=== PATIENT | male | born 1955 | race Caucasian/White ===

== ENCOUNTER 2018-11-05 13:02 | Inpatient (IN) | payer MEDICARE ==
[~2018-11-05] VITALS: Ht 182.9 cm; Wt 83.6 kg
--- NOTE | ~2018-11-05 | HEMODYNAMI ---
PATIENT:BOB REYES MEDICAL RECORD: [id number] : 53 [id number] ADMISSION DATE: 11/05/18 Generatedon:11/15/201815:35 Patient name: BOB REYES Patient #: [id number] SSN: : 1955 Date of study: 11/15/2018 Page: Of Hemodynamic Procedure Report Patient Data Patient Demographics Procedure consent was obtained First Name: BOB Gender: Male Last Name: ERIC : 1955 Middle Initial: GISEL Age: 63 year(s) Patient #: [id number] Race: Unknown Additional ID: [id number] Contact details Address: [address] [place] [address] State: [place] City: [place] Zip code: [address] Admission Admission Data Admission Date: 11/05/2018 Admission Time: 13:02 Room #: [facility] Height (in.): 72 BSA: 2.06 (m2) Height (cm.): 182.88 BMI: 24.95 (kg/m2) Weight (lbs.): 184 Weight (kg.): 83.46 Procedure Procedure Types Cath Procedure Peripheral Cath Diagnostic Procedure Rn Otolaryngology Peripheral Procedures Abd/Extremity Extremities Left Lower Ext Arterio Procedure Description Procedure Date Procedure Date: 11/15/2018 Procedure Start Time: 14:15 Procedure Staff Name Function Bob Mattson MD Performing Physician Judi Fairbanks RT Central Office Installer Rosalee Cortez RN Nurse Bryn Benjamin RT Scrub Procedure Data Cath Procedure Fluoroscopy Diagnostic fluoroscopy Total fluoroscopy Time: 17 time: 17 min min Diagnostic fluoroscopy Total fluoroscopy dose: dose: 1596 mGy 1596 mGy Contrast Material Contrast Material Type Amount (ml) Isovue 300 55 Entry Location Entry Primary Successful Side Size Upsize Upsize Entry Closure Succes sful Closure Location (Fr) 1 (Fr) 2 (Fr) Remarks Device Remarks Femoral Exoseal artery Diagnostic catheters Device Type Used For End Catheter Placement DIAGNOSTIC IMT 5Fr Catheter ([id number]) Procedure Medications Medication Administration Route Dosage Heparin Flush Bag added to field 3 bags (1000units/500ml NS) Lidocaine 1% added to field 20 Heparin Bolus I.V. 4000 units Nitroglycerin IC/IA I.A. 200 mcg Hemodynamics Rest BSA: 2.06 (m2) O2 Consumption: Estimated: 255.78 (ml/min) O2 Consumption indexed : Estimated:124.17 (ml/min/m) Heart Rate: 90 (bpm) Snapshots Pre Cath Intra NCS Post Cath Vital Signs Time Heart Resp SPO2 etCO2 NIBP Rhythm Pain Sedation Rate (ipm) (%) (mmHg) (mmHg) Status Level (bpm) 14:09:51 96 17 98 22.5 102/68(83) NSR 0 (11) 10(A) , No pain 14:13:59 87 17 98 27 104/66(85) NSR 0 (11) 10(A) , No pain 14:18:05 87 12 98 27 109/68(87) NSR 0 (11) 10(A) , No pain 14:22:19 86 21 97 26.3 100/61(79) NSR 0 (11) 10(A) , No pain 14:26:19 86 17 97 21.8 105/76(84) NSR 0 (11) 10(A) , No pain 14:30:27 86 22 97 29.3 102/66(82) NSR 0 (11) 10(A) , No pain 14:34:37 85 21 96 21.8 95/63(79) NSR 0 (11) 10(A) , No pain 14:38:42 84 21 97 24.8 98/65(82) NSR 0 (11) 10(A) , No pain 14:42:50 88 21 97 21 100/62(75) NSR 0 (11) 10(A) , No pain 14:47:00 83 21 96 16.5 94/61(77) NSR 0 (11) 10(A) , No pain 14:51:08 83 22 96 20.3 95/62(78) NSR 0 (11) 10(A) , No pain 14:55:17 82 22 96 15.7 96/59(73) NSR 0 (11) 10(A) , No pain 14:59:27 83 23 96 18.8 96/61(78) NSR 0 (11) 10(A) , No pain 15:03:39 82 24 93 23.3 92/59(70) NSR 0 (11) 10(A) , No pain 15:07:49 82 24 86 24 94/59(72) NSR 0 (11) 10(A) , No pain 15:11:57 81 24 94 14.3 97/62(81) NSR 0 (11) 10(A) , No pain 15:16:07 81 25 95 5.2 99/60(78) NSR 0 (11) 10(A) , No pain 15:20:17 80 23 94 7.5 97/62(76) NSR 0 (11) 10(A) , No pain 15:24:25 79 25 94 9.7 96/60(80) NSR 0 (11) 10(A) , No pain 15:28:28 80 23 96 10.5 102/69(82) NSR 0 (11) 10(A) , No pain 15:32:36 81 24 96 22.5 103/70(83) NSR 0 (11) 10(A) , No pain Medications Time Medication Route Dose Verified Delivered Reason Notes Eff ectiveness by by 14:09:05 Heparin Flush added 3 bags Bob Diaz used for Bag to Twila Mattson procedure (1000units/500ml field MD DELACRUZ NS) 14:09:16 Lidocaine 1% added 20ml Bob Diaz for local to vial Twila Mattson anesthetic field MD DELACRUZ 14:33:28 Heparin Bolus I.V. 4000 Bob Turk Per units Twila Cortez RN physician 14:54:47 Nitroglycerin I.A. 200mcg Bob Turk used for IC/IA Twila Cortez RN procedure MD Procedure Log Time Note 13:33:35 Patient Height : 72 inches 13:33:35 Patient Weight : 184 lbs 13:34:04 Use device set IR Diagnostic 13:52:37 Time tracking: Regular hours (M-F 7:00 - 5:00) 13:57:17 Plan of Care:Hemodynamics will remain stable., Cardiac rhythm will remain stable., Comfort level will be maintained., Respiratory function will remain adequate., Patient/ family verbilizes understanding of procedure., Procedure tolerated without complication., Recovers from procedure without complications.. 13:57:23 Patient received from Med/Surg to IR Alert and oriented. Tansferred to table in Supine position. 13:57:26 Warm blankets applied, and gustavo hugger turned on for patient comfort. 13:57:27 Correct patient and procedure confirmed by team. 13:57:29 Signed procedure consent form obtained from patient. 13:57:34 H&P Date Dictated: 11/15/2018 Within 30 days and on chart.. 13:58:51 Pre-procedure instructions explained to patient. 13:58:52 Pre-op teaching completed and patient verbalized understanding. 13:58:55 Family unavailable. 13:59:00 Patient NPO since Midnight. 13:59:25 Is the patient allergic to Iodine/contrast media? No. 13:59:29 Is patient on blood thinner?Yes 13:59:33 Patient diabetic? Yes. 13:59:54 - 13:59:56 ----Pre-sedation anethsthesia assessment.----SEE ANESTHESIA NOTES FOR MONITORING OF PATIENT DURING PROCEDURE 14:00:47 Pre procedure: right dorsailis pedis pulse Doppler 14:00:52 Pre procedure: left dorsailis pedis pulse Doppler 14:00:56 Pre procedure: right posterior tibial pulse Doppler 14:01:02 Pre procedure: left posterior tibial pulse Doppler 14:01:17 Right groin area was prepped with chlora-prep and draped in sterile fashion 14:01:22 Left groin area was prepped with chlora-prep and draped in sterile fashion 14:01:27 - 14:08:46 ECG and BP/O2 sat monitors applied to patient. 14:08:47 Vital chart was started 14:08:49 Baseline sample Acquired. 14:08:51 Full Disclosure recording started 14:08:52 - 14:09:05 Heparin Flush Bag (1000units/500ml NS) 3 bags added to field was administered by Bob Mattson MD; used for procedure; 14:09:06 - 14:09:16 Lidocaine 1% 20ml vial added to field was administered by Bob ashford MD; for local anesthetic; 14:09:44 HOLCOMB 260 wire (U65990) opened to sterile field. 14:09:47 A DIAGNOSTIC IMT 5Fr Catheter ([id number]) was advanced over the wire an d used for . 14:09:49 BENTSON 145cm wire (C20025) opened to sterile field. 14:09:49 Micropuncture VSI 4FR kit opened to sterile field. 14:09:50 Tegaderm 4 x 4 (1626W) opened to sterile field. 14:09:51 Sterile Angiographic Pack opened to sterile field. 14:09:52 Bag Decanter () opened to sterile field. 14:09:53 ACIST Manifold (36744) opened to sterile field. 14:09:54 ACIST Hand Control (88706) opened to sterile field. 14:09:54 ACIST Syringe (90435) opened to sterile field. 14:12:19 SHEATH 5FR [place] (HBM563) opened to sterile field. 14:12:22 - 14:14:02 Physician arrived 14:14:04 --------ALL STOP TIME OUT------ 14:14:05 Final Timeout: patient, procedure, and site verified with staff and physician. All members of the team are in agreement. 14:15:18 Procedure started. 14:15:23 Local anesthetic to right femoral artery with Lidocaine 1% by Bob Mattson MD.INITIAL ACCESS ONLY 14:15:29 Arterial access obtained using ultrasound guidance. 14:32:54 CXI SUPPORT .035 135 CM STR catheter (L60255) opened to sterile field. 14:32:54 SHEATH 6FR [place] (RSR01) opened to sterile field. 14:32:55 ROADRUNNER .035 260 glide wire (V74508) opened to sterile field. 14:33:28 Heparin Bolus 4000 units I.V. was administered by Rosalee Cortez RN; Per physician; 14:44:15 CHOICE PT Extra Support J 300cm guide wire ([id number]) opened to steril e field. 14:44:58 [place] LX-C Atherectomy catheter (THSLXC) opened to sterile field. 14:45:38 Inflate balloon Inflation number: 1 A Waelder Plus 4 x 8 x 130 Balloon ([id number]) was prepped and advanced across the Undefined1, then inflated . 14:54:47 Nitroglycerin IC/IA 200mcg I.A. was administered by Rosalee Cortez RN; used for procedure; 15:10:36 [place] LX-C Atherectomy catheter (THSLXC) opened to sterile field. 15:17:58 Inflate balloon Inflation number: 2 A CONQUEST 7 x 4 x 75CM balloon (IT4568) was prepped and advanced across the Undefined1, then inflated. 15:23:53 EXOSEAL 6Fr (EX600) opened to sterile field. 15:25:23 SHEATH 6FR [place] (VUI338) opened to sterile field. 15:28:24 A sheath was inserted into the Femoral artery 15:28:24 Sheath removed intact; hemostasis achieved with Exoseal to the Femoral artery. 15:29:21 Procedure ended.(Physican Out) 15:29:32 Fluoroscopy time 17.00 minutes. 15:29:48 Fluoroscopy dose: 1596 mGy 15:29:48 Flurop Dose total: 1596 15:30:36 Contrast amount:Isovue 300 55ml. 15:30:39 Procedure and supply charges have been captured, reviewed, submitted an d are correct. 15:34:42 Report given to Med II. 15:35:14 Vital chart was stopped Intervention Summary Intervention Notes Time ActionType Lesion and Equipment Used Action# Pressure Duration Attributes 14:45:38 Inflate Undefined1 Waelder Plus 4 1 0 00:00 balloon x 8 x 130 Balloon ([id number]) 15:17:58 Inflate Undefined1 CONQUEST 7 x 4 2 0 00:00 balloon x 75CM balloon (TC7622) Device Usage Item Name Manufacture Quantity Catalog Number [facility] Part [facility] Lot# / Charge Number Stock Stock Serial# Code HOLCOMB 260 wire Cook Medical 1 [id number] 691756 43411 056506 5 [id number] ([id number]) DIAGNOSTIC IMT [place] 1 [id number] 386849 620708 48282 5 [id number] 5Fr Catheter Scientific ([id number]) BENTSON 145cm [employer] Medical 1 V38507 504243 704510 5 [id number] wire (L70897) Micropuncture VSI VASCULAR 1 7266V 551591 993736 5 VSI 4FR kit SOLUTIONS Tegaderm 4 x 4 3M 1 1626W 027005 325171 668209 5 (1626W) Sterile Cardinal 1 [id number] 733984 953473 5 Angiographic Health Pack Bag Decanter Microtek 1 404307 98477 255719 5 () Medical Inc. ACIST Manifold Acist 1 44183 247408 135305 851429 5 (31164) Medical Systems Inc ACIST Hand Acist 1 04263 969769 041606 356161 5 Control Medical (99308) Systems Inc ACIST Syringe Acist 1 70113 462464 791142 123439 20 (76690) Medical Systems Inc SHEATH 5FR Terumo 1 FOA311 085947 944148 783742 5 [place] (MPC722) CXI SUPPORT Vertigo 1 P67166 638954 037076 664547 5 9000559 .035 135 CM STR catheter (E78667) SHEATH 6FR Terumo 1 RSR01 481744 20735 400490 5 Destination (RSR01) [facility] 1 S39026 893627 845720 329350 5 5730950 .035 260 glide wire (Q41964) CHOICE PT [place] 1 [id number] 05004320190325 091754 5 Extra Support Scientific J 300cm guide wire ([id number]) [place] LX-C Medtronic 1 THS-LX-C 865827 808795 5 Atherectomy catheter (THSLXC) Waelder Plus 4 Medtronic 1 [id number] 228661 619932 335597 5 [id number] x 8 x 130 Balloon ([id number]) CONQUEST 7 x 4 Bard 1 VB2774 868110 133632 5 [id number] x 75CM balloon (RV6528) EXOSEAL 6Fr Cardinal 1 EX600 054100 928851 111792 10 [id number] (EX600) Health SHEATH 6FR Terumo 1 WII117 174227 348187 430107 40 [place] (XRS720) Signature Audit [place] Stage Time Signature Unsigned Intra-Procedure 11/15/2018 Judi Fairbanks 3:35:10 PM RT(R) [address] [place] [address]
--- NOTE | ~2018-11-05 | HEMODYNAMI ---
PATIENT:BOB REYES MEDICAL RECORD: [id number] : 53 [address] [id number] ADMISSION DATE: 11/05/18 Generatedon:11/14/201812:11 Patient name: BOB REYES Patient #: [id number] SSN: : 1955 Date of study: 11/14/2018 Page: Of Hemodynamic Procedure Report Patient Data Patient Demographics Procedure consent was obtained First Name: BOB Gender: Male Last Name: ERIC : 1955 Middle Initial: EDAUGUSTA Age: 63 year(s) Patient #: [id number] Race: Unknown Additional ID: [id number] Contact details Address: [address] [place] [address] State: [place] City: [place] Zip code: [address] Admission Admission Data Admission Date: 11/05/2018 Admission Time: 13:02 Room #: [facility] Height (in.): 72 BSA: 2.06 (m2) Height (cm.): 182.88 BMI: 24.95 (kg/m2) Weight (lbs.): 184 Weight (kg.): 83.46 Procedure Procedure Types Cath Procedure Peripheral Cath Diagnostic Procedure Ticket Printer Peripheral Procedures Abd/Extremity Extremities Bilat Lower Extremity Procedure Description Procedure Date Procedure Date: 11/14/2018 Procedure Start Time: 11:27 Procedure Staff Name Function Dominic Lewis MD Performing Physician Judi Fairbanks RT Fire Watchman Rosalee Cortez RN Nurse Bryn Benjamin RT Scrub Procedure Data Cath Procedure Fluoroscopy Diagnostic fluoroscopy Total fluoroscopy Time: 7.7 time: 7.7 min min Diagnostic fluoroscopy Total fluoroscopy dose: 638 dose: 638 mGy mGy Contrast Material Contrast Material Type Amount (ml) Isovue 300 70 Procedure Medications Medication Administration Route Dosage Heparin Flush Bag added to field 3 bags (1000units/500ml NS) Lidocaine 1% added to field 20 Versed I.V. 2 mg Fentanyl I.V. 100 mcg Versed I.V. 1 mg Fentanyl I.V. 50 mcg Versed I.V. 1 mg Fentanyl I.V. 50 mcg Versed I.V. 1 mg Fentanyl I.V. 50 mcg Hemodynamics Rest BSA: 2.06 (m2) O2 Consumption: Estimated: 249.94 (ml/min) O2 Consumption indexed : Estimated:121.33 (ml/min/m) Heart Rate: 82 (bpm) Snapshots Pre Cath Intra NCS Post Cath Vital Signs Time Heart Resp SPO2 etCO2 NIBP Rhythm Pain Sedation Rate (ipm) (%) (mmHg) (mmHg) Status Level (bpm) 11:03:52 82 17 99 28.6 113/59(98) NSR 0 (11) 10(A) , No pain 11:08:33 82 14 97 20.3 112/64(88) NSR 0 (11) 10(A) , No pain 11:12:35 81 11 98 20.3 101/63(85) NSR 0 (11) 10(A) , No pain 11:16:30 81 17 100 18.8 103/69(84) NSR 0 (11) 10(A) , No pain 11:21:11 82 14 98 30.9 117/52(82) NSR 0 (11) 9(A) , No pain 11:25:13 82 9 98 21.8 108/66(84) NSR 0 (11) 9(A) , No pain 11:29:10 82 13 99 15 110/75(89) NSR 0 (11) 9(A) , No pain 11:33:08 82 11 96 33.9 101/73(86) NSR 0 (11) 8(A) , No pain 11:37:03 83 14 98 33.9 106/68(86) NSR 0 (11) 8(A) , No pain 11:41:00 82 13 95 39.9 109/73(86) NSR 0 (11) 8(A) , No pain 11:45:00 82 11 96 30.2 109/66(86) NSR 0 (11) 8(A) , No pain 11:49:00 82 8 94 32.4 109/63(86) NSR 0 (11) 8(A) , No pain 11:52:57 83 17 95 41.5 101/69(83) NSR 0 (11) 8(A) , No pain 11:56:51 86 11 98 34 101/72(87) NSR 0 (11) 8(A) , No pain 12:00:46 88 14 28.7 110/68(87) NSR 0 (11) 8(A) , No pain 12:04:44 91 14 98 47.6 100/67(90) NSR 0 (11) 8(A) , No pain 12:09:04 91 12 42.2 111/75(86) NSR 0 (11) 8(A) , No pain Medications Time Medication Route Dose Verified Delivered Reason Notes Effe ctiveness by by 11:32:33 Heparin Flush added 3 M J Long M J Long used for Bag to bags MD DELACRUZ procedure (1000units/500ml field NS) 11:32:43 Lidocaine 1% added 20ml M J Long M J Long for local to vial MD DELACRUZ anesthetic field 11:32:53 Versed I.V. 2 mg M J Long Rosalee for MD Cortez RN sedation 11:33:03 Fentanyl I.V. 100 M J Long Rosalee for mcg MD Cortez RN sedation 11:40:20 Versed I.V. 1 mg M J Long Rosalee for MD Cortez RN sedation 11:40:27 Fentanyl I.V. 50 M J Long Rosalee for dave Cortez RN sedation 11:44:31 Versed I.V. 1 mg M J Long Rosalee for MD Cortez RN sedation 11:44:53 Fentanyl I.V. 50 M J Long Rosalee for dave Cortez RN sedation 11:50:17 Versed I.V. 1 mg M J Long Rosalee for MD Cortez RN sedation 11:50:44 Fentanyl I.V. 50 M J Long Rosalee for dave Cortez RN sedation Procedure Log Time Note 10:41:07 Patient Height : 72 inches 10:41:13 Patient Weight : 184 lbs 10:41:19 Use device set IR Diagnostic 10:41:21 Tegaderm 4 x 4 (1626W) opened to sterile field. 10:41:22 Sterile Angiographic Pack opened to sterile field. 10:41:25 Bag Decanter (2001S) opened to sterile field. 10:41:26 ACIST Manifold (10967) opened to sterile field. 10:41:27 ACIST Hand Control (59743) opened to sterile field. 10:41:28 ACIST Syringe (59418) opened to sterile field. 10:42:16 DOC .035 wire (E32877) opened to sterile field. 10:42:17 HOLCOMB 260 wire (Y58905) opened to sterile field. 10:42:18 Micropuncture VSI 4FR kit opened to sterile field. 10:42:18 SHEATH 5FR [place] (JNY973) opened to sterile field. 10:42:19 TUBING Contrast Injection High Pressure (BEC747K) opened to sterile field. 10:42:22 SHEATH 6FR [place] (RSR01) opened to sterile field. 10:43:20 - 10:47:49 Time tracking: Regular hours (M-F 7:00 - 5:00) 10:47:58 Plan of Care:Hemodynamics will remain stable., Cardiac rhythm will remain stable., Comfort level will be maintained., Respiratory function will remain adequate., Patient/ family verbilizes understanding of procedure., Procedure tolerated without complication., Recovers from procedure without complications.. 10:48:09 Patient received from Next Jump II to IR Alert and oriented. Tansferred to table in Supine position. 10:48:13 Signed procedure consent form obtained from patient. 10:48:19 H&P Date Dictated: 11/14/2018 Within 30 days and on chart.. 10:48:21 Pre-procedure instructions explained to patient. 10:48:22 Pre-op teaching completed and patient verbalized understanding. 10:48:25 Family in waiting room. 10:48:27 Patient NPO since Midnight. 10:48:45 - 10:48:51 Is the patient allergic to Iodine/contrast media? No. 10:48:54 Is patient on blood thinner?No 10:48:56 Patient diabetic? Yes. 10:48:58 If diabetic: On Metformin? No 10:49:01 - 10:49:14 ----Pre-sedation anethsthesia assessment.---- 10:49:17 Previous problem with sedation/anesthesia? No ? 10:49:20 Snore? Yes 10:49:22 Sleep apnea? No 10:49:27 Deviated septum? No 10:49:31 Opens mouth fully? Yes 10:49:34 Sticks out tongue? Yes 10:49:37 Airway obstruction? No ? 10:49:41 Dentures? No ? 10:49:44 - 10:49:58 IV patent on arrival in right wrist with D5/.45%NaCl at KVO. 10:50:14 Right groin area was prepped with chlora-prep and draped in sterile fashion 10:50:17 - 11:02:51 ECG and BP/O2 sat monitors applied to patient. 11:02:53 Vital chart was started 11:02:55 Baseline sample Acquired. 11:02:57 Full Disclosure recording started 11:02:58 - 11:03:19 Angiodynamics Omniflush 5Fr 65cm (37953762) opened to sterile field. 11:03:39 - 11:05:05 Pre procedure: right dorsailis pedis pulse Doppler 11:05:09 Pre procedure: right posterior tibial pulse Doppler 11:23:11 TORQUE DEVICE PLASTIC .038 ( TD01) opened to sterile field. 11:23:40 GLIDE WIRE ANGLE 260cm (XI7422) opened to sterile field. 11:26:34 Physician arrived 11:26:35 --------ALL STOP TIME OUT------ 11:26:36 Final Timeout: patient, procedure, and site verified with staff and physician. All members of the team are in agreement. 11:27:03 Procedure started. 11:27:13 Local anesthetic to right femoral artery with Lidocaine 1% by Dominic Lewis MD.INITIAL ACCESS ONLY 11:32:33 Heparin Flush Bag (1000units/500ml NS) 3 bags added to field was administered by Dominic Lewis MD; used for procedure; 11:32:43 Lidocaine 1% 20ml vial added to field was administered by Dominic Lewis MD; for local anesthetic; 11:32:53 Versed 2 mg I.V. was administered by Rosalee Cortez RN; for sedation; 11:33:03 Fentanyl 100 mcg I.V. was administered by Rosalee Cortez RN; for sedation; 11:37:49 GLIDE CATHETER 5FR COBRA 65cm (CG502) opened to sterile field. 11:37:56 CXI SUPPORT .035 135 CM STR catheter (U47994) opened to sterile field. 11:40:20 Versed 1 mg I.V. was administered by Rosalee Cortez RN; for sedation; 11:40:27 Fentanyl 50 mcg I.V. was administered by Rosalee Cortez RN; for sedation ; 11:44:31 Versed 1 mg I.V. was administered by Rosalee Cortez RN; for sedation; 11:44:53 Fentanyl 50 mcg I.V. was administered by Rosalee Cortez RN; for sedation ; 11:50:17 Versed 1 mg I.V. was administered by Rosalee Cortez RN; for sedation; 11:50:44 Fentanyl 50 mcg I.V. was administered by Rosalee Cortez RN; for sedation ; 11:52:40 CHOICE PT Extra Support J 300cm guide wire (3592493Q0) opened to steril e field. 11:55:56 ROADRUNNER .035 260 glide wire (K89842) opened to sterile field. 12:03:27 Procedure ended.(Physican Out) 12:03:48 Fluoroscopy time 07.70 minutes. 12:03:54 Fluoroscopy dose: 638 mGy 12:03:54 Flurop Dose total: 638 12:04:00 Contrast amount:Isovue 300 70ml. 12:04:02 Procedure and supply charges have been captured, reviewed, submitted an d are correct. 12:11:30 Vital chart was stopped Device Usage Item Name Manufacture Quantity Catalog Number Hospital Part [facility] Lot# / Charge Number Stock Stock Serial# Code Tegaderm 4 x 3M 1 1626W [id number] 726670 934890 5 4 (1626W) Sterile Cardinal 1 [id number] 541512 711405 5 Angiographic Health Pack Bag Decanter Microtek 1 881515 36958 948680 5 () Medical Inc. ACIST Acist Medical 1 78764 123405 247784 411704 5 Manifold Systems Inc (32671) ACIST Hand Acist Medical 1 92195 415362 067117 750207 5 Control Systems Inc (79585) ACIST Syringe Acist Medical 1 68092 625886 423627 459570 20 (14504) Systems Inc DOC .035 wire Cook Medical 1 J07456 941758 887044 5 (Z25919) HOLCOMB 260 Cook Medical 1 I81775 879652 21169 005116 5 0193732 wire (J05649) Micropuncture VSI VASCULAR 1 7266V 759204 610121 5 VSI 4FR kit SOLUTIONS SHEATH 5FR Terumo 1 LHQ077 351116 103008 397780 5 [place] (DAD745) TUBING [facility] Medical 1 SLO922H 776988 716781 096853 5 Contrast Injection High Pressure (RDH059W) SHEATH 6FR Terumo 1 RSR01 468959 51180 920476 5 Destination (RSR01) Angiodynamics Angiodynamics 1 82041780 550058 283910 933978 5 Omniflush 5Fr 65cm (29660010) TORQUE DEVICE [place] 1 TD01 223012 162555 313441 5 PLASTIC .038 Scientific ( TD01) GLIDE WIRE Terumo 1 SO1572 267241 136841 056750 5 ANGLE 260cm (KA5060) GLIDE Terumo 1 CG502 082203 567072 5 CATHETER 5FR COBRA 65cm (CG502) CXI SUPPORT [facility] 1 L30163 034107 051452 542460 5 5850010 .035 135 CM STR catheter (A57038) CHOICE PT [place] 1 [id number] 017765 021894 173461 5 Extra Support Scientific J 300cm guide wire (4322533H8) [facility] M09008 314736 234309 957574 5 8387328 .035 260 glide wire (L58113) Signature Audit [place] Stage Time Signature Unsigned Intra-Procedure 11/14/2018 Judi Fairbanks 12:11:26 PM RT(R) [facility] [address] [place] [address]
[~2018-11-05 13:02] MED LIST: CARDIZEM CD180 MG PO; GLIPIZIDE10 MG PO; MULTIPLE VITAMI1 TA1 PO; NOVOLIN N100 U/ML SQ; SODIUM BICARBO650 MG NG; TUMS500 MG PO; ZYLOPRIM100 MG PO
--- NOTE | 2018-11-05 13:30 | NUR ---
PT RECIEVED TO FLOOR ACCOMPANIED BY HOSPITAL STAFF AND SON. AAO X4 TO PERSON, PLACE, TIME, AND SITUATION. VITALS STABLE- ON RA. NO CONCERNS AT THIS TIME.
[2018-11-05] MEDS ORDERED: LASIX40 MG PO (14:47)
[2018-11-05] MEDS ORDERED: HYDROCODON-ACE1 EA10 PO (14:49)
[2018-11-05 15:19] LABS: BASOPHILS 0.2 % (0-2); EOSINOPHILS 0.5 % (0-7); HEMATOCRIT 26.1 % (42.0-54.0); HEMOGLOBIN 8.7 g/dL (13.5-17.5); IMMATURE GRANULOCYTES 0.8 % (0-5); LYMPHOCYTES 5.8 % (15-50); MCH 29.5 pg (26.0-34.0); MCHC 33.3 g/dL (31.0-37.0); MCV 88.5 fL (80.0-100.0); MEAN PLATELET VOLUME 11.4 fL (7.4-10.4); NEUTROPHILS 87.7 % (40-80); RBC 2.95 10x6/uL (4.20-6.10); RDW 17.6 % (11.5-14.5); WBC 11.8 10x3/uL (4.8-10.8)
[2018-11-05 15:25] LABS: PLATELET COUNT 120 10x3/uL (130-400)
[2018-11-05 15:26] VITALS: BP 104/62; BMI 29.6
[2018-11-05 15:39] LABS: ALBUMIN 3.2 g/dL (3.4-5.0); ANION GAP 26.3 mmol/L (8-16); BILIRUBIN - TOTAL 0.38 mg/dL (0.2-1.3); CALCIUM 9.4 mg/dL (8.5-10.1); CARBON DIOXIDE 18.7 mmol/L (21.0-32.0); CREATININE - SERUM 6.8 mg/dL (0.6-1.3); PROTEIN - SERUM 6.7 g/dL (6.4-8.2)
[2018-11-05 16:40] VITALS: BP 104/62
--- NOTE | 2018-11-05 20:05 | NUR ---
RESUMING CARE, PT SITTING ON SIDE OF THE BED A&O RT FA SL AND RT AVF NOT IN USE AT THIS AT TIME 3RD DEGREE BURN TO LFT FOOT DRSG IN PLACE C/D/I PT C/O FOOT PAIN ADVISED PT I WOULD REVIEW HIS CHART TO SEE IF HE HAD ANYTHING FOR PAIN , NO OTHER COMPLAINTS AT THIS TIME CL IN REACH WILL CONT TO MONITOR
[2018-11-05 21:14] VITALS: BP 108/68
[2018-11-06] VITALS: BP 106/69
--- NOTE | 2018-11-06 04:07 | NUR ---
RN NOTE: PATIENT RESTING COMFORTABLY IN BED. RESPIRATIONS ARE EVEN AND UNLABORED. NO S/S OF DISTRESS. CALL LIGHT WITHIN REACH. WILL CPOC.
[2018-11-06 05:20] VITALS: BP 109/76
[2018-11-06 07:07] LABS: BASOPHILS 0.1 % (0-2); EOSINOPHILS 0.9 % (0-7); HEMATOCRIT 24.9 % (42.0-54.0); HEMOGLOBIN 8.4 g/dL (13.5-17.5); IMMATURE GRANULOCYTES 0.4 % (0-5); LYMPHOCYTES 9.7 % (15-50); MCH 29.4 pg (26.0-34.0); MCHC 33.7 g/dL (31.0-37.0); MCV 87.1 fL (80.0-100.0); MONOCYTES 3.4 % (2-11); NEUTROPHILS 85.5 % (40-80); PLATELET COUNT 103 10x3/uL (130-400); RBC 2.86 10x6/uL (4.20-6.10); RDW 17.6 % (11.5-14.5); WBC 12.6 10x3/uL (4.8-10.8)
[2018-11-06 07:18] LABS: ANION GAP 29.5 mmol/L (8-16); CALCIUM 9.5 mg/dL (8.5-10.1); CARBON DIOXIDE 16.3 mmol/L (21.0-32.0); CREATININE - SERUM 6.9 mg/dL (0.6-1.3); POTASSIUM - SERUM 3.8 mmol/L (3.5-5.1)
--- NOTE | 2018-11-06 07:32 | NUR ---
REPORT RECEIVED. WILL CONTINUE WITH POC. PT CURRENTLY LYING SUPINE. CALL LIGHT W/I REACH. PT IS AAO AND BEDFAST. RR EVEN AND UNLABORED ON RA. R.FOR PIV IS SALINE LOCKED. PT DENIES ANY NEEDS AT THIS TIME. WILL CTM.
--- NOTE | 2018-11-06 08:44 | NUR ---
NO NEEDS VOICED AT THIS TIME. SITTING UP SOB WITH CALL LIGHT IN REACH. WILL MONITOR.
[2018-11-06 09:24] LABS: % SATURATION 9 % (15-55); IRON 20 ug/dl (35-150); TOTAL IRON BIND CAPACITY 218 ug/dl (260-445); UNSAT IRON BIND CAPACITY 198 ug/dl (150-375)
[2018-11-06 11:03] VITALS: BP 117/69
[2018-11-06 12:37] VITALS: Ht 182.9 cm; Wt 83.6 kg
[2018-11-06 14:19] LABS: HEPATITIS C ANTIBODY 0.1 S/CO RAT (0.0-0.9)
--- NOTE | 2018-11-06 15:06 | NUR ---
NOTIFIED EBONY WITH WOUND CARE OF THE CONSULT WHO REQUESTED TO ORDER SYLVADENE. ORDERED AND RECEIVED MEDICATION. WRAPPED RIGHT FOOT WITH PEROLEUM GAUZE AND KERLEX SO THAT PT COULD PT TAKEN TO DIALYSIS. EBONY STATED SHE WOULD SEE THE PT THIS EVENING. WILL CTM. PT TAKEN TO DIALYSIS.
--- NOTE | 2018-11-06 17:30 | MORECARE ---
CASE MANAGEMENT DISCHARGE SUMMARY PATIENT: BOB REYES UNIT: [id number] ADM DATE: 11/05/18 AGE: 62 : 54 SEX: M ROOM/BED: D.2113 AUTHOR: MONTEZ HUNTER PHYSICIAN: REFERRING PHYSICIAN: CHARU CRAIG MD DATE OF SERVICE: 11/06/18 Discharge Plan Patient Name: BOB REYES Facility: [facility]:[place] : 1955 Planned Disposition: Home with Home Health Anticipated Discharge Date: 11/06/18 Discharge Date: Expected LOS: 1 Initial Reviewer: [email or web address] Initial Review Date: 11/06/2018 Generated: 11/06/18 6:30 pm Patient Name: BOB REYES Page [phone] at 1730 All edits/amendments must be made on the electronic document DICTATION DATE: 11/06/181728 LUBE MAN: JEANNETTE 11/06/181728 RPT#: [id number] DC DATE: STATUS: ADM IN [facility] [address] [place] [address] END OF REPORT
--- NOTE | 2018-11-06 17:33 | NUR ---
PT RETURNED FROM DIALYSIS. PT CURRENTLY SITTING ON EDGE OF BED. CALL LIGHT W/I REACH. PT CURRENTLY EATING DINNER. PT IS AAO AND UP WITH ASSIST. RR EVEN AND UNLABORED ON RA. R.FOR IS SALINE LOCKED. PT DENIES ANY NEEDS AT THIS TIME. WILL PASS REPORT AND CONTINUE WITH POC.
--- NOTE | 2018-11-06 17:37 | MORECARE ---
CASE MANAGEMENT DISCHARGE SUMMARY PATIENT: BOB REYES UNIT: [id number] ADM DATE: 11/05/18 AGE: 62 : 54 SEX: M ROOM/BED: D.2113 AUTHOR: MONTEZ HUNTER PHYSICIAN: REFERRING PHYSICIAN: CHARU CRAIG MD DATE OF SERVICE: 11/06/18 Discharge Plan Patient Name: BOB REYES Facility: [facility]:[place] : 1955 Planned Disposition: Home with Home Health Anticipated Discharge Date: 11/06/18 Discharge Date: Expected LOS: 1 Initial Reviewer: [email or web address] Initial Review Date: 11/06/2018 Generated: 11/06/18 6:36 pm DCPIA - Discharge Planning Initial Assessment Updated by [email or web address]: Suhas Fong on 11/06/18 5:32 pm * Is the patient Alert and Oriented? Yes * How many steps to enter\exit or inside your home? 6-O / 2-I * PCP DR. GONZALO CORNEJO IN [place], [place]. * Pharmacy [facility] IN [place] * Preadmission Environment Home with Family * ADLs Independent * Equipment Cane Shower Chair Walker * Other Equipment NO MEDICAL EQUIPMENT PROVIDER PREFERENCE * List name and contact numbers for known caregivers / representatives who currently or will assist patient after discharge: BOB REYES, SON, * Verbal permission to speak to the caregivers and representatives has been obtained from the patient. N/A * Community resources currently utilized Home Health * Please name any agencies selected above. [facility] - PHYSICAL THERAPY AND WOUND CARE * Additional services required to return to the preadmission environment? No * Can the patient safely return to the preadmission environment? Yes * Has this patient been hospitalized within the prior 30 days at any hospital? No Last DP export: 11/06/18 4:30 p Patient Name: BOB REYES Page [phone] at 1733 All edits/amendments must be made on the electronic document DICTATION DATE: 11/06/181735 STEAM TRAIN DRIVER: JEANNETTE 11/06/181735 RPT#: [id number] DC DATE: STATUS: ADM IN [facility] [address] [place] [address] END OF REPORT
--- NOTE | 2018-11-06 17:45 | MORECARE ---
CASE MANAGEMENT DISCHARGE SUMMARY PATIENT: BOB REYES UNIT: [id number] ADM DATE: 11/05/18 AGE: 62 : 54 SEX: M ROOM/BED: D.2113 AUTHOR: MONTEZ HUNTER PHYSICIAN: REFERRING PHYSICIAN: CHARU CRAIG MD DATE OF SERVICE: 11/06/18 Discharge Plan Patient Name: BOB REYES Facility: [facility]:[place] : 1955 Planned Disposition: Home with Home Health Anticipated Discharge Date: 11/06/18 Discharge Date: Expected LOS: 1 Initial Reviewer: [email or web address] Initial Review Date: 11/06/2018 Generated: 11/06/18 6:44 pm Comments DCP- Discharge Planning Updated by [id number]: Suhas Fong on 11/06/18 4:[address] Patient Name: BOB REYES Admission Status: Elective Accout number: [id number] Admission Date: 11-05-2018 : 1955 Admission Diagnosis: Attending: CHARU CRAIG Current LOS: 1 Anticipated DC Date: 11-06-2018 Planned Disposition: Home with Home Health Primary Insurance: MEDICARE A & B PLANNED EXTERNAL PROVIDER: [facility] Discharge Planning Comments: CM RECEIVED ORDER FOR NEW DIALYSIS CLINIC ARRANGEMENT, [facility] COORDINATOR SUKH CROSS WORKING ON THIS ARRANGEMENT. CM MET WITH PT IN ROOM TO DISCUSS DISCHARGE PLANNING AND NEEDS. PT REPORTS LIVING AT HOME INDEPENDENTLY WITH HIS ADULT DAUGHTER AND SON IN LAW. PT HAS CANE, SHOWER CHAIR AND STANDARD WALKER WITH NO MEDICAL EQUIPMENT PROVIDER PREFERENCE. PT HAS NO OTHER OUTSIDE SERVICES ASSISTING IN THE HOME. CM DISCUSSED AVAILABILITY OF HOME HEALTH, REHAB SERVICES AND MEDICAL EQUIPMENT. PT REPORTS IF ABLE, HE WILL RETURN HOME WITH HOME HEALTH BUT DOES NOT KNOW AT THIS TIME IF HE WILL REQUIRE SOME SORT OF REHAB, IF HE IS EVEN ABLE, BEFORE GOING HOME; PT REPORTS HIS FAMILY WILL PICK HIM UP FOR DISCHARGE HOME. CM SPOKE TO NAILA COCHRAN REGARDING LACK OF PHYSICAL THERAPY ORDER, NAILA ADVISED WE WILL WAIT UNTIL RECOMMENDATIONS FROM WOUND CARE EVALUATION. PT REPORTS HE MAY NEED REHAB PRIOR TO GOING HOME OR MAY RETURN HOME WITH [facility] RESUMPTION. CM WAITING ON WOUND CARE EVALUATION AND PHYSICAL THERAPY EVALUATION ORDER TO DETERMINE THERAPY NEEDS IF ANY. Body Trimmer Upholsterer: Suhas Fong DCPIA - Discharge Planning Initial Assessment Updated by [id number]: Suhas Fong on 11/06/18 5:32 pm * Is the patient Alert and Oriented? Yes * How many steps to enter\exit or inside your home? 6-O / 2-I * PCP DR. GONZALO CORNEJO IN [place], [place]. * Pharmacy [facility] IN [place] * Preadmission Environment Home with Family * ADLs Independent * Equipment Cane Shower Chair Walker * Other Equipment NO MEDICAL EQUIPMENT PROVIDER PREFERENCE * List name and contact numbers for known caregivers / representatives who currently or will assist patient after discharge: BOB REYES, SON, * Verbal permission to speak to the caregivers and representatives has been obtained from the patient. N/A * Community resources currently utilized Home Health * Please name any agencies selected above. [facility] - PHYSICAL THERAPY AND WOUND CARE * Additional services required to return to the preadmission environment? No * Can the patient safely return to the preadmission environment? Yes * Has this patient been hospitalized within the prior 30 days at any hospital? No Last DP export: 11/06/18 4:37 p Patient Name: BOB REYES Page [phone] at 1745 All edits/amendments must be made on the electronic document DICTATION DATE: 11/06/181743 MILK RUNNER: JEANNETTE 11/06/181743 RPT#: [id number] [place] DATE: STATUS: ADM IN [facility] [address] [place] [address] END OF REPORT
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
[2018-11-06 20:37] VITALS: BP 98/54
[2018-11-07 03:49] VITALS: BP 101/58
[2018-11-07 05:21] LABS: BASOPHILS 0.2 % (0-2); EOSINOPHILS 1.4 % (0-7); HEMATOCRIT 22.3 % (42.0-54.0); IMMATURE GRANULOCYTES 0.5 % (0-5); LYMPHOCYTES 12.5 % (15-50); MCH 29.2 pg (26.0-34.0); MCHC 33.6 g/dL (31.0-37.0); MCV 86.8 fL (80.0-100.0); MEAN PLATELET VOLUME 10.8 fL (7.4-10.4); MONOCYTES 6.1 % (2-11); NEUTROPHILS 79.3 % (40-80); RBC 2.57 10x6/uL (4.20-6.10); RDW 17.3 % (11.5-14.5)
[2018-11-07 05:41] LABS: ALBUMIN 2.7 g/dL (3.4-5.0); ANION GAP 20.4 mmol/L (8-16); BILIRUBIN - DIRECT 0.17 mg/dL (0.00-0.30); BILIRUBIN - INDIRECT 0.22 mg/dL (0.00-1.00); BILIRUBIN - TOTAL 0.39 mg/dL (0.2-1.3); CALCIUM 8.7 mg/dL (8.5-10.1); CREATININE - SERUM 5.2 mg/dL (0.6-1.3); PHOSPHOROUS 6.1 mg/dL (2.5-4.9); POTASSIUM - SERUM 3.6 mmol/L (3.5-5.1); PROTEIN - SERUM 6.8 g/dL (6.4-8.2); VANCOMYCIN - RANDOM 7.7 ug/mL (10.0-20.0)
[2018-11-07 05:43] LABS: HEMOGLOBIN 7.5 g/dL (13.5-17.5); PLATELET COUNT 80 10x3/uL (130-400); WBC 6.6 10x3/uL (4.8-10.8)
[2018-11-07 05:46] LABS: CARBON DIOXIDE 21.2 mmol/L (21.0-32.0)
[2018-11-07 06:09] LABS: PLATELET ESTIMATE DECREASED
--- NOTE | 2018-11-07 08:30 | NUR ---
RESTING QUIETLY IN BED. SHIFT ASSESSMENT PERFORMED. DENIES PAIN AT THIS TIME, DENIES ANY OTHER NEEDS AT THIS TIME. WILL CONT TO FOLLOW PLAN OF CARE
[2018-11-07 09:15] VITALS: BP 89/54
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
--- NOTE | 2018-11-07 10:30 | NUR ---
OUTSIDE ENERGY SALES REPRESENTATIVES PRESENT IN ROOM. WOUND CARE PROVIDED TO RIGHT FOOT. NO COMPLICATIONS NOTED. PT DENIES PAIN AT THIS TIME, DENIES ANY OTHER NEEDS AT THIS TIME. CALL LIGHT WITHIN REACH. WILL CONT TO FOLLOW PLAN OF CARE
[2018-11-07 11:21] LABS: FOLATE (FOLIC ACID) - SERUM 10.6 ng/mL (>3.0)
[2018-11-07 11:33] VITALS: BP 96/55
--- NOTE | 2018-11-07 17:06 | NUR ---
PT PIV TO RIGHT FA INFILTRATED. PIV REMOVED WITH CATHETER TIP INTACT. 20G PIV RESITED TO RIGHT WRIST X1 ATTEMPT. NO COMPLICATIONS NOTED. DENIES PAIN AT THIS TIME, DENIES ANY OTHER NEEDS AT THIS TIME, WILL CONT TO FOLLOW PLAN OF CARE
--- NOTE | 2018-11-07 19:20 | NUR ---
RESUMING CARE . PT LAYING IN BED A&O BREATH SOUNDS EVEN UNLABORED , ON RA PT HAS RT WRIST IV , NO C/O PAIN OR DISTRESS AT THIS TIME CALL LIGHT IN REACH WILL CONT TO MONITOR
[2018-11-07 20:00] VITALS: BP 95/59
[2018-11-08 00:01] VITALS: BP 98/62
[2018-11-08 04:00] VITALS: BP 97/57
--- NOTE | 2018-11-08 05:22 | NUR ---
ZIGZAG TOPSTITCHER AT BEDSIDE TO OBTAIN VITALS, CALL LIGHT IN REACH. WILL CONTINUE WITH PLAN OF CARE.
[2018-11-08 05:48] LABS: ALBUMIN 2.6 g/dL (3.4-5.0); ANION GAP 20.3 mmol/L (8-16); BILIRUBIN - TOTAL 0.36 mg/dL (0.2-1.3); CALCIUM 8.7 mg/dL (8.5-10.1); CARBON DIOXIDE 19.2 mmol/L (21.0-32.0); CREATININE - SERUM 5.9 mg/dL (0.6-1.3); POTASSIUM - SERUM 3.5 mmol/L (3.5-5.1); PROTEIN - SERUM 6.6 g/dL (6.4-8.2); VANCOMYCIN - RANDOM 16.9 ug/mL (10.0-20.0)
[2018-11-08 06:02] LABS: BASOPHILS 0.2 % (0-2); EOSINOPHILS 1.2 % (0-7); HEMATOCRIT 21.6 % (42.0-54.0); IMMATURE GRANULOCYTES 0.8 % (0-5); LYMPHOCYTES 16.1 % (15-50); MCHC 33.3 g/dL (31.0-37.0); MCV 87.1 fL (80.0-100.0); MONOCYTES 7.7 % (2-11); PLATELET COUNT 78 10x3/uL (130-400); RBC 2.48 10x6/uL (4.20-6.10); RDW 17.2 % (11.5-14.5); WBC 6.5 10x3/uL (4.8-10.8)
[2018-11-08 06:05] LABS: HEMOGLOBIN 7.2 g/dL (13.5-17.5)
[2018-11-08 08:00] VITALS: BP 95/66
--- NOTE | 2018-11-08 09:26 | NUR ---
DIALYSIS CALLED FOR PT. PT BEING BROUGHT DOWN VIA BED. NO CURRENT NEEDS.
--- NOTE | 2018-11-08 12:00 | NUR ---
1 UNIT OF PRBC OBTAINED FROM LAB AND DELIVERED TO DIALYSIS. IT WAS TRANSFUSED IN DIALYSIS.
--- NOTE | 2018-11-08 14:36 | MORECARE ---
CASE MANAGEMENT DISCHARGE SUMMARY PATIENT: BOB REYES UNIT: [id number] ADM DATE: 11/05/18 AGE: 63 : 54 SEX: M ROOM/BED: D.2113 AUTHOR: MONTEZ HUNTER PHYSICIAN: REFERRING PHYSICIAN: CHARU CRAIG MD DATE OF SERVICE: 11/08/18 Discharge Plan Patient Name: BOB REYES Facility: [facility]:[place] : 1955 Planned Disposition: Home with Home Health Anticipated Discharge Date: 11/06/18 Discharge Date: Expected LOS: 1 Initial Reviewer: [email or web address] Initial Review Date: 11/06/2018 Generated: 11/08/18 3:36 pm Comments DCP- Discharge Planning Updated by [email or web address]: Suhas Fong on 11/06/18 4:[address] Patient Name: BOB REYES Admission Status: Elective Accout number: [id number] Admission Date: 11-05-2018 : 1955 Admission Diagnosis: Attending: CHARU CRAIG Current LOS: 1 Anticipated DC Date: 11-06-2018 Planned Disposition: Home with Home Health Primary Insurance: MEDICARE A & B PLANNED EXTERNAL PROVIDER: [facility] Discharge Planning Comments: CM RECEIVED ORDER FOR NEW DIALYSIS CLINIC ARRANGEMENT, PATIENT [facility] COORDINATOR SUKH CROSS WORKING ON THIS ARRANGEMENT. CM MET WITH PT IN ROOM TO DISCUSS DISCHARGE PLANNING AND NEEDS. PT REPORTS LIVING AT HOME INDEPENDENTLY WITH HIS ADULT DAUGHTER AND SON IN LAW. PT HAS CANE, SHOWER CHAIR AND STANDARD WALKER WITH NO MEDICAL EQUIPMENT PROVIDER PREFERENCE. PT HAS NO OTHER OUTSIDE SERVICES ASSISTING IN THE HOME. CM DISCUSSED AVAILABILITY OF HOME HEALTH, REHAB SERVICES AND MEDICAL EQUIPMENT. PT REPORTS IF ABLE, HE WILL RETURN HOME WITH HOME HEALTH BUT DOES NOT KNOW AT THIS TIME IF HE WILL REQUIRE SOME SORT OF REHAB, IF HE IS EVEN ABLE, BEFORE GOING HOME; PT REPORTS HIS FAMILY WILL PICK HIM UP FOR DISCHARGE HOME. CM SPOKE TO NAILA COCHRAN REGARDING LACK OF PHYSICAL THERAPY ORDER, NAILA ADVISED WE WILL WAIT UNTIL RECOMMENDATIONS FROM WOUND CARE EVALUATION. PT REPORTS HE MAY NEED REHAB PRIOR TO GOING HOME OR MAY RETURN HOME WITH [facility] RESUMPTION. CM WAITING ON WOUND CARE EVALUATION AND PHYSICAL THERAPY EVALUATION ORDER TO DETERMINE THERAPY NEEDS IF ANY. Superintendent Distribution: Suhas Fong DCPIA - Discharge Planning Initial Assessment Updated by [id number]: Suhas Fong on 11/06/18 5:32 pm * Is the patient Alert and Oriented? Yes * How many steps to enter\exit or inside your home? 6-O / 2-I * PCP DR. GONZALO CORNEJO IN [place], [place]. * Pharmacy [facility] IN [place] * Preadmission Environment Home with Family * ADLs Independent * Equipment Cane Shower Chair Walker * Other Equipment NO MEDICAL EQUIPMENT PROVIDER PREFERENCE * List name and contact numbers for known caregivers / representatives who currently or will assist patient after discharge: BOB REYES, SON, * Verbal permission to speak to the caregivers and representatives has been obtained from the patient. N/A * Community resources currently utilized Home Health * Please name any agencies selected above. [facility] - PHYSICAL THERAPY AND WOUND CARE * Additional services required to return to the preadmission environment? No * Can the patient safely return to the preadmission environment? Yes * Has this patient been hospitalized within the prior 30 days at any hospital? No External Providers External Provider: [facility] Next Contact Date: 11/09/2018 Service Request Date: Service Type: Resolution: Reviewer: Comments: Last DP export: 11/06/18 4:44 p Patient Name: BOB REYES Page [phone] at 1436 All edits/amendments must be made on the electronic document DICTATION DATE: 11/08/181435 PLUMBER PIPE FITTING: JEANNETTE 11/08/18 143 RPT#: [id number] DC DATE: STATUS: ADM IN [facility] [address] [place] [address] END OF REPORT
--- NOTE | 2018-11-08 15:01 | MORECARE ---
CASE MANAGEMENT DISCHARGE SUMMARY PATIENT: BOB REYES UNIT: [id number] ADM DATE: 11/05/18 AGE: 63 : 53 SEX: M ROOM/BED: D.2113 AUTHOR: MONTEZ HUNTER PHYSICIAN: REFERRING PHYSICIAN: CHARU CRAIG MD DATE OF SERVICE: 11/08/18 Discharge Plan Patient Name: BOB REYES Facility: [facility]:[place] : 1955 Planned Disposition: Home with Home Health Anticipated Discharge Date: 11/06/18 Discharge Date: Expected LOS: 1 Initial Reviewer: [id number] Initial Review Date: 11/06/2018 Generated: 11/08/18 4:01 pm Comments DCP- Discharge Planning Updated by [id number]: Suhas Fong on 11/08/18 1:[address] Patient Name: BOB REYES Encounter No: [id number] : 1955 Primary Insurance: MEDICARE A & B Anticipated DC Date: 11-06-2018 Planned Disposition: Home with Home Health External Planned Provider: [facility] DCP follow-up note: CM RECEIVED CALL FROM SUKH OF [facility], PT HAS NEW OUTPATIENT DIALYSIS SCHEDULE: SUNDAY, SUNDAY, SUNDAY 1230; [facility] IN [place] FIRST APPOINTMENT 11-12-18, 1115AM. CM NOTIFIED PT IN ROOM. PT REPORTS PLAN OF HOME WITH FAMILY AND [facility] RESUMPTION. CHOICE LISTING PROVIDED, CHOICE SIGNED FOR [facility]. IMPORTANT MESSAGE FROM MEDICARE PROVIDED AND EXPLAINED. CM CALLED [facility], , SPOKE TO MARGE AND PROVIDED UPDATE. CM FAXED HOSPITAL UPDATE TO [facility] AT [phone]. FOR DISCHARGE, NOTIFY [facility] AT [phone]. FAX DISCHARGE INFORMATION TO [facility] AT [phone]. CHING Savage DCP- Discharge Planning Updated by [email or web address]: Suhas Fong on 11/06/18 4:[address] Patient Name: BOB REYES Admission Status: Elective Accout number: [id number] Admission Date: 11-05-2018 : 1955 Admission Diagnosis: Attending: CHARU CRAIG Current LOS: 1 Anticipated DC Date: 11-06-2018 Planned Disposition: Home with Home Health Primary Insurance: MEDICARE A & B PLANNED EXTERNAL PROVIDER: [facility] Discharge Planning Comments: CM RECEIVED ORDER FOR NEW DIALYSIS CLINIC ARRANGEMENT, PATIENT [facility] COORDINATOR SUKH CROSS WORKING ON THIS ARRANGEMENT. CM MET WITH PT IN ROOM TO DISCUSS DISCHARGE PLANNING AND NEEDS. PT REPORTS LIVING AT HOME INDEPENDENTLY WITH HIS ADULT DAUGHTER AND SON IN LAW. PT HAS CANE, SHOWER CHAIR AND STANDARD WALKER WITH NO MEDICAL EQUIPMENT PROVIDER PREFERENCE. PT HAS NO OTHER OUTSIDE SERVICES ASSISTING IN THE HOME. CM DISCUSSED AVAILABILITY OF HOME HEALTH, REHAB SERVICES AND MEDICAL EQUIPMENT. PT REPORTS IF ABLE, HE WILL RETURN HOME WITH HOME HEALTH BUT DOES NOT KNOW AT THIS TIME IF HE WILL REQUIRE SOME SORT OF REHAB, IF HE IS EVEN ABLE, BEFORE GOING HOME; PT REPORTS HIS FAMILY WILL PICK HIM UP FOR DISCHARGE HOME. CM SPOKE TO NAILA COCHRAN REGARDING LACK OF PHYSICAL THERAPY ORDER, NAILA ADVISED WE WILL WAIT UNTIL RECOMMENDATIONS FROM WOUND CARE EVALUATION. PT REPORTS HE MAY NEED REHAB PRIOR TO GOING HOME OR MAY RETURN HOME WITH [facility] RESUMPTION. CM WAITING ON WOUND CARE EVALUATION AND PHYSICAL THERAPY EVALUATION ORDER TO DETERMINE THERAPY NEEDS IF ANY. Implement Mechanic: Suhas Fong DCPIA - Discharge Planning Initial Assessment Updated by [id number]: Suhas Fong on 11/06/18 5:32 pm * Is the patient Alert and Oriented? Yes * How many steps to enter\exit or inside your home? 6-O / 2-I * PCP DR. GONZALO CORNEJO IN [place], [place]. * Pharmacy [facility] IN [place] * Preadmission Environment Home with Family * ADLs Independent * Equipment Cane Shower Chair Walker * Other Equipment NO MEDICAL EQUIPMENT PROVIDER PREFERENCE * List name and contact numbers for known caregivers / representatives who currently or will assist patient after discharge: BOB REYES, SON, * Verbal permission to speak to the caregivers and representatives has been obtained from the patient. N/A * Community resources currently utilized Home Health * Please name any agencies selected above. [facility] - PHYSICAL THERAPY AND WOUND CARE * Additional services required to return to the preadmission environment? No * Can the patient safely return to the preadmission environment? Yes * Has this patient been hospitalized within the prior 30 days at any hospital? No Coverage Notice Reviewer: [id number] Sally Fong Notice Issued Date-Time: 11/08/2018 14:20 Notice Type: Patient Choice Letter Notice Delivered To: Patient Relationship to Patient: Motion Picture Director Name: Delivery Method: HAND - Hand Delivered Kellie Days: Prior Verbal Notification: Recipient Understood Notice: Yes Recipient Signature: Yes Med Rec Note Co-signed by Attending: Coverage Notice Comment: [facility] Reviewer: [email or web address] Sally Fong Notice Issued Date-Time: 11/08/2018 14:20 Notice Type: IM Discharge Notice Notice Delivered To: Patient Relationship to Patient: Motion Picture Director Name: Delivery Method: HAND - Hand Delivered Kellie Days: Prior Verbal Notification: Recipient Understood Notice: Yes Recipient Signature: Yes Med Rec Note Co-signed by Attending: Coverage Notice Comment: Last DP export: 11/08/18 1:36 p Patient Name: BOB REYES Page [phone] at 1501 All edits/amendments must be made on the electronic document DICTATION DATE: 11/08/18 1500 ROBOTICS SYSTEMS ENGINEER: JEANNETTE 11/08/18 1500 RPT#: [id number] DC DATE: STATUS: ADM IN [facility] [address] [place] [address] END OF REPORT
[2018-11-08 15:03] VITALS: BP 98/60
[2018-11-08 22:08] VITALS: BP 88/60
--- NOTE | 2018-11-08 22:11 | NUR ---
ASSUMED CARE FOR THIS PT AROUND 1900. ALL ORDERS CHECKED AND PULLED NIGHTLY MEDICATIONS. PROVIDED PT WITH NIGHTLY MEDICATIONS AND HE SWALLOWED WITHOUT ANY DIFFICULTIES. PT IS C/O BEING CONSTIPATED BUT DENIED WANTING HIS PRN MIRALAX AND STATES HE WILL TRY IN THE MORNING. PT C/O PAIN REQUESTED AND WAS PROVIDED WITH HIS PRN PAIN MEDICATION. FSBS WAS CHECKED AND TREATED PER SS ALONG WITH HIS LONG ACTING INSULIN. ASSISTED PT WITH ORAL CARE AND HE BRUSHED HIS TEETH AND USE MOUTHWASH. PT DENIES ANY FURTHER NEEDS AT THIS TIME. I WILL BE GIVING BEDSIDE SHIFT REPORTING SHORTLY AND EXPLAINED TO PT HE WILL HAVE A NEW NURSE AT 2300. PT VERBALIZED UNDERSTANDING AND DENIES ANY QUESTIONS OR CONCERNS. CL IN REACH, BED IN LOWEST, SIDE RAILS X2. WILL CTM.
--- NOTE | 2018-11-09 00:35 | NUR ---
REPORT RECEIVED. ROUNDS COMPLETED. PT SITTING UP IN BED WITH EYES OPEN, RR EVEN AND UNLABORED. BED IN LOW POSITION. INTRODUCED SELF TO PT. PT STATES HE IS IN PAIN. PT HAS BEEN TOLD TIME HE CAN HAVE HIS NEXT DOSAGE HIS CURRENT ANALGESIC IS EVERY 8 HOURS. PT DENIES FURTHER NEEDS AT THIS TIME. CALL LIGHT IS IN REACH. WILL CTM.
--- NOTE | 2018-11-09 04:14 | NUR ---
RESTING IN BED WITH EYES CLOSED. NO S/S OF DISTRESS OBSERVED. CALL LIGHT IN REACH.
--- NOTE | 2018-11-09 04:24 | NUR ---
ADMINISTERED ORDERED ANALGESIC FOR COMPLAINTS OF PAIN IN LEFT FOOT, PT STATES PAIN OF AN 8 ON A SCALE OF 0-10. PT STATES ALSO HAVING TROUBLE SLEEPING AT NIGHT AND WISHES TO HAVE SLEEP AID ADDED TO HIS NIGHTLY MEDICATIONS. WILL NOTIFY DAY SHIFT NURSE.
[2018-11-09 05:05] LABS: BASOPHILS 0.1 % (0-2); EOSINOPHILS 0.4 % (0-7); HEMATOCRIT 25.1 % (42.0-54.0); HEMOGLOBIN 8.3 g/dL (13.5-17.5); IMMATURE GRANULOCYTES 0.4 % (0-5); MCHC 33.1 g/dL (31.0-37.0); MCV 87.8 fL (80.0-100.0); MEAN PLATELET VOLUME 11.6 fL (7.4-10.4); MONOCYTES 10.1 % (2-11); PLATELET COUNT 85 10x3/uL (130-400); RBC 2.86 10x6/uL (4.20-6.10); RDW 18.1 % (11.5-14.5); WBC 7.1 10x3/uL (4.8-10.8)
[2018-11-09 05:20] LABS: ANION GAP 17.5 mmol/L (8-16); CALCIUM 8.5 mg/dL (8.5-10.1); CARBON DIOXIDE 23.9 mmol/L (21.0-32.0); PHOSPHOROUS 5.2 mg/dL (2.5-4.9); POTASSIUM - SERUM 3.4 mmol/L (3.5-5.1)
[2018-11-09 05:28] LABS: CREATININE - SERUM 4.2 mg/dL (0.6-1.3)
[2018-11-09 05:39] LABS: PLATELET ESTIMATE DECREASED
--- NOTE | 2018-11-09 06:43 | NUR ---
PT CURRENTLY SITTING UP IN BED WITH EYES OPEN, RR EVEN AND UNLABORED. BED IN LOW POSITION. NO S/S OF DISTRESS NOTED. DENIES FURTHER NEEDS. CALL LIGHT IN REACH. WILL CTM.
[2018-11-09 07:40] VITALS: BP 85/50
[2018-11-09 11:14] VITALS: BP 78/48
--- NOTE | 2018-11-09 14:43 | NUR ---
ALERT AND ORIENTEDX3. DRESSING CHANGED TO RT. FOOT ER ORDER AND TOLERATED WELL.UP AD ALESSANDRO. PERCOCET GIVEN FOR PAIN AND EFFECTIVE. FSBS DONE WITH INSULIN GIVEN PER ORDER. ENCUORAGED TO USE CALL LIGHT FOR ASSIST.
[2018-11-09 15:20] VITALS: BP 92/44
--- NOTE | 2018-11-09 19:30 | NUR ---
ADMINISTERED ORDERED ANALGESIC FOR COMPLAINTS OF PAIN IN LEFT FOOT. PT STATES PAIN OF AN 8 ON A SCALE OF 0-10.
--- NOTE | 2018-11-09 19:33 | NUR ---
ADMINISTERED ORDERED ANALGESIC FOR COMPLAINTS OF PAIN IN LEFT FOOT. PT STATES PAIN OF AN 8 ON A SCALE OF 0-10.
[2018-11-09 20:00] VITALS: BP 109/54
[2018-11-10] VITALS: BP 88/51
--- NOTE | 2018-11-10 01:07 | NUR ---
PT RESTING IN BED WITH REQUEST FOR PRN PAIN MED. REEVAL HIS BP AND PT WILL HAVE TO WAIT 30MINUTES FOR THE CORRECT TIME TO GET THE PATIENT TO RECIVE THE PAIN MED ON TIME. MONITOR AND CPOC.
[2018-11-10 04:00] VITALS: BP 106/65
[2018-11-10 04:47] LABS: BASOPHILS 0.1 % (0-2); EOSINOPHILS 1.4 % (0-7); HEMATOCRIT 25.1 % (42.0-54.0); HEMOGLOBIN 8.1 g/dL (13.5-17.5); IMMATURE GRANULOCYTES 0.3 % (0-5); LYMPHOCYTES 12.6 % (15-50); MCH 28.5 pg (26.0-34.0); MCHC 32.3 g/dL (31.0-37.0); MCV 88.4 fL (80.0-100.0); MEAN PLATELET VOLUME 10.8 fL (7.4-10.4); MONOCYTES 11.2 % (2-11); NEUTROPHILS 74.4 % (40-80); PLATELET COUNT 94 10x3/uL (130-400); RBC 2.84 10x6/uL (4.20-6.10); RDW 17.9 % (11.5-14.5); WBC 8.8 10x3/uL (4.8-10.8)
[2018-11-10 04:57] LABS: ANION GAP 19.2 mmol/L (8-16); CALCIUM 8.1 mg/dL (8.5-10.1); CARBON DIOXIDE 22.4 mmol/L (21.0-32.0); CREATININE - SERUM 5.4 mg/dL (0.6-1.3); POTASSIUM - SERUM 3.6 mmol/L (3.5-5.1)
--- NOTE | 2018-11-10 05:29 | NUR ---
PT SITTING UP IN BED WITH EYES OPEN, RR EVEN AND UNLABORED. BED IN LOW POSITION. NO S/S OF DISTRESS. DENIES FURTHER NEEDS. CALL LIGHT IN REACH. WILL CTM.
[2018-11-10 08:06] VITALS: BP 98/68
[2018-11-10 13:06] VITALS: BP 101/66
[2018-11-10 14:08] LABS: HEPARIN INDUCED PLATELET AB 0.347 OD (0.000-0.400)
--- NOTE | 2018-11-10 16:00 | NUR ---
ALERT AND ORIENTED X4. SITTING UP IN BED. FAMILY AT BEDSIDE. DENIES SOB. PAIN MANAGEMENT CONTINUED PER DOCTOR'S ORDER. DENIES ANY OTHER NEEDS. CONTINUE PLAN OF CARE AND SAFETY PRECAUTIONS.
[2018-11-10 17:55] VITALS: BP 94/55
--- NOTE | 2018-11-10 19:30 | NUR ---
RECEIVED REPORT, WILL ASSUME CARE OF PT, PT ASKING IF HE COULD GET ASSISTS TO SHOWER, RAH INTERNATIONAL SOURCING MANAGER ASSIST HIM IN SHOWER, WILL CONTINUE PLAN OF CARE
[2018-11-10 20:24] VITALS: BP 98/62
--- NOTE | 2018-11-10 21:30 | NUR ---
BS-173, GAVE 2 UNITS OF HUMALOG AND 5 UNITS OF LANTUS ORDER
--- NOTE | 2018-11-10 23:00 | NUR ---
CHANGED DRESSING TO L.FOOT, PT ASKING FOR PAIN MEDS, GAVE PEROCET ORDER, WILL CONTINUE PLAN OF CARE
[2018-11-11 01:24] VITALS: BP 91/57
--- NOTE | 2018-11-11 04:56 | NUR ---
RESTING WITH NO DISTRESS. RESPS EVEN/NONLABORED. MONITOR AND CPOC.
[2018-11-11 05:02] VITALS: BP 98/60
[2018-11-11 06:07] LABS: BASOPHILS 0.1 % (0-2); EOSINOPHILS 0.9 % (0-7); HEMATOCRIT 25.9 % (42.0-54.0); HEMOGLOBIN 8.5 g/dL (13.5-17.5); IMMATURE GRANULOCYTES 0.4 % (0-5); LYMPHOCYTES 13.3 % (15-50); MCH 29.4 pg (26.0-34.0); MCHC 32.8 g/dL (31.0-37.0); MCV 89.6 fL (80.0-100.0); MEAN PLATELET VOLUME 11.3 fL (7.4-10.4); MONOCYTES 7.5 % (2-11); NEUTROPHILS 77.8 % (40-80); PLATELET COUNT 95 10x3/uL (130-400); RBC 2.89 10x6/uL (4.20-6.10); RDW 18.5 % (11.5-14.5); WBC 7.9 10x3/uL (4.8-10.8)
[2018-11-11 06:19] LABS: ANION GAP 18.5 mmol/L (8-16); CALCIUM 8.2 mg/dL (8.5-10.1); CARBON DIOXIDE 23.3 mmol/L (21.0-32.0); CREATININE - SERUM 6.4 mg/dL (0.6-1.3); POTASSIUM - SERUM 3.8 mmol/L (3.5-5.1)
[2018-11-11 07:03] VITALS: BP 109/43
--- NOTE | 2018-11-11 08:07 | NUR ---
REPORT RECEIVED. WILL CONTINUE WITH POC. PT CURRENTLY LYING ON RIGHT SIDE. CALL LIGHT W/I REACH. PT IS RESTING AT THE MOMENT. RR EVEN AND UNLABORED ON RA. NS INFUSING @KVO VIA R.WRIST PIV. PT DENIES ANY NEEDS AT THIS TIME. WILL CTM.
--- NOTE | 2018-11-11 14:23 | MORECARE ---
CASE MANAGEMENT DISCHARGE SUMMARY PATIENT: BOB REYES UNIT: [id number] ADM DATE: 11/05/18 AGE: 63 : 53 SEX: M ROOM/BED: D.2113 AUTHOR: MONTEZ HUNTER PHYSICIAN: REFERRING PHYSICIAN: CHARU CRAIG MD DATE OF SERVICE: 11/11/18 Discharge Plan Patient Name: BOB REYES Facility: [facility]:[place] : 1955 Planned Disposition: Home with Home Health Anticipated Discharge Date: 11/12/18 Discharge Date: Expected LOS: 7 Initial Reviewer: [id number] Initial Review Date: 11/06/2018 Generated: 11/11/18 3:23 pm Comments DCP- Discharge Planning Updated by [email or web address]: Suhas Fong on 11/08/18 1:[address] Patient Name: BOB REYES Encounter No: [id number] : 1955 Primary Insurance: MEDICARE A & B Anticipated DC Date: 11-06-2018 Planned Disposition: Home with Home Health External Planned Provider: [facility] DCP follow-up note: CM RECEIVED CALL FROM [facility] OF [facility], PT HAS NEW OUTPATIENT DIALYSIS SCHEDULE: SUNDAY, SUNDAY, SUNDAY 1230; [facility] IN [place] FIRST APPOINTMENT 11-12-18, 1115AM. CM NOTIFIED PT IN ROOM. PT REPORTS PLAN OF HOME WITH FAMILY AND [facility] RESUMPTION. CHOICE LISTING PROVIDED, CHOICE SIGNED FOR [facility]. IMPORTANT MESSAGE FROM MEDICARE PROVIDED AND EXPLAINED. CM CALLED [facility], , SPOKE TO MARGE AND PROVIDED UPDATE. CM FAXED HOSPITAL UPDATE TO [facility] AT [phone]. FOR DISCHARGE, NOTIFY [facility] AT [phone]. FAX DISCHARGE INFORMATION TO [facility] AT [phone]. CHING Savage DCP- Discharge Planning Updated by [email or web address]: Suhas Fong on 11/06/18 4:[address] Patient Name: BOB REYES Admission Status: Elective Accout number: [id number] Admission Date: 11-05-2018 : 1955 Admission Diagnosis: Attending: CHARU CRAIG Current LOS: 1 Anticipated DC Date: 11-06-2018 Planned Disposition: Home with Home Health Primary Insurance: MEDICARE A & B PLANNED EXTERNAL PROVIDER: [facility] Discharge Planning Comments: CM RECEIVED ORDER FOR NEW DIALYSIS CLINIC ARRANGEMENT, [facility] COORDINATOR [facility] CR[facility] WORKING ON THIS ARRANGEMENT. CM MET WITH PT IN ROOM TO DISCUSS DISCHARGE PLANNING AND NEEDS. PT REPORTS LIVING AT HOME INDEPENDENTLY WITH HIS ADULT DAUGHTER AND SON IN LAW. PT HAS CANE, SHOWER CHAIR AND STANDARD WALKER WITH NO MEDICAL EQUIPMENT PROVIDER PREFERENCE. PT HAS NO OTHER OUTSIDE SERVICES ASSISTING IN THE HOME. CM DISCUSSED AVAILABILITY OF HOME HEALTH, REHAB SERVICES AND MEDICAL EQUIPMENT. PT REPORTS IF ABLE, HE WILL RETURN HOME WITH HOME HEALTH BUT DOES NOT KNOW AT THIS TIME IF HE WILL REQUIRE SOME SORT OF REHAB, IF HE IS EVEN ABLE, BEFORE GOING HOME; PT REPORTS HIS FAMILY WILL PICK HIM UP FOR DISCHARGE HOME. CM SPOKE TO NAILA COCHRAN REGARDING LACK OF PHYSICAL THERAPY ORDER, NAILA ADVISED WE WILL WAIT UNTIL RECOMMENDATIONS FROM WOUND CARE EVALUATION. PT REPORTS HE MAY NEED REHAB PRIOR TO GOING HOME OR MAY RETURN HOME WITH [facility] RESUMPTION. CM WAITING ON WOUND CARE EVALUATION AND PHYSICAL THERAPY EVALUATION ORDER TO DETERMINE THERAPY NEEDS IF ANY. Outside Collector: Suhas Fong DCPIA - Discharge Planning Initial Assessment Updated by [email or web address]: Suhas Fong on 11/06/18 5:32 pm * Is the patient Alert and Oriented? Yes * How many steps to enter\exit or inside your home? 6-O / 2-I * PCP DR. GONZALO CORNEJO IN [place], [place]. * Pharmacy [facility] [place] * Preadmission Environment Home with Family * ADLs Independent * Equipment Cane Shower Chair Walker * Other Equipment NO MEDICAL EQUIPMENT PROVIDER PREFERENCE * List name and contact numbers for known caregivers / representatives who currently or will assist patient after discharge: BOB REYES, SON, * Verbal permission to speak to the caregivers and representatives has been obtained from the patient. N/A * Community resources currently utilized Home Health * Please name any agencies selected above. [facility] - PHYSICAL THERAPY AND WOUND CARE * Additional services required to return to the preadmission environment? No * Can the patient safely return to the preadmission environment? Yes * Has this patient been hospitalized within the prior 30 days at any hospital? No External Providers External Provider: OTHER-OTHER Next Contact Date: 11/11/2018 Service Request Date: Service Type: Resolution: Reviewer: Comments: Coverage Notice Reviewer: [id number] Sally Suhas Hetal Notice Issued Date-Time: 11/08/2018 14:20 Notice Type: Patient Choice Letter Notice Delivered To: Patient Relationship to Patient: Lead Performance Support Analyst Name: Delivery Method: HAND - Hand Delivered Kellie Days: Prior Verbal Notification: Recipient Understood Notice: Yes Recipient Signature: Yes Med Rec Note Co-signed by Attending: Coverage Notice Comment: [facility] Reviewer: [id number] Sally Fong Notice Issued Date-Time: 11/08/2018 14:20 Notice Type: IM Discharge Notice Notice Delivered To: Patient Relationship to Patient: Lead Performance Support Analyst Name: Delivery Method: HAND - Hand Delivered Kellie Days: Prior Verbal Notification: Recipient Understood Notice: Yes Recipient Signature: Yes Med Rec Note Co-signed by Attending: Coverage Notice Comment: Last DP export: 11/08/18 2:01 p Patient Name: BOB REYES Page 75090 at 1423 All edits/amendments must be made on the electronic document DICTATION DATE: 11/11/18 142 CLINICAL SUPPORT ASSOCIATE: JEANNETTE 11/11/18 1423 RPT#: [id number] DC DATE: STATUS: ADM IN [facility] [address] [place] [address] END OF REPORT
--- NOTE | 2018-11-11 15:08 | MORECARE ---
CASE MANAGEMENT DISCHARGE SUMMARY PATIENT: BOB REYES UNIT: [id number] ADM DATE: 11/05/18 AGE: 63 : 54 SEX: M ROOM/BED: D.2113 AUTHOR: ELSA,DOC PHYSICIAN: REFERRING PHYSICIAN: CHARU CRAIG MD DATE OF SERVICE: 11/11/18 Discharge Plan Patient Name: BOB REYES Facility: [facility]:[place] : 1955 Planned Disposition: Home with Home Health Anticipated Discharge Date: 11/12/18 Discharge Date: Expected LOS: 7 Initial Reviewer: [id number] Initial Review Date: 11/06/2018 Generated: 11/11/18 4:08 pm Comments DCP- Discharge Planning Updated by [id number]: Suhas Fong on 11/11/18 1:[address] Patient Name: BOB REYES Encounter No: [id number] : 1955 Primary Insurance: MEDICARE A & B Anticipated DC Date: 11-12-2018 Planned Disposition: Home with Home Health External Planned Provider: [facility] DCP follow-up note: CM RECEIVED CALL FROM [facility] OF [facility], REQUESTED PT'S HOSPITAL DIALYSIS RUN SHEETS. CM FAXED REQUESTED INFORMATION TO [facility] AT [phone]. CM SPOKE TO NAILA ROJAS REGARDING PROJECTED DISCHARGE PT IS SCHEDULED FOR OUTPATIENT DIALYSIS CLINIC ADMISSION 11-12-18. NAILA ROJAS CALLED CM BACK AND ADVISED THAT DR. CRAIG WILL SEE PT TOMORROW TO ADDRESS PAIN MEDICATIONS AND DISCHARGE, PROJECTED START AT OUTPATIENT DIALYSIS IN [place] WILL BE 11-14-18. CM NOTIFIED [facility]. CM NOTIFIED PT IN ROOM, DISCUSSED DISCHARGE PLAN OF HOME WITH RESUMPTION OF HOME HEALTH. PT REPORTS THAT HE IS NOT SURE IF HE IS GOING HOME AND THAT HE AND HIS DAUGHTER ARE THINKING OF PT GOING TO REHAB AT [facility] IN [place]. CM EXPLAINED POSSIBLE DISCHARGE TOMORROW WITH PLANNED OUTPATIENT DIALYSIS START DATE OF SUNDAY; CM EXPLAINED PROCESS OF REFERRAL TO SNF FACILITY FOR REHAB AND ENCOURGED PT TO MAKE DECISION SOON POSSIBLE AND TO PROVIDE CM WITH AT LEAST TWO CHOICES OF SNF FACILITIES. PT AGAIN REPORTS HE AND HIS DAUGHTER ARE "THINKING ABOUT IT." CM EXPLAINED THAT THIS PROCESS CAN TAKE DAYS AND AGAIN ASKED PT TO DECIDE SOON POSSIBLE. CM PROVIDED LISTING OF SNF FACILITIES AND TWO CHOICE LETTERS THAT CM EXPLAINED WOULD NEED TO BE FILLED OUT AND SIGNED BY PT FOR CM TO SEND REFERRALS, IF PT DECIDES ON THIS. PT REPORTS UNDERSTANDING AND HAS CM CONTACT NUMBER TO CALL WHEN HE DECIDES BETWEEN HOME WITH [facility] RESUMPTION OR PLACEMENT IN UNKNOWN SNF FACILITY IN [place] FOR REHAB. PT IS OK WITH CM SENDING UPDATE TO [facility] IN CASE PT DOES DECIDE TO GO HOME WITH HOME HEALTH RESUMPTION. CM CALLED [facility], , SPOKE TO MARGE AND ADVISED OF PLANNED DISCHARGE SUNDAY. CM NOTIFIED NAILA ROJAS OF PT'S POSSIBLE CHANGE IN DISCHARGE PLAN, RECEIVED ORDERS FOR PHYSICAL THERAPY AND OCCUPATIONAL THERAPY EVALUATIONS WELL INPATIENT REHAB PRESCREENING. PT'D DIALYSIS SCHEDULE IS SUNDAY, SUNDAY, SUNDAY 1230; [facility] IN [place] FIRST APPOINTMENT 11-14-18, 1115AM. FOR DISCHARGE, NOTIFY [facility] AT [phone]. FAX DISCHARGE INFORMATION TO [facility] AT [phone]. CM TO CONTINUE TO FOLLOW AND ASSIST IF NEEDED. Suhas Fong, CASE MANAGEMENT DCP- Discharge Planning Updated by [id number]: Suhas Fong on 11/08/18 1:[address] Patient Name: BOB REYES Encounter No: [id number] : 1955 Primary Insurance: MEDICARE A & B Anticipated DC Date: 11-06-2018 Planned Disposition: Home with Home Health External Planned Provider: [facility] DCP follow-up note: CM RECEIVED CALL FROM [facility], PT HAS NEW OUTPATIENT DIALYSIS SCHEDULE: SUNDAY, SUNDAY, SUNDAY 1230; [facility] IN [place] FIRST APPOINTMENT 11-12-18, 1115AM. CM NOTIFIED PT IN ROOM. PT REPORTS PLAN OF HOME WITH FAMILY AND [facility] RESUMPTION. CHOICE LISTING PROVIDED, CHOICE SIGNED FOR [facility]. IMPORTANT MESSAGE FROM MEDICARE PROVIDED AND EXPLAINED. CM CALLED [facility], , SPOKE TO MARGE AND PROVIDED UPDATE. CM FAXED HOSPITAL UPDATE TO [facility] AT [phone]. FOR DISCHARGE, NOTIFY [facility] AT [phone]. FAX DISCHARGE INFORMATION TO [facility] AT [phone]. Suhas Fong, CASE MANAGEMENT DCP- Discharge Planning Updated by [email or web address]: Suhas Fong on 11/06/18 4:[address] Patient Name: BOB REYES Admission Status: Elective Accout number: [id number] Admission Date: 11-05-2018 : 1955 Admission Diagnosis: Attending: CHARU CRAIG Current LOS: 1 Anticipated DC Date: 11-06-2018 Planned Disposition: Home with Home Health Primary Insurance: MEDICARE A & B PLANNED EXTERNAL PROVIDER: [facility] Discharge Planning Comments: CM RECEIVED ORDER FOR NEW DIALYSIS CLINIC ARRANGEMENT, [facility] COORDINATOR [facility] CROSS WORKING ON THIS ARRANGEMENT. CM MET WITH PT IN ROOM TO DISCUSS DISCHARGE PLANNING AND NEEDS. PT REPORTS LIVING AT HOME INDEPENDENTLY WITH HIS ADULT DAUGHTER AND SON IN LAW. PT HAS CANE, SHOWER CHAIR AND STANDARD WALKER WITH NO MEDICAL EQUIPMENT PROVIDER PREFERENCE. PT HAS NO OTHER OUTSIDE SERVICES ASSISTING IN THE HOME. CM DISCUSSED AVAILABILITY OF HOME HEALTH, REHAB SERVICES AND MEDICAL EQUIPMENT. PT REPORTS IF ABLE, HE WILL RETURN HOME WITH HOME HEALTH BUT DOES NOT KNOW AT THIS TIME IF HE WILL REQUIRE SOME SORT OF REHAB, IF HE IS EVEN ABLE, BEFORE GOING HOME; PT REPORTS HIS FAMILY WILL PICK HIM UP FOR DISCHARGE HOME. CM SPOKE TO NAILA COCHRAN REGARDING LACK OF PHYSICAL THERAPY ORDER, NAILA ADVISED WE WILL WAIT UNTIL RECOMMENDATIONS FROM WOUND CARE EVALUATION. PT REPORTS HE MAY NEED REHAB PRIOR TO GOING HOME OR MAY RETURN HOME WITH [facility] RESUMPTION. CM WAITING ON WOUND CARE EVALUATION AND PHYSICAL THERAPY EVALUATION ORDER TO DETERMINE THERAPY NEEDS IF ANY. Breakfast Manager: Suhas Fong DCPIA - Discharge Planning Initial Assessment Updated by [id number]: Suhas Fong on 11/06/18 5:32 pm * Is the patient Alert and Oriented? Yes * How many steps to enter\\exit or inside your home? 6-O / 2-I * PCP DR. GONZALO CORNEJO IN [facility] [place]. * Pharmacy [facility] IN [place] * Preadmission Environment Home with Family * ADLs Independent * Equipment Cane Shower Chair Walker * Other Equipment NO MEDICAL EQUIPMENT PROVIDER PREFERENCE * List name and contact numbers for known caregivers / representatives who currently or will assist patient after discharge: BOB REYES, PILI, * Verbal permission to speak to the caregivers and representatives has been obtained from the patient. N/A * Community resources currently utilized Home Health * Please name any agencies selected above. [facility] - PHYSICAL THERAPY AND WOUND CARE * Additional services required to return to the preadmission environment? No * Can the patient safely return to the preadmission environment? Yes * Has this patient been hospitalized within the prior 30 days at any hospital? No Coverage Notice Reviewer: RONEY Fong Notice Issued Date-Time: 11/08/2018 14:20 Notice Type: Patient Choice Letter Notice Delivered To: Patient Relationship to Patient: Finance Admin Name: Delivery Method: HAND - Hand Delivered Kellie Days: Prior Verbal Notification: Recipient Understood Notice: Yes Recipient Signature: Yes Med Rec Note Co-signed by Attending: Coverage Notice Comment: DONA Reviewer: RONEY Fong Notice Issued Date-Time: 11/08/2018 14:20 Notice Type: IM Discharge Notice Notice Delivered To: Patient Relationship to Patient: Finance Admin Name: Delivery Method: HAND - Hand Delivered Kellie Days: Prior Verbal Notification: Recipient Understood Notice: Yes Recipient Signature: Yes Med Rec Note Co-signed by Attending: Coverage Notice Comment: Reviewer: RONEY Fong Notice Issued Date-Time: 11/11/2018 14:30 Notice Type: IM Discharge Notice Notice Delivered To: Patient Relationship to Patient: Finance Admin Name: Delivery Method: HAND - Hand Delivered Kellie Days: Prior Verbal Notification: Recipient Understood Notice: Yes Recipient Signature: Yes Med Rec Note Co-signed by Attending: Coverage Notice Comment: Last DP export: 11/11/18 1:23 p Patient Name: BOB REYES Page [id number] at 1508 All edits/amendments must be made on the electronic document DICTATION DATE: 11/11/18 1508 DIAMOND SAWER: JEANNETTE 11/11/18 1508 RPT#: [id number] DC DATE: STATUS: ADM IN [facility] [address] [place] [address] END OF REPORT
--- NOTE | 2018-11-11 15:33 | NUR ---
Rehab Note- Acute Inpatient REhab prescreen order received. The patient has a pending PT Eval- will await & see the patient's functional mobility. Have spoken with TREMAINE Elliott and the patient is interested in [facility] Acute Inpatient Rehab. Will continue to follow at this time. Thank you for this referral! Cleo Gonsalves RN Clinical Liaison, [facility] Rehab
[2018-11-11 17:47] VITALS: BP 93/56
--- NOTE | 2018-11-11 20:07 | NUR ---
RECEIVED REPORT, WILL ASSUME CARE OF PT, PT DENIES ANY NEEDS AT THIS TIME, HAS NO IV, SPOKE WITH TABBY ROJAS APN, WAS TOLD WE COULD HOLD ZOSYN ANG IRON, CALL LIGHT IN REACH, WILL CONTINUE PLAN OF CARE
[2018-11-11 21:03] VITALS: BP 88/57
--- NOTE | 2018-11-11 22:07 | NUR ---
BLOODSUGAR-163, GAVE 5 UNITS LANTUS, REFUSED HUMALOG, COMPLAINS OF L.FOOT PAIN, GAVE PERCOCET ORDER
--- NOTE | 2018-11-12 02:59 | NUR ---
LYING IN BED WITH EYES CLOSED, CALL LIGHT IN REACH. WILL CONTINUE WITH PLAN OF CARE.
[2018-11-12 05:33] LABS: BASOPHILS 0.1 % (0-2); EOSINOPHILS 0.5 % (0-7); HEMATOCRIT 25.2 % (42.0-54.0); HEMOGLOBIN 8.1 g/dL (13.5-17.5); IMMATURE GRANULOCYTES 0.2 % (0-5); LYMPHOCYTES 10.8 % (15-50); MCH 29.2 pg (26.0-34.0); MCHC 32.1 g/dL (31.0-37.0); MONOCYTES 11.6 % (2-11); NEUTROPHILS 76.8 % (40-80); PLATELET COUNT 101 10x3/uL (130-400); RBC 2.77 10x6/uL (4.20-6.10); RDW 18.8 % (11.5-14.5); WBC 8.1 10x3/uL (4.8-10.8)
[2018-11-12 06:01] LABS: CALCIUM 8.1 mg/dL (8.5-10.1); CARBON DIOXIDE 26.6 mmol/L (21.0-32.0); CREATININE - SERUM 5.3 mg/dL (0.6-1.3); POTASSIUM - SERUM 3.6 mmol/L (3.5-5.1)
[2018-11-12 06:21] VITALS: BP 110/62
--- NOTE | 2018-11-12 07:30 | NUR ---
RECEIVED A/A/OX4. STATES HE HAS PAIN IN HIS RIGHT FOOT ALL OF THE TIME BUT DOES NOT REQUIRE ANY PAIN MED AT THIS TIME. NO REQUESTS VOICED. IV STARTED IN RIGHT FOREARM WITH 20 G FOR CTA SCHEDULED THIS AM. STARTED BY Kelsey KNOX RN X 1 ATTEMPT. PT TOLERATED WELL. ASSESSMENT COMPLETED. DRESSING TO RIGHT FOOT C/D/I. FISTULA LEFT ARM WNL WITH +THRILL, BRUIT. BRUISES NOTED ON ABD WHERE HEPARIN HAS BEEN GIVEN. ASSESSMENT COMPLETED AND WILL CONTINUE POC.
--- NOTE | 2018-11-12 08:54 | MORECARE ---
CASE MANAGEMENT DISCHARGE SUMMARY PATIENT: BOB REYES UNIT: [id number] ADM DATE: 11/05/18 AGE: 63 : 54 SEX: M ROOM/BED: D.2113 AUTHOR: ELSA,DOC PHYSICIAN: REFERRING PHYSICIAN: CHARU CRAIG MD DATE OF SERVICE: 11/12/18 Discharge Plan Patient Name: BOB REYES Facility: [facility]:[place] : 1955 Planned Disposition: Home with Home Health Anticipated Discharge Date: 11/12/18 Discharge Date: Expected LOS: 7 Initial Reviewer: [id number] Initial Review Date: 11/06/2018 Generated: 11/12/18 9:54 am Comments DCP- Discharge Planning Updated by [id number]: Suhas Fong on 11/11/18 1:[address] Patient Name: BOB REYES Encounter No: [id number] : 1955 Primary Insurance: MEDICARE A & B Anticipated DC Date: 11-12-2018 Planned Disposition: Home with Home Health External Planned Provider: [facility] DCP follow-up note: CM RECEIVED CALL FROM [facility] OF [facility], REQUESTED PT'S HOSPITAL DIALYSIS RUN SHEETS. CM FAXED REQUESTED INFORMATION TO [facility] AT [phone]. CM SPOKE TO NAILA ROJAS REGARDING PROJECTED DISCHARGE PT IS SCHEDULED FOR OUTPATIENT DIALYSIS CLINIC ADMISSION 11-12-18. NAILA ROJAS CALLED CM BACK AND ADVISED THAT DR. CRAIG WILL SEE PT TOMORROW TO ADDRESS PAIN MEDICATIONS AND DISCHARGE, PROJECTED START AT OUTPATIENT DIALYSIS IN [place] WILL BE 11-14-18. CM NOTIFIED [facility]. CM NOTIFIED PT IN ROOM, DISCUSSED DISCHARGE PLAN OF HOME WITH RESUMPTION OF HOME HEALTH. PT REPORTS THAT HE IS NOT SURE IF HE IS GOING HOME AND THAT HE AND HIS DAUGHTER ARE THINKING OF PT GOING TO REHAB AT [facility] IN [place]. CM EXPLAINED POSSIBLE DISCHARGE TOMORROW WITH PLANNED OUTPATIENT DIALYSIS START DATE OF SUNDAY; CM EXPLAINED PROCESS OF REFERRAL TO NURSING HOME FACILITY FOR REHAB AND ENCOURGED PT TO MAKE DECISION SOON POSSIBLE AND TO PROVIDE CM WITH AT LEAST TWO CHOICES OF NURSING HOME FACILITIES. PT AGAIN REPORTS HE AND HIS DAUGHTER ARE "THINKING ABOUT IT." CM EXPLAINED THAT THIS PROCESS CAN TAKE DAYS AND AGAIN ASKED PT TO DECIDE SOON POSSIBLE. CM PROVIDED LISTING OF NURSING HOME FACILITIES AND TWO CHOICE LETTERS THAT CM EXPLAINED WOULD NEED TO BE FILLED OUT AND SIGNED BY PT FOR CM TO SEND REFERRALS, IF PT DECIDES ON THIS. PT REPORTS UNDERSTANDING AND HAS CM CONTACT NUMBER TO CALL WHEN HE DECIDES BETWEEN HOME WITH [facility] RESUMPTION OR PLACEMENT IN UNKNOWN NURSING HOME FACILITY IN [place] FOR REHAB. PT IS OK WITH CM SENDING UPDATE TO [facility] IN CASE PT DOES DECIDE TO GO HOME WITH HOME HEALTH RESUMPTION. CM CALLED [facility], , SPOKE TO MARGE AND ADVISED OF PLANNED DISCHARGE SUNDAY. CM NOTIFIED NAILA ROJAS OF PT'S POSSIBLE CHANGE IN DISCHARGE PLAN, RECEIVED ORDERS FOR PHYSICAL THERAPY AND OCCUPATIONAL THERAPY EVALUATIONS WELL INPATIENT REHAB PRESCREENING. PT'D DIALYSIS SCHEDULE IS SUNDAY, SUNDAY, SUNDAY 1230; [facility] IN [place] FIRST APPOINTMENT 11-14-18, 1115AM. FOR DISCHARGE, NOTIFY [facility] AT [phone]. FAX DISCHARGE INFORMATION TO [facility] AT [phone]. CM TO CONTINUE TO FOLLOW AND ASSIST IF NEEDED. Suhas Fong, CASE MANAGEMENT DCP- Discharge Planning Updated by [id number]: Suhas Fong on 11/08/18 1:[address] Patient Name: BOB REYES Encounter No: [id number] : 1955 Primary Insurance: MEDICARE A & B Anticipated DC Date: 11-06-2018 Planned Disposition: Home with Home Health External Planned Provider: [facility] DCP follow-up note: CM RECEIVED CALL FROM [facility], PT HAS NEW OUTPATIENT DIALYSIS SCHEDULE: SUNDAY, SUNDAY, SUNDAY 1230; [facility] IN [place] FIRST APPOINTMENT 11-12-18, 1115AM. CM NOTIFIED PT IN ROOM. PT REPORTS PLAN OF HOME WITH FAMILY AND [facility] RESUMPTION. CHOICE LISTING PROVIDED, CHOICE SIGNED FOR [facility]. IMPORTANT MESSAGE FROM MEDICARE PROVIDED AND EXPLAINED. CM CALLED [facility], , SPOKE TO MARGE AND PROVIDED UPDATE. CM FAXED HOSPITAL UPDATE TO [facility] AT [phone]. FOR DISCHARGE, NOTIFY [facility] AT [phone]. FAX DISCHARGE INFORMATION TO [facility] AT [phone]. Suhas Fong, CASE MANAGEMENT DCP- Discharge Planning Updated by [id number]: Suhas Fong on 11/06/18 4:[address] Patient Name: BOB REYES Admission Status: Elective Accout number: [id number] Admission Date: 11-05-2018 : 1955 Admission Diagnosis: Attending: CHARU CRAIG Current LOS: 1 Anticipated DC Date: 11-06-2018 Planned Disposition: Home with Home Health Primary Insurance: MEDICARE A & B PLANNED EXTERNAL PROVIDER: [facility] Discharge Planning Comments: CM RECEIVED ORDER FOR NEW DIALYSIS CLINIC ARRANGEMENT, [facility] COORDINATOR [facility]OSS WORKING ON THIS ARRANGEMENT. CM MET WITH PT IN ROOM TO DISCUSS DISCHARGE PLANNING AND NEEDS. PT REPORTS LIVING AT HOME INDEPENDENTLY WITH HIS ADULT DAUGHTER AND SON IN LAW. PT HAS CANE, SHOWER CHAIR AND STANDARD WALKER WITH NO MEDICAL EQUIPMENT PROVIDER PREFERENCE. PT HAS NO OTHER OUTSIDE SERVICES ASSISTING IN THE HOME. CM DISCUSSED AVAILABILITY OF HOME HEALTH, REHAB SERVICES AND MEDICAL EQUIPMENT. PT REPORTS IF ABLE, HE WILL RETURN HOME WITH HOME HEALTH BUT DOES NOT KNOW AT THIS TIME IF HE WILL REQUIRE SOME SORT OF REHAB, IF HE IS EVEN ABLE, BEFORE GOING HOME; PT REPORTS HIS FAMILY WILL PICK HIM UP FOR DISCHARGE HOME. CM SPOKE TO NAILA COCHRAN REGARDING LACK OF PHYSICAL THERAPY ORDER, NAILA ADVISED WE WILL WAIT UNTIL RECOMMENDATIONS FROM WOUND CARE EVALUATION. PT REPORTS HE MAY NEED REHAB PRIOR TO GOING HOME OR MAY RETURN HOME WITH [facility] RESUMPTION. CM WAITING ON WOUND CARE EVALUATION AND PHYSICAL THERAPY EVALUATION ORDER TO DETERMINE THERAPY NEEDS IF ANY. Stone Layer: Suhas Fong DCPIA - Discharge Planning Initial Assessment Updated by [id number]: Suhas Fong on 11/06/18 5:32 pm * Is the patient Alert and Oriented? Yes * How many steps to enter\\exit or inside your home? 6-O / 2-I * PCP DR. GONZALO CORNEJO IN [facility] [place]. * Pharmacy [facility] [id number] [facility] IN [place] * Preadmission Environment Home with Family * ADLs Independent * Equipment Cane Shower Chair Walker * Other Equipment NO MEDICAL EQUIPMENT PROVIDER PREFERENCE * List name and contact numbers for known caregivers / representatives who currently or will assist patient after discharge: BOB REYES, PILI, * Verbal permission to speak to the caregivers and representatives has been obtained from the patient. N/A * Community resources currently utilized Home Health * Please name any agencies selected above. [facility] - PHYSICAL THERAPY AND WOUND CARE * Additional services required to return to the preadmission environment? No * Can the patient safely return to the preadmission environment? Yes * Has this patient been hospitalized within the prior 30 days at any hospital? No Coverage Notice Reviewer: RONEY Fong Notice Issued Date-Time: 11/08/2018 14:20 Notice Type: Patient Choice Letter Notice Delivered To: Patient Relationship to Patient: Hse Manager Name: Delivery Method: HAND - Hand Delivered Kellie Days: Prior Verbal Notification: Recipient Understood Notice: Yes Recipient Signature: Yes Med Rec Note Co-signed by Attending: Coverage Notice Comment: DONA Reviewer: RONEY Fong Notice Issued Date-Time: 11/08/2018 14:20 Notice Type: IM Discharge Notice Notice Delivered To: Patient Relationship to Patient: Hse Manager Name: Delivery Method: HAND - Hand Delivered Kellie Days: Prior Verbal Notification: Recipient Understood Notice: Yes Recipient Signature: Yes Med Rec Note Co-signed by Attending: Coverage Notice Comment: Reviewer: RONEY Fong Notice Issued Date-Time: 11/11/2018 14:30 Notice Type: IM Discharge Notice Notice Delivered To: Patient Relationship to Patient: Hse Manager Name: Delivery Method: HAND - Hand Delivered Kellie Days: Prior Verbal Notification: Recipient Understood Notice: Yes Recipient Signature: Yes Med Rec Note Co-signed by Attending: Coverage Notice Comment: Last DP export: 11/11/18 2:08 p Patient Name: BOB REYES Page [id number] at 0854 All edits/amendments must be made on the electronic document DICTATION DATE: 11/12/18853 PRESSING DEPARTMENT SUPERVISOR: JEANNETTE 11/12/18853 RPT#: [id number] DC DATE: STATUS: ADM IN [facility] [address] [place] [address] END OF REPORT
[2018-11-12 09:06] VITALS: BP 101/60
--- NOTE | 2018-11-12 10:53 | NUR ---
IV STARTED IN R FOREARM . 20 G ON 1ST ATTEMPT. RESP WITH EASE NO DISTRESS NOTED. L FOOT DRESSED BY NURSING STUDENTS.
--- NOTE | 2018-11-12 11:00 | NUR ---
Nutrition follow-up: Diet: Renal PO intake ~75% average of meals Labs reviewed Wt: 184# - standing last BM charted 11/08 PO intake good at this time Will continue to provide food choices and honor food preferences within diet restrictions. Will offer nutritional supplements. RDN following.
[2018-11-12 13:06] VITALS: BP 95/58
--- NOTE | 2018-11-12 15:52 | NUR ---
Rehab Note- Visited with the patient, he is in agreeance with [facility] Acute Inpatient Rehab stay when medically stable and ready for discharge from the acute hospital. Will follow at this time and will accept when ready for discharge from the acute hospital. Thank you for this referral! Cleo Gonsalves RN CLinical Liaison, [facility] Rehab
--- NOTE | 2018-11-12 17:09 | NUR ---
OT NOTE: PT COMPLETED LUE AROM EXS; RUE AAROM EXS. PT COMPLETED BED MOB WITH SPV. PT COMPLETED EOB SITTING WITH SPV. THANK YOU, EMPERATRIZ SHOEMAKER
[2018-11-12 19:11] VITALS: BP 101/65
--- NOTE | 2018-11-12 19:50 | NUR ---
RESUMING CARE , PT LAYING IN BED EYES CLOSED IV IN RT FA , PT RESERVED LEFT ARM , DRSGING TO LEFT FOOT NO C/O PAIN OR DISTRESS @THIS TIME WILL CONT TO [facility]
[2018-11-12 22:27] VITALS: BP 92/61
[2018-11-13 02:16] VITALS: BP 103/63
[2018-11-13 06:17] LABS: BASOPHILS 0.1 % (0-2); EOSINOPHILS 0.7 % (0-7); HEMATOCRIT 25.6 % (42.0-54.0); HEMOGLOBIN 8.2 g/dL (13.5-17.5); IMMATURE GRANULOCYTES 0.3 % (0-5); LYMPHOCYTES 11.2 % (15-50); MCH 29.1 pg (26.0-34.0); MCV 90.8 fL (80.0-100.0); MEAN PLATELET VOLUME 10.8 fL (7.4-10.4); MONOCYTES 11.9 % (2-11); NEUTROPHILS 75.8 % (40-80); PLATELET COUNT 115 10x3/uL (130-400); RBC 2.82 10x6/uL (4.20-6.10); WBC 7.3 10x3/uL (4.8-10.8)
[2018-11-13 06:28] LABS: ANION GAP 19.5 mmol/L (8-16); CARBON DIOXIDE 24.1 mmol/L (21.0-32.0); CREATININE - SERUM 6.2 mg/dL (0.6-1.3); PHOSPHOROUS 5.8 mg/dL (2.5-4.9); POTASSIUM - SERUM 3.6 mmol/L (3.5-5.1); VANCOMYCIN - RANDOM 13.6 ug/mL (10.0-20.0)
--- NOTE | 2018-11-13 07:30 | NUR ---
A/A/OX4. DENIES ANY NEEDS AND NO REQUESTS AT PRESENT TIME. ASSESSMENT COMPLETED. BED IN LOWEST POSITION, SIDERAILS UP X 2 AND CALL LIGHT IN REACH. WILL CONTINUE POC
[2018-11-13 08:41] VITALS: BP 109/71
--- NOTE | 2018-11-13 09:00 | NUR ---
PT DOES NOT WANT TO HAVE BANDAGE CHANGED NOW. STATES HE WANTS TO WAIT AND TAKE A SHOWER BEFORE IT IS CHANGED AND CANNOT TAKE SHOWER UNTIL AFTER 6 PM BECAUSE HE IS EXPECTING AN IMPORTANT PHONE CALL THAT HE CANNOT MISS.
--- NOTE | 2018-11-13 09:19 | MORECARE ---
CASE MANAGEMENT DISCHARGE SUMMARY PATIENT: BOB REYES UNIT: [id number] ADM DATE: 11/05/18 AGE: 63 : 53 SEX: M ROOM/BED: D.2113 AUTHOR: ELSA,DOC PHYSICIAN: REFERRING PHYSICIAN: CHARU CRAIG MD DATE OF SERVICE: 11/13/18 Discharge Plan Patient Name: BOB REYES Facility: [facility]:[place] : 1955 Planned Disposition: Home with Home Health Anticipated Discharge Date: 11/12/18 Discharge Date: Expected LOS: 7 Initial Reviewer: [email or web address] Initial Review Date: 11/06/2018 Generated: 11/13/18 10:19 am Comments DCP- Discharge Planning Updated by [id number]: Suhas Fong on 11/11/18 1:[address] Patient Name: BOB REYES Encounter No: [id number] : 1955 Primary Insurance: MEDICARE A & B Anticipated DC Date: 11-12-2018 Planned Disposition: Home with Home Health External Planned Provider: [facility] DCP follow-up note: CM RECEIVED CALL FROM [facility] OF [facility], REQUESTED PT'S HOSPITAL DIALYSIS RUN SHEETS. CM FAXED REQUESTED INFORMATION TO [facility] AT [phone]. CM SPOKE TO NAILA ROJAS REGARDING PROJECTED DISCHARGE PT IS SCHEDULED FOR OUTPATIENT DIALYSIS CLINIC ADMISSION 11-12-18. NAILA ROJAS CALLED CM BACK AND ADVISED THAT DR. CRAIG WILL SEE PT TOMORROW TO ADDRESS PAIN MEDICATIONS AND DISCHARGE, PROJECTED START AT OUTPATIENT DIALYSIS IN [place] WILL BE 11-14-18. CM NOTIFIED [facility]. CM NOTIFIED PT IN ROOM, DISCUSSED DISCHARGE PLAN OF HOME WITH RESUMPTION OF HOME HEALTH. PT REPORTS THAT HE IS NOT SURE IF HE IS GOING HOME AND THAT HE AND HIS DAUGHTER ARE THINKING OF PT GOING TO REHAB AT [facility] IN [place]. CM EXPLAINED POSSIBLE DISCHARGE TOMORROW WITH PLANNED OUTPATIENT DIALYSIS START DATE OF SUNDAY; CM EXPLAINED PROCESS OF REFERRAL TO [facility] FOR REHAB AND ENCOURGED PT TO MAKE DECISION SOON POSSIBLE AND TO PROVIDE CM WITH AT LEAST TWO CHOICES OF [facility] FACILITIES. PT AGAIN REPORTS HE AND HIS DAUGHTER ARE "THINKING ABOUT IT." CM EXPLAINED THAT THIS PROCESS CAN TAKE DAYS AND AGAIN ASKED PT TO DECIDE SOON POSSIBLE. CM PROVIDED LISTING OF [facility] FACILITIES AND TWO CHOICE LETTERS THAT CM EXPLAINED WOULD NEED TO BE FILLED OUT AND SIGNED BY PT FOR CM TO SEND REFERRALS, IF PT DECIDES ON THIS. PT REPORTS UNDERSTANDING AND HAS CM CONTACT NUMBER TO CALL WHEN HE DECIDES BETWEEN HOME WITH [facility] RESUMPTION OR PLACEMENT IN UNKNOWN [facility] FACILITY IN [place] FOR REHAB. PT IS OK WITH CM SENDING UPDATE TO [facility] IN CASE PT DOES DECIDE TO GO HOME WITH HOME HEALTH RESUMPTION. CM CALLED [facility], , SPOKE TO MARGE AND ADVISED OF PLANNED DISCHARGE SUNDAY. CM NOTIFIED NAILA ROJAS OF PT'S POSSIBLE CHANGE IN DISCHARGE PLAN, RECEIVED ORDERS FOR PHYSICAL THERAPY AND OCCUPATIONAL THERAPY EVALUATIONS WELL INPATIENT REHAB PRESCREENING. PT'D DIALYSIS SCHEDULE IS SUNDAY, SUNDAY, SUNDAY 1230; [facility] IN [place] FIRST APPOINTMENT 11-14-18, 1115AM. FOR DISCHARGE, NOTIFY [facility] AT [phone]. FAX DISCHARGE INFORMATION TO [facility] AT [phone]. CM TO CONTINUE TO FOLLOW AND ASSIST IF NEEDED. Suhas Fong, CASE MANAGEMENT DCP- Discharge Planning Updated by [id number]: Suhas Fong on 11/08/18 1:[address] Patient Name: BOB REYES Encounter No: [id number] : 1955 Primary Insurance: MEDICARE A & B Anticipated DC Date: 11-06-2018 Planned Disposition: Home with Home Health External Planned Provider: [facility] DCP follow-up note: CM RECEIVED CALL FROM [facility], PT HAS NEW OUTPATIENT DIALYSIS SCHEDULE: SUNDAY, SUNDAY, SUNDAY 1230; [facility] IN [place] FIRST APPOINTMENT 11-12-18, 1115AM. CM NOTIFIED PT IN ROOM. PT REPORTS PLAN OF HOME WITH FAMILY AND [facility] RESUMPTION. CHOICE LISTING PROVIDED, CHOICE SIGNED FOR [facility]. IMPORTANT MESSAGE FROM MEDICARE PROVIDED AND EXPLAINED. CM CALLED [facility], , SPOKE TO MARGE AND PROVIDED UPDATE. CM FAXED HOSPITAL UPDATE TO [facility] AT [phone]. FOR DISCHARGE, NOTIFY [facility] AT [phone]. FAX DISCHARGE INFORMATION TO [facility] AT [phone]. Shuas Fong, CASE MANAGEMENT DCP- Discharge Planning Updated by [id number]: Suhas Fong on 11/06/18 4:[address] Patient Name: BOB REYES Admission Status: Elective Accout number: [id number] Admission Date: 11-05-2018 : 1955 Admission Diagnosis: Attending: CHARU CRAIG Current LOS: 1 Anticipated DC Date: 11-06-2018 Planned Disposition: Home with Home Health Primary Insurance: MEDICARE A & B PLANNED EXTERNAL PROVIDER: [facility] Discharge Planning Comments: CM RECEIVED ORDER FOR NEW DIALYSIS CLINIC ARRANGEMENT, [facility] COORDINATOR [facility] CROSS WORKING ON THIS ARRANGEMENT. CM MET WITH PT IN ROOM TO DISCUSS DISCHARGE PLANNING AND NEEDS. PT REPORTS LIVING AT HOME INDEPENDENTLY WITH HIS ADULT DAUGHTER AND SON IN LAW. PT HAS CANE, SHOWER CHAIR AND STANDARD WALKER WITH NO MEDICAL EQUIPMENT PROVIDER PREFERENCE. PT HAS NO OTHER OUTSIDE SERVICES ASSISTING IN THE HOME. CM DISCUSSED AVAILABILITY OF HOME HEALTH, REHAB SERVICES AND MEDICAL EQUIPMENT. PT REPORTS IF ABLE, HE WILL RETURN HOME WITH HOME HEALTH BUT DOES NOT KNOW AT THIS TIME IF HE WILL REQUIRE SOME SORT OF REHAB, IF HE IS EVEN ABLE, BEFORE GOING HOME; PT REPORTS HIS FAMILY WILL PICK HIM UP FOR DISCHARGE HOME. CM SPOKE TO NAILA COCHRAN REGARDING LACK OF PHYSICAL THERAPY ORDER, NAILA ADVISED WE WILL WAIT UNTIL RECOMMENDATIONS FROM WOUND CARE EVALUATION. PT REPORTS HE MAY NEED REHAB PRIOR TO GOING HOME OR MAY RETURN HOME WITH [facility] RESUMPTION. CM WAITING ON WOUND CARE EVALUATION AND PHYSICAL THERAPY EVALUATION ORDER TO DETERMINE THERAPY NEEDS IF ANY. Termite Helper: Suhas Fong DCPIA - Discharge Planning Initial Assessment Updated by [id number]: Suhas Fong on 11/06/18 5:32 pm * Is the patient Alert and Oriented? Yes * How many steps to enter\\exit or inside your home? 6-O / 2-I * PCP DR. GONZALO CORNEJO IN [facility] [place]. * Pharmacy [facility] IN [place] * Preadmission Environment Home with Family * ADLs Independent * Equipment Cane Shower Chair Walker * Other Equipment NO MEDICAL EQUIPMENT PROVIDER PREFERENCE * List name and contact numbers for known caregivers / representatives who currently or will assist patient after discharge: BOB REYES, PILI, * Verbal permission to speak to the caregivers and representatives has been obtained from the patient. N/A * Community resources currently utilized Home Health * Please name any agencies selected above. [facility] - PHYSICAL THERAPY AND WOUND CARE * Additional services required to return to the preadmission environment? No * Can the patient safely return to the preadmission environment? Yes * Has this patient been hospitalized within the prior 30 days at any hospital? No Coverage Notice Reviewer: RONEY Fong Notice Issued Date-Time: 11/08/2018 14:20 Notice Type: Patient Choice Letter Notice Delivered To: Patient Relationship to Patient: Motion Picture Actor Name: Delivery Method: HAND - Hand Delivered Kellie Days: Prior Verbal Notification: Recipient Understood Notice: Yes Recipient Signature: Yes Med Rec Note Co-signed by Attending: Coverage Notice Comment: DONA Reviewer: RONEY Fong Notice Issued Date-Time: 11/08/2018 14:20 Notice Type: IM Discharge Notice Notice Delivered To: Patient Relationship to Patient: Motion Picture Actor Name: Delivery Method: HAND - Hand Delivered Kellie Days: Prior Verbal Notification: Recipient Understood Notice: Yes Recipient Signature: Yes Med Rec Note Co-signed by Attending: Coverage Notice Comment: Reviewer: RONEY Fong Notice Issued Date-Time: 11/11/2018 14:30 Notice Type: IM Discharge Notice Notice Delivered To: Patient Relationship to Patient: Motion Picture Actor Name: Delivery Method: HAND - Hand Delivered Kellie Days: Prior Verbal Notification: Recipient Understood Notice: Yes Recipient Signature: Yes Med Rec Note Co-signed by Attending: Coverage Notice Comment: Last DP export: 11/12/18 7:54 a Patient Name: BOB REYES Page [id number] at 0919 All edits/amendments must be made on the electronic document DICTATION DATE: 11/13/18918 RESPIRATORY SUPERVISOR: JEANNETTE 11/13/18918 RPT#: [id number] DC DATE: STATUS: ADM IN [facility] [address] [place] [address] END OF REPORT
--- NOTE | 2018-11-13 09:26 | MORECARE ---
CASE MANAGEMENT DISCHARGE SUMMARY PATIENT: BOB REYES UNIT: [id number] ADM DATE: 11/05/18 AGE: 63 : 53 SEX: M ROOM/BED: D.2113 AUTHOR: MONTEZ HUNTER PHYSICIAN: REFERRING PHYSICIAN: CHARU CRAIG MD DATE OF SERVICE: 11/13/18 Discharge Plan Patient Name: BOB REYES [facility] : 1955 Planned Disposition: Inpatient Rehab Anticipated Discharge Date: 11/13/18 Discharge Date: Expected LOS: 8 Initial Reviewer: [email or web address] Initial Review Date: 11/06/2018 Generated: 11/13/18 10:26 am Comments DCP- Discharge Planning Updated by [email or web address]: Suhas Fong on 11/13/18 8:[address] Patient Name: BOB REYES Encounter No: [id number] : 1955 Primary Insurance: MEDICARE A & B Anticipated DC Date: 11-13-2018 Planned Disposition: Inpatient Rehab External Planned Provider: [facility] INPATIENT REHAB LATE ENTRY FROM 11-12-18, 1530 HOURS: DCP follow-up note: CM SPOKE TO PT IN ROOM REGARDING DISCHARGE PLANNING TO INPATIENT REHAB, NURSING FACILITY OR HOME WITH HOME HEALTH. PT'S DAUGHTER HAS INDICATED THAT PT IS NOT ABLE TO DRIVE HIMSELF TO DILAYSIS OR STAY HOME ALONE IN HIS CURRENT CONDITION AND WOULD PREFER REHAB AT [place]; PT IN AGREEMENT WITH REHAB AT [place]. CM SPOKE TO ADILIA OF [facility] INPATIENT REHAB WHO HAS ALSO SPOKEN TO PT. INPATIENT REHAB AT [place] PLANS TO ACCEPT PT WHEN MEDICALLY STABLE FOR DISCHARGE TO REHAB. FOR DISCHARGE, NOTIFY [facility] INPATIENT REHAB WHO WILL COMPLETE SCREEN FOR ADMISSION. CHING Savage DCP- Discharge Planning Updated by [id number]: Suhas Fong on 11/11/18 1:[address] Patient Name: BOB REYES Encounter No: [id number] : 1955 Primary Insurance: MEDICARE A & B Anticipated DC Date: 11-12-2018 Planned Disposition: Home with Home Health External Planned Provider: [facility] DCP follow-up note: CM RECEIVED CALL FROM [facility] OF [facility], REQUESTED PT'S HOSPITAL DIALYSIS RUN SHEETS. CM FAXED REQUESTED INFORMATION TO [facility] AT [phone]. CM SPOKE TO NAILA ROJAS REGARDING PROJECTED DISCHARGE PT IS SCHEDULED FOR OUTPATIENT DIALYSIS CLINIC ADMISSION 11-12-18. NAILA ROJAS CALLED CM BACK AND ADVISED THAT DR. CRAIG WILL SEE PT TOMORROW TO ADDRESS PAIN MEDICATIONS AND DISCHARGE, PROJECTED START AT OUTPATIENT DIALYSIS IN [place] WILL BE 11-14-18. CM NOTIFIED [facility]. CM NOTIFIED PT IN ROOM, DISCUSSED DISCHARGE PLAN OF HOME WITH RESUMPTION OF HOME HEALTH. PT REPORTS THAT HE IS NOT SURE IF HE IS GOING HOME AND THAT HE AND HIS DAUGHTER ARE THINKING OF PT GOING TO REHAB AT [facility] IN [place]. CM EXPLAINED POSSIBLE DISCHARGE TOMORROW WITH PLANNED OUTPATIENT DIALYSIS START DATE OF SUNDAY; CM EXPLAINED PROCESS OF REFERRAL TO NURSING HOME FACILITY FOR REHAB AND ENCOURGED PT TO MAKE DECISION SOON POSSIBLE AND TO PROVIDE CM WITH AT LEAST TWO CHOICES OF NURSING HOME FACILITIES. PT AGAIN REPORTS HE AND HIS DAUGHTER ARE "THINKING ABOUT IT." CM EXPLAINED THAT THIS PROCESS CAN TAKE DAYS AND AGAIN ASKED PT TO DECIDE SOON POSSIBLE. CM PROVIDED LISTING OF NURSING HOME FACILITIES AND TWO CHOICE LETTERS THAT CM EXPLAINED WOULD NEED TO BE FILLED OUT AND SIGNED BY PT FOR CM TO SEND REFERRALS, IF PT DECIDES ON THIS. PT REPORTS UNDERSTANDING AND HAS CM CONTACT NUMBER TO CALL WHEN HE DECIDES BETWEEN HOME WITH [facility] RESUMPTION OR PLACEMENT IN UNKNOWN NURSING HOME FACILITY IN [place] FOR REHAB. PT IS OK WITH CM SENDING UPDATE TO [facility] IN CASE PT DOES DECIDE TO GO HOME WITH HOME HEALTH RESUMPTION. CM CALLED [facility], , SPOKE TO MARGE AND ADVISED OF PLANNED DISCHARGE SUNDAY. CM NOTIFIED NAILA ROJAS OF PT'S POSSIBLE CHANGE IN DISCHARGE PLAN, RECEIVED ORDERS FOR PHYSICAL THERAPY AND OCCUPATIONAL THERAPY EVALUATIONS WELL INPATIENT REHAB PRESCREENING. PT'D DIALYSIS SCHEDULE IS SUNDAY, SUNDAY, SUNDAY 1230; [facility] IN [place] FIRST APPOINTMENT 11-14-18, 1115AM. FOR DISCHARGE, NOTIFY [facility] AT [phone]. FAX DISCHARGE INFORMATION TO [facility] AT [phone]. CM TO CONTINUE TO FOLLOW AND ASSIST IF NEEDED. CHING Savage DCP- Discharge Planning Updated by [id number]: Suhas Fong on 11/08/18 1:[address] Patient Name: BOB REYES Encounter No: [id number] : 1955 Primary Insurance: MEDICARE A & B Anticipated DC Date: 11-06-2018 Planned Disposition: Home with Home Health External Planned Provider: [facility] DCP follow-up note: CM RECEIVED CALL FROM [facility], PT HAS NEW OUTPATIENT DIALYSIS SCHEDULE: SUNDAY, SUNDAY, SUNDAY 1230; [facility] IN [place] FIRST APPOINTMENT 11-12-18, 1115AM. CM NOTIFIED PT IN ROOM. PT REPORTS PLAN OF HOME WITH FAMILY AND [facility] RESUMPTION. CHOICE LISTING PROVIDED, CHOICE SIGNED FOR [facility]. IMPORTANT MESSAGE FROM MEDICARE PROVIDED AND EXPLAINED. CM CALLED [facility], , SPOKE TO MARGE AND PROVIDED UPDATE. CM FAXED HOSPITAL UPDATE TO [facility] AT [phone]. FOR DISCHARGE, NOTIFY [facility] AT [phone]. FAX DISCHARGE INFORMATION TO [facility] AT [phone]. CHING Savage DCP- Discharge Planning Updated by [email or web address]: Suhas Fong on 11/06/18 4:[address] Patient Name: BOB REYES Admission Status: Elective Accout number: [id number] Admission Date: 11-05-2018 : 1955 Admission Diagnosis: Attending: CHARU CRAIG Current LOS: 1 Anticipated DC Date: 11-06-2018 Planned Disposition: Home with Home Health Primary Insurance: MEDICARE A & B PLANNED EXTERNAL PROVIDER: [facility] Discharge Planning Comments: CM RECEIVED ORDER FOR NEW DIALYSIS CLINIC ARRANGEMENT, [facility] COORDINATOR [facility] CROSS WORKING ON THIS ARRANGEMENT. CM MET WITH PT IN ROOM TO DISCUSS DISCHARGE PLANNING AND NEEDS. PT REPORTS LIVING AT HOME INDEPENDENTLY WITH HIS ADULT DAUGHTER AND SON IN LAW. PT HAS CANE, SHOWER CHAIR AND STANDARD WALKER WITH NO MEDICAL EQUIPMENT PROVIDER PREFERENCE. PT HAS NO OTHER OUTSIDE SERVICES ASSISTING IN THE HOME. CM DISCUSSED AVAILABILITY OF HOME HEALTH, REHAB SERVICES AND MEDICAL EQUIPMENT. PT REPORTS IF ABLE, HE WILL RETURN HOME WITH HOME HEALTH BUT DOES NOT KNOW AT THIS TIME IF HE WILL REQUIRE SOME SORT OF REHAB, IF HE IS EVEN ABLE, BEFORE GOING HOME; PT REPORTS HIS FAMILY WILL PICK HIM UP FOR DISCHARGE HOME. CM SPOKE TO NAILA COCHRAN REGARDING LACK OF PHYSICAL THERAPY ORDER, NAILA ADVISED WE WILL WAIT UNTIL RECOMMENDATIONS FROM WOUND CARE EVALUATION. PT REPORTS HE MAY NEED REHAB PRIOR TO GOING HOME OR MAY RETURN HOME WITH [facility] RESUMPTION. CM WAITING ON WOUND CARE EVALUATION AND PHYSICAL THERAPY EVALUATION ORDER TO DETERMINE THERAPY NEEDS IF ANY. Stucco Applicator: Suhas Fong DCPIA - Discharge Planning Initial Assessment Updated by [id number]: Suhas Fong on 11/06/18 5:32 pm * Is the patient Alert and Oriented? Yes * How many steps to enter\\exit or inside your home? 6-O / 2-I * PCP DR. GONZALO CORNEJO IN [place], [place]. * Pharmacy [facility] IN [place] * Preadmission Environment Home with Family * ADLs Independent * Equipment Cane Shower Chair Walker * Other Equipment NO MEDICAL EQUIPMENT PROVIDER PREFERENCE * List name and contact numbers for known caregivers / representatives who currently or will assist patient after discharge: BOB REYES, SON, * Verbal permission to speak to the caregivers and representatives has been obtained from the patient. N/A * Community resources currently utilized Home Health * Please name any agencies selected above. [facility] - PHYSICAL THERAPY AND WOUND CARE * Additional services required to return to the preadmission environment? No * Can the patient safely return to the preadmission environment? Yes * Has this patient been hospitalized within the prior 30 days at any hospital? No Coverage Notice Reviewer: [id number] Sally Fong Notice Issued Date-Time: 11/08/2018 14:20 Notice Type: Patient Choice Letter Notice Delivered To: Patient Relationship to Patient: Shuttle Final Inspector Name: Delivery Method: HAND - Hand Delivered Kellie Days: Prior Verbal Notification: Recipient Understood Notice: Yes Recipient Signature: Yes Med Rec Note Co-signed by Attending: Coverage Notice Comment: DONA Reviewer: [id number] Sally Fong Notice Issued Date-Time: 11/11/2018 14:30 Notice Type: IM Discharge Notice Notice Delivered To: Patient Relationship to Patient: Shuttle Final Inspector Name: Delivery Method: HAND - Hand Delivered Kellie Days: Prior Verbal Notification: Recipient Understood Notice: Yes Recipient Signature: Yes Med Rec Note Co-signed by Attending: Coverage Notice Comment: Reviewer: [id number] - Suhas Fong Notice Issued Date-Time: 11/08/2018 14:20 Notice Type: IM Discharge Notice Notice Delivered To: Patient Relationship to Patient: Shuttle Final Inspector Name: Delivery Method: HAND - Hand Delivered Kellie Days: Prior Verbal Notification: Recipient Understood Notice: Yes Recipient Signature: Yes Med Rec Note Co-signed by Attending: Coverage Notice Comment: Last DP export: 11/13/18 8:19 a Patient Name: BOB REYES Page [id number] at 0926 All edits/amendments must be made on the electronic document DICTATION DATE: 11/13/18925 REFRACTORY WORKER: JEANNETTE 11/13/18925 RPT#: [id number] DC DATE: STATUS: ADM IN [facility] [address] [place] [address] END OF REPORT
--- NOTE | 2018-11-13 12:30 | NUR ---
TALKED WITH TRAMAINE IN SPECIALS AND NOTIFIED HIM PT IS ON HEPARIN INJECTIONS. STATED PROCEDURE WILL BE SOMETIME BETWEEN 9 AND 3 TOMORROW. WILL NOTIFY PT WHEN HE RETURNS FROM DIALYSIS.
[2018-11-13 17:52] VITALS: BP 98/56
--- NOTE | 2018-11-13 18:10 | NUR ---
PRE OP CONSENTS SIGNED BY PT.
--- NOTE | 2018-11-13 19:45 | NUR ---
RESUMING CARE . PT IN BED EYES CLOSED A&O X4 LEFT FA IV , RA , ALEJANDRINAG TO LEFT FOOT C/D/I NO C/O PAIN OR DISTRESS AT THIS TIME CALL LIGHT IN REACH WILL CONT TO MONITOR
[2018-11-13 22:04] VITALS: BP 82/47
[2018-11-14 06:11] LABS: BASOPHILS 0.3 % (0-2); EOSINOPHILS 0.6 % (0-7); HEMOGLOBIN 7.9 g/dL (13.5-17.5); IMMATURE GRANULOCYTES 0.3 % (0-5); MCH 28.9 pg (26.0-34.0); MCHC 31.6 g/dL (31.0-37.0); MCV 91.6 fL (80.0-100.0); MEAN PLATELET VOLUME 10.7 fL (7.4-10.4); MONOCYTES 12.6 % (2-11); NEUTROPHILS 71.2 % (40-80); PLATELET COUNT 119 10x3/uL (130-400); RBC 2.73 10x6/uL (4.20-6.10); RDW 19.3 % (11.5-14.5); WBC 7.1 10x3/uL (4.8-10.8)
[2018-11-14 06:15] VITALS: BP 99/65
[2018-11-14 06:18] LABS: APTT 39.7 SECONDS (22.8-39.4); INR 1.17 (0.85-1.17); PROTIME 14.4 SECONDS (11.6-15.0)
[2018-11-14 06:27] LABS: ANION GAP 17.5 mmol/L (8-16); CALCIUM 8.1 mg/dL (8.5-10.1); CARBON DIOXIDE 26.9 mmol/L (21.0-32.0); CREATININE - SERUM 4.9 mg/dL (0.6-1.3); PHOSPHOROUS 4.7 mg/dL (2.5-4.9); POTASSIUM - SERUM 3.4 mmol/L (3.5-5.1)
--- NOTE | 2018-11-14 08:06 | NUR ---
RESUMING PT CARE, PT SITTING UP AT BEDSIDE, ALERT AND ORIENTED X3. DRESSING CHANGE TO LEFT FOOT AND RIGHT ELBOW DONE. CALL LIGHT IN REACH, WILL CONTINUE TO MONITOR AND FOLLOW PLAN OF CARE.
[2018-11-14 08:33] VITALS: BP 98/64
--- NOTE | 2018-11-14 09:34 | NUR ---
RESTS IN BED WITH EYES CLOSED. RIGHT ARM DRSG CDI. CALL LIGHT IN REACH. WILL MONITOR NEEDS.
--- NOTE | 2018-11-14 10:01 | NUR ---
VIEWED ASSESMENT AND AGREE.
--- NOTE | 2018-11-14 11:53 | MORECARE ---
CASE MANAGEMENT DISCHARGE SUMMARY PATIENT: BOB REYES UNIT: [id number] ADM DATE: 11/05/18 AGE: 63 : 53 SEX: M ROOM/BED: D.2113 AUTHOR: MONTEZ HUNTER PHYSICIAN: REFERRING PHYSICIAN: CHARU CRAIG MD DATE OF SERVICE: 11/14/18 Discharge Plan Patient Name: BOB REYES [facility] [facility] 1955 Planned Disposition: Inpatient Rehab Anticipated Discharge Date: 11/15/18 Discharge Date: Expected LOS: 10 Initial Reviewer: [id number] Initial Review Date: 11/06/2018 Generated: 11/14/18 12:53 pm Comments DCP- Discharge Planning Updated by [id number]: Suhas Fong on 11/13/18 8:[address] Patient Name: BOB REYES Encounter No: [id number] : 1955 Primary Insurance: MEDICARE A & B Anticipated DC Date: 11-13-2018 Planned Disposition: Inpatient Rehab External Planned Provider: [facility] LATE ENTRY FROM 11-12-18, 1530 HOURS: DCP follow-up note: CM SPOKE TO PT IN ROOM REGARDING DISCHARGE PLANNING TO INPATIENT REHAB, NURSING FACILITY OR HOME WITH HOME HEALTH. PT'S DAUGHTER HAS INDICATED THAT PT IS NOT ABLE TO DRIVE HIMSELF TO [place] OR STAY HOME ALONE IN HIS CURRENT CONDITION AND WOULD PREFER REHAB AT [place]; PT IN AGREEMENT WITH REHAB AT [place]. CM SPOKE TO ADILIA OF [facility] INPATIENT RE[facility] WHO HAS ALSO SPOKEN TO PT. INPATIENT REHAB AT [place] PLANS TO ACCEPT PT WHEN MEDICALLY STABLE FOR DISCHARGE TO REHAB. FOR DISCHARGE, NOTIFY [facility] WHO WILL COMPLETE SCREEN FOR ADMISSION. CHING Savage DCP- Discharge Planning Updated by [id number]: Suhas Fong on 11/11/18 1:[address] Patient Name: BOB REYES Encounter No: [id number] : 1955 Primary Insurance: MEDICARE A & B Anticipated DC Date: 11-12-2018 Planned Disposition: Home with Home Health External Planned Provider: [facility] DCP follow-up note: CM RECEIVED CALL FROM [facility] OF [facility], REQUESTED PT'S HOSPITAL DIALYSIS RUN SHEETS. CM FAXED REQUESTED INFORMATION TO [facility] AT [phone]. CM SPOKE TO NAILA ROJAS REGARDING PROJECTED DISCHARGE PT IS SCHEDULED FOR OUTPATIENT DIALYSIS CLINIC ADMISSION 11-12-18. NAILA ROJAS CALLED CM BACK AND ADVISED THAT DR. CRAIG WILL SEE PT TOMORROW TO ADDRESS PAIN MEDICATIONS AND DISCHARGE, PROJECTED START AT OUTPATIENT DIALYSIS IN [place] WILL BE 11-14-18. CM NOTIFIED [facility]. CM NOTIFIED PT IN ROOM, DISCUSSED DISCHARGE PLAN OF HOME WITH RESUMPTION OF HOME HEALTH. PT REPORTS THAT HE IS NOT SURE IF HE IS GOING HOME AND THAT HE AND HIS DAUGHTER ARE THINKING OF PT GOING TO REHAB AT [facility] IN [place]. CM EXPLAINED POSSIBLE DISCHARGE TOMORROW WITH PLANNED OUTPATIENT DIALYSIS START DATE OF SUNDAY; CM EXPLAINED PROCESS OF REFERRAL TO [facility] F[facility]ILITY FOR REHAB AND ENCOURGED PT TO MAKE DECISION SOON POSSIBLE AND TO PROVIDE CM WITH AT LEAST TWO CHOICES OF [facility] FACILITIES. PT AGAIN REPORTS HE AND HIS DAUGHTER ARE "THINKING ABOUT IT." CM EXPLAINED THAT THIS PROCESS CAN TAKE DAYS AND AGAIN ASKED PT TO DECIDE SOON POSSIBLE. CM PROVIDED LISTING OF [facility] FACILITIES AND TWO CHOICE LETTERS THAT CM EXPLAINED WOULD NEED TO BE FILLED OUT AND SIGNED BY PT FOR CM TO SEND REFERRALS, IF PT DECIDES ON THIS. PT REPORTS UNDERSTANDING AND HAS CM CONTACT NUMBER TO CALL WHEN HE DECIDES BETWEEN HOME WITH [facility] RESUMPTION OR PLACEMENT IN UNKNOWN [facility] FACILITY IN [place] FOR REHAB. PT IS OK WITH CM SENDING UPDATE TO [facility] IN CASE PT DOES DECIDE TO GO HOME WITH HOME HEALTH RESUMPTION. CM CALLED [facility], , SPOKE TO MARGE AND ADVISED OF PLANNED DISCHARGE SUNDAY. CM NOTIFIED NAILA ROJAS OF PT'S POSSIBLE CHANGE IN DISCHARGE PLAN, RECEIVED ORDERS FOR PHYSICAL THERAPY AND OCCUPATIONAL THERAPY EVALUATIONS [facility]IENT REHAB PRESCREENING. PT'D DIALYSIS SCHEDULE IS SUNDAY, SUNDAY, SUNDAY 1230; [facility] IN [place] FIRST APPOINTMENT 11-14-18, 1115AM. FOR DISCHARGE, NOTIFY [facility] AT [phone]. [facility]FORMATION [facility] AT [phone]. CM TO CONTINUE TO FOLLOW AND ASSIST IF NEEDED. CHING Savage DCP- Discharge Planning Updated by [id number]: Suhas Fong on 11/08/18 1:[address] Patient Name: BOB REYES Encounter No: [id number] : 1955 Primary Insurance: MEDICARE A & B Anticipated DC Date: 11-06-2018 Planned Disposition: Home with Home Health External Planned Provider: [facility] DCP follow-up note: CM RECEIVED CALL FROM [facility], PT HAS NEW OUTPATIENT DIALYSIS SCHEDULE: SUNDAY, SUNDAY, SUNDAY 1230; [facility] IN [place] FIRST APPOINTMENT 11-12-18, 1115AM. CM NOTIFIED PT IN ROOM. PT REPORTS PLAN OF HOME WITH FAMILY AND [facility] RESUMPTION. CHOICE LISTING PROVIDED, CHOICE SIGNED FOR [facility]. IMPORTANT MESSAGE FROM MEDICARE PROVIDED AND EXPLAINED. CM CALLED [facility], , SPOKE TO MARGE AND PROVIDED UPDATE. CM FAXED HOSPITAL UPDATE TO [facility] AT [phone]. FOR DISCHARGE, NOTIFY [facility] AT [phone]. FAX DISCHARGE INFORMATION TO [facility] AT [phone]. CHING Savage DCP- Discharge Planning Updated by [id number]: Suhas Fong on 11/06/18 4:[address] Patient Name: BOB REYES Admission Status: Elective Accout number: [id number] Admission Date: 11-05-2018 : 1955 Admission Diagnosis: Attending: CHARU CRAIG Current LOS: 1 Anticipated DC Date: 11-06-2018 Planned Disposition: Home with Home Health Primary Insurance: MEDICARE A & B PLANNED EXTERNAL PROVIDER: [facility] Discharge Planning Comments: CM RECEIVED ORDER FOR NEW DIALYSIS CLINIC ARRANGEMENT, [facility] COORDINATOR [facility] WORKING ON THIS ARRANGEMENT. CM MET WITH PT IN ROOM TO DISCUSS DISCHARGE PLANNING AND NEEDS. PT REPORTS LIVING AT HOME INDEPENDENTLY WITH HIS ADULT DAUGHTER AND SON IN [place]. PT HAS CANE, SHOWER CHAIR AND STANDARD WALKER WITH NO MEDICAL EQUIPMENT PROVIDER PREFERENCE. PT HAS NO OTHER OUTSIDE SERVICES ASSISTING IN THE HOME. CM DISCUSSED AVAILABILITY OF HOME HEALTH, REHAB SERVICES AND MEDICAL EQUIPMENT. PT REPORTS IF ABLE, HE WILL RETURN HOME WITH HOME HEALTH BUT DOES NOT KNOW AT THIS TIME IF HE WILL REQUIRE SOME SORT OF REHAB, IF HE IS EVEN ABLE, BEFORE GOING HOME; PT REPORTS HIS FAMILY WILL PICK HIM UP FOR DISCHARGE HOME. CM SPOKE TO NAILA COCHRAN REGARDING LACK OF PHYSICAL THERAPY ORDER, NAILA ADVISED WE WILL WAIT UNTIL RECOMMENDATIONS FROM WOUND CARE EVALUATION. PT REPORTS HE MAY NEED REHAB PRIOR TO GOING HOME OR MAY RETURN HOME WITH [facility] RESUMPTION. CM WAITING ON WOUND CARE EVALUATION AND PHYSICAL THERAPY EVALUATION ORDER TO DETERMINE THERAPY NEEDS IF ANY. Part Time: Suhas Fong DCPIA - Discharge Planning Initial Assessment Updated by [email or web address]: Suhas Fong on 11/06/18 5:32 pm * Is the patient Alert and Oriented? Yes * How many steps to enter\\exit or inside your home? 6-O / 2-I * PCP DR. GONZALO CORNEJO IN [place], [place]. * Pharmacy [facility] IN [place] * Preadmission Environment Home with Family * ADLs Independent * Equipment Cane Shower Chair Walker * Other Equipment NO MEDICAL EQUIPMENT PROVIDER PREFERENCE * List name and contact numbers for known caregivers / representatives who currently or will assist patient after discharge: BOB REYES, SON, * Verbal permission to speak to the caregivers and representatives has been obtained from the patient. N/A * Community resources currently utilized Home Health * Please name any agencies selected above. [facility] - PHYSICAL THERAPY AND WOUND CARE * Additional services required to return to the preadmission environment? No * Can the patient safely return to the preadmission environment? Yes * Has this patient been hospitalized within the prior 30 days at any hospital? No Coverage Notice Reviewer: [id number] Sally Fong Notice Issued Date-Time: 11/08/2018 14:20 Notice Type: Patient Choice Letter Notice Delivered To: Patient Relationship to Patient: Director Of People Name: Delivery Method: HAND - Hand Delivered Kellie Days: Prior Verbal Notification: Recipient Understood Notice: Yes Recipient Signature: Yes Med Rec Note Co-signed by Attending: Coverage Notice Comment: DONA Reviewer: [id number] Sally Fong Notice Issued Date-Time: 11/08/2018 14:20 Notice Type: IM Discharge Notice Notice Delivered To: Patient Relationship to Patient: Director Of People Name: Delivery Method: HAND - Hand Delivered Kellie Days: Prior Verbal Notification: Recipient Understood Notice: Yes Recipient Signature: Yes Med Rec Note Co-signed by Attending: Coverage Notice Comment: Reviewer: [id number] - Suhas Fong Notice Issued Date-Time: 11/11/2018 14:30 Notice Type: IM Discharge Notice Notice Delivered To: Patient Relationship to Patient: Director Of People Name: Delivery Method: HAND - Hand Delivered Kellie Days: Prior Verbal Notification: Recipient Understood Notice: Yes Recipient Signature: Yes Med Rec Note Co-signed by Attending: Coverage Notice Comment: Last DP export: 11/13/18 8:26 a Patient Name: BOB REYES Page [id number] at 1153 All edits/amendments must be made on the electronic document DICTATION DATE: 11/14/18 1153 FASHION SHOW DIRECTOR: JEANNETTE 11/14/18 1153 RPT#: [id number] DC DATE: STATUS: ADM IN [facility] [address] [place] [address] END OF REPORT
--- NOTE | 2018-11-14 12:08 | MORECARE ---
CASE MANAGEMENT DISCHARGE SUMMARY PATIENT: BOB REYES UNIT: [id number] ADM DATE: 11/05/18 AGE: 63 : 53 SEX: M ROOM/BED: D.[facility] AUTHOR: MONTEZ HUNTER PHYSICIAN: REFERRING PHYSICIAN: CHARU CRAIG MD DATE OF SERVICE: 11/14/18 Discharge Plan Patient Name: BOB REYES Facility[facility]:[place] : 1955 Planned Disposition: Inpatient Rehab Anticipated Discharge Date: 11/15/18 Discharge Date: Expected LOS: 10 Initial Reviewer: [id number] Initial Review Date: 11/06/2018 Generated: 11/14/18 1:07 pm Comments DCP- Discharge Planning Updated by [id number]: Suhas Fong on 11/14/18 11:[address] Patient Name: BOB REYES Encounter No: [id number] : 1955 Primary Insurance: MEDICARE A & B Anticipated DC Date: 11-15-2018 Planned Disposition: Inpatient Rehab External Planned Provider: [facility] DCP follow-up note: CM RECEIVED NURSING MESSAGE FOR DISCHARGE PLANNING TOMORROW TO REHAB. PT IN PROCEDURE, NOT IN ROOM. CM CALLED PT'S DAUGHTER, SILVIA XIE, , WHO IS IN AGREEMENT WITH DISCHARGE PLAN AND WILL BE TO HOSPITAL LATER TODAY TO SEE PT AND CM AFTER PT IS RETURNED TO ROOM. CM NOTIFIED ROBERTA OF INPATIENT REHAB AT [place]. FOR DISCHARGE, NOTIFY [facility] INPATIENT [facility]. [facility] INPATIENT REH[facility] TO CONTACT MED 2 NURSE WITH ROOM NUMBER WHEN READY TO ACCEPT PT AND NURSE REPORT. CHING Savage DCP- Discharge Planning Updated by [id number]: Suhas Fong on 11/13/18 8:[address] Patient Name: BOB REYES Encounter No: [id number] : 1955 Primary Insurance: MEDICARE A & B Anticipated DC Date: 11-13-2018 Planned Disposition: Inpatient Rehab External Planned Provider: [facility] IN[facility] LATE ENTRY FROM 11-12-18, 1530 HOURS: DCP follow-up note: CM SPOKE TO PT IN ROOM REGARDING DISCHARGE PLANNING TO INPATIENT REHAB, NURSING FACILITY OR HOME WITH HOME HEALTH. PT'S DAUGHTER HAS INDICATED THAT PT IS NOT ABLE TO DRIVE HIMSELF TO [facility] OR STAY HOME ALONE IN HIS CURRENT CONDITION AND WOULD PREFER REHAB AT [facility]; PT IN AGREEMENT WITH REHAB AT [place]. CM SPOKE TO ADILIA OF [facility] INPATIENT REHAB WHO HAS ALSO SPOKEN TO PT. INPATIENT REHAB AT [place] PLANS TO ACCEPT PT WHEN MEDICALLY STABLE FOR DISCHARGE TO REHAB. FOR DISCHARGE, NOTIFY [facility] IN[facility] WHO WILL COMPLETE SCREEN FOR ADMISSION. Suhas Fong, CASE MANAGEMENT DCP- Discharge Planning Updated by [id number]: Suhas Fong on 11/11/18 1:[address] Patient Name: BOB REYES Encounter No: [id number] : 1955 Primary Insurance: MEDICARE A & B Anticipated DC Date: 11-12-2018 Planned Disposition: Home with Home Health External Planned Provider: [facility] DCP follow-up note: CM RECEIVED CALL FROM [facility], REQUESTED PT'S HOSPITAL DIALYSIS RUN SHEETS. CM FAXED REQUESTED INFORMATION TO [facility] AT [phone]. CM SPOKE TO NAILA ROJAS REGARDING PROJECTED DISCHARGE PT IS SCHEDULED FOR OUTPATIENT DIALYSIS CLINIC ADMISSION 11-12-18. NAILA ROJAS CALLED CM BACK AND ADVISED THAT DR. CRAIG WILL SEE PT TOMORROW TO ADDRESS PAIN MEDICATIONS AND DISCHARGE, PROJECTED START AT OUTPATIENT DIALYSIS IN [place] WILL BE 11-14-18. CM NOTIFIED [facility]. CM NOTIFIED PT IN ROOM, DISCUSSED DISCHARGE PLAN OF HOME WITH RESUMPTION OF HOME HEALTH. PT REPORTS THAT HE IS NOT SURE IF HE IS GOING HOME AND THAT HE AND HIS DAUGHTER ARE THINKING OF PT GOING TO REHAB AT [facility] IN [place]. CM EXPLAINED POSSIBLE DISCHARGE TOMORROW WITH PLANNED OUTPATIENT DIALYSIS START DATE OF SUNDAY; CM EXPLAINED PROCESS OF REFERRAL TO CUSTODIAL FACILITY FOR REHAB AND ENCOURGED PT TO MAKE DECISION SOON POSSIBLE AND TO PROVIDE CM WITH AT LEAST TWO CHOICES OF CUSTODIAL FACILITIES. PT AGAIN REPORTS HE AND HIS DAUGHTER ARE "THINKING ABOUT IT." CM EXPLAINED THAT THIS PROCESS CAN TAKE DAYS AND AGAIN ASKED PT TO DECIDE SOON POSSIBLE. CM PROVIDED LISTING OF CUSTODIAL FACILITIES AND TWO CHOICE LETTERS THAT CM EXPLAINED WOULD NEED TO BE FILLED OUT AND SIGNED BY PT FOR CM TO SEND REFERRALS, IF PT DECIDES ON THIS. PT REPORTS UNDERSTANDING AND HAS CM CONTACT NUMBER TO CALL WHEN HE DECIDES BETWEEN HOME WITH [facility] RESUMPTION OR PLACEMENT IN UNKNOWN CUSTODIAL FACILITY IN [place] FOR REHAB. PT IS OK WITH CM SENDING UPDATE TO [facility] IN CASE PT DOES DECIDE TO GO HOME WITH HOME HEALTH RESUMPTION. CM CALLED [facility], , SPOKE TO MARGE AND ADVISED OF PLANNED DISCHARGE SUNDAY. CM NOTIFIED NAILA ROJAS OF PT'S POSSIBLE CHANGE IN DISCHARGE PLAN, RECEIVED ORDERS FOR PHYSICAL THERAPY AND OCCUPATIONAL THERAPY EVALUATIONS [facility] INPATIENT REHAB PRESCREENING. PT'D DIALYSIS SCHEDULE IS SUNDAY, SUNDAY, SUNDAY 1230; [facility] IN [place] FIRST APPOINTMENT 11-14-18, 1115AM. FOR DISCHARGE, NOTIFY [facility] AT [phone]. [facility]CHAR[facility] INFORMATION TO [facility] AT [phone]. CM TO CONTINUE TO FOLLOW AND ASSIST IF NEEDED. Suhas Fong, CASE MANAGEMENT DCP- Discharge Planning Updated by [id number]: Suhas Fong on 11/08/18 1:[address] Patient Name: BOB REYES Encounter No: [id number] : 1955 Primary Insurance: MEDICARE A & B Anticipated DC Date: 11-06-2018 Planned Disposition: Home with Home Health External Planned Provider: [facility] DCP follow-up note: CM RECEIVED CALL FROM [facility], PT HAS NEW OUTPATIENT DIALYSIS SCHEDULE: SUNDAY, SUNDAY, SUNDAY 1230; [facility] IN [place] FIRST APPOINTMENT 11-12-18, 1115AM. CM NOTIFIED PT IN ROOM. PT REPORTS PLAN OF HOME WITH FAMILY AND [facility] RESUMPTION. CHOICE LISTING PROVIDED, CHOICE SIGNED FOR [facility]. IMPORTANT MESSAGE FROM MEDICARE PROVIDED AND EXPLAINED. CM CALLED [facility], , SPOKE TO MARGE AND PROVIDED UPDATE. CM FAXED HOSPITAL UPDATE TO [facility] AT [phone]. FOR DISCHARGE, NOTIFY [facility] AT [phone]. FAX [facility]CHARGE INFORMATION TO [facility] AT [phone]. Suhas Fong, CASE MANAGEMENT DCP- Discharge Planning Updated by [id number]: Suhas Fong on 11/06/18 4:[address] Patient Name: BOB REYES Admission Status: Elective Accout number: [id number] Admission Date: 11-05-2018 : 1955 Admission Diagnosis: Attending: CHARU CRAIG Current LOS: 1 Anticipated DC Date: 11-06-2018 Planned Disposition: Home with Home Health Primary Insurance: MEDICARE A & B PLANNED EXTERNAL PROVIDER: [facility] Discharge Planning Comments: CM RECEIVED ORDER FOR NEW DIALYSIS CLINIC ARRANGEMENT, [facility] COORDINATOR [facility] WORKING ON THIS ARRANGEMENT. CM MET WITH PT IN ROOM TO DISCUSS DISCHARGE PLANNING AND NEEDS. PT REPORTS LIVING AT HOME INDEPENDENTLY WITH HIS ADULT DAUGHTER AND SON IN LAW. PT HAS CANE, SHOWER CHAIR AND STANDARD WALKER WITH NO MEDICAL EQUIPMENT PROVIDER PREFERENCE. PT HAS NO OTHER OUTSIDE SERVICES ASSISTING IN THE HOME. CM DISCUSSED AVAILABILITY OF HOME HEALTH, REHAB SERVICES AND MEDICAL EQUIPMENT. PT REPORTS IF ABLE, HE WILL RETURN HOME WITH HOME HEALTH BUT DOES NOT KNOW AT THIS TIME IF HE WILL REQUIRE SOME SORT OF REHAB, IF HE IS EVEN ABLE, BEFORE GOING HOME; PT REPORTS HIS FAMILY WILL PICK HIM UP FOR DISCHARGE HOME. CM SPOKE TO NAILA COCHRAN REGARDING LACK OF PHYSICAL THERAPY ORDER, NAILA ADVISED WE WILL WAIT UNTIL RECOMMENDATIONS FROM WOUND CARE EVALUATION. PT REPORTS HE MAY NEED REHAB PRIOR TO GOING HOME OR MAY RETURN HOME WITH [facility] RESUMPTION. CM WAITING ON WOUND CARE EVALUATION AND PHYSICAL THERAPY EVALUATION ORDER TO DETERMINE THERAPY NEEDS IF ANY. Front End Developer: Suhas Fong DCPIA - Discharge Planning Initial Assessment Updated by [id number]: Suhas Fong on 11/06/18 5:32 pm * Is the patient Alert and Oriented? Yes * How many steps to enter\\exit or inside your home? 6-O / 2-I * PCP DR. GONZALO [facility]NEJO IN [facility] [place]. * Pharmacy [facility] [employer] [facility] IN [place] * Preadmission Environment Home with Family * ADLs Independent * Equipment Cane Shower Chair Walker * Other Equipment NO MEDICAL EQUIPMENT PROVIDER PREFERENCE * List name and contact numbers for known caregivers / representatives who currently or will assist patient after discharge: BOB REYES, SON, * Verbal permission to speak to the caregivers and representatives has been obtained from the patient. N/A * Community resources currently utilized Home Health * Please name any agencies selected above. [facility] - PHYSICAL THERAPY AND WOUND CARE * Additional services required to return to the preadmission environment? No * Can the patient safely return to the preadmission environment? Yes * Has this patient been hospitalized within the prior 30 days at any hospital? No Coverage Notice Reviewer: RONEY Fong Notice Issued Date-Time: 11/08/2018 14:20 Notice Type: Patient Choice Letter Notice Delivered To: Patient Relationship to Patient: Senior Instructional Designer Name: Delivery Method: HAND - Hand Delivered Kellie Days: Prior Verbal Notification: Recipient Understood Notice: Yes Recipient Signature: Yes Med Rec Note Co-signed by Attending: Coverage Notice Comment: DONA Reviewer: RONEY Fong Notice Issued Date-Time: 11/11/2018 14:30 Notice Type: IM Discharge Notice Notice Delivered To: Patient Relationship to Patient: Senior Instructional Designer Name: Delivery Method: HAND - Hand Delivered Kellie Days: Prior Verbal Notification: Recipient Understood Notice: Yes Recipient Signature: Yes Med Rec Note Co-signed by Attending: Coverage Notice Comment: Reviewer: RONEY Fong Notice Issued Date-Time: 11/08/2018 14:20 Notice Type: IM Discharge Notice Notice Delivered To: Patient Relationship to Patient: Senior Instructional Designer Name: Delivery Method: HAND - Hand Delivered Kellie Days: Prior Verbal Notification: Recipient Understood Notice: Yes Recipient Signature: Yes Med Rec Note Co-signed by Attending: Coverage Notice Comment: Last DP export: 11/14/18 10:53 a Patient Name: BOB REYES Page [id number] at 1208 All edits/amendments must be made on the electronic document DICTATION DATE: 11/14/18 1207 WELDING MACHINE OPERATOR ELECTROSLAG: JEANNETTE 11/14/18 1207 RPT#: [id number] DC DATE: STATUS: ADM IN [facility] [address] [place] [address] END OF REPORT
--- NOTE | 2018-11-14 12:23 | MORECARE ---
CASE MANAGEMENT DISCHARGE SUMMARY PATIENT: BOB REYES UNIT: [id number] ADM DATE: 11/05/18 AGE: 63 : [birth year] SEX: M ROOM/BED: D.[facility] AUTHOR: MONTEZ HUNTER PHYSICIAN: REFERRING PHYSICIAN: CHARU CRAIG MD DATE OF SERVICE: 11/14/18 Discharge Plan Patient Name: BOB REYES Facility: [facility]:[place] : 1955 Planned Disposition: Inpatient Rehab Anticipated Discharge Date: 11/15/18 Discharge Date: Expected LOS: 10 Initial Reviewer: [id number] Initial Review Date: 11/06/2018 Generated: 11/14/18 1:23 pm Comments DCP- Discharge Planning Updated by [id number]: Suhas Fong on 11/14/18 11:[address] Patient Name: BOB REYES Encounter No: [id number] : 1955 Primary Insurance: MEDICARE A & B Anticipated DC Date: 11-15-2018 Planned Disposition: Inpatient Rehab External Planned Provider: [facility] DCP follow-up note: CM RECEIVED NURSING MESSAGE FOR DISCHARGE PLANNING TOMORROW TO REHAB. PT IN PROCEDURE, NOT IN ROOM. CM CALLED PT'S DAUGHTER, SILVIA XIE, , WHO IS IN AGREEMENT WITH DISCHARGE PLAN AND WILL BE TO HOSPITAL LATER TODAY TO SEE PT AND CM AFTER PT IS RETURNED TO ROOM. CM NOTIFIED ROBERTA OF INPATIENT REHAB AT [place]. FOR DISCHARGE, NOTIFY [facility]. [facility] TO CONTACT MED 2 NURSE WITH ROOM NUMBER WHEN READY TO ACCEPT PT AND NURSE REPORT. CHING Savage DCP- Discharge Planning Updated by [id number]: Suhas Fong on 11/13/18 8:[address] Patient Name: BOB REYES Encounter No: [id number] : 1955 Primary Insurance: MEDICARE A & B Anticipated DC Date: 11-13-2018 Planned Disposition: Inpatient Rehab External Planned Provider: [facility] LATE ENTRY FROM 11-12-18, 1530 HOURS: DCP follow-up note: CM SPOKE TO PT IN ROOM REGARDING DISCHARGE PLANNING TO INPATIENT REHAB, NURSING FACILITY OR HOME WITH HOME HEALTH. PT'S DAUGHTER HAS INDICATED THAT PT IS NOT ABLE TO DRIVE HIMSELF TO [facility] OR STAY HOME ALONE IN HIS CURRENT CONDITION AND WOULD PREFER REHAB AT [place]; PT IN AGREEMENT WITH REHAB AT [place]. CM SPOKE TO ADILIA OF [facility] INPAT[facility] WHO HAS ALSO SPOKEN TO PT. INPATIENT REHAB AT [place] PLANS TO ACCEPT PT WHEN MEDICALLY STABLE FOR DISCHARGE TO REHAB. FOR DISCHARGE, NOTIFY [facility] WHO WILL COMPLETE SCREEN FOR ADMISSION. Suhas Fong, CASE MANAGEMENT DCP- Discharge Planning Updated by [id number]: Suhas Fong on 11/11/18 1:[address] Patient Name: BOB REYES Encounter No: [id number] : 1955 Primary Insurance: MEDICARE A & B Anticipated DC Date: 11-12-2018 Planned Disposition: Home with Home Health External Planned Provider: [facility] DCP follow-up note: CM RECEIVED CALL FROM [facility] OF [facility], REQUESTED PT'S HOSPITAL DIALYSIS RUN SHEETS. CM FAXED REQUESTED INFORMATION TO [facility] AT [phone]. CM SPOKE TO NAILA ROJAS REGARDING PROJECTED DISCHARGE PT IS SCHEDULED FOR OUTPATIENT DIALYSIS CLINIC ADMISSION 11-12-18. NAILA ROJAS CALLED CM BACK AND ADVISED THAT DR. CRAIG WILL SEE PT TOMORROW TO ADDRESS PAIN MEDICATIONS AND DISCHARGE, PROJECTED START AT OUTPATIENT DIALYSIS IN [place] WILL BE 11-14-18. CM NOTIFIED [facility]. CM NOTIFIED PT IN ROOM, DISCUSSED DISCHARGE PLAN OF HOME WITH RESUMPTION OF HOME HEALTH. PT REPORTS THAT HE IS NOT SURE IF HE IS GOING HOME AND THAT HE AND HIS DAUGHTER ARE THINKING OF PT GOING TO REHAB AT [facility] IN [place]. CM EXPLAINED POSSIBLE DISCHARGE TOMORROW WITH PLANNED OUTPATIENT DIALYSIS START DATE OF SUNDAY; CM EXPLAINED PROCESS OF REFERRAL TO DETENTION FACILITY FOR REHAB AND ENCOURGED PT TO MAKE DECISION SOON POSSIBLE AND TO PROVIDE CM WITH AT LEAST TWO CHOICES OF DETENTION FACILITIES. PT AGAIN REPORTS HE AND HIS DAUGHTER ARE "THINKING ABOUT IT." CM EXPLAINED THAT THIS PROCESS CAN TAKE DAYS AND AGAIN ASKED PT TO DECIDE SOON POSSIBLE. CM PROVIDED LISTING OF DETENTION FACILITIES AND TWO CHOICE LETTERS THAT CM EXPLAINED WOULD NEED TO BE FILLED OUT AND SIGNED BY PT FOR CM TO SEND REFERRALS, IF PT DECIDES ON THIS. PT REPORTS UNDERSTANDING AND HAS CM CONTACT NUMBER TO CALL WHEN HE DECIDES BETWEEN HOME WITH [facility] RESUMPTION OR PLACEMENT IN UNKNOWN DETENTION FACILITY IN [place] FOR REHAB. PT IS OK WITH CM SENDING UPDATE TO [facility] IN CASE PT DOES DECIDE TO GO HOME WITH HOME HEALTH RESUMPTION. CM CALLED [facility], , SPOKE TO MARGE AND ADVISED OF PLANNED DISCHARGE SUNDAY. CM NOTIFIED NAILA ROJAS OF PT'S POSSIBLE CHANGE IN DISCHARGE PLAN, RECEIVED ORDERS FOR PHYSICAL THERAPY AND OCCUPATIONAL THERAPY EVALUATIONS WELL INPATIENT REHAB PRESCREENING. PT'D DIALYSIS SCHEDULE IS SUNDAY, SUNDAY, SUNDAY 1230; [facility] IN [place] FIRST APPOINTMENT 11-14-18, 1115AM. FOR DISCHARGE, NOTIFY [facility] AT [phone]. [facility]FORMATION [facility] AT [phone]. CM TO CONTINUE TO FOLLOW AND ASSIST IF NEEDED. Suhas Fong, CASE MANAGEMENT DCP- Discharge Planning Updated by [id number]: Suhas Fong on 11/08/18 1:[address] Patient Name: BOB REYES Encounter No: [id number] : 1955 Primary Insurance: MEDICARE A & B Anticipated DC Date: 11-06-2018 Planned Disposition: Home with Home Health External Planned Provider: [facility] DCP follow-up note: CM RECEIVED CALL FROM [facility] OF [facility], PT HAS NEW OUTPATIENT DIALYSIS SCHEDULE: SUNDAY, SUNDAY, SUNDAY 1230; [facility] IN [place] FIRST APPOINTMENT 11-12-18, 1115AM. CM NOTIFIED PT IN ROOM. PT REPORTS PLAN OF HOME WITH FAMILY AND [facility] RESUMPTION. CHOICE LISTING PROVIDED, CHOICE SIGNED FOR [facility]. IMPORTANT MESSAGE FROM MEDICARE PROVIDED AND EXPLAINED. CM CALLED [facility], , SPOKE TO MARGE AND PROVIDED UPDATE. CM FAXED HOSPITAL UPDATE TO [facility] AT [phone]. FOR DISCHARGE, NOTIFY [facility] AT [phone]. FAX DISCHARGE INFORMATION TO [facility] AT [phone]. Suhas Fong, CASE MANAGEMENT DCP- Discharge Planning Updated by [id number]: Suhas Fong on 11/06/18 4:[address] Patient Name: BOB REYES Admission Status: Elective Accout number: [id number] Admission Date: 11-05-2018 : 1955 Admission Diagnosis: Attending: CHARU CRAIG Current LOS: 1 Anticipated DC Date: 11-06-2018 Planned Disposition: Home with Home Health Primary Insurance: MEDICARE A & B PLANNED EXTERNAL PROVIDER: [facility] Discharge Planning Comments: CM RECEIVED ORDER FOR NEW DIALYSIS CLINIC ARRANGEMENT, [facility] COORDINATOR [facility] CROSS WORKING ON THIS ARRANGEMENT. CM MET WITH PT IN ROOM TO DISCUSS DISCHARGE PLANNING AND NEEDS. PT REPORTS LIVING AT HOME INDEPENDENTLY WITH HIS ADULT DAUGHTER AND SON IN LAW. PT HAS CANE, SHOWER CHAIR AND STANDARD WALKER WITH NO MEDICAL EQUIPMENT PROVIDER PREFERENCE. PT HAS NO OTHER OUTSIDE SERVICES ASSISTING IN THE HOME. CM DISCUSSED AVAILABILITY OF HOME HEALTH, REHAB SERVICES AND MEDICAL EQUIPMENT. PT REPORTS IF ABLE, HE WILL RETURN HOME WITH HOME HEALTH BUT DOES NOT KNOW AT THIS TIME IF HE WILL REQUIRE SOME SORT OF REHAB, IF HE IS EVEN ABLE, BEFORE GOING HOME; PT REPORTS HIS FAMILY WILL PICK HIM UP FOR DISCHARGE HOME. CM SPOKE TO NAILA COCHRAN REGARDING LACK OF PHYSICAL THERAPY ORDER, NAILA ADVISED WE WILL WAIT UNTIL RECOMMENDATIONS FROM WOUND CARE EVALUATION. PT REPORTS HE MAY NEED REHAB PRIOR TO GOING HOME OR MAY RETURN HOME WITH [facility] RESUMPTION. CM WAITING ON WOUND CARE EVALUATION AND PHYSICAL THERAPY EVALUATION ORDER TO DETERMINE THERAPY NEEDS IF ANY. Bottle Hop: Suhas Fong DCPIA - Discharge Planning Initial Assessment Updated by [id number]: Suhas Fong on 11/14/18 12:19 pm * Is the patient Alert and Oriented? Yes * How many steps to enter\\exit or inside your home? 6-O / 2-I * PCP DR. GONZALO CORNEJO IN [facility] [place]. * Pharmacy [facility] IN [place] * Preadmission Environment Home with Family * ADLs Independent * Equipment Cane Shower Chair Walker * Other Equipment NO MEDICAL EQUIPMENT PROVIDER PREFERENCE * List name and contact numbers for known caregivers / representatives who currently or will assist patient after discharge: BOB REYES, SON, ROJAS TAVAREZ, DTR, * Verbal permission to speak to the caregivers and representatives has been obtained from the patient. N/A * Community resources currently utilized Home Health * Please name any agencies selected above. [facility] - PHYSICAL THERAPY AND WOUND CARE * Additional services required to return to the preadmission environment? No * Can the patient safely return to the preadmission environment? Yes * Has this patient been hospitalized within the prior 30 days at any hospital? No Coverage Notice Reviewer: [id number] Fong Notice Issued Date-Time: 11/08/2018 14:20 Notice Type: Patient Choice Letter Notice Delivered To: Patient Relationship to Patient: Property Economist Name: Delivery Method: HAND - Hand Delivered Kellie Days: Prior Verbal Notification: Recipient Understood Notice: Yes Recipient Signature: Yes Med Rec Note Co-signed by Attending: Coverage Notice Comment: DONA Reviewer: RONEY Fong Notice Issued Date-Time: 11/11/2018 14:30 Notice Type: IM Discharge Notice Notice Delivered To: Patient Relationship to Patient: Property Economist Name: Delivery Method: HAND - Hand Delivered Kellie Days: Prior Verbal Notification: Recipient Understood Notice: Yes Recipient Signature: Yes Med Rec Note Co-signed by Attending: Coverage Notice Comment: Reviewer: RONEY Fong Notice Issued Date-Time: 11/08/2018 14:20 Notice Type: IM Discharge Notice Notice Delivered To: Patient Relationship to Patient: Property Economist Name: Delivery Method: HAND - Hand Delivered Kellie Days: Prior Verbal Notification: Recipient Understood Notice: Yes Recipient Signature: Yes Med Rec Note Co-signed by Attending: Coverage Notice Comment: Last DP export: 11/14/18 11:07 a Patient Name: BOB REYES Page [id number] at 1223 All edits/amendments must be made on the electronic document DICTATION DATE: 11/14/18 1223 FABRICATION MACHINE OPERATOR: JEANNETTE 11/14/18 1223 RPT#: [id number] DC DATE: STATUS: ADM IN [facility] [address] [place] [address] END OF REPORT
--- NOTE | 2018-11-14 12:37 | NUR ---
BACK FROM IR. VS WNL. RIGHT GROIN STABLE WITHOUT BLEEDING OR HEMATOMA NOTED. FAMILY AT BS. WILL MONITOR.
[2018-11-14 15:01] VITALS: BP 110/66
[2018-11-14 20:00] VITALS: BP 92/60
--- NOTE | 2018-11-14 20:03 | NUR ---
INTRODUCED SELF TO PATIENT, PATIENT RESTING WITH LEFT FOOT ELEVATED, DRESSING CLEAN DRY AND INTACT, PATIENT REQUESTING PAIN MEDS AT THIS TIME. ADVISED I WOULD SEE HIS LAST DOSE GIVEN AND BRING HIM SOME SOON IT WAS AVAILABLE. RESP EVEN AND UNLABORED, BED IN LOWEST POSITION, CALL LIGHT IN REACH.
--- NOTE | 2018-11-14 23:49 | NUR ---
NURSING HOME ADMINISTRATOR PAGED FOR ER TO EXAMINE PATIENT, PATIENT STATED HE LEANED BACK AND HIT HIS EAR ON THE BEDSIDE. THIS INCIDENT WAS UNWITNESSED, NEEDS EVALUATION FOR POTENTIAL SUTURES.
[2018-11-15] VITALS: BP 94/59
--- NOTE | 2018-11-15 03:41 | NUR ---
PATIENT RESTING WITH BLANKET COVERING HEAD, ABLE TO SEE BODY RISING WITH BREATHING. RESP EVEN AND UNLABORED. HOLDING MEDS FOR SX IN THE AM. BED IN LOWEST POSITION, CALL LIGHT IN REACH.
[2018-11-15 04:00] VITALS: BP 94/58
[2018-11-15 05:24] LABS: CALCIUM 7.9 mg/dL (8.5-10.1); CARBON DIOXIDE 26.7 mmol/L (21.0-32.0); PHOSPHOROUS 5.6 mg/dL (2.5-4.9); POTASSIUM - SERUM 3.7 mmol/L (3.5-5.1)
[2018-11-15 05:35] LABS: HEMATOCRIT 24.7 % (42.0-54.0); LYMPHOCYTES 9.3 % (15-50); MCH 30.1 pg (26.0-34.0); MCHC 32.4 g/dL (31.0-37.0); MCV 92.9 fL (80.0-100.0); MEAN PLATELET VOLUME 10.6 fL (7.4-10.4); NEUTROPHILS 78.3 % (40-80); PLATELET COUNT 124 10x3/uL (130-400); RBC 2.66 10x6/uL (4.20-6.10); RDW 19.7 % (11.5-14.5); WBC 7.7 10x3/uL (4.8-10.8)
[2018-11-15 05:37] LABS: CREATININE - SERUM 6.2 mg/dL (0.6-1.3)
--- NOTE | 2018-11-15 06:41 | NUR ---
CONSENTS SIGNED FOR PROCEDURE AND PATIENT MADE AWARE THAT HE MAY GO TO DIALYSIS PRIOR TO SURGERY OR VICE [facility]. BED IN LOWEST POSITION, CALL LIGHT IN REACH.
[2018-11-15 08:18] VITALS: BP 100/66
--- NOTE | 2018-11-15 08:19 | NUR ---
RESUMING PT CARE, PT SITTING UP IN BED ALERT AND ORIENTED X3. C/O PAIN IN LEFT FOOT OF A 8 ON PAIN SCALE, PAIN MED GIVEN. DRESSING CHANGES DONE TO RIGHT ELBOW AND LEFT FOOT. PT TOLERATED WELL. CALL LIGHT IN REACH, WILL CONTINUE TO MONITOR AND FOLLOW PLAN OF CARE.
--- NOTE | 2018-11-15 08:59 | NUR ---
PT TAKEN TO DIALYSIS VIA BED, NEW ORDER TO INFUSE 1 UNIT [facility] IN DIALYSIS. DIALYSIS IS AWARE AND I WILL TAKE IT TO THEM WHEN BLOOD BANK CALLS ME WHEN ITS READY.
--- NOTE | 2018-11-15 11:28 | NUR ---
ASSESMENT REVIEWED AND AGREE.
[2018-11-15] MEDS ORDERED: MIDODRINE HCL5 MG PO (16:25)
[2018-11-15] MEDS ORDERED: PLAVIX75 MG PO (16:27)
[2018-11-15] MEDS ORDERED: NICODERM TRANSDERM (16:27)
[2018-11-15] MEDS ORDERED: PROCRIT 202000 UNIT/ SC (16:28)
[2018-11-15] MEDS ORDERED: HEPARIN SOD5000 U/ML SC (16:29)
[2018-11-15] MEDS ORDERED: FERRLECIT62.5 MG/2 (16:30)
[2018-11-15] MEDS ORDERED: FERRLECIT62.5 MG/2 IVPB (16:31)
[2018-11-15] MEDS ORDERED: PERCOCET 5-3251 TAB PO (16:32)
[2018-11-15] MEDS ORDERED: RESTORIL15 MG PO (16:32)
[2018-11-15] MEDS ORDERED: RENVELA0.8 GM PO (16:32)
[2018-11-15] MEDS ORDERED: PROTONIX40 MG PO (16:33)
[2018-11-15] MEDS ORDERED: FLORAJEN3 CAPS460 MG PO (16:33)
[2018-11-15] MEDS ORDERED: MUCOMYST PO (16:33)
[2018-11-15] MEDS ORDERED: HUMALOG 30100 UNITS/ SC (16:34)
[2018-11-15] MEDS ORDERED: SENSIPAR30 MG PO (16:34)
[2018-11-15] MEDS ORDERED: LANTUS INSULIN10 ML SC (16:34)
[2018-11-15] MEDS ORDERED: MIRALAX17 GM PO (16:34)
[2018-11-15] MEDS ORDERED: SANTYL30 GM TP (16:34)
[2018-11-15] MEDS ORDERED: ZYLOPRIM100 MG PO (16:35)
[2018-11-15] MEDS ORDERED: NEPHRO-VITE RX1 TAB PO (16:35)
[2018-11-15] MEDS ORDERED: TRIPLE ANTIBI28.4 GM TP (16:35)
--- NOTE | 2018-11-15 16:35 | MORECARE ---
CASE MANAGEMENT DISCHARGE SUMMARY PATIENT: BOB REYES UNIT: [id number] ADM DATE: 11/05/18 AGE: 63 : 53 SEX: M ROOM/BED: D.[facility][note 3]3 AUTHOR: MONTEZ HUNTER PHYSICIAN: REFERRING PHYSICIAN: CHARU CRAIG MD DATE OF SERVICE: 11/15/18 Discharge Plan Patient Name: BOB REYES Facility: [facility]:[place] : 1955 Planned Disposition: Inpatient Rehab Anticipated Discharge Date: 11/15/18 Discharge Date: Expected LOS: 10 Initial Reviewer: [id number] Initial Review Date: 11/06/2018 Generated: 11/15/18 5:35 pm Comments DCP- Discharge Planning Updated by [id number]: Suhas Fong on 11/14/18 11:[address] Patient Name: BOB REYES Encounter No: [id number] : 1955 Primary Insurance: MEDICARE A & B Anticipated DC Date: 11-15-2018 Planned Disposition: Inpatient Rehab External Planned Provider: [facility]PAT[facility] DCP follow-up note: CM RECEIVED NURSING MESSAGE FOR DISCHARGE PLANNING TOMORROW TO REHAB. PT IN PROCEDURE, NOT IN ROOM. CM CALLED PT'S DAUGHTER, SILVIA XIE, , WHO IS IN AGREEMENT WITH DISCHARGE PLAN AND WILL BE TO HOSPITAL LATER TODAY TO SEE PT AND CM AFTER PT IS RETURNED TO ROOM. CM NOTIFIED ROBERTA OF INPATIENT REHAB AT [place]. FOR DISCHARGE, NOTIFY [facility] INPAT[facility]. [facility] INPAT[facility] TO CONTACT MED 2 NURSE WITH ROOM NUMBER WHEN READY TO ACCEPT PT AND NURSE REPORT. CHING Savage DCP- Discharge Planning Updated by [id number]: Suhas Fong on 11/13/18 8:[address] Patient Name: BOB REYES Encounter No: [id number] : 1955 Primary Insurance: MEDICARE A & B Anticipated DC Date: 11-13-2018 Planned Disposition: Inpatient Rehab External Planned Provider: [facility] INPAT[facility] LATE ENTRY FROM 11-12-18, 1530 HOURS: DCP follow-up note: CM SPOKE TO PT IN ROOM REGARDING DISCHARGE PLANNING TO INPATIENT REHAB, NURSING FACILITY OR HOME WITH HOME HEALTH. PT'S DAUGHTER HAS INDICATED THAT PT IS NOT ABLE TO DRIVE HIMSELF TO [facility] OR STAY HOME ALONE IN HIS CURRENT CONDITION AND WOULD PREFER REHAB AT [place]; PT IN AGREEMENT WITH REHAB AT [place]. CM SPOKE TO ADILIA OF [facility] INPATIENT [facility] WHO HAS ALSO SPOKEN TO PT. INPATIENT REHAB AT [place] PLANS TO ACCEPT PT WHEN MEDICALLY STABLE FOR DISCHARGE TO REHAB. FOR DISCHARGE, NOTIFY [facility] WHO WILL COMPLETE SCREEN FOR ADMISSION. Suhas Fong, CASE MANAGEMENT DCP- Discharge Planning Updated by [id number]: Suhas Fong on 11/11/18 1:[address] Patient Name: BOB REYES Encounter No: [id number] : 1955 Primary Insurance: MEDICARE A & B Anticipated DC Date: 11-12-2018 Planned Disposition: Home with Home Health External Planned Provider: [facility] DCP follow-up note: CM RECEIVED CALL FROM [facility] OF [facility], REQUESTED PT'S HOSPITAL DIALYSIS RUN SHEETS. CM FAXED REQUESTED INFORMATION TO [facility] AT [phone]. CM SPOKE TO NAILA ROJAS REGARDING PROJECTED DISCHARGE PT IS SCHEDULED FOR OUTPATIENT DIALYSIS CLINIC ADMISSION 11-12-18. NAILA ROJAS CALLED CM BACK AND ADVISED THAT DR. CRAIG WILL SEE PT TOMORROW TO ADDRESS PAIN MEDICATIONS AND DISCHARGE, PROJECTED START AT OUTPATIENT DIALYSIS IN [place] WILL BE 11-14-18. CM NOTIFIED [facility]. CM NOTIFIED PT IN ROOM, DISCUSSED DISCHARGE PLAN OF HOME WITH RESUMPTION OF HOME HEALTH. PT REPORTS THAT HE IS NOT SURE IF HE IS GOING HOME AND THAT HE AND HIS DAUGHTER ARE THINKING OF PT GOING TO REHAB AT [facility] IN [place]. CM EXPLAINED POSSIBLE DISCHARGE TOMORROW WITH PLANNED OUTPATIENT DIALYSIS START DATE OF SUNDAY; CM EXPLAINED PROCESS OF REFERRAL TO [facility] FACILITY FOR REHAB AND ENCOURGED PT TO MAKE DECISION SOON POSSIBLE AND TO PROVIDE CM WITH AT LEAST TWO CHOICES OF [facility] FACILITIES. PT AGAIN REPORTS HE AND HIS DAUGHTER ARE "THINKING ABOUT IT." CM EXPLAINED THAT THIS PROCESS CAN TAKE DAYS AND AGAIN ASKED PT TO DECIDE SOON POSSIBLE. CM PROVIDED LISTING OF [facility] FACILITIES AND TWO CHOICE LETTERS THAT CM EXPLAINED WOULD NEED TO BE FILLED OUT AND SIGNED BY PT FOR CM TO SEND REFERRALS, IF PT DECIDES ON THIS. PT REPORTS UNDERSTANDING AND HAS CM CONTACT NUMBER TO CALL WHEN HE DECIDES BETWEEN HOME WITH [facility] RESUMPTION OR PLACEMENT IN UNKNOWN [facility] FACILITY IN [place] FOR REHAB. PT IS OK WITH CM SENDING UPDATE TO [facility] IN CASE PT DOES DECIDE TO GO HOME WITH HOME HEALTH RESUMPTION. CM CALLED [facility], , SPOKE TO MARGE AND ADVISED OF PLANNED DISCHARGE SUNDAY. CM NOTIFIED NAILA ROJAS OF PT'S POSSIBLE CHANGE IN DISCHARGE PLAN, RECEIVED ORDERS FOR PHYSICAL THERAPY AND OCCUPATIONAL THERAPY EVALUATIONS WELL INPATIENT REHAB PRESCREENING. PT'D DIALYSIS SCHEDULE IS SUNDAY, SUNDAY, SUNDAY 1230; [facility] IN [place] FIRST APPOINTMENT 11-14-18, 1115AM. FOR DISCHARGE, NOTIFY [facility] AT [phone]. [facility] AT [phone]. CM TO CONTINUE TO FOLLOW AND ASSIST IF NEEDED. Suhas Fong, CASE MANAGEMENT DCP- Discharge Planning Updated by [id number]: Suhas Fong on 11/08/18 1:[address] Patient Name: BOB REYES Encounter No: [id number] : 1955 Primary Insurance: MEDICARE A & B Anticipated DC Date: 11-06-2018 Planned Disposition: Home with Home Health External Planned Provider: [facility] DCP follow-up note: CM RECEIVED CALL FROM [facility] OF [facility], PT HAS NEW OUTPATIENT DIALYSIS SCHEDULE: SUNDAY, SUNDAY, SUNDAY 1230; [facility] IN [place] FIRST APPOINTMENT 11-12-18, 1115AM. CM NOTIFIED PT IN ROOM. PT REPORTS PLAN OF HOME WITH FAMILY AND [facility] RESUMPTION. CHOICE LISTING PROVIDED, CHOICE SIGNED FOR [facility]. IMPORTANT MESSAGE FROM MEDICARE PROVIDED AND EXPLAINED. CM CALLED [facility], , SPOKE TO MARGE AND PROVIDED UPDATE. CM FAXED HOSPITAL UPDATE TO [facility] AT [phone]. FOR DISCHARGE, NOTIFY [facility] AT [phone]. FA[facility]CHAR[facility] INFORMATION TO [facility] AT [phone]. Suhas Fong, CASE MANAGEMENT DCP- Discharge Planning Updated by [id number]: Suhas Fong on 11/06/18 4:[address] Patient Name: BOB REYES Admission Status: Elective Accout number: [id number] Admission Date: 11-05-2018 : 1955 Admission Diagnosis: Attending: CHARU CRAIG Current LOS: 1 Anticipated DC Date: 11-06-2018 Planned Disposition: Home with Home Health Primary Insurance: MEDICARE A & B PLANNED EXTERNAL PROVIDER: [facility] Discharge Planning Comments: CM RECEIVED ORDER FOR NEW DIALYSIS CLINIC ARRANGEMENT, [facility] COORDINATOR [facility] CROSS WORKING ON THIS ARRANGEMENT. CM MET WITH PT IN ROOM TO DISCUSS DISCHARGE PLANNING AND NEEDS. PT REPORTS LIVING AT HOME INDEPENDENTLY WITH HIS ADULT DAUGHTER AND SON IN LAW. PT HAS CANE, SHOWER CHAIR AND STANDARD WALKER WITH NO MEDICAL EQUIPMENT PROVIDER PREFERENCE. PT HAS NO OTHER OUTSIDE SERVICES ASSISTING IN THE HOME. CM DISCUSSED AVAILABILITY OF HOME HEALTH, REHAB SERVICES AND MEDICAL EQUIPMENT. PT REPORTS IF ABLE, HE WILL RETURN HOME WITH HOME HEALTH BUT DOES NOT KNOW AT THIS TIME IF HE WILL REQUIRE SOME SORT OF REHAB, IF HE IS EVEN ABLE, BEFORE GOING HOME; PT REPORTS HIS FAMILY WILL PICK HIM UP FOR DISCHARGE HOME. CM SPOKE TO NAILA COCHRAN REGARDING LACK OF PHYSICAL THERAPY ORDER, NAILA ADVISED WE WILL WAIT UNTIL RECOMMENDATIONS FROM WOUND CARE EVALUATION. PT REPORTS HE MAY NEED REHAB PRIOR TO GOING HOME OR MAY RETURN HOME WITH [facility] RESUMPTION. CM WAITING ON WOUND CARE EVALUATION AND PHYSICAL THERAPY EVALUATION ORDER TO DETERMINE THERAPY NEEDS IF ANY. Bone Density Technician: Suahs Fong DCPIA - Discharge Planning Initial Assessment Updated by [id number]: Suhas Fong on 11/14/18 12:19 pm * Is the patient Alert and Oriented? Yes * How many steps to enter\\exit or inside your home? 6-O / 2-I * PCP DR. GONZALO CORNEJO IN [place] [facility] [place] * Pharmacy [facility] IN [place] * Preadmission Environment Home with Family * ADLs Independent * Equipment Cane Shower Chair Walker * Other Equipment NO MEDICAL EQUIPMENT PROVIDER PREFERENCE * List name and contact numbers for known caregivers / representatives who currently or will assist patient after discharge: BOB REYES, SON, ROJAS TAVAREZ, DTR, * Verbal permission to speak to the caregivers and representatives has been obtained from the patient. N/A * Community resources currently utilized Home Health * Please name any agencies selected above. [facility] - PHYSICAL THERAPY AND WOUND CARE * Additional services required to return to the preadmission environment? No * Can the patient safely return to the preadmission environment? Yes * Has this patient been hospitalized within the prior 30 days at any hospital? No Coverage Notice Reviewer: RONEY Fong Notice Issued Date-Time: 11/08/2018 14:20 Notice Type: Patient Choice Letter Notice Delivered To: Patient Relationship to Patient: Cornetist Name: Delivery Method: HAND - Hand Delivered Kellie Days: Prior Verbal Notification: Recipient Understood Notice: Yes Recipient Signature: Yes Med Rec Note Co-signed by Attending: Coverage Notice Comment: DONA Reviewer: RONEY Fong Notice Issued Date-Time: 11/08/2018 14:20 Notice Type: IM Discharge Notice Notice Delivered To: Patient Relationship to Patient: Cornetist Name: Delivery Method: HAND - Hand Delivered Kellie Days: Prior Verbal Notification: Recipient Understood Notice: Yes Recipient Signature: Yes Med Rec Note Co-signed by Attending: Coverage Notice Comment: Reviewer: RONEY Fong Notice Issued Date-Time: 11/11/2018 14:30 Notice Type: IM Discharge Notice Notice Delivered To: Patient Relationship to Patient: Cornetist Name: Delivery Method: HAND - Hand Delivered Kellie Days: Prior Verbal Notification: Recipient Understood Notice: Yes Recipient Signature: Yes Med Rec Note Co-signed by Attending: Coverage Notice Comment: Reviewer: RONEY Fong Notice Issued Date-Time: 11/15/2018 16:25 Notice Type: IM Discharge Notice Notice Delivered To: Patient Relationship to Patient: Cornetist Name: Delivery Method: HAND - Hand Delivered Kellie Days: Prior Verbal Notification: Recipient Understood Notice: Yes Recipient Signature: Yes Med Rec Note Co-signed by Attending: Coverage Notice Comment: Last DP export: 11/14/18 11:23 a Patient Name: BOB REYES Page [id number] at 1635 All edits/amendments must be made on the electronic document DICTATION DATE: 11/15/18 1630 SOFT WORK WRAPPER EXAMINER: JEANNETTE 11/15/18 1633 RPT#: [id number] DC DATE: STATUS: ADM IN [facility] [address] [facility] [place] [address] END OF REPORT
--- NOTE | 2018-11-15 16:43 | MORECARE ---
CASE MANAGEMENT DISCHARGE SUMMARY PATIENT: BOB REYES UNIT: [id number] ADM DATE: 11/05/18 AGE: 63 : [birth year] SEX: M ROOM/BED: D.[facility]3 AUTHOR: MONTEZ HUNTER PHYSICIAN: REFERRING PHYSICIAN: CHARU CRAIG MD DATE OF SERVICE: 11/15/18 Discharge Plan Patient Name: BOB REYES Facility: [facility]:[place] : 1955 Planned Disposition: Inpatient Rehab Anticipated Discharge Date: 11/15/18 Discharge Date: Expected LOS: 10 Initial Reviewer: [id number] Initial Review Date: 11/06/2018 Generated: 11/15/18 5:43 pm Comments DCP- Discharge Planning Updated by [id number]: Suhas Fong on 11/15/18 3:[address] Patient Name: BOB REYES Encounter No: [id number] : 1955 Primary Insurance: MEDICARE A & B Anticipated DC Date: 11-15-2018 Planned Disposition: Inpatient Rehab External Planned Provider: [facility] IN[facility]IENT [facility] DCP follow-up note: CM RECEIVED DISCHARGE ORDER, SPOKE TO PT AND DAUGHTER IN ROOM, BOTH IN AGREEMENT WITH DISCHARGE TO [facility] INPATIENT REHAB. IMPORTANT MESSAGE FROM MEDICARE PROVIDED AND EXPLAINED. CM CALLED ADILIA OF [facility] INPATIENT REHAB WHO INFORMED CM THAT THEY WILL ACCEPT PT TONIGHT. [facility] INPATIENT REHAB TO CONTACT MED 2 NURSE WITH ROOM NUMBER WHEN READY TO ACCEPT PT AND NURSE REPORT. Suhas Fong, CHING MANAGEMENT DCP- Discharge Planning Updated by [id number]: Suhas Fong on 11/14/18 11:[address] Patient Name: BOB REYES Encounter No: [id number] : 1955 Primary Insurance: MEDICARE A & B Anticipated DC Date: 11-15-2018 Planned Disposition: Inpatient Rehab External Planned Provider: [facility] INPATIENT [facility] DCP follow-up note: CM RECEIVED NURSING MESSAGE FOR DISCHARGE PLANNING TOMORROW TO REHAB. PT IN PROCEDURE, NOT IN ROOM. CM CALLED PT'S DAUGHTER, SILVIA XIE, , WHO IS IN AGREEMENT WITH DISCHARGE PLAN AND WILL BE TO HOSPITAL LATER TODAY TO SEE PT AND CM AFTER PT IS RETURNED TO ROOM. CM NOTIFIED ROBERTA OF INPATIENT REHAB AT [place]. FOR DISCHARGE, NOTIFY [facility] INPATIENT RE[facility]. [facility] INPATIENT [facility] TO CONTACT MED 2 NURSE WITH ROOM NUMBER WHEN READY TO ACCEPT PT AND NURSE REPORT. Suhas Fong, CASE MANAGEMENT DCP- Discharge Planning Updated by [id number]: Suhas Fong on 11/13/18 8:[address] Patient Name: BOB REYES Encounter No: [id number] : 1955 Primary Insurance: MEDICARE A & B Anticipated DC Date: 11-13-2018 Planned Disposition: Inpatient Rehab External Planned Provider: [facility] INPATIENT [facility] LATE ENTRY FROM 11-12-18, 1530 HOURS: DCP follow-up note: CM SPOKE TO PT IN ROOM REGARDING DISCHARGE PLANNING TO INPATIENT REHAB, NURSING FACILITY OR HOME WITH HOME HEALTH. PT'S DAUGHTER HAS INDICATED THAT PT IS NOT ABLE TO DRIVE [facility]SELF TO [facility] OR STAY HOME ALONE IN HIS CURRENT CONDITION AND WOULD PREFER REHAB AT [place]; PT IN AGREEMENT WITH REHAB AT [place]. CM SPOKE TO ADILIA OF [facility] INPATIENT [facility] WHO HAS ALSO SPOKEN TO PT. INPATIENT REHAB AT [place] PLANS TO ACCEPT PT WHEN MEDICALLY STABLE FOR DISCHARGE TO REHAB. FOR DISCHARGE, NOTIFY [facility] INPATIENT [facility] WHO WILL COMPLETE SCREEN FOR ADMISSION. Suhas Fong CASE MANAGEMENT DCP- Discharge Planning Updated by [id number]: Suhas Fong on 11/11/18 1:[address] Patient Name: BOB REYES Encounter No: [id number] : 1955 Primary Insurance: MEDICARE A & B Anticipated DC Date: 11-12-2018 Planned Disposition: Home with Home Health External Planned Provider: [facility] DCP follow-up note: CM RECEIVED CALL FROM SU[facility] OF [facility], REQUESTED PT'S HOSPITAL DIALYSIS RUN SHEETS. CM FAXED REQUESTED INFORMATION TO [facility] AT [phone]. CM SPOKE TO NAILA ROJAS REGARDING PROJECTED DISCHARGE PT IS SCHEDULED FOR OUTPATIENT DIALYSIS CLINIC ADMISSION 11-12-18. NAILA ROJAS CALLED CM BACK AND ADVISED THAT DR. CRAIG WILL SEE PT TOMORROW TO ADDRESS PAIN MEDICATIONS AND DISCHARGE, PROJECTED START AT OUTPATIENT DIALYSIS IN [place] WILL BE 11-14-18. CM NOTIFIED [facility]. CM NOTIFIED PT IN ROOM, DISCUSSED DISCHARGE PLAN OF HOME WITH RESUMPTION OF HOME HEALTH. PT REPORTS THAT HE IS NOT SURE IF HE IS GOING HOME AND THAT HE AND HIS DAUGHTER ARE THINKING OF PT GOING TO REHAB AT [facility] IN [place]. CM EXPLAINED POSSIBLE DISCHARGE TOMORROW WITH PLANNED OUTPATIENT DIALYSIS START DATE OF SUNDAY; CM EXPLAINED PROCESS OF REFERRAL TO SENIOR CARE FACILITY FOR REHAB AND ENCOURGED PT TO MAKE DECISION SOON POSSIBLE AND TO PROVIDE CM WITH AT LEAST TWO CHOICES OF SENIOR CARE FACILITIES. PT AGAIN REPORTS HE AND HIS DAUGHTER ARE "THINKING ABOUT IT." CM EXPLAINED THAT THIS PROCESS CAN TAKE DAYS AND AGAIN ASKED PT TO DECIDE SOON POSSIBLE. CM PROVIDED LISTING OF SENIOR CARE FACILITIES AND TWO CHOICE LETTERS THAT CM EXPLAINED WOULD NEED TO BE FILLED OUT AND SIGNED BY PT FOR CM TO SEND REFERRALS, IF PT DECIDES ON THIS. PT REPORTS UNDERSTANDING AND HAS CM CONTACT NUMBER TO CALL WHEN HE DECIDES BETWEEN HOME WITH [facility] OR PLACEMENT IN UNKNOWN SENIOR CARE FACILITY IN [place] FOR REHAB. PT IS OK WITH CM SENDING UPDATE TO [facility] IN CASE PT DOES DECIDE TO GO HOME WITH HOME HEALTH RESUMPTION. CM CALLED [facility], , SPOKE TO MARGE AND ADVISED OF PLANNED DISCHARGE SUNDAY. CM NOTIFIED NAILA ROJAS OF PT'S POSSIBLE CHANGE IN DISCHARGE PLAN, RECEIVED ORDERS FOR PHYSICAL THERAPY AND OCCUPATIONAL THERAPY EVALUATIONS WELL INPATIENT REHAB PRESCREENING. PT'D DIALYSIS SCHEDULE IS SUNDAY, SUNDAY, SUNDAY 1230; [facility] IN [place] FIRST APPOINTMENT 11-14-18, 1115AM. FOR DISCHARGE, NOTIFY [facility] AT [phone]. FAX DISCHARGE INFORMATION TO [facility] AT [phone]. CM TO CONTINUE TO FOLLOW AND ASSIST IF NEEDED. Suhas Fong, CASE MANAGEMENT DCP- Discharge Planning Updated by [id number]: Suhas Fong on 11/08/18 1:[address] Patient Name: BOB REEYS Encounter No: [id number] : 1955 Primary Insurance: MEDICARE A & B Anticipated DC Date: 11-06-2018 Planned Disposition: Home with Home Health External Planned Provider: [facility] DCP follow-up note: CM RECEIVED CALL FROM [facility] OF [facility], PT HAS NEW OUTPATIENT DIALYSIS SCHEDULE: SUNDAY, SUNDAY, SUNDAY 1230; [facility] IN [place] FIRST APPOINTMENT 11-12-18, 1115AM. CM NOTIFIED PT IN ROOM. PT REPORTS PLAN OF HOME WITH FAMILY AND [facility]. CHOICE LISTING PROVIDED, CHOICE SIGNED FOR [facility]. IMPORTANT MESSAGE FROM MEDICARE PROVIDED AND EXPLAINED. CM CALLED [facility], , SPOKE TO MARGE AND PROVIDED UPDATE. CM FAXED HOSPITAL UPDATE TO [facility] AT [phone]. FOR DISCHARGE, NOTIFY [facility] AT [phone]. FAX DISCHARGE INFORMATION TO [facility] AT [phone]. Suhas Fong, CASE MANAGEMENT DCP- Discharge Planning Updated by [id number]: Suhas Fong on 11/06/18 4:[address] Patient Name: BOB REYES Admission Status: Elective Accout number: [id number] Admission Date: 11-05-2018 : 1955 Admission Diagnosis: Attending: CHARU CRAIG Current LOS: 1 Anticipated DC Date: 11-06-2018 Planned Disposition: Home with Home Health Primary Insurance: MEDICARE A & B PLANNED EXTERNAL PROVIDER: [facility] Discharge Planning Comments: CM RECEIVED ORDER FOR NEW DIALYSIS CLINIC ARRANGEMENT, [facility] COORDINATOR [facility] WORKING ON THIS ARRANGEMENT. CM MET WITH PT IN ROOM TO DISCUSS DISCHARGE PLANNING AND NEEDS. PT REPORTS LIVING AT HOME INDEPENDENTLY WITH HIS ADULT DAUGHTER AND SON IN [place]. PT HAS CANE, SHOWER CHAIR AND STANDARD WALKER WITH NO MEDICAL EQUIPMENT PROVIDER PREFERENCE. PT HAS NO OTHER OUTSIDE SERVICES ASSISTING IN THE HOME. CM DISCUSSED AVAILABILITY OF HOME HEALTH, REHAB SERVICES AND MEDICAL EQUIPMENT. PT REPORTS IF ABLE, HE WILL RETURN HOME WITH HOME HEALTH BUT DOES NOT KNOW AT THIS TIME IF HE WILL REQUIRE SOME SORT OF REHAB, IF HE IS EVEN ABLE, BEFORE GOING HOME; PT REPORTS HIS FAMILY WILL PICK HIM UP FOR DISCHARGE HOME. CM SPOKE TO NAILA COCHRAN REGARDING LACK OF PHYSICAL THERAPY ORDER, NAILA ADVISED WE WILL WAIT UNTIL RECOMMENDATIONS FROM WOUND CARE EVALUATION. PT REPORTS HE MAY NEED REHAB PRIOR TO GOING HOME OR MAY RETURN HOME WITH [facility] RESUMPTION. CM WAITING ON WOUND CARE EVALUATION AND PHYSICAL THERAPY EVALUATION ORDER TO DETERMINE THERAPY NEEDS IF ANY. Staffing Coordinator: Suhas Fong DCPIA - Discharge Planning Initial Assessment Updated by [id number]: Suhas Fong on 11/14/18 12:19 pm * Is the patient Alert and Oriented? Yes * How many steps to enter\\exit or inside your home? 6-O / 2-I * PCP DR. GONZALO CORNEJO IN [place], [place]. * Pharmacy [facility] IN [place] * Preadmission Environment Home with Family * ADLs Independent * Equipment Cane Shower Chair Walker * Other Equipment NO MEDICAL EQUIPMENT PROVIDER PREFERENCE * List name and contact numbers for known caregivers / representatives who currently or will assist patient after discharge: BOB REYES, SON, ROJASMINH TAVAREZ, DTR, * Verbal permission to speak to the caregivers and representatives has been obtained from the patient. N/A * Community resources currently utilized Home Health * Please name any agencies selected above. [facility] - PHYSICAL THERAPY AND WOUND CARE * Additional services required to return to the preadmission environment? No * Can the patient safely return to the preadmission environment? Yes * Has this patient been hospitalized within the prior 30 days at any hospital? No Coverage Notice Reviewer: [id number] Sally Fong Notice Issued Date-Time: 11/08/2018 14:20 Notice Type: Patient Choice Letter Notice Delivered To: Patient Relationship to Patient: In Service Educator Name: Delivery Method: HAND - Hand Delivered Kellie Days: Prior Verbal Notification: Recipient Understood Notice: Yes Recipient Signature: Yes Med Rec Note Co-signed by Attending: Coverage Notice Comment: [facility] Reviewer: [id number] Fong Notice Issued Date-Time: 11/08/2018 14:20 Notice Type: IM Discharge Notice Notice Delivered To: Patient Relationship to Patient: In Service Educator Name: Delivery Method: HAND - Hand Delivered Kellie Days: Prior Verbal Notification: Recipient Understood Notice: Yes Recipient Signature: Yes Med Rec Note Co-signed by Attending: Coverage Notice Comment: Reviewer: RONEY Fong Notice Issued Date-Time: 11/11/2018 14:30 Notice Type: IM Discharge Notice Notice Delivered To: Patient Relationship to Patient: In Service Educator Name: Delivery Method: HAND - Hand Delivered Kellie Days: Prior Verbal Notification: Recipient Understood Notice: Yes Recipient Signature: Yes Med Rec Note Co-signed by Attending: Coverage Notice Comment: Reviewer: [email or web address] - Suhas Fong Notice Issued Date-Time: 11/15/2018 16:25 Notice Type: IM Discharge Notice Notice Delivered To: Family Member Relationship to Patient: Daughter In Service Educator Name: ROJAS TAVAREZ Delivery Method: HAND - Hand Delivered Kellie Days: Prior Verbal Notification: Recipient Understood Notice: Yes Recipient Signature: Yes Med Rec Note Co-signed by Attending: Coverage Notice Comment: Last DP export: 11/15/18 3:35 p Patient Name: BOB REYES Page [phone] at 1643 All edits/amendments must be made on the electronic document DICTATION DATE: 11/15/181641 CLEAN ENERGY POLICY ANALYST: JEANNETTE 11/15/181641 RPT#: [id number] DC DATE: STATUS: ADM IN [facility] [address] [place] [address] END OF REPORT
[2018-11-15 19:50] VITALS: BP 101/54
== END 2018-11-15 20:43 | DRG 699 ==
LOC: D.M2 13:02
PROVIDERS: Internal Medicine Nephrology; Radiology Vascular & Interventional Radiology; ADMIT Internal Medicine Nephrology
PROC: 5A1D70Z Performance of Urinary Filtration, Intermittent, Less than 6 Hours Per Day (ICD-10-PCS; principal; 2018-11-05)
DX: E11.22 Type 2 diabetes mellitus with diabetic chronic kidney disease (principal); I12.0 Hypertensive chronic kidney disease with stage 5 chronic kidney disease or end stage renal disease; N18.6 End stage renal disease; J44.9 Chronic obstructive pulmonary disease, unspecified; E78.5 Hyperlipidemia, unspecified; T25.222D Burn of second degree of left foot, subsequent encounter; E11.40 Type 2 diabetes mellitus with diabetic neuropathy, unspecified

== ENCOUNTER 2018-11-15 00:03 | Emergency (ER) | payer MEDICARE ==
[~2018-11-15] VITALS: Ht 182.9 cm; Wt 83.9 kg
[~2018-11-15 00:03] MED LIST changes: +HYDROCODON-ACE1 EA10 PO; +LASIX40 MG PO
[2018-11-15 00:08] VITALS: Ht 182.9 cm; Wt 83.9 kg
[2018-11-15 01:31] VITALS: BP 131/72
[2018-11-15] MEDS ORDERED: MIDODRINE HCL5 MG PO (16:25)
[2018-11-15] MEDS ORDERED: PLAVIX75 MG PO (16:27)
[2018-11-15] MEDS ORDERED: NICODERM TRANSDERM (16:27)
[2018-11-15] MEDS ORDERED: PROCRIT 202000 UNIT/ SC (16:28)
[2018-11-15] MEDS ORDERED: HEPARIN SOD5000 U/ML SC (16:29)
[2018-11-15] MEDS ORDERED: FERRLECIT62.5 MG/2 (16:30)
[2018-11-15] MEDS ORDERED: FERRLECIT62.5 MG/2 IVPB (16:31)
[2018-11-15] MEDS ORDERED: PERCOCET 5-3251 TAB PO (16:32)
[2018-11-15] MEDS ORDERED: RESTORIL15 MG PO (16:32)
[2018-11-15] MEDS ORDERED: RENVELA0.8 GM PO (16:32)
[2018-11-15] MEDS ORDERED: MUCOMYST PO (16:33)
[2018-11-15] MEDS ORDERED: PROTONIX40 MG PO (16:33)
[2018-11-15] MEDS ORDERED: FLORAJEN3 CAPS460 MG PO (16:33)
[2018-11-15] MEDS ORDERED: SANTYL30 GM TP (16:34)
[2018-11-15] MEDS ORDERED: HUMALOG 30100 UNITS/ SC (16:34)
[2018-11-15] MEDS ORDERED: LANTUS INSULIN10 ML SC (16:34)
[2018-11-15] MEDS ORDERED: SENSIPAR30 MG PO (16:34)
[2018-11-15] MEDS ORDERED: MIRALAX17 GM PO (16:34)
[2018-11-15] MEDS ORDERED: NEPHRO-VITE RX1 TAB PO (16:35)
[2018-11-15] MEDS ORDERED: TRIPLE ANTIBI28.4 GM TP (16:35)
[2018-11-15] MEDS ORDERED: ZYLOPRIM100 MG PO (16:35)
== END 2018-11-15 01:32 | disposition other institution (70) ==
LOC: D.ER 00:03
DX: S01.312A Laceration without foreign body of left ear, initial encounter (principal); W18.09XA Striking against other object with subsequent fall, initial encounter; Y93.89 Activity, other specified; Y92.230 Patient room in hospital as the place of occurrence of the external cause; E11.9 Type 2 diabetes mellitus without complications; I10 Essential (primary) hypertension

== ENCOUNTER 2018-11-15 19:20 | Inpatient (IN) | payer MEDICARE ==
[~2018-11-15] VITALS: Ht 182.9 cm; Wt 83.5 kg
[~2018-11-15 19:20] MED LIST changes: +FERRLECIT62.5 MG/2; +FERRLECIT62.5 MG/2 IVPB; +FLORAJEN3 CAPS460 MG PO; +HEPARIN SOD5000 U/ML SC; +HUMALOG 30100 UNITS/ SC; +LANTUS INSULIN10 ML SC; +MIDODRINE HCL5 MG PO; +MIRALAX17 GM PO; +MUCOMYST PO; +NEPHRO-VITE RX1 TAB PO; +NICODERM TRANSDERM; +PERCOCET 5-3251 TAB PO; +PLAVIX75 MG PO; +PROCRIT 202000 UNIT/ SC; +PROTONIX40 MG PO; +RENVELA0.8 GM PO; +RESTORIL15 MG PO; +SANTYL30 GM TP; +SENSIPAR30 MG PO; +TRIPLE ANTIBI28.4 GM TP
--- NOTE | 2018-11-15 20:57 | NUR ---
THE PATIENT IS RESTING COMFORTABLY WITH THE BED IN THE LOW POSITION, SIDERAILS X2, AND THE CALL LIGHT WITHIN REACH.
[2018-11-15 21:23] VITALS: BP 87/56; BMI 25.0
--- NOTE | 2018-11-15 21:43 | NUR ---
THE PATIENT WAS LYING IN BED WHEN STAFF ENTERED HIS AREA. BE DIS IN THE LO WPOSITION WITH SIDERAILS X2 AND CALL LIGHT WITHIN REACH. THE PATIENT DEMONSTRATES APPROPRIATE USE OF A CALL LIGHT. THE PATIENT APPEARS COMFORTABLE WITH NO QUESTIONS OR CONCERNS AT THIS TIME.
--- NOTE | 2018-11-16 00:22 | NUR ---
PT RESTING IN BED WITH EYES CLOSED. NO DISTRESS NOTED.
[2018-11-16 06:17] VITALS: BP 97/41
[2018-11-16 07:11] LABS: BASOPHILS 0.2 % (0-2); EOSINOPHILS 0.2 % (0-7); HEMATOCRIT 26.2 % (42.0-54.0); HEMOGLOBIN 8.3 g/dL (13.5-17.5); IMMATURE GRANULOCYTES 0.2 % (0-5); LYMPHOCYTES 11.6 % (15-50); MCH 28.9 pg (26.0-34.0); MCHC 31.7 g/dL (31.0-37.0); MCV 91.3 fL (80.0-100.0); MONOCYTES 13.8 % (2-11); PLATELET COUNT 143 10x3/uL (130-400); RBC 2.87 10x6/uL (4.20-6.10); RDW 19.2 % (11.5-14.5); WBC 9.1 10x3/uL (4.8-10.8)
[2018-11-16 07:31] LABS: ANION GAP 20.4 mmol/L (8-16); CALCIUM 8.6 mg/dL (8.5-10.1); CARBON DIOXIDE 21.3 mmol/L (21.0-32.0); POTASSIUM - SERUM 3.7 mmol/L (3.5-5.1)
--- NOTE | 2018-11-16 08:00 | NUR ---
SHIFT ASSMT COMPLETED.DENIES NEEDS.DRSG TO LEFT FOOT INTACT.BREAKFAST GIVEN.
[2018-11-16 09:50] VITALS: Ht 182.9 cm; Wt 83.5 kg
[2018-11-16 12:00] VITALS: BP 93/59
[2018-11-16 18:00] VITALS: BP 105/64
[2018-11-16 19:55] VITALS: BP 110/60
--- NOTE | 2018-11-16 19:55 | NUR ---
GREETED PATIENT AND INTRODUCED MYSELF HIS NURSE FOR THE EVENING. PATIENT SITTING ON SIDE OF BED WATCHING TV. VITAL SIGNS TAKEN. PATIENT DENIES ANY FURTHER NEEDS AT THIS TIME. CALL LIGHT IN REACH.
--- NOTE | 2018-11-16 23:01 | NUR ---
PATIENT ASLEEP WITH EYES CLOSED LAYING IN SUPINE POSITION. HOB AT 20 DEGREES. RESPIRATIONS EVEN. NO SIGNS OF DISTRESS. CALL LIGHT IN REACH
[2018-11-17 00:05] VITALS: BP 98/62
--- NOTE | 2018-11-17 01:52 | NUR ---
PATIENT ASLEEP WITH EYES CLOSED LAYING IN SUPINE POSITION. HOB AT 30 DEGREES. RESPIRATIONS EVEN. NO SIGNS OF DISTRESS. CALL LIGHT IN REACH.
--- NOTE | 2018-11-17 03:57 | NUR ---
PATIENT AWAKE AND SITTING ON SIDE OF BED. BROUGHT PATIENT FRESH WATER FOR HYDRATION. DENIES ANY FURTHER NEEDS AT THIS TIME. CALL LIGHT IN REACH.
[2018-11-17 06:00] VITALS: BP 103/62
--- NOTE | 2018-11-17 08:00 | NUR ---
SHIFT ASSMT COMPLETED.BREAKFAST TRAY GIVEN
--- NOTE | 2018-11-17 12:00 | NUR ---
RESTING QUIETLY,STATES WILL EAT LATER.
[2018-11-17 12:06] VITALS: BP 108/64
--- NOTE | 2018-11-17 13:30 | NUR ---
EATING LUNCH FROM [place].CL IN REACH.SON AT BEDSIDE.
[2018-11-17 18:44] VITALS: BP 100/68
[2018-11-17 19:28] VITALS: BP 101/60
--- NOTE | 2018-11-17 19:28 | NUR ---
GREETED PATIENT AND INTRODUCED MYSELF HIS NURSE FOR THE EVENING. PATIENT IS SITTING ON THE SIDE OF THE BED. PATIENT STATED THAT HE HAS HAD A GOOD DAY. VITAL SIGNS TAKEN. PATIENT DENIES ANY FURTHER NEEDS AT THIS TIME. CALL LIGHT IN REACH.
--- NOTE | 2018-11-17 23:14 | NUR ---
PATIENT RESTING QUIETLY WATCHING TV. DENIES ANY NEEDS AT THIS TIME. CALL LIGHT IN REACH.
[2018-11-18 00:13] VITALS: BP 90/55
--- NOTE | 2018-11-18 01:18 | NUR ---
PATIENT AWAKE AND SITTING ON SIDE OF THE BED. DENIES ANY NEEDS AT THIS TIME. CALL LIGHT IN REACH.
[2018-11-18 06:08] VITALS: BP 96/56
[2018-11-18 07:01] LABS: BASOPHILS 0.1 % (0-2); EOSINOPHILS 1.8 % (0-7); HEMATOCRIT 26.8 % (42.0-54.0); HEMOGLOBIN 8.7 g/dL (13.5-17.5); IMMATURE GRANULOCYTES 0.5 % (0-5); LYMPHOCYTES 15.5 % (15-50); MCH 29.5 pg (26.0-34.0); MCHC 32.5 g/dL (31.0-37.0); MCV 90.8 fL (80.0-100.0); MEAN PLATELET VOLUME 9.5 fL (7.4-10.4); MONOCYTES 10.9 % (2-11); NEUTROPHILS 71.2 % (40-80); PLATELET COUNT 149 10x3/uL (130-400); RBC 2.95 10x6/uL (4.20-6.10); RDW 18.6 % (11.5-14.5); WBC 7.4 10x3/uL (4.8-10.8)
[2018-11-18 07:10] LABS: ANION GAP 19.1 mmol/L (8-16); CALCIUM 8.2 mg/dL (8.5-10.1); CARBON DIOXIDE 23.5 mmol/L (21.0-32.0); CREATININE - SERUM 6.5 mg/dL (0.6-1.3); POTASSIUM - SERUM 3.6 mmol/L (3.5-5.1)
[2018-11-18 08:55] VITALS: BP 103/65
[2018-11-18 12:41] VITALS: BP 109/64
--- NOTE | 2018-11-18 15:00 | NUR ---
SPOKE WITH ROMAINE IN INTERVENTIONAL RADIOLOGY, A "NPO" ORDER WAS PUT INTO PT'S CHART IN INTISIPATION OF INTERVENTION FOR PT NOT HAVING PEDAL PULSES. TRAMAINE FROM IR CAME TO ROOM AND WAS ABLE TO CLARIFY PTS PEDAL PULSES WERE SAME BEFORE. NO INTERVENTION NECCESSARY. SO PT WAS THEN PUT ON RENAL DIET......PER ROMAINE IN IR
--- NOTE | 2018-11-18 17:37 | NUR ---
SITTING UP IN BED EATING SUPPER. HAS LEFT FOOT DSG IN PLACE. CALL LIGHT IN REACH
[2018-11-18 18:36] VITALS: BP 102/58
--- NOTE | 2018-11-18 20:30 | NUR ---
PT IS RESTING IN BED WITH EYES OPEN. ALERT AND ORIENTED X 3. PT VOICED COMPLAINT OF LEFT FOOT PAIN LEVEL OF 6, STATING IT HAD STARTED HURTING WHEN HIS DRESSING WAS CHANGED TODAY. MEDICATED PER NOV. RIGHT WRIST SALINE LOCK NOTED. LEFT AVF WITH GOOD BRUITT AND THRILL. SR'S ARE UP X 2 IN BED. CALL LIGHT AND BEDSIDE TABLE ARE WITHIN EASY REACH.
--- NOTE | 2018-11-18 23:47 | NUR ---
PT IS RESTING QUIETLY IN BED WITH EYES CLOSED. RESPS ARE EVEN AND UNLABORED. NO ACUTE DISTRESS NOTED.
[2018-11-19] VITALS: BP 88/60
--- NOTE | 2018-11-19 02:20 | NUR ---
RESTING IN BED WITH EYES CLOSED.
--- NOTE | 2018-11-19 02:50 | NUR ---
THE PATIENT APPEARS TO BE SLEEPING COMFORTABLY. BED IS IN THE LO WPOSITION WITH SIDERAILS X2 AND CALL LIGHT WITHIN REACH.
[2018-11-19 06:24] VITALS: BP 91/62
[2018-11-19 07:30] LABS: BASOPHILS 0.1 % (0-2); EOSINOPHILS 0.8 % (0-7); HEMATOCRIT 25.6 % (42.0-54.0); HEMOGLOBIN 8.2 g/dL (13.5-17.5); IMMATURE GRANULOCYTES 0.4 % (0-5); LYMPHOCYTES 11.4 % (15-50); MCH 29.1 pg (26.0-34.0); MCV 90.8 fL (80.0-100.0); MEAN PLATELET VOLUME 9.7 fL (7.4-10.4); MONOCYTES 11.7 % (2-11); NEUTROPHILS 75.6 % (40-80); PLATELET COUNT 159 10x3/uL (130-400); RBC 2.82 10x6/uL (4.20-6.10); RDW 18.3 % (11.5-14.5); WBC 7.9 10x3/uL (4.8-10.8)
[2018-11-19 07:37] LABS: ANION GAP 17.7 mmol/L (8-16); CALCIUM 8.3 mg/dL (8.5-10.1); CARBON DIOXIDE 25.1 mmol/L (21.0-32.0); CREATININE - SERUM 5.2 mg/dL (0.6-1.3); PHOSPHOROUS 4.1 mg/dL (2.5-4.9); POTASSIUM - SERUM 3.8 mmol/L (3.5-5.1)
--- NOTE | 2018-11-19 08:00 | NUR ---
IS NPO DUE TO POSSIBLE ARTERIOGRAM TODAY. NO BREAKFAST. DRESSING WAS REMOVED SO DR CRAIG COULD SEE LEFT FOOT. NOW REDRESSED AGAIN.
--- NOTE | 2018-11-19 10:08 | NUR ---
PATIENT ADMITTED TO REHAB FROM ACUTE FLOOR. DR. GONZALO CORNEJO IN [facility] IS HIS PCP. DME AT HOME IS A CHOWER CHAIR, CANE AND A WALKER. HE HAD CHOSEN [facility] ON ACUTE FLOOR BUT WILL SPEAK WITH PATIENT CLOSER TO DISCHARGE OF WHAT HOME HEALTH THAT HE PREFERS. WILL CONTINUE TO FOLLOW WITH PATIENT.
--- NOTE | 2018-11-19 11:09 | NUR ---
ARTERIOGRAM POSTPONED FOR NOW. AM MEDS HELD DUE TO NPO STATUS. NOW MEDS GIVEN.
[2018-11-19 12:02] VITALS: BP 104/59
--- NOTE | 2018-11-19 13:15 | NUR ---
Nutrition Follow Up: Pt was asleep at the time of RD visit. Interview deferred at this time. Diet: Renal ADA (NPO this am) PO Intake: 86% meal avg BM: 11/16/18 Labs reviewed Meds noted including Megace Rec continue current diet. RD following.
--- NOTE | 2018-11-19 13:16 | NUR ---
WORKING WITH SPEECH THERAPY IN HIS ROOM.
--- NOTE | 2018-11-19 16:03 | NUR ---
RESTING QUIETLY IN BED. HAS BEEN IN BED MOST OF DAY STATING HE WAS VERY TIRED. HIS ARTERIOGRAM IS POSTPONED AT THIS POINT IN TIME. HE APPITITE IS STILL POOR. CALL LIGHT IN REACH
[2018-11-19 18:38] VITALS: BP 105/54
--- NOTE | 2018-11-19 19:35 | NUR ---
PT SITTING UP IN BED WATCHING TV, REQUESTED URINAL, GIVEN, FLUIDS AND CALL LIGHT WITHIN REACH
[2018-11-20] VITALS: BP 98/60
--- NOTE | 2018-11-20 05:06 | NUR ---
PT ASLEEP NO NRRDS NOTRD FLUIDS SND CALL [facility] WITHIN REACH
[2018-11-20 06:00] VITALS: BP 97/61
--- NOTE | 2018-11-20 06:41 | NUR ---
PT COULDN'T STAND FOR WT SAID IT TOOK 3 PEOPLE
[2018-11-20 07:17] LABS: ANION GAP 19.2 mmol/L (8-16); CALCIUM 8.2 mg/dL (8.5-10.1); CARBON DIOXIDE 23.6 mmol/L (21.0-32.0); CREATININE - SERUM 6.2 mg/dL (0.6-1.3); POTASSIUM - SERUM 3.8 mmol/L (3.5-5.1)
[2018-11-20 07:22] LABS: BASOPHILS 0.3 % (0-2); EOSINOPHILS 1.4 % (0-7); HEMATOCRIT 24.6 % (42.0-54.0); IMMATURE GRANULOCYTES 0.6 % (0-5); LYMPHOCYTES 15.7 % (15-50); MCH 29.3 pg (26.0-34.0); MCHC 32.5 g/dL (31.0-37.0); MCV 90.1 fL (80.0-100.0); MONOCYTES 13.7 % (2-11); NEUTROPHILS 68.3 % (40-80); PLATELET COUNT 164 10x3/uL (130-400); RBC 2.73 10x6/uL (4.20-6.10); RDW 18.4 % (11.5-14.5); WBC 7.8 10x3/uL (4.8-10.8)
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
[2018-11-20 12:22] VITALS: BP 97/57
--- NOTE | 2018-11-20 14:32 | NUR ---
IF PATIENT UNABLE TO RETURN HOME AT [facility] HE WOULD LIKE A REFERRAL SENT TO [facility] WHERE HIS GRANDDAUGHTER WORKS.
[2018-11-20 18:18] VITALS: BP 101/50
--- NOTE | 2018-11-20 20:02 | NUR ---
PT UP ON SIDE OF BED, WANTS PRN PAIN MED WITH HS MEDS, FLUIDS AND CALL LIGHT WITHIN REACH
[2018-11-20 21:37] VITALS: BP 97/53
[2018-11-21 07:41] VITALS: BP 97/53
--- NOTE | 2018-11-21 07:43 | NUR ---
UNABLE TO OBTAIN WEIGHT DUE TO PTS INABILITY TO STAND
--- NOTE | 2018-11-21 09:52 | NUR ---
PT AM MEDS ADMINISTERED. PT DENIES NEEDS. WCTM.
--- NOTE | 2018-11-21 11:00 | NUR ---
PT DRESSING TO LEFT FOOT CHANGED PER ORDERS. WAITING FOR ROOM NUMBER TO DISCHARGE PT TO ACUTE CARE PER DR NUNO.
--- NOTE | 2018-11-21 11:40 | NUR ---
DUE TO CHANGE IN MEDICAL CONDITION PATIENT DISCHARGED FROM REHAB AND ADMITTED TO ACUTE FLOOR.
[2018-11-21 12:30] VITALS: BP 89/55
--- NOTE | 2018-11-21 15:34 | NUR ---
CALLED REPORT TO NEMESIO LIANG ON MED 2. PT TAKEN VIA BED TO ROOM 2127. PT DISCHARGE AND ADMIT INSTRUCTIONS REVIEWED AND PT STATES UNDERSTANDING. PT ORIENTED TO ROOM. PT DENIES NEEDS.
== END 2018-11-21 15:35 | disposition short-term general hospital (02) | DRG 91 ==
LOC: D.REHAB 19:20
PROVIDERS: Internal Medicine Nephrology; ADMIT Emergency Medicine; ATTEND Emergency Medicine
DX: G72.89 Other specified myopathies (principal); N18.6 End stage renal disease; I12.0 Hypertensive chronic kidney disease with stage 5 chronic kidney disease or end stage renal disease; N25.81 Secondary hyperparathyroidism of renal origin; E11.22 Type 2 diabetes mellitus with diabetic chronic kidney disease; Z99.2 Dependence on renal dialysis; J44.9 Chronic obstructive pulmonary disease, unspecified; D64.9 Anemia, unspecified; E11.40 Type 2 diabetes mellitus with diabetic neuropathy, unspecified; F17.200 Nicotine dependence, unspecified, uncomplicated; G47.00 Insomnia, unspecified; R53.1 Weakness; T25.322D Burn of third degree of left foot, subsequent encounter; R53.81 Other malaise

== ENCOUNTER 2018-11-21 15:08 | Inpatient (IN) | payer MEDICARE ==
[~2018-11-21] VITALS: Ht 182.9 cm; Wt 85.5 kg
--- NOTE | ~2018-11-21 | HEMODYNAMI ---
PATIENT:BOB REYES MEDICAL RECORD: [id number] : 53 LOCATION:[place] [id number] ADMISSION DATE: 11/21/18 Generatedon:12/09/201815:35 Patient name: BOB REYES Patient #: [id number] SSN: : 1955 Date of study: 12/09/2018 Page: Of Hemodynamic Procedure Report Patient Data Patient Demographics Procedure consent was obtained First Name: BOB Gender: Male Last Name: ERIC : 1955 Middle Initial: EDWARD Age: 63 year(s) Patient #: [id number] Race: Unknown Additional ID: [id number] Contact details Address: [address] [place] [address] State: [place] City: [place] Zip code: [address] Admission Admission Data Admission Date: 11/21/2018 Admission Time: 15:08 Room #: D2135 Height (in.): 72 BSA: 2.08 (m2) Height (cm.): 182.88 BMI: 25.5 (kg/m2) Weight (lbs.): 188 Weight (kg.): 85.28 Procedure Procedure Types Cath Procedure Peripheral Cath Diagnostic Procedure Miscellaneous Procedure Description Procedure Date Procedure Date: 12/09/2018 Procedure Start Time: 12:51 Procedure Staff Name Function Bharathi Chinchilla MD Performing Physician Judi Fairbanks RT Sewing Machine Attachment Tester Rosalee Cotrez RN Nurse Bryn Benjamin RT Scrub Procedure Data Cath Procedure Fluoroscopy Diagnostic fluoroscopy Total fluoroscopy Time: 32 time: 32 min min Diagnostic fluoroscopy Total fluoroscopy dose: 190 dose: 190 mGy mGy Procedure Medications Medication Administration Route Dosage Lidocaine 1% added to field 20 Heparin Flush Bag added to field 3 bags (1000units/500ml NS) Heparin Bolus I.V. 5000 units Heparin Bolus I.V. 2000 units Hemodynamics Rest BSA: 2.08 (m2) O2 Consumption: Estimated: 282.88 (ml/min) O2 Consumption indexed : Estimated:136 (ml/min/m) Pre Cath Intra NCS Post Cath Medications Time Medication Route Dose Verified Delivered Reason Notes Effe ctiveness by by 12:39:55 Lidocaine 1% added 20ml Bharathi Garvin for local to vial Amor Chinchilla MD anesthetic field 12:40:11 Heparin Flush added 3 Bharathi Garvin used for Bag to bags Amor Chinchilla MD procedure (1000units/500ml field NS) 14:09:23 Heparin Bolus I.V. 5000 Bharathi Turk Per units Diego Chinchilla RN physician 15:08:45 Heparin Bolus I.V. 2000 Bharathi Turk Per units Diego Chinchilla RN physician Procedure Log Time Note 11:40:01 Patient Height : 72 inches 11:40:06 Patient Weight : 188 lbs 11:40:41 Use device set IR Diagnostic 11:41:31 Bag Decanter (2002S) opened to sterile field. 11:41:31 Sterile Angiographic Pack opened to sterile field. 11:41:33 Tegaderm 4 x 4 (1626W) opened to sterile field. 11:41:34 Micropuncture VSI 4FR kit opened to sterile field. 11:41:35 DOC .035 wire (B89027) opened to sterile field. 11:41:36 SHEATH 5FR Slender (65-0692) opened to sterile field. 11:42:20 Time tracking: Regular hours (M-F 7:00 - 5:00) 11:43:01 Plan of Care:Hemodynamics will remain stable., Cardiac rhythm will remain stable., Comfort level will be maintained., Respiratory function will remain adequate., Patient/ family verbilizes understanding of procedure., Procedure tolerated without complication., Recovers from procedure without complications.. 12:02:21 Patient received from Med II to IR Alert and oriented. Tansferred to table in Supine position. 12:02:23 Correct patient and procedure confirmed by team. 12:02:25 Signed procedure consent form obtained from patient. 12:02:29 - 12:02:33 H&P Date Dictated: 12/09/2018 Within 30 days and on chart.. 12:02:35 Pre-procedure instructions explained to patient. 12:02:36 Pre-op teaching completed and patient verbalized understanding. 12:02:38 Family in waiting room. 12:02:42 Patient NPO since Midnight. 12:02:50 - 12:02:51 ----Pre-sedation anethsthesia assessment.----see anesthesia notes for monitoring of patient during procedure, general anesthesia 12:03:44 - 12:03:47 - 12:04:01 IV patent on arrival in right forearm with D5/.45%NaCl at [facility]. 12:04:18 Right groin area was prepped with chlora-prep and draped in sterile fashion 12:39:55 Lidocaine 1% 20ml vial added to field was administered by Bharathi Chinchilla MD; for local anesthetic; 12:40:11 Heparin Flush Bag (1000units/500ml NS) 3 bags added to field was administered by Bharathi Chinchilla MD; used for procedure; 12:40:46 JAQUI SCOTT CRNA, IN ROOM AT 12PM 12:50:16 Physician arrived 12:50:18 --------ALL STOP TIME OUT------ 12:50:19 Final Timeout: patient, procedure, and site verified with staff and physician. All members of the team are in agreement. 12:51:07 Procedure started. 12:51:07 Full Disclosure recording started 12:51:12 Local anesthetic to right femoral artery with Lidocaine 1% by Bharathi Chinchilla MD.INITIAL ACCESS ONLY 13:01:45 TORQUE DEVICE PLASTIC .038 ( TD01) opened to sterile field. 13:02:04 GLIDE WIRE ANGLE 180cm (LB7990) opened to sterile field. 13:02:24 CXI Catheter 90cm (O84350) opened to sterile field. 13:05:40 ROADRUNNER .035 145 glide wire (G85568) opened to sterile field. 13:29:59 Trailblazer 0.035 90cm catheter (ASC-035-090) opened to sterile field. 13:31:29 Cordis 5Fr [place] Destination sheath opened to sterile field. 13:46:53 Micropuncture VSI 4FR kit opened to sterile field. 13:48:26 ROADRUNNER FIRM 260CM glide wire (J27148) opened to sterile field. 13:52:59 SHEATH 5FR Slender (48-5411) opened to sterile field. 13:55:13 Tegaderm 6 x 8 (1628) opened to sterile field. 14:04:26 AMPLATZ Short Taper 260cm wire ([id number]) opened to sterile field. 14:09:23 Heparin Bolus 5000 units I.V. was administered by Rosalee Cortez RN; Per physician; 14:12:11 CHOICE PT Extra Support J 300cm guide wire ([id number]) opened to steril e field. 14:12:27 INFLATOR BasixTOUCH (GP6052) opened to sterile field. 14:12:28 Enteer Guidewire Standard opened to sterile field. 14:12:29 Enteer Re-entry cath 2.75 opened to sterile field. 14:32:28 Inflate balloon Inflation number: 1 A [place] Plus 3 x 4 x 130 Balloon ([id number]) was prepped and advanced across the Undefined1, then inflated. 14:34:01 CHOICE PT Extra Support J 300cm guide wire ([id number]) opened to steril e field. 14:38:11 Inflate balloon Inflation number: 1 A [place] Plus 3 x 6 x 130 Balloon ([id number]) was prepped and advanced across the Undefined2, then inflated. 14:38:36 INFLATOR BasixTOUCH (MK6548) opened to sterile field. 14:48:54 GLIDE WIRE ANGLE 260cm (ID3820) opened to sterile field. 14:58:38 Navicross Support Straight .035 150cm catheter (HL50005) opened to sterile field. 15:08:45 Heparin Bolus 2000 units I.V. was administered by Rosalee Cortez RN; Per physician; 15:30:27 Procedure ended.(Physican Out) 15:30:35 Fluoroscopy time 32.00 minutes. 15:30:40 Flurop Dose total: 190 15:30:40 Fluoroscopy dose: 190 mGy 15:35:07 Report given to PCU. 15:35:14 Post Procedure Pulses reassessed and unchanged Intervention Summary Intervention Notes Time ActionType Lesion and Equipment Used Action# Pressure Duration Attributes 14:32:28 Inflate Undefined1 Catawba Plus 3 1 0 00:00 balloon x 4 x 130 Balloon ([id number]) 14:38:11 Inflate Undefined2 Catawba Plus 3 1 0 00:00 balloon x 6 x 130 Balloon ([id number]) Device Usage Item Name Manufacture Quantity Catalog Number Hospital Part Current Minimal Lot# / Charge Number Stock Stock Serial# Code Bag Decanter Microtek 1 [id number] 92917 [id number] 5 () Medical Inc. Sterile Cardinal 1 [id number] 880496 826650 5 Angiographic Health Pack Tegaderm 4 x 4 3M 1 1626W 829360 171229 269353 5 (1626W) Micropuncture VSI VASCULAR 2 7266V 526366 611331 5 VSI 4FR kit SOLUTIONS DOC .035 wire [employer] 1 M78364 158768 652878 5 (T43507) SHEATH 6FR Terumo 1 [id number] 235420 642466 652364 5 Slender (80-1060) TORQUE DEVICE [place] 1 TD01 059190 000632 486885 5 PLASTIC .038 ( Scientific TD01) GLIDE WIRE Terumo 1 EB5273 536099 352480 207489 5 ANGLE 180cm (AD7937) CXI Catheter [employer] 1 F29632 734515 162815 883854 5 [id number] 90cm (I89235) [facility] 1 C18997 641109 061898 235438 5 [id number] .035 145 glide wire (H01922) Trailblazer Medtronic 1 ASC-035-090 614856 5530456 717816 5 0.035 90cm catheter (ASC-035-090) Cordis 5Fr Cardinal 1 69-35410 093609 39794 310169 5 [facility] Destination sheath [facility] 1 C57157 792152 689377 5 8047196 FIRM 260CM glide wire (I97066) Tegaderm 6 x 8 3M 1 1628 873121 769265 5 (1628) AMPLATZ Short [place] 1 [id number] 145151 230350 422535 5 Taper 260cm Scientific wire ([id number]) CHOICE PT [place] 1 [id number] 062595 387292 130475 5 Extra Support Scientific J 300cm guide wire (3078672F4) INFLATOR Merit 1 PU6626 314160 483378 705129 5 [facility] (CT9085) Enteer Medtronic 1 MZA-VX-350-300 967368 696623 973346 1 [id number] Guidewire Standard Enteer Medtronic 1 DEW-467-52-150 853723 069582 594331 1 [id number] Re-entry cath 2.75 Catawba Plus 3 Medtronic 1 [id number] 056267 893099 104892 5 [id number] x 4 x 130 Balloon ([id number]) Catawba Plus 3 Medtronic 1 [id number] 109264 0391727 358743 5 [id number] x 6 x 130 Balloon ([id number]) GLIDE WIRE Terumo 1 UR5164 796820 422137 235442 5 ANGLE 260cm (TB4270) Navicross Terumo 1 KQ74062 578490 201901 866492 5 Support Straight .035 150cm catheter (FZ58583) Signature Audit [place] Stage Time Signature Unsigned Intra-Procedure 12/09/2018 Judi Fairbanks 3:35:46 PM RT(R) [facility] [address] [place] [address]
--- NOTE | ~2018-11-21 | HEMODYNAMI ---
PATIENT:BOB REYES MEDICAL RECORD: [id number] : 53 LOCATION:[facility] D.2128 ADMISSION DATE: 11/21/18 Generatedon:11/22/201816:03 Patient name: BOB REYES Patient #: [id number] SSN: : 1955 Date of study: 11/22/2018 Page: Of Hemodynamic Procedure Report Patient Data Patient Demographics Procedure consent was obtained First Name: BOB Gender: Male Last Name: ERIC : 1955 Middle Initial: EDWARD Age: 63 year(s) Patient #: [id number] Race: Unknown Additional ID: [id number] Contact details Address: [address] [place] [address] State: [place] City: [place] Zip code: [address] Admission Admission Data Admission Date: 11/21/2018 Admission Time: 15:08 Room #: .2128 Procedure Procedure Types Cath Procedure Peripheral Cath Diagnostic Procedure Abd/Extremity Extremities Right Lower Ext Arterio Procedure Description Procedure Date Procedure Date: 11/22/2018 Procedure Start Time: 14:26 Procedure Staff Name Function Bharathi Chinchilla MD Performing Physician Bryn Benjamin RT Monitor Rosalee Cortez RN Nurse Radha Olsen Scrub Vincent Arce CRNA Additional personnel Procedure Data Cath Procedure Fluoroscopy Diagnostic fluoroscopy Total fluoroscopy Time: time: 17.7 min 17.7 min Diagnostic fluoroscopy Total fluoroscopy dose: 553 dose: 553 mGy mGy Entry Location Entry Primary Successful Side Size Upsize 1 Upsize Entry Closure Lr ccessful Closure Location (Fr) (Fr) 2 (Fr) Remarks Device Remarks Femoral Left 5 Fr 6 Fr Exoseal artery Mid-Length Procedure Medications Medication Administration Route Dosage Heparin Flush Bag added to field 3 bags (1000units/500ml NS) Lidocaine 1% added to field 20 Heparin Bolus I.V. 5000 units Hemodynamics Rest Heart Rate: 84 (bpm) Snapshots Pre Cath Intra NCS Post Cath Vital Signs Time Heart Resp SPO2 etCO2 NIBP Rhythm Pain Sedation Rate (ipm) (%) (mmHg) (mmHg) Status Level (bpm) 14:10:25 84 17 95 9 Measuring NSR 0 (11) 10(A) , No pain 14:11:04 83 14 100 16.5 109/54(80) NSR 0 (11) 10(A) , No pain 14:15:18 82 15 98 10.5 108/52(94) NSR 0 (11) 8(A) , No pain 14:19:24 80 16 99 23.3 117/62(87) NSR 0 (11) 8(A) , No pain 14:23:36 82 13 99 27 117/52(82) NSR 0 (11) 8(A) , No pain 14:27:44 80 14 97 10.5 104/57(86) NSR 0 (11) 8(A) , No pain 14:31:53 80 14 97 16.5 100/52(89) NSR 0 (11) 8(A) , No pain 14:35:59 78 16 92 17.2 102/53(77) NSR 0 (11) 10(A) , No pain 14:40:09 78 15 100 5.2 109/48(78) NSR 0 (11) 10(A) , No pain 14:44:15 78 15 100 5.2 106/55(85) NSR 0 (11) 10(A) , No pain 14:48:17 78 15 100 1.5 104/64(82) NSR 0 (11) 10(A) , No pain 14:52:22 78 15 100 1.5 110/50(84) NSR 0 (11) 10(A) , No pain 14:56:22 79 14 99 1.5 94/65(83) NSR 0 (11) 10(A) , No pain 15:01:11 80 12 98 6.7 99/54(76) NSR 0 (11) 10(A) , No pain 15:05:13 83 11 96 10.5 106/54(83) NSR 0 (11) 10(A) , No pain 15:09:14 83 12 99 11.2 107/58(86) NSR 0 (11) 10(A) , No pain 15:13:18 81 14 99 11.2 105/52(85) NSR 0 (11) 10(A) , No pain 15:17:22 80 14 98 9 101/54(77) NSR 0 (11) 10(A) , No pain 15:21:21 80 15 98 9.7 107/59(79) NSR 0 (11) 10(A) , No pain 15:26:00 79 20 99 9 113/52(82) NSR 0 (11) 10(A) , No pain 15:30:02 79 21 99 9.7 104/64(82) NSR 0 (11) 10(A) , No pain 15:34:01 78 21 99 9 105/63(86) NSR 0 (11) 10(A) , No pain 15:38:13 77 17 98 9.7 107/43(84) NSR 0 (11) 10(A) , No pain 15:42:58 75 18 100 3.7 104/57(77) NSR 0 (11) 10(A) , No pain 15:46:58 76 31 99 9 108/61(83) NSR 0 (11) 10(A) , No pain 15:51:48 76 17 13.5 98/53(74) NSR 0 (11) 10(A) , No pain 15:56:48 75 15 94 0 Measuring NSR 0 (11) 10(A) , No pain 15:58:11 75 16 95 0 Time NSR 0 (11) 10(A) Exceeded , No pain Medications Time Medication Route Dose Verified Delivered Reason Notes Effe ctiveness by by 14:13:29 Heparin Flush added 3 Bharathi Garvin used for Bag to bags Amor Chinchilla MD procedure (1000units/500ml field DELACRUZ NS) 14:13:41 Lidocaine 1% added 20ml Bharathi Garvin for local to vial Amor Chinchilla MD anesthetic field DELACRUZ 15:03:20 Heparin Bolus I.V. 5000 Bharathi Turk Per units Diego Chinchilla RN physician Procedure Log Time Note 13:53:30 Vincent Arce CRNA present and monitoring patient for TIVA. 13:53:43 Bryn Benjamin RT (R) (CV) sent for patient. Start room use. 13:53:51 Time tracking: Regular hours (M-F 7:00 - 5:00) 13:54:00 Use device set IR Diagnostic 13:54:01 ACIST Syringe (43980) opened to sterile field. 13:54:01 ACIST Hand Control (61824) opened to sterile field. 13:54:02 ACIST Manifold (36486) opened to sterile field. 13:54:02 Bag Decanter (2001S) opened to sterile field. 13:54:02 Sterile Angiographic Pack opened to sterile field. 13:54:03 Tegaderm 4 x 4 (1626W) opened to sterile field. 13:54:10 Plan of Care:Hemodynamics will remain stable., Cardiac rhythm will remain stable., Comfort level will be maintained., Respiratory function will remain adequate., Patient/ family verbilizes understanding of procedure., Procedure tolerated without complication., Recovers from procedure without complications.. 13:54:16 Patient received from [place] II to IR Alert and oriented. Tansferred to table in Supine position. 13:54:18 Correct patient and procedure confirmed by team. 13:54:20 Signed procedure consent form obtained from patient. 13:54:21 ECG and BP/O2 sat monitors applied to patient. 13:54:22 Full Disclosure recording started 13:54:23 - 13:54:26 H&P Date Dictated: 11/22/2018 H&P Addendum completed by physician on day of procedure. (MUST COMPLETE FOR ALL OUTPATIENTS). 13:54:27 Pre-procedure instructions explained to patient. 13:54:28 Pre-op teaching completed and patient verbalized understanding. 13:54:31 Family unavailable. 13:54:33 Patient NPO since Midnight. 13:54:37 - 13:54:51 SEE ANESTHESIA CHART FOR PRE PROCEDURE TIVA 13:55:01 Left groin area was prepped with chlora-prep and draped in sterile fashion 14::35 Vital chart was started 14:08:38 Baseline sample Acquired. 14:: Alarms reviewed by R. N. 14::48 Sharps counted by scrub and verified by R.N. 14::40 Pre procedure: right dorsailis pedis pulse Doppler 14::43 Pre procedure: right posterior tibial pulse Doppler 14::47 Pre procedure: left posterior tibial pulse Doppler 14::29 Heparin Flush Bag (1000units/500ml NS) 3 bags added to field was administered by Bharathi Chinchilla MD; used for procedure; 14::41 Lidocaine 1% 20ml vial added to field was administered by Bharathi Chinchilla MD; for local anesthetic; 14:: Physician arrived 14::28 --------ALL STOP TIME OUT------ 14::28 Final Timeout: patient, procedure, and site verified with staff and physician. All members of the team are in agreement. 14:25:30 Left groin site verified by team. 14::40 Fire Safety Assessment: A--An alcohol-based skin anteseptic being used preoperatively., C--Open oxygen or nitrous oxide is being used. 14::48 Sedation plan: TIVA Medication:Propofol 14:26:07 Procedure started. 14:26:13 Local anesthetic to left femerol artery with Lidocaine 1% by Bharathi Chinchilla MD.INITIAL ACCESS ONLY 14:26:33 DOC .035 wire (S47062) opened to sterile field. 14:26:34 SHEATH 5FR [place] (FTS286) opened to sterile field. 14:26:34 Micropuncture VSI 4FR kit opened to sterile field. 14:26:34 TUBING Contrast Injection High Pressure (LJD799V) opened to sterile field. 14:26:35 Angiodynamics Omniflush 5Fr 65cm (17804629) opened to sterile field. 14:26:35 HOLCOMB 260 wire (V12741) opened to sterile field. 14:26:41 Access obtained with 4Fr micropunture. 14::55 A 5 Fr sheath was inserted into the Left Femoral artery 14:29:42 GLIDE WIRE MERIT Angled 260cm ([id number]) opened to sterile field. 14:31:33 GLIDE CATHETER 5FR ANGLED 65cm (CG507) opened to sterile field. 14:38:45 AMPLATZ Super Stiff 75cm wire ([id number]) opened to sterile field. 14:39:01 TORQUE DEVICE PLASTIC .038 ( TD01) opened to sterile field. 14:55:17 CXI SUPPORT .035 135 CM STR catheter (K42498) opened to sterile field. 14:58:25 AMPLATZ Super stiff 3mm J 260cm wire ([id number]) opened to sterile field. 14:59:13 SHEATH 6FR Destination (RSR01) opened to sterile field. 14:59:29 Sheath upsized to a 6 Fr Mid-Length. 15:02:11 ROADRUNNER .035 260 glide wire (L11992) opened to sterile field. 15:02:36 Navicross Support Straight .035 150cm catheter (PR48896) opened to sterile field. 15:03:20 Heparin Bolus 5000 units I.V. was administered by Rosalee Cortez RN; Per physician; 15:15:01 GLIDE WIRE Super Stiff Angled 260cm (ZA4059) opened to sterile field. 15:16:53 Trailblazer 0.035 135cm catheter ([id number]) opened to sterile field. 15:27:38 CHOICE PT Extra Support J 300cm guide wire ([id number]) opened to steril e field. 15:37:42 EXOSEAL 6Fr (EX600) opened to sterile field. 15:38:06 SHEATH 6FR [place] (WPG782) opened to sterile field. 15:44:27 Sheath removed intact; hemostasis achieved with Exoseal to the Left Femoral artery. 15:44:30 Procedure ended.(Physican Out) 15:45:34 Fluoroscopy time 17.70 minutes. 15:45:38 Fluoroscopy dose: 553 mGy 15:45:38 Flurop Dose total: 553 15:45:41 Sharps counted by scrub and verified by R.N. 15:46:26 Insertion/operative site no bleeding no hematoma. 15:46:29 Post-op/insertion site Left Femoral artery dressed using a 4 x 4 and Tegaderm. 15:46:34 Post left femerol artery:stable 15:47:13 Post Procedure Pulses reassessed and unchanged 15:47:14 Post procedure instruction explained to patient.Patient verbalizes understanding. 15:47:15 Procedure and supply charges have been captured, reviewed, submitted an d are correct. 16:00:33 Report given to Med II. 16:00:37 Patient transfered to [facility] II with Bed. 16:03:23 Vital chart was stopped Device Usage Item Name Manufacture Quantity Catalog Number Hospital Part Current Minimal Lot# / Charge Number Stock Stock Serial# Code ACIST Syringe Acist Medical 1 40419 311166 578221 311676 20 (09967) Systems Inc ACIST Hand Acist Medical 1 67695 507424 929932 220135 5 Control (59726) Systems Inc ACIST Manifold Acist Medical 1 65111 477447 812664 923521 5 (87378) Systems Inc Bag Decanter Microtek 1 2001S 687931 73935 763425 5 (2001S) Medical Inc. Sterile Cardinal 1 [id number] 176491 850214 5 Angiographic Health Pack Tegaderm 4 x 4 3M 1 1626W 442352 019725 907710 5 (1626W) DOC .035 wire Cook Medical 1 I68880 756075 761969 5 (S91455) SHEATH 5FR Terumo 1 JXF084 952288 580294 611669 5 [place] (FGP088) Micropuncture VSI VASCULAR 1 7266V 584817 320427 5 VSI 4FR kit SOLUTIONS TUBING Contrast WeGather Medical 1 QPT555Q 830171 011161 499668 5 Injection High Pressure (RLL206X) Angiodynamics Angiodynamics 1 33373249 780191 229275 798756 5 Omniflush 5Fr 65cm (60180641) HOLCOMB 260 wire Cook Medical 1 M83606 734268 24175 014681 5 (B00047) GLIDE WIRE Merit Medical 1 [id number] 174345 536293 480885 5 [id number] MERIT Angled 260cm ([id number]) GLIDE CATHETER Terumo 1 CG507 146780 014065 5 5FR ANGLED 65cm (CG507) AMPLATZ Super [place] 1 [id number] 747569 131012 435037 5 [id number] Stiff 75cm wire Scientific ([id number]) TORQUE DEVICE Paw [place]aw 1 TD01 999838 263601 435094 5 PLASTIC .038 ( Scientific TD01) CXI SUPPORT Cook Medical 1 U95585 272781 541137 826565 5 [id number] .035 135 CM STR catheter (S02330) AMPLATZ Super [place] 1 [id number] 950709 714398 5 stiff 3mm J Scientific 260cm wire ([id number]) SHEATH 6FR Terumo 1 RSR01 635438 19948 638258 5 Destination (RSR01) ROADRUNNER .035 Cook Medical 1 E54105 281378 834575 245195 5 2827629 260 glide wire (M08293) Navicross Terumo 1 VI46198 906914 628238 229655 5 055839 Support Straight .035 150cm catheter (BN57482) GLIDE WIRE Terumo 1 FW9369 391168 489145 266431 5 Super Stiff Angled 260cm (PK7307) Trailblazer Medtronic 1 ASC-035-135 259956 12488 941577 5 0.035 135cm catheter ([id number]) CHOICE PT Extra Paw [place]aw 1 [id number] 291628 982997 267559 5 Support J 300cm Scientific guide wire ([id number]) EXOSEAL 6Fr Cardinal 1 EX600 136896 440757 602652 10 [id number] (EX600) Health SHEATH 6FR Terumo 1 EOH297 129143 823656 562175 40 Harpster (KPQ433) Signature Audit [place] Stage Time Signature Unsigned Intra-Procedure 11/22/2018 Bryn 4:03:16 PM Sourav RT (R) (CV) Signatures Monitor : Bryn Signature : Sourav RT Date : Time : [facility] [address] [place] [address]
--- NOTE | ~2018-11-21 | HEMODYNAMI ---
PATIENT:BOB REYES MEDICAL RECORD: [id number] : 53 LOCATION:[address] ADMISSION DATE: 11/21/18 Generatedon:12/05/201816:19 Patient name: BOB REYES Patient #: [id number] SSN: : 1955 Date of study: 12/05/2018 Page: Of Hemodynamic Procedure Report Patient Data Patient Demographics Procedure consent was obtained First Name: BOB Gender: Male Last Name: ERIC : 1955 Middle Initial: EDWARD Age: 63 year(s) Patient #: [id number] Race: Unknown Additional ID: [id number] Contact details Address: [address] [place] [address] State: [place] City: [place] Zip code: [address] Admission Admission Data Admission Date: 11/21/2018 Admission Time: 15:08 Room #: [facility] Procedure Procedure Types Cath Procedure Peripheral Cath Diagnostic Procedure Abd/Extremity Extremities Right Lower Ext Arterio Procedure Description Procedure Date Procedure Date: 12/05/2018 Procedure Start Time: 14:29 Procedure Staff Name Function Bharathi Chinchilla MD Performing Physician Bryn Benjamin RT Monitor Radha Cortez RN Nurse Procedure Data Cath Procedure Fluoroscopy Diagnostic fluoroscopy Total fluoroscopy dose: 31 dose: 31 mGy mGy Contrast Material Contrast Material Type Amount (ml) Isovue 300 15 Procedure Medications Medication Administration Route Dosage Heparin Flush Bag added to field 3 bags (1000units/500ml NS) Lidocaine 1% added to field 20 Heparin Bolus I.V. 5000 units Radial Cocktail I.A. 1 syringe (Verapomil 2mg/Nitro 400mcg/Heparin 1500units) Hemodynamics Rest Heart Rate: 83 (bpm) Snapshots Pre Cath Intra NCS Post Cath Vital Signs Time Heart Resp SPO2 etCO2 NIBP Rhythm Pain Sedation Rate (ipm) (%) (mmHg) (mmHg) Status Level (bpm) 14:08:05 84 13 0 103/72(89) NSR 0 (11) 10(A) , No pain 14:11:03 82 35.8 98/67(84) NSR 0 (11) 10(A) , No pain 14:15:07 86 13 100 2.2 98/66(81) NSR 0 (11) 10(A) , No pain 14:19:08 88 11 100 0 100/65(90) NSR 0 (11) 10(A) , No pain 14:23:12 88 14 100 0 101/67(84) NSR 0 (11) 10(A) , No pain 14:27:16 87 13 100 0 90/64(81) NSR 0 (11) 10(A) , No pain 14:31:13 89 14 100 13.4 99/70(86) NSR 0 (11) 10(A) , No pain 14:35:17 87 10 100 0 84/61(73) NSR 0 (11) 8(A) , No pain 14:39:10 97 8 100 19.4 97/74(86) NSR 0 (11) 8(A) , No pain 14:43:14 89 12 96 15.6 94/61(86) NSR 0 (11) 8(A) , No pain 14:47:16 86 10 76 0 89/64(74) NSR 0 (11) 8(A) , No pain 14:51:13 96 10 100 41.8 102/69(83) NSR 0 (11) 8(A) , No pain 14:55:21 90 13 100 38.8 88/56(69) NSR 0 (11) 8(A) , No pain 14:59:23 87 13 100 36.6 85/53(66) NSR 0 (11) 8(A) , No pain 15:03:23 86 13 100 35.8 85/55(66) NSR 0 (11) 8(A) , No pain 15:07:22 85 14 100 34.3 87/56(72) NSR 0 (11) 8(A) , No pain 15:11:24 84 12 100 33.6 88/57(71) NSR 0 (11) 8(A) , No pain 15:15:24 83 13 100 30.6 90/62(75) NSR 0 (11) 8(A) , No pain 15:19:25 83 11 100 32.8 91/62(75) NSR 0 (11) 8(A) , No pain 15:23:25 82 12 100 31.3 93/62(76) NSR 0 (11) 8(A) , No pain 15:27:27 84 13 100 18.6 99/63(83) NSR 0 (11) 8(A) , No pain 15:31:28 83 14 100 29.1 100/68(80) NSR 0 (11) 8(A) , No pain 15:35:32 82 15 100 29.8 99/64(80) NSR 0 (11) 8(A) , No pain 15:39:36 82 14 100 29.8 99/62(85) NSR 0 (11) 8(A) , No pain 15:43:37 83 15 100 10.4 97/68(82) NSR 0 (11) 8(A) , No pain 15:47:37 84 16 100 28.4 102/69(84) NSR 0 (11) 8(A) , No pain 15:51:41 81 16 100 28.4 100/67(80) NSR 0 (11) 8(A) , No pain 15:55:42 82 17 100 27.6 101/67(84) NSR 0 (11) 8(A) , No pain 15:59:46 82 19 100 24.6 98/66(81) NSR 0 (11) 8(A) , No pain 16:03:48 81 18 100 25.4 99/66(82) NSR 0 (11) 8(A) , No pain 16:07:50 81 19 100 25.4 98/66(80) NSR 0 (11) 8(A) , No pain 16:11:51 81 19 100 0 96/67(78) NSR 0 (11) 8(A) , No pain 16:15:51 88 10 100 0 98/75(83) NSR 0 (11) 8(A) , No pain Medications Time Medication Route Dose Verified Delivered Reason Notes Ef fectiveness by by 14:21:34 Heparin Flush added 3 bags Bharathi Garvin used for Bag to Amor Chinchilla MD procedure (1000units/500ml field NS) 14:21:53 Lidocaine 1% added 20ml Bharathi Garvin for local to vial Amor Chinchilla MD anesthetic field 14:33:10 Heparin Bolus I.V. 5000 Bharathi Turk Per units Diego Chinchilla RN physician 14:44:06 Radial Cocktail I.A. 1 Bharathi Garvin (Verapomil syringe Amor Chinchilla MD 2mg/Nitro MD 400mcg/Heparin 1500units) Procedure Log Time Note 13:49:15 Bryndejon Benjamin RT (R) (CV) sent for patient. Start room use. 13:49:18 Time tracking: Regular hours (M-F 7:00 - 5:00) 13:49:28 Use device set IR Diagnostic 13:49:31 Diana SCOTT IN FROM ANESTHESIA FOR TIVA 13:49:31 Bag Decanter (2001S) opened to sterile field. 13:49:32 Sterile Angiographic Pack opened to sterile field. 13:49:32 Tegaderm 4 x 4 (1626W) opened to sterile field. 13:49:43 Patient received from Med II to IR Alert and oriented. Tansferred to table in Supine position. 13:49:44 Correct patient and procedure confirmed by team. 13:49:44 ECG and BP/O2 sat monitors applied to patient. 13:49:45 Warm blankets applied, and gustavo hugger turned on for patient comfort. 13:49:48 Signed procedure consent form obtained from patient. 13:49:49 Full Disclosure recording started 13:49:50 - 13:50:05 SEE ANESTHESIA NOTE FOR PRE TIVA PROCEDURE 13:50:08 Pre-procedure instructions explained to patient. 13:50:08 Pre-op teaching completed and patient verbalized understanding. 13:50:22 Right Pedal was prepped with chlora-prep and draped in sterile fashion. 14:02:04 Pre procedure: right dorsailis pedis pulse Doppler 14:10:09 Baseline sample Acquired. 14:10:09 Vital chart was started 14:10:14 Baseline sample Acquired. 14:21:34 Heparin Flush Bag (1000units/500ml NS) 3 bags added to field was administered by Bharathi Chinchilla MD; used for procedure; 14::53 Lidocaine 1% 20ml vial added to field was administered by Bharathi Chinchilla MD; for local anesthetic; 14:28:50 Physician arrived 14::51 --------ALL STOP TIME OUT------ 14::53 Final Timeout: patient, procedure, and site verified with staff and physician. All members of the team are in agreement. 14:29:04 Right PEDALsite verified by team. 14:29:09 Fire Safety Assessment: A--An alcohol-based skin anteseptic being used preoperatively., C--Open oxygen or nitrous oxide is being used. 14:29:42 Procedure started. 14:29:52 Local anesthetic to Pedal area with Lidocaine 1% by Bharathi Chinchilla MD.INITIAL ACCESS ONLY 14:32:22 CXI Catheter 90cm (L29594) opened to sterile field. 14:32:[address] [place] (301121) opened to sterile field. 14:32:25 Micropuncture VSI 4FR kit opened to sterile field. 14:32:26 DOC .035 wire (Z11890) opened to sterile field. 14:33:10 Heparin Bolus 5000 units I.V. was administered by Rosalee Cortez RN; Per physician; 14:33:11 TORQUE DEVICE PLASTIC .038 ( TD01) opened to sterile field. 14:33:28 GLIDE WIRE .038 180cm ANGLED (GN6798) opened to sterile field. 14:44:06 Radial Cocktail (Verapomil 2mg/Nitro 400mcg/Heparin 1500units) 1 syring e I.A. was administered by Bharathi Chinchilla MD; ; 14:47:11 ROADRUNNER FIRM 260CM glide wire (A16768) opened to sterile field. 14:52:08 GLIDE WIRE Super Stiff Angled 260cm (IW9056) opened to sterile field. 15:54:19 NITINOL .018 80cm wire (Y274049) opened to sterile field. 16:05:53 Procedure ended.(Physican Out) 16:10:02 Flurop Dose total: 31 16:10:02 Fluoroscopy dose: 31 mGy 16:10:08 Contrast amount:Isovue 300 15ml. 16:10:10 Sharps counted by scrub and verified by R.N. 16:10:14 Insertion/operative site no bleeding no hematoma. 16:10:29 Post-op/insertion site Right PEDAL artery dressed using a 4 x 4 and Tegaderm. 16:11:59 Post Pedal area:stable 16:18:16 Report given to [facility] II. 16:18:51 Patient transfered to [facility] II with Bed. 16:19:48 Vital chart was stopped Device Usage Item Name Manufacture Quantity Catalog Hospital Part Current Minima l Lot# / Number Charge Number Stock Stock Serial# Code Bag Decanter Microtek 1 [id number] 03935 898644 5 () Medical Inc. Sterile Cardinal 1 [id number] 254888 461540 5 Angiographic Health Pack Tegaderm 4 x 3M 1 1626W 348809 716911 498168 5 4 (1626W) CXI Catheter Cook Medical 1 A27802 723567 867489 332104 5 4602049 90cm (H59741) SHEATH 4FR St St Ga 1 561765 323495 444551 836842 5 Ga (513863) Micropuncture VSI VASCULAR 1 7266V 673314 916461 5 VSI 4FR kit SOLUTIONS DOC .035 wire Cook Medical 1 Z79214 665540 050906 5 (A81786) TORQUE DEVICE [place] 1 TD01 126483 208251 472253 5 PLASTIC .038 Scientific ( TD01) GLIDE WIRE Terumo 1 TK9182 648278 328824 5 .038 180cm ANGLED (EQ1902) ROADRUNNER Cook Medical 1 C70694 600025 922286 5 9691609 FIRM 260CM glide wire (B35438) GLIDE WIRE Terumo 1 NR9052 320139 456208 561132 5 Super Stiff Angled 260cm (LT0794) NITINOL .018 Medtronic 1 Z239842 468995 220927 5 [id number] 80cm wire (K577993) Signature Audit [place] Stage Time Signature Unsigned Intra-Procedure 12/05/2018 Bryn 4:19:45 PM Shuffield RT (R) (CV) Signatures Monitor : Bryn Signature : Shuffield RT Date : Time : [place] [id number] [facility] [place] [address]
[2018-11-21 16:10] VITALS: BP 94/59; BMI 25.6
[2018-11-21 17:00] LABS: BASOPHILS 0.1 % (0-2); HEMATOCRIT 25.8 % (42.0-54.0); HEMOGLOBIN 8.3 g/dL (13.5-17.5); IMMATURE GRANULOCYTES 0.3 % (0-5); LYMPHOCYTES 14.4 % (15-50); MCH 29.3 pg (26.0-34.0); MCHC 32.2 g/dL (31.0-37.0); MCV 91.2 fL (80.0-100.0); MEAN PLATELET VOLUME 9.3 fL (7.4-10.4); MONOCYTES 11.8 % (2-11); NEUTROPHILS 72.4 % (40-80); PLATELET COUNT 149 10x3/uL (130-400); RBC 2.83 10x6/uL (4.20-6.10); RDW 18.5 % (11.5-14.5); WBC 7.1 10x3/uL (4.8-10.8)
[2018-11-21 17:14] LABS: ALBUMIN 2.4 g/dL (3.4-5.0); ANION GAP 18.4 mmol/L (8-16); BILIRUBIN - TOTAL 0.57 mg/dL (0.2-1.3); CALCIUM 8.3 mg/dL (8.5-10.1); CARBON DIOXIDE 24.4 mmol/L (21.0-32.0); CREATININE - SERUM 5.1 mg/dL (0.6-1.3); POTASSIUM - SERUM 3.8 mmol/L (3.5-5.1); PROTEIN - SERUM 6.9 g/dL (6.4-8.2)
--- NOTE | 2018-11-21 17:23 | NUR ---
PT ARRIVED TO ROOM FROM REHAB. HAND ETCHER HELPER ASSESSMENT COMPLETED AND ORIENTED PT TO OUR UNIT. PT IS SITTING UP IN BED AND HAS A VERY SOILED R.FA PIV. PT HAD LAYERS OF TAPE OVER IT AND STATES "ITS BEEN LEAKING AND MY IRON INFUSION WENT ALL OVER MY BED YESTERDAY BUT MY NURSE DIDNT TAKE IT OUT" UPON ASSESSING IT UNDER THE TAPE NOTED THE AREA WAS VERY TENDER AND HARDENED AROUND INSERTION SITE THAT FOLLOWED THAT PARTICULAR VEIN ROUTE WELL. SITE WAS REDDENED AND SWOLLEN. D/C IMMEDIATELY WITH CATHETER TIP FULLY INTACT. SITE NOW HAS INDENTION FROM CATHETER HUB AND INSERTION SITE IS RED WITH NO DRAINAGE OR BLEEDING THOUGH. CLEANSED SITE WITH IODINE SWABS THEN APPLIED IODINE OINTMENT AND APPLIED NONADHERENT GUAZE AND WRAPPED WITH KERLIX SO NO TAPE WILL HARM SKIN PT HAS VERY THIN SKIN. NEW 20 GUAGE PIV INSERTED TO R.UPPER ARM X1 STICK, DRSG SECURED AND SWAB CAPS IN USE. NOTIFIED PRIMARY OF R.ARM ISSUE AND WILL DISCUSS WITH PRIMARY NURSE.
[2018-11-21 17:31] VITALS: BP 94/59
[2018-11-21 17:35] LABS: INR 1.25 (0.85-1.17); PROTIME 15.2 SECONDS (11.6-15.0)
--- NOTE | 2018-11-21 19:32 | NUR ---
RESUMING PATIENT CARE. PATIENT IS ALERT AND ORIENTED, RESTING COMFORTABLY IN BED. RESPIRATIONS ARE EVEN AND UNLABORED. NO S/S OF DISTRESS. NO C/O PAIN. DENIES NEEDS AT THIS TIME. CALL LIGHT WITHIN REACH. WILL CPOC.
[2018-11-21 20:00] VITALS: BP 107/59
[2018-11-22] VITALS: BP 112/60
[2018-11-22 04:00] VITALS: BP 104/58
--- NOTE | 2018-11-22 08:00 | NUR ---
RECIEVED BEDSIDE REPORT. AM ROUNDS COMPLETED. VSS, AAOX3, NO S/S OF DISTRESS, RRUNLABORED. DR ROSE REMOVED PT BANDAGE. ASSESSED PT WOUND, REMOVED, THE REST OF THE BANDAGE, CLEANED WITH WOUND CLEANSER AND PATH DRY WITH GAUZE. APPLIED A NON-ADHESIVE BANDAGE, GAUZE AND WRAPPED WITH BANDAGE. PT TOLERATE WELL. ALSO, REMOVED THE OLD DRESSING FROM PT RIGHT ARM AND APPLIED A NEW DRESSING. PT TOLERATE WELL. PT READY FOR DIALYSIS. CL IN REACH, BED IN LOW, SR UP X2. WILL CPOC.
[2018-11-22 08:27] VITALS: BP 110/56
--- NOTE | 2018-11-22 09:45 | NUR ---
PT REFUSED HEPARIN, PLAVIX ALSO NOT GIVEN. PT STATES HE USUALLY DO NOT TAKE BOTH BEFORE DIALYSIS. A NEW ORDER OF EPOETIN NOT GIVEN AT THIS TIME. NOTIFIED PHARMACY. PHARMACY STATES THEY ARE TRYING TO RECONCILE THE NEW MED WITH MD. AMBERLY JULIAN.
--- NOTE | 2018-11-22 11:10 | NUR ---
PT IN DIALYSIS. DIALYSIS CALLED AND STATE, PT TYPE AND CROSS MATCH HAS , AND THEY WILL HAVE TO TAKE PT BLOOD FOR A NEW TYPE AND CROSS MATCH. PT IS ALMOST DONE WITH DIALYSIS AND HAVE NOT RECIEVED ANY BLOOD YET. ORDERED ANOTHER TYPE AND CROSS-MATCH. BLOOD WILL BE GIVEN AT DIALYSIS OR AFTER DIALYSIS.
[2018-11-22 13:15] VITALS: BMI 25.6
[2018-11-22 13:17] LABS: BASOPHILS 0.3 % (0-2); EOSINOPHILS 0.5 % (0-7); HEMATOCRIT 27.6 % (42.0-54.0); HEMOGLOBIN 8.7 g/dL (13.5-17.5); IMMATURE GRANULOCYTES 0.4 % (0-5); LYMPHOCYTES 11.5 % (15-50); MCH 29.2 pg (26.0-34.0); MCHC 31.5 g/dL (31.0-37.0); MCV 92.6 fL (80.0-100.0); MEAN PLATELET VOLUME 10.4 fL (7.4-10.4); MONOCYTES 10.6 % (2-11); NEUTROPHILS 76.7 % (40-80); PLATELET COUNT 178 10x3/uL (130-400); RBC 2.98 10x6/uL (4.20-6.10); RDW 18.9 % (11.5-14.5); WBC 7.5 10x3/uL (4.8-10.8)
--- NOTE | 2018-11-22 14:00 | NUR ---
SURGEON STATES TO CALL ANESTHESIOLOGY FOR PREOP. PAGED ANESTHESIOLOGY, BUT NO RESPONSE. IR STAFF CAME TO PICK PT UP, STATES THEY WILL "FIX IT" BEFORE THE PROCEDURE.
[2018-11-22 14:36] LABS: CALCIUM 8.3 mg/dL (8.5-10.1); CARBON DIOXIDE 25.7 mmol/L (21.0-32.0); POTASSIUM - SERUM 3.7 mmol/L (3.5-5.1)
[2018-11-22 14:38] LABS: INR 1.13 (0.85-1.17)
[2018-11-22 14:39] LABS: APTT 35.8 SECONDS (22.8-39.4)
--- NOTE | 2018-11-22 15:00 | NUR ---
PT CURRENTLY OUT FOR RLE ARTERIOGRAM.
--- NOTE | 2018-11-22 16:17 | NUR ---
PT BACK FROM IR. IR NURSE STATES COULD NOT ASSESS PT RLE FOR THE PROCEDURE. PT STATES HE IS IN PAIN. NOTIFIED PROVIDER. PROVIDER ORDER 1MG DILAUDID Q4HR. PT AAOX3. LEFT LEG STRAIGHT IN BED. WILL CTM. CL IN REACH, BED IN LOW.
--- NOTE | 2018-11-22 19:30 | NUR ---
RESUMING PATIENT CARE. PATIENT IS ALERT AND ORIENTED, RESTING COMFORTABLY IN BED. RESPIRATIONS ARE EVEN AND UNLABORED. NO S/S OF DISTRESS. NO C/O PAIN. DENIES NEEDS AT THIS TIME. WAS TOLD IN BEDSIDE REPORT THAT ONE UNIT OF BLOOD NEEDED TO BE TRANSFUSED IN DIAYSIS AND WASN'T WILL CALL AND CLAIFIY ORDER WITH RENAL. CALL LIGHT WITHIN REACH. WILL CPOC.
--- NOTE | 2018-11-22 19:45 | NUR ---
WAS TOLD IN BEDSIDE REPORT. PRBC WERE SUPPOSE TO BE GIVEN IN DIALYSIS. PATIENT TYPE AND CROSSED HAD , BY THE TIME EVERYTHING WAS COMPLETE DIALYSIS WAS ALMOST OVER AND AFTER PATIENT WAS GOING TO SURGERY. CALL AND SPOKE WITH SLOANE HAMMER TO ASK IF SHE WANTED THE PRBC TO BE GIVEN ON FLOOR NOW. MS. HAMMER GAVE ORDERS TO HOLD PRBC FOR NOW. WILL CPOC.
[2018-11-22 20:00] VITALS: BP 90/45
[2018-11-23] VITALS (7 sets, daily range): BP systolic 100–129; BP diastolic 32–72
--- NOTE | 2018-11-23 00:51 | NUR ---
PATIENT RESTING COMFORTABLE IN BED. RESPIRATIONS ARE EVEN AND UNLABORED. NO S/S OF DISTRESS. NO C/O PAIN. CALL LIGHT WITHIN REACH. WILL CPOC.
[2018-11-23 06:58] LABS: BASOPHILS 0.5 % (0-2); EOSINOPHILS 1.4 % (0-7); HEMATOCRIT 26.4 % (42.0-54.0); HEMOGLOBIN 8.2 g/dL (13.5-17.5); IMMATURE GRANULOCYTES 0.3 % (0-5); LYMPHOCYTES 17.7 % (15-50); MCH 28.7 pg (26.0-34.0); MCHC 31.1 g/dL (31.0-37.0); MCV 92.3 fL (80.0-100.0); MEAN PLATELET VOLUME 10.1 fL (7.4-10.4); MONOCYTES 9.2 % (2-11); NEUTROPHILS 70.9 % (40-80); PLATELET COUNT 165 10x3/uL (130-400); RBC 2.86 10x6/uL (4.20-6.10); WBC 6.2 10x3/uL (4.8-10.8)
[2018-11-23 07:26] LABS: ALBUMIN 2.3 g/dL (3.4-5.0); ANION GAP 16.8 mmol/L (8-16); BILIRUBIN - TOTAL 0.54 mg/dL (0.2-1.3); CALCIUM 8.2 mg/dL (8.5-10.1); CARBON DIOXIDE 25.9 mmol/L (21.0-32.0); PHOSPHOROUS 4.5 mg/dL (2.5-4.9); POTASSIUM - SERUM 3.7 mmol/L (3.5-5.1); PROTEIN - SERUM 6.7 g/dL (6.4-8.2)
--- NOTE | 2018-11-23 15:13 | NUR ---
I have reviewed this patient and I concur with the Shift Assessment completed by the Licensed Practical Nurse today this shift.
--- NOTE | 2018-11-23 20:00 | NUR ---
INITIAL ROUNDS AND ASSESSMENT COMPLETED. PT SITTING UP IN BED. FLAT AFFECT. STILL PROCESSING THE NEWS THAT HE WILL HAVE TO HAVE A LEFT BKA. SR PER TELEMETRY. RESERVE LEFT ARM FOR AVF. PIV SALINE LOCKED TO ZABRINA. MONITOR AND CPOC.
--- NOTE | 2018-11-23 22:30 | NUR ---
ALL BEDTIME MEDS GIVEN. FSBS 200. FSBS 200, PT TOOK HIS LANTUS, BUT DID NOT WANT SLIDING SCALE BECAUSE HE SAID IT WOULD BE DOWN IN THE AM. IV IRON INFUSED. PT SAYS HE IS NOW READY TO GO TO SLEEP. MONITOR AND CPOC.
--- NOTE | 2018-11-24 02:15 | NUR ---
MEDICATED WITH PERCOCET FOR PAIN TO LEFT FOOT.
[2018-11-24 03:53] VITALS: BP 122/62
[2018-11-24 09:41] VITALS: BP 127/72
[2018-11-24 11:45] VITALS: BP 136/79
[2018-11-24 15:58] VITALS: BP 112/74
--- NOTE | 2018-11-24 17:04 | NUR ---
ALERT AND ORIENTED X4. SITTING ON SIDE OF BED. FAMILY AT BEDSIDE. REFUSE IRON INFUSION AND LT FOOT DRESSING CHANGE AT THIS TIME DUE TO FAMILY AT BEDSIDE. ENCOURAGE TO INFORM STAFF WHEN ABLE TO CHANGE DRESSING AND START INFUSION. DENIES ANY NEEDS. CONTINUE PLAN OF CARE AND SAFETY PRECAUTIONS. SINUS RHYTHM ON TELEMETRY.
--- NOTE | 2018-11-24 19:44 | NUR ---
EVENING ROUNDS COMPLETED. REPORT RECEIVED. PT SITTING UP ON SIDE OF BED WITH EYES OPEN, RR EVEN AND UNLABORED. BED IN LOW POSITION. NO S/S OF DISTRESS NOTED. INTRODUCED SELF TO PT. PT DENIES FURTHER NEEDS AT THIS TIME. SIDE RAILS UP X2. CALL LIGHT IN REACH. WILL CTM.
[2018-11-24 19:55] VITALS: BP 124/31
[2018-11-24 23:50] VITALS: BP 103/61
[2018-11-25 03:45] VITALS: BP 108/52
[2018-11-25 05:02] LABS: BASOPHILS 0.3 % (0-2); EOSINOPHILS 1.6 % (0-7); HEMATOCRIT 26.3 % (42.0-54.0); HEMOGLOBIN 8.3 g/dL (13.5-17.5); IMMATURE GRANULOCYTES 0.7 % (0-5); LYMPHOCYTES 13.5 % (15-50); MCH 29.2 pg (26.0-34.0); MCHC 31.6 g/dL (31.0-37.0); MCV 92.6 fL (80.0-100.0); MEAN PLATELET VOLUME 9.7 fL (7.4-10.4); MONOCYTES 4.9 % (2-11); PLATELET COUNT 151 10x3/uL (130-400); RBC 2.84 10x6/uL (4.20-6.10); RDW 18.8 % (11.5-14.5); WBC 7.5 10x3/uL (4.8-10.8)
[2018-11-25 05:13] LABS: ANION GAP 15.4 mmol/L (8-16); CALCIUM 8.2 mg/dL (8.5-10.1); CARBON DIOXIDE 27.4 mmol/L (21.0-32.0); CREATININE - SERUM 5.7 mg/dL (0.6-1.3); POTASSIUM - SERUM 3.8 mmol/L (3.5-5.1)
--- NOTE | 2018-11-25 05:19 | NUR ---
PT LYING IN BED WITH EYES CLOSED, RR EVEN AND UNLABORED. LEFT LOWER EXTREMITY DRESSING CHANGED ORDERED. DENIES FURTHER NEEDS AT THIS TIME. ADMINISTERED ORDERED ANALGESIC FOR COMPLAINTS OF PAIN IN LEFT LEG. NO S/S OF DISTRESS NOTED. CALL LIGHT IN REACH. WILL CTM.
[2018-11-25 08:51] VITALS: BP 122/70
--- NOTE | 2018-11-25 09:30 | NUR ---
TO DIALYSIS PER BED.
--- NOTE | 2018-11-25 13:45 | NUR ---
BACK FROM DIALYSIS. DENIES ANY NEEDS. V/S STABLE. WILL MONITOR
[2018-11-25 13:50] VITALS: Ht 182.9 cm; Wt 85.5 kg
--- NOTE | 2018-11-25 14:10 | NUR ---
AGREE WITH AUCTION ASSISTANT ASSESSMENT
[2018-11-25 17:33] VITALS: BP 122/80
--- NOTE | 2018-11-25 18:33 | NUR ---
UP ON SIDE OF BED. C/O PAIN TO FOOT. PERCOCET 5 MG GIVEN FOR RELIEF. WILL MONITOR
--- NOTE | 2018-11-25 19:17 | NUR ---
INTRODUCED SELF TO PATIENT, PATIENT RESTING QUIETLY USING HIS CELL PHONE, RESP EVEN AND UNLABORED. NO NEEDS AT THIS TIME.
[2018-11-25 20:00] VITALS: BP 100/51
--- NOTE | 2018-11-25 20:09 | MORECARE ---
CASE MANAGEMENT DISCHARGE SUMMARY PATIENT: BOB REYES UNIT: [id number] ADM DATE: 11/21/18 AGE: 63 : 54 SEX: M ROOM/BED: D.2128 AUTHOR: MONTEZ HUNTER PHYSICIAN: REFERRING PHYSICIAN: OLAYINKA NUNO MD DATE OF SERVICE: 11/25/18 Discharge Plan Patient Name: BOB REYES [facility] : 1955 Planned Disposition: Inpatient Rehab Facility Anticipated Discharge Date: Discharge Date: Expected LOS: Initial Reviewer: [email or web address] Initial Review Date: 11/21/2018 Generated: 11/25/18 9:09 pm Patient Name: BOB REYES Page [phone] at 2008 All edits/amendments must be made on the electronic document DICTATION DATE: 11/25/182007 WASTE WATER OPERATOR: JEANNETTE 11/25/182007 RPT#: [id number] DC DATE: STATUS: ADM IN [facility] [address] [place] [address] END OF REPORT
--- NOTE | 2018-11-25 20:22 | MORECARE ---
CASE MANAGEMENT DISCHARGE SUMMARY PATIENT: BOB REYES UNIT: [id number] ADM DATE: 11/21/18 AGE: 63 : 54 SEX: M ROOM/BED: D.2128 AUTHOR: MONTEZ HUNTER PHYSICIAN: REFERRING PHYSICIAN: OLAYINKA NUNO MD DATE OF SERVICE: 11/25/18 Discharge Plan Patient Name: BOB REYES [facility] [facility] 1955 Planned Disposition: Inpatient Rehab Facility Anticipated Discharge Date: Discharge Date: Expected LOS: Initial Reviewer: [email or web address] Initial Review Date: 11/21/2018 Generated: 11/25/18 9:22 pm Last DP export: 11/25/18 7:09 pm Patient Name: BOB REYES Page [phone] at 2021 All edits/amendments must be made on the electronic document DICTATION DATE: 11/25/182020 INFORMATION SYSTEMS ADMINISTRATOR: JEANNETTE 11/25/182020 RPT#: [id number] DC DATE: STATUS: ADM IN [facility] [address] [place] [address] END OF REPORT
--- NOTE | 2018-11-25 20:28 | MORECARE ---
CASE MANAGEMENT DISCHARGE SUMMARY PATIENT: BOB REYES UNIT: [id number] ADM DATE: 11/21/18 AGE: 63 : 54 SEX: M ROOM/BED: D.2128 AUTHOR: MONTEZ HUNTER PHYSICIAN: REFERRING PHYSICIAN: OLAYINKA NUNO MD DATE OF SERVICE: 11/25/18 Discharge Plan Patient Name: BOB REYES [facility] [facility] 1955 Planned Disposition: Inpatient Rehab Facility Anticipated Discharge Date: Discharge Date: Expected LOS: Initial Reviewer: [email or web address] Initial Review Date: 11/21/2018 Generated: 11/25/18 9:28 pm DCPIA - Discharge Planning Initial Assessment Updated by [email or web address]: Suzi Sen on 11/25/18 8:22 pm * Is the patient Alert and Oriented? Yes * How many steps to enter\exit or inside your home? SIX/ RAIL * PCP DR CHANTAL NAVARRO [facility] * Pharmacy [facility] * Preadmission Environment Home with Family * ADLs Partial Dependent * Partial ADLs (Assistance needed) Transfers * Equipment Shower Chair * List name and contact numbers for known caregivers / representatives who currently or will assist patient after discharge: BOB REYES- [phone] * Verbal permission to speak to the caregivers and representatives has been obtained from the patient. No * Community resources currently utilized None * Additional services required to return to the preadmission environment? Yes * Can the patient safely return to the preadmission environment? Yes * Has this patient been hospitalized within the prior 30 days at any hospital? Yes Last DP export: 11/25/18 7:22 pm Patient Name: BOB REYES Page [phone] at 2027 All edits/amendments must be made on the electronic document DICTATION DATE: 11/25/182027 KNOT PICKER CLOTH: JEANNETTE 11/25/182027 RPT#: [id number] DC DATE: STATUS: ADM IN [facility] [address] [place] [address] END OF REPORT
--- NOTE | 2018-11-25 20:35 | MORECARE ---
CASE MANAGEMENT DISCHARGE SUMMARY PATIENT: BOB REYES UNIT: [id number] ADM DATE: 11/21/18 AGE: 63 : 54 SEX: M ROOM/BED: D.9635 AUTHOR: ELSA,DOC PHYSICIAN: REFERRING PHYSICIAN: OLAYINKA NUNO MD DATE OF SERVICE: 11/25/18 Discharge Plan Patient Name: BOB REYES Facility: [facility]:[place] : 1955 Planned Disposition: Inpatient Rehab Facility Anticipated Discharge Date: Discharge Date: Expected LOS: Initial Reviewer: [email or web address] Initial Review Date: 11/21/2018 Generated: 11/25/18 9:35 pm Comments DCP- Discharge Planning Updated by [email or web address]: Suzi Sen on 11/25/18 7:[address] LATE ENTRY 1824 PATIENT SITTING ON THE SIDE OF THE BED. HE IS SCHEDULED FOR LEFT BKA IN THE AM. GAVE CONSENT FOR ASSESSMENT. UNDERSTANDS ROLE OF STEAMER GUM CANDY. HE STATES HE HAD A GOOD STEAMER GUM CANDY , CHRISTY, PREVIOUSLY. PLAN IS FOR ACUTE REHAB WHEN CLEARED FOR NEXT LEVEL OF CARE. HE IS VERY QUIET. IMPENDING SURGERY IS IN HIS THOUGHTS. PRELIMINARY INFORMATION NOTED. EXPLAINED CM WILL FOLLOW TO ASSIST. DME- STATES HE HAS A NEW "POWER CANE"- SHOWER BENCH. FAMILY WILL ASSIST. HAS SON AND DAUGHTER. CM TO FOLLOW. DCPIA - Discharge Planning Initial Assessment Updated by [email or web address]: Suzi Sen on 11/25/18 8:22 pm * Is the patient Alert and Oriented? Yes * How many steps to enter\\exit or inside your home? SIX/ RAIL * PCP DR CHANTAL NAVARRO [facility] * Pharmacy [facility] * Preadmission Environment Home with Family * ADLs Partial Dependent * Partial ADLs (Assistance needed) Transfers * Equipment Shower Chair * List name and contact numbers for known caregivers / representatives who currently or will assist patient after discharge: BOB REYES- [phone] * Verbal permission to speak to the caregivers and representatives has been obtained from the patient. No * Community resources currently utilized None * Additional services required to return to the preadmission environment? Yes * Can the patient safely return to the preadmission environment? Yes * Has this patient been hospitalized within the prior 30 days at any hospital? Yes Last DP export: 11/25/18 7:28 pm Patient Name: BOB REYES Page [phone] at 203 All edits/amendments must be made on the electronic document DICTATION DATE: 11/25/182033 ENERGY MANAGEMENT SPECIALIST: JEANNETTE 11/25/182033 RPT#: [id number] DC DATE: STATUS: ADM IN [facility] [address] [place] [address] END OF REPORT
--- NOTE | 2018-11-25 22:00 | NUR ---
PROVIDED PATIENT WITH TWO PUDDINGS PER REQUEST, TOOTHBRUSH, TOOTHPASTE, MOUTHWASH. REMINDED PATIENT ABOUT NPO STATUS AT MIDNIGHT R/T SURGERY. PATIENT VERBALIZED UNDERSTANDING. NO S/SX OF PAIN OR DISCOMFORT AT THIS TIME.
[2018-11-26] VITALS: BP 124/91; BP 80/63
[2018-11-26 04:00] VITALS: BP 105/59
--- NOTE | 2018-11-26 04:38 | NUR ---
ANALYE PREPPED FOR SURGERY.
[2018-11-26 05:42] LABS: BASOPHILS 0.2 % (0-2); EOSINOPHILS 2.1 % (0-7); HEMATOCRIT 25.5 % (42.0-54.0); IMMATURE GRANULOCYTES 0.7 % (0-5); LYMPHOCYTES 16.6 % (15-50); MCH 29.1 pg (26.0-34.0); MCHC 31.4 g/dL (31.0-37.0); MCV 92.7 fL (80.0-100.0); MEAN PLATELET VOLUME 10.7 fL (7.4-10.4); NEUTROPHILS 73.4 % (40-80); PLATELET COUNT 163 10x3/uL (130-400); RBC 2.75 10x6/uL (4.20-6.10); WBC 5.9 10x3/uL (4.8-10.8)
[2018-11-26 05:46] LABS: ANION GAP 17.2 mmol/L (8-16); CALCIUM 8.5 mg/dL (8.5-10.1); CARBON DIOXIDE 26.4 mmol/L (21.0-32.0); CREATININE - SERUM 4.7 mg/dL (0.6-1.3); POTASSIUM - SERUM 3.6 mmol/L (3.5-5.1)
--- NOTE | 2018-11-26 08:02 | MORECARE ---
CASE MANAGEMENT DISCHARGE SUMMARY PATIENT: BOB REYES UNIT: [id number] ADM DATE: 11/21/18 AGE: 63 : 54 SEX: M ROOM/BED: D.1619 AUTHOR: ELSA,DOC PHYSICIAN: REFERRING PHYSICIAN: OLAYINKA NUNO MD DATE OF SERVICE: 11/26/18 Discharge Plan Patient Name: BOB REYES Facility: [facility]:[place] : 1955 Planned Disposition: Inpatient Rehab Facility Anticipated Discharge Date: Discharge Date: Expected LOS: Initial Reviewer: [email or web address] Initial Review Date: 11/21/2018 Generated: 11/26/18 9:02 am Comments DCP- Discharge Planning Updated by [id number]: Suzi Sen on 11/25/18 7:[address] LATE ENTRY 1824 PATIENT SITTING ON THE SIDE OF THE BED. HE IS SCHEDULED FOR LEFT BKA IN THE AM. GAVE CONSENT FOR ASSESSMENT. UNDERSTANDS ROLE OF VOLUNTEER SERVICES COORDINATOR. HE STATES HE HAD A GOOD VOLUNTEER SERVICES COORDINATOR , CHRISTY, PREVIOUSLY. PLAN IS FOR ACUTE REHAB WHEN CLEARED FOR NEXT LEVEL OF CARE. HE IS VERY QUIET. IMPENDING SURGERY IS IN HIS THOUGHTS. PRELIMINARY INFORMATION NOTED. EXPLAINED CM WILL FOLLOW TO ASSIST. DME- STATES HE HAS A NEW "POWER CANE"- SHOWER BENCH. FAMILY WILL ASSIST. HAS SON AND DAUGHTER. CM TO FOLLOW. DCPIA - Discharge Planning Initial Assessment Updated by [id number]: Suzi Sen on 11/25/18 8:22 pm * Is the patient Alert and Oriented? Yes * How many steps to enter\\exit or inside your home? SIX/ RAIL * PCP DR CHANTAL NAVARRO [facility] * Pharmacy [facility] * Preadmission Environment Home with Family * ADLs Partial Dependent * Partial ADLs (Assistance needed) Transfers * Equipment Shower Chair * List name and contact numbers for known caregivers / representatives who currently or will assist patient after discharge: BOB REYES- [phone] * Verbal permission to speak to the caregivers and representatives has been obtained from the patient. No * Community resources currently utilized None * Additional services required to return to the preadmission environment? Yes * Can the patient safely return to the preadmission environment? Yes * Has this patient been hospitalized within the prior 30 days at any hospital? Yes Last DP export: 11/25/18 7:35 pm Patient Name: BOB REYES Page [phone] at 0802 All edits/amendments must be made on the electronic document DICTATION DATE: 11/26/18800 YARN MAN: JEANNETTE 11/26/18800 RPT#: [id number] DC DATE: STATUS: ADM IN [facility] [address] [place] [address] END OF REPORT
--- NOTE | 2018-11-26 08:39 | NUR ---
RESUMING PT CARE, PT IS LAYING IN BED ALERT AND ORIENTED X3, FAMILY AT BEDSIDE. CALL LIGHT IN REACH, WILL KEEP NPO FOR SURGERY THIS MORNING. LEFT FOOT WRAPPED REQUESTED BY PT. WILL CONTINUE TO MONITOR AND FOLLOW PLAN OF CARE.
[2018-11-26 09:57] VITALS: BP 123/35
--- NOTE | 2018-11-26 15:46 | NUR ---
PT BACK FROM SURGERY, ALERT AND ORIENTED AT THIS TIME. REPORT FROM [facility] FROM PACU AT BEDSIDE. FAMILY IS AT BEDSIDE. NEW ORDER FROM ELENO ROJAS APRN FOR BUPERNEX 0.3 MG Q 4 HOURS PRN. ORDER NOTED, CALL LIGHT IN REACH. WILL CONTINUE TO MONITOR.
[2018-11-26 17:36] LABS: BASOPHILS 0.1 % (0-2); EOSINOPHILS 0.1 % (0-7); HEMATOCRIT 22.9 % (42.0-54.0); LYMPHOCYTES 4.7 % (15-50); MCH 29.3 pg (26.0-34.0); MCV 94.6 fL (80.0-100.0); MEAN PLATELET VOLUME 10.4 fL (7.4-10.4); MONOCYTES 1.9 % (2-11); NEUTROPHILS 92.2 % (40-80); PLATELET COUNT 161 10x3/uL (130-400); RBC 2.42 10x6/uL (4.20-6.10); RDW 19.2 % (11.5-14.5); WBC 7.3 10x3/uL (4.8-10.8)
[2018-11-26 17:53] LABS: HEMOGLOBIN 7.1 g/dL (13.5-17.5)
--- NOTE | 2018-11-26 18:44 | NUR ---
PT LAYING IN BED WITH EYES CLOSED, RESPIRATIONS EVEN AND UNALBORED. CALL LIGHT IN REACH. WILL CONTINUE TO MONITOR.
[2018-11-26 18:48] VITALS: BP 83/38
--- NOTE | 2018-11-26 19:50 | NUR ---
1ST UNIT OF PACKED RED BLOOD CELLS STARTED TO RIGHT UPPER ARM PIV. TEMP 99.2 BP 87/41 HR 87 RR 20 PT DENIES ANY PAIN AT THIS TIME. STATES JUST SOME DISCOMFORT FROM MOUTH BEING DRY. PT IS PALE. AAO, LEFT AVF NOTED WNL. PT HAS NO S/S OF DISTRESS. NO S/S OF REACTION. PT WILL CALL FOR ASSIST WHEN NEEDED. WAITING 15 MINS IN ROOM. WILL CPOC
[2018-11-26 20:00] VITALS: BP 140/72
--- NOTE | 2018-11-26 20:41 | NUR ---
BP NOW UP TO 102/50 GAVE PT A BOLUS OF CLINICAL INFORMATICIST. PT DENIES ANY OTHER NEEDS. WILL CPOC
--- NOTE | 2018-11-26 22:01 | NUR ---
1ST UNIT OF PRBC ARE COMPLETE. BP IS 95/38 HR 87 SPOKE WITH PARCHMEN REGARDING BP AND ASKED ABOUT PROAMATINE NOT GIVEN THIS MORNING. SHE STATED NOT EXTRA JUST WAIT UNTIL IN THE MORNING. WILL START 2ND UNIT OF BLOOD
--- NOTE | 2018-11-26 22:14 | NUR ---
PT FSBS IS 192 LANTUS AND HUMALOG GIVEN ORDERED.
--- NOTE | 2018-11-26 22:22 | NUR ---
PT CHANGED MIND ABOUT REGULAR INSULIN. LANTUS GIVEN ONLY. PT VERBALIZED UNDERSTANDING TO REPOSITON SELF WILL GET AIR MATTRESS SOON ABLE. PT VARGHESE DRAIN EMPTIED 90 ML OF BLOODY DRAINAGE. COMPRESSED BULB. WILL CPOC
--- NOTE | 2018-11-26 23:00 | NUR ---
2ND UNIT OF PRBC STARTED. BP 87/37 HR 89 TEMP IS 98.7 STOPPED THE SENIOR BI ARCHITECT FOR NOW. PT BED LOW AND CALL LIGHT IN REACH. PT REPOSITOINED SELF. 50 CC EMPTIED FROM VARGHESE DRAIN. CLOT IN DRAIN.
--- NOTE | 2018-11-26 23:56 | NUR ---
PT ASLEEP. BLOOD INFUSING. BP UP TO 87/50 PT HAS NO S/S OF DISTRESS. NO S/S OF REACTION. PT BEDLOW AND CALL LIGHT INREACH. WILL CPOC
[2018-11-27] VITALS (16 sets, daily range): BP systolic 82–113; BP diastolic 46–76
--- NOTE | 2018-11-27 01:37 | NUR ---
BLOOD STILL INFUSING 2ND UNIT. PT RIGHT UPPER ARM LEAKING SCANT AMOUNT OF BLOOD. REDRESSED IV AND TIGHTEND THE JLOOP CONNECTION. IT STILL IS LEAKING SCANT AMOUNT OF BLOOD. ATTEMPTED 2 PIV UNSUCCESSFUL. VEIN BLEW. PT NEED CLEANING AND REPOSITIONING IN BED. CHANGED SHEETS AND ELEVATED LEFT AKA. SCANT AMOUNT OF BLOOD ON BOTTOM OF DRSG. VARGHESE DRAIN EMPTIED AGAIN. BLOOD CLOT IN VARGHESE DRAIN. BLOOD INFUSING THROUGH RIGHT UPPER ARM IV. VERY LITTLE AMOUNT OF BLOOD LEAKING. PT WILL CALL FOR ASSIST WHEN NEEDED. WILL CPOC
--- NOTE | 2018-11-27 03:00 | NUR ---
HAVE FAXED SPECIAL BED ORDER TO COMMUNITY AMBASSADOR.
--- NOTE | 2018-11-27 03:06 | NUR ---
BLOOD COMPLETE. PT HAS NO S/S OF DISTRESS. SITING UP IN BED ON PHONE. PT DENIES ANY NEEDS. WILL CPOC
--- NOTE | 2018-11-27 05:16 | NUR ---
PT COMPLAINS OF SOB. O2 98%, GAVE 2L FOR COMFORT PT TAKING OFF AND ON. 100% ON 2L BP IS 90/73 HR 87 PROTONIX AND PROAMATIME GIVEN. PT LUNGS CLEAR. NO S/S OF DISTRESS. STATES IT IS WHEN HE IS ASLEEP HE WILL WAKE UP AND FEEL LIKE HE IS SOB. ASSISTED PT WITH REPOSITIONING. PT DENIES ANY NEEDS. NO S/S OF DISTRESS WILL CPOC
--- NOTE | 2018-11-27 06:19 | NUR ---
MORNING FSBS IS 120 NO INSULIN NEEDED. WILL CPOC
[2018-11-27 06:34] LABS: ANION GAP 17.1 mmol/L (8-16); CARBON DIOXIDE 25.8 mmol/L (21.0-32.0); CREATININE - SERUM 5.7 mg/dL (0.6-1.3)
[2018-11-27 06:38] LABS: POTASSIUM - SERUM 4.9 mmol/L (3.5-5.1)
[2018-11-27 08:02] LABS: BASOPHILS 0.2 % (0-2); EOSINOPHILS 0.1 % (0-7); HEMATOCRIT 24.7 % (42.0-54.0); HEMOGLOBIN 7.9 g/dL (13.5-17.5); IMMATURE GRANULOCYTES 0.7 % (0-5); MCH 29.2 pg (26.0-34.0); MEAN PLATELET VOLUME 9.9 fL (7.4-10.4); MONOCYTES 9.1 % (2-11); NEUTROPHILS 75.9 % (40-80); PLATELET COUNT 172 10x3/uL (130-400); RBC 2.71 10x6/uL (4.20-6.10); RDW 18.6 % (11.5-14.5); WBC 8.6 10x3/uL (4.8-10.8)
[2018-11-27 08:06] LABS: MCV 91.1 fL (80.0-100.0)
--- NOTE | 2018-11-27 08:45 | NUR ---
PT ARRIVED ON UNIT VIA BED, HOOKED TO MONITORS, PT IS ALERT AND ORIENTED, LEFT AKA, ALL OTHER PPP, VSS, WILL CON'T TO MONITOR
--- NOTE | 2018-11-27 09:14 | NUR ---
UNABLE TO OBTAIN BLOOD PRESSURE THIS MORNING, PT IS HAVING SOB AND HARD TIME STAYING AWAKE. PER SLOANE HAMMER SHIRRING MACHINE OPERATOR MAY TRANSFER TO ICU AND STAT CXR. REPORT CALLED TO [place] AND PT TAKEN BY BED TO ROOM 2310.
--- NOTE | 2018-11-27 10:15 | NUR ---
ROJAS YOO AT BEDSIDE, CVL PLACED AT THIS TIME, P TOLERATED WELL
--- NOTE | 2018-11-27 11:00 | NUR ---
REASSESSMENT COMPLETE PER FLOW SHEET. VSS NO NEW CHANGES WILL CONTINUE TO MONITOR
--- NOTE | 2018-11-27 11:08 | NUR ---
FAMILY AT BEDSIDE, UPDATE GIVEN
--- NOTE | 2018-11-27 13:30 | NUR ---
PT INSPECTOR GRAIN MILL PRODUCTS LIGHT REQUEST PAIN MEDICATION PROMPT CARE RN EDUCATION ADM
--- NOTE | 2018-11-27 15:00 | NUR ---
REASSESSMENT COMPLETE, NO CHANGES NOTED, WILL CON'T TO MONITOR
--- NOTE | 2018-11-27 17:15 | NUR ---
PT RESTING AT THIS TIME, WILL CON'T TO MONITOR
--- NOTE | 2018-11-27 21:38 | NUR ---
PATIENT HAD MEDICAL BILLING AND CODING INSTRUCTOR INITIALLY MED BROUGHT OVER FROM FLOOR. MED WASTED WITH SANTA HAYES RN 6.8MG/17ML OF DILAUDID INTO SHARPS. NEW MEDICAL BILLING AND CODING INSTRUCTOR STARTED WITH NEW TUBING.
[2018-11-28] VITALS (24 sets, daily range): BP systolic 85–105; BP diastolic 58–89
--- NOTE | 2018-11-28 04:26 | NUR ---
INSPECTOR AND HAND PACKAGER CALLED FOR VARGHESE DRAIN BULB. BULB CHANGED DUE TO CLOT TAKING OVER HALF CAPACITY OF BULB AND UNABLE TO CLEAR BULB OR COMPRESS COMPLETELY. BULB CHANGED WITH RELIGIOUS RITUAL SLAUGHTERER USED WITH NO ISSUES AT THIS TIME. CALL LIGHT WITHIN REACH, BED IN LOW POSITION.
[2018-11-28 04:49] LABS: BASOPHILS 0.1 % (0-2); EOSINOPHILS 1.1 % (0-7); HEMATOCRIT 25.1 % (42.0-54.0); IMMATURE GRANULOCYTES 0.8 % (0-5); MCH 29.3 pg (26.0-34.0); MCHC 31.9 g/dL (31.0-37.0); MCV 91.9 fL (80.0-100.0); MEAN PLATELET VOLUME 9.5 fL (7.4-10.4); MONOCYTES 8.4 % (2-11); NEUTROPHILS 74.6 % (40-80); PLATELET COUNT 169 10x3/uL (130-400); RBC 2.73 10x6/uL (4.20-6.10); RDW 18.7 % (11.5-14.5)
[2018-11-28 05:01] LABS: ANION GAP 13.6 mmol/L (8-16); CALCIUM 8.3 mg/dL (8.5-10.1); CARBON DIOXIDE 29.8 mmol/L (21.0-32.0); CREATININE - SERUM 4.6 mg/dL (0.6-1.3); POTASSIUM - SERUM 4.4 mmol/L (3.5-5.1)
--- NOTE | 2018-11-28 07:00 | NUR ---
REC'D REPORT AND RESUMED CARE, AAO, VSS, DENIES PAIN, ACADEMY EDUCATION DIRECTOR IN USE, REPOSITIONED UP AND TO LEFT, LEFT AKA TO PILLOW, DRESSING CDI, VARGHESE WITH > 5 cc drainage to COLLASPED BULB, LINE STRIPPED, WITH NO RETURN OF DRAINAGE, AIR OVERLAY MATTRESS AND URINAL IN USE
--- NOTE | 2018-11-28 09:15 | NUR ---
MORNING MEDS GIVEN PER MAR FLOWSHEET, TOLERATED WITHOUT DIFFICULTY
--- NOTE | 2018-11-28 09:30 | NUR ---
NUTRITION F/U CHART REVIEWED, PT VISIT. TOLERATING RENAL ADA DIET. WILL CONTINUE TO PROVIDE DIET, MONITOR PO INTAKE. RD FOLLOWING
--- NOTE | 2018-11-28 11:00 | NUR ---
NO ACUTE CHANGE FROM PREVIOUS ASSESSMENT, VSS, CALL LIGHT AND RIPSAW GRADER BUTTON IN REACH, NO NEEDS AT THIS TIME
--- NOTE | 2018-11-28 13:10 | EC ---
PATIENT:BOB REYES DATE OF SERVICE: 11/21/18 SEX: M MEDICAL RECORD: [id number] DATE OF : 53 LOCATION:[place] [address] AGE OF PATIENT: 63 ADMISSION DATE: 11/21/18 REFERRING PHYSICIAN: INTERPRETING PHYSICIAN: CHA CORRAL MD ECHOCARDIOGRAM REPORT ECHO CHARGES 4 ECHO COMPLETE Date: 11/23/18 CLINICAL DIAGNOSIS: PULMONARY EDEMA ECHOCARDIOGRAPHIC MEASUREMENTS (adult normal given) AC root (d.<3.7cm) 3.0 cm LV Septum d (<1.2 cm> 1.1 cm Valve Excursion 0.4 cm LV Septum (systole) 1.9 cm Left Atria (s.<4.0cm> 3.9 cm LVPW d(<1.2cm) 1.4 cm RV (d.<2.3cm) 3.2 cm LVPW (sytole) 1.7 cm LV diastole(<5.6CM) 6.8 cm MV E-F(>70mm/sec) cm LV systole 5.7 cm LVOT Diameter 2.1 cm MV exc.(>10mm) cm Est.ejection fraction (50-75%) % DOPPLER: LVIT cm/sec A 79 cm/sec E 142 cm/sec LA cm/sec RVSP 43.3 mmHg LVOT 132 cm/sec AOP1/2T m/s Asc. Ao 221 cm/sec RVOT 65 cm/sec RA cm/sec PA 65 cm/sec AV Gradient Peak 19.5 mmHg AV Mean 10.4 mmHg AV Area 1.9 cm MV Gradient Peak 9.0 mmHg MV Mean 4.8 mmHg MV Area cm COMMENTS: Paperhanger Pipe: Javed DE LA GARZA [place] Operator: 3 Dr. Suero TAPE# PACS Pericardial Effusion N DATE OF SERVICE: Adequate 2-D echo, color flow and spectral Doppler, and M-mode. LVH is present. LV internal dimension upper limits of normal mildly dilated at 6.6 cm, LV is mildly globally hypo with reduced EF, estimated EF 30% to 35%. Aortic valve sclerosis without stenosis by Doppler interrogation. Left atrium is normal at 3.9 cm. Mitral valve is thickened. Moderate MR. Right-sided chambers were grossly normal. [id number]-it-[id number] TR. RV systolic pressure is estimated greater than or equal to 43 mmHg via the continuity equation. ECHOCARDIOGRAM REPORT [id number] BOB REYES TRANSINT:[id number] Voice Confirmation ID: [id number] DOCUMENT ID: [id number] CHA CORRAL MD at 1310 CC: [id number] DICTATION DATE: 11/23/18 1219 GREENHOUSE INSTRUCTOR: 11/24/18 0007 ADM IN [place] [id number] [place] [address]
--- NOTE | 2018-11-28 17:02 | NUR ---
DINNER TRAY TO BEDSIDE, INDEPENDENT WITH SET UP AND EATING
--- NOTE | 2018-11-28 18:20 | NUR ---
DR PELAYO AT BEDSIDE, COUNSELED WITH PATIENT RE: RESTARTING HD ON 11/29
--- NOTE | 2018-11-28 19:30 | NUR ---
SHIFT ASSESSMENT COMPLETE, PER NURSING FLOWSHEET, PATIENT REPOSITIONED, NO OTHER NEEDS VOICED OR NOTED AT THIS TIME, C/L IN REACH
--- NOTE | 2018-11-28 21:00 | NUR ---
PATIENT REPOSITIONED, VSS, WILL CONTINUE TO MONITOR
--- NOTE | 2018-11-28 23:00 | NUR ---
RE-ASSESSMENT COMPLETE, PER NURSING FLOWSHEET, COMPLETE LINEN CHANGE, PATIENT REPOSITIONED, CONTINUE POC
[2018-11-29] VITALS (15 sets, daily range): BP systolic 89–128; BP diastolic 54–86
--- NOTE | 2018-11-29 01:00 | NUR ---
PATIENT REPOSITIONED, QUICKLY FALLS BACK TO SLEEP, VSS, C/L IN REACH
--- NOTE | 2018-11-29 03:00 | NUR ---
RE-ASSESSMENT COMPLETE, PER NURSING FLOWSHEET, PATIENT REPOSTIONED, NO OTHER NEEDS VOICED OR NOTED
--- NOTE | 2018-11-29 05:00 | NUR ---
PATIENT REPOSITIONED, VSS, CONTINUE POC. PATIENT STATES THAT HE "HATES THIS LARES AIR MATTRESS THAT HE IS ON, THAT IT KEEPS HIM WADDED UP ALL OF THE TIME". C/L IN REACH
--- NOTE | 2018-11-29 07:00 | NUR ---
REC'D RPOERT AND RESUEMD CARE, SLEEPING AROUSABLE TO VERBAL STIMULI, VSS, DENIES PAIN, ASSESSMENT, COMPLETED PER FLOWSHEET, CALL LIGHT IN REACH, NO NEEDS TIME, REPOSITIONED UP AND TO BACK PER REQUEST, LEFT AKA DRESSING IN PLACE, CDI
[2018-11-29 08:08] LABS: ANION GAP 16.2 mmol/L (8-16); CALCIUM 8.3 mg/dL (8.5-10.1); CREATININE - SERUM 5.4 mg/dL (0.6-1.3); PHOSPHOROUS 5.2 mg/dL (2.5-4.9); POTASSIUM - SERUM 4.2 mmol/L (3.5-5.1)
[2018-11-29 08:23] LABS: BASOPHILS 0.1 % (0-2); EOSINOPHILS 0.8 % (0-7); HEMOGLOBIN 7.7 g/dL (13.5-17.5); IMMATURE GRANULOCYTES 0.6 % (0-5); LYMPHOCYTES 16.5 % (15-50); MCH 28.8 pg (26.0-34.0); MCHC 32.1 g/dL (31.0-37.0); MEAN PLATELET VOLUME 9.7 fL (7.4-10.4); MONOCYTES 6.7 % (2-11); NEUTROPHILS 75.3 % (40-80); PLATELET COUNT 163 10x3/uL (130-400); RBC 2.67 10x6/uL (4.20-6.10); RDW 18.2 % (11.5-14.5); WBC 9.5 10x3/uL (4.8-10.8)
[2018-11-29 08:27] LABS: MCV 89.9 fL (80.0-100.0)
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
--- NOTE | 2018-11-29 17:36 | NUR ---
LEFT UPPER ARM CANNULATED AND HD BEGAN, BP104/62
--- NOTE | 2018-11-29 19:30 | NUR ---
SHIFT ASSESSMENT COMPLETE, PER NURSING FLOWSHEET, PATIENT REPOSITIONED, NO OTHER NEEDS VOICED OR NOTED, C/L IN REACH
--- NOTE | 2018-11-29 21:00 | NUR ---
PATIENT REPOSITIONED, WATCHING TV, CONTINUE POC
--- NOTE | 2018-11-29 23:00 | NUR ---
RE-ASSESSMENT COMPLETE, PER NURSING FLOWSHEET, PATIENT REPOSITIONED, CONTINUE POC
--- NOTE | 2018-11-30 01:00 | NUR ---
COMPLETE LINEN CHANGE, PATIENT REPOSITIONED, DRINK PROVIDED, CONTINUE POC
[2018-11-30 03:00] VITALS: BP 92/59
--- NOTE | 2018-11-30 03:00 | NUR ---
PATIENT SLEEPING, IN NO APPARENT DISTRESS, VSS, C/L IN REACH
--- NOTE | 2018-11-30 05:00 | NUR ---
PATIENT REPOSITIONED, WATCHING TV, NO OTHER NEEDS VOICED OR NOTED AT THIS TIME
[2018-11-30 06:31] LABS: BASOPHILS 0.2 % (0-2); EOSINOPHILS 0.5 % (0-7); HEMATOCRIT 24.5 % (42.0-54.0); HEMOGLOBIN 7.8 g/dL (13.5-17.5); IMMATURE GRANULOCYTES 0.5 % (0-5); LYMPHOCYTES 11.8 % (15-50); MCH 28.8 pg (26.0-34.0); MCHC 31.8 g/dL (31.0-37.0); MCV 90.4 fL (80.0-100.0); MEAN PLATELET VOLUME 9.7 fL (7.4-10.4); MONOCYTES 8.9 % (2-11); NEUTROPHILS 78.1 % (40-80); PLATELET COUNT 162 10x3/uL (130-400); RBC 2.71 10x6/uL (4.20-6.10); RDW 18.3 % (11.5-14.5); WBC 8.1 10x3/uL (4.8-10.8)
[2018-11-30 06:55] LABS: CARBON DIOXIDE 24.5 mmol/L (21.0-32.0)
[2018-11-30 06:56] LABS: CREATININE - SERUM 3.8 mg/dL (0.6-1.3); PHOSPHOROUS 3.6 mg/dL (2.5-4.9); POTASSIUM - SERUM 3.5 mmol/L (3.5-5.1)
--- NOTE | 2018-11-30 07:30 | NUR ---
AWAKES EASILY TO VERBAL STIMULI SKIN WARM AND DRY. RIGHT LEG DISCOLORED WITH PITTING EDEMA NOTED. DRESSING LEFT STUMP DRY AND INTACT. WRAPPED IN LENY BANDAGE. RIJ TRIPLE LUMEN CENTRAL LINE DRESSING DRY AND INTACT INFUSING WITH NS AT [employer] AND DILAUDID WARDROBE MANAGER. AIR OVERLAY MATTRESS ON BED. RIGHT LEG HEEL BRIDGED WITH PILLOW. VOIDED CLEAR YELLOW URINE. CALL LIGHT WITHIN HANDS REACH.
[2018-11-30 08:00] VITALS: BP 109/63
--- NOTE | 2018-11-30 08:15 | NUR ---
BREAKFAST SERVED. VERY UPSET HE GOT SKIM MILK HE ONLY DRINKS 2%. DOES NOT LIKE OUR COFFEE.
[2018-11-30 09:32] VITALS: BP 104/71
--- NOTE | 2018-11-30 09:56 | NUR ---
REPOSITIONED. RIGHT LEG BRIDGE WITH PILLOWS.
--- NOTE | 2018-11-30 11:30 | NUR ---
lunch tray served. poor appetite states food is too dry. ate dessert. dressing left stump dry and intact.
[2018-11-30 12:00] VITALS: BP 101/70
--- NOTE | 2018-11-30 13:05 | NUR ---
LEFT STUMP INCISION CLEAN WITH HIBCLENS. NO REDNESS NOTED. SOME SERSANG DRAINAGE ON DRESSING MOD AMOUNT. BORDER DRESSING X 2 APPLIED WRAPPED IN KERLIX, LENY BANDAGE APPLIED. INCISION INTACT. PATIENT TOLERATED WELL. DISCUSS PAIN MANAGEMENT WITH PATIENT AND DR. PELAYO. [facility] CENTRAL LINE SALINE LOCKED. PATIENT VERBALIZED UNDERSTANDING STARTING PO PAIN MEDS, BUT HE CAN STILL HAVE DILAUDID IN BETWEEN PAIN PILLS IF NEEDED.
--- NOTE | 2018-11-30 15:00 | NUR ---
watching tv. no distress. reinforce pain management. not wait until the pain is bad, need to allow enough time for po meds to be effective verbalized understanding.
--- NOTE | 2018-11-30 16:18 | NUR ---
REPORT CALLED TO ISA. PATIENT TO TRANSFER TO ROOM 2135 PER BED.
--- NOTE | 2018-11-30 16:36 | NUR ---
RECEIVEDD PT FROM ER. FAMILY AT BEDSIDE. MEDICATIONS GIVEN.
--- NOTE | 2018-11-30 17:36 | NUR ---
PT LYING IN BED, FAMILY AT BEDSIDE. STATED "ITS MY JOB TO BE THE ASSHOLE". PT STATES HE INTENDS ON BEING SUCH.
[2018-11-30 19:55] VITALS: BP 95/66
--- NOTE | 2018-11-30 19:59 | NUR ---
EVENING ROUNDS COMPLETED. REPORT RECEIVED. PT SITTING UP IN BED WITH EYES OPEN, RR EVEN AND UNLABORED. BED IN LOW POSITION. NO S/S OF DISTRESS NOTED. INTRODUCED SELF TO PT. PT DENIES FURTHER NEEDS AT THIS TIME. CALL LIGHT IN REACH, WILL CTM.
[2018-11-30 23:55] VITALS: BP 87/61
--- NOTE | 2018-12-01 00:37 | NUR ---
I have reviewed this patient and I concur with the Shift Assessment completed by the Licensed Practical Nurse today this shift.
[2018-12-01 03:55] VITALS: BP 101/64
--- NOTE | 2018-12-01 04:19 | NUR ---
DRESSING CHANGE PERFORMED ORDERED. WOUND BORDERS PINK AND MOIST. BEEFY RED DRAINAGE NOTED. NO ODORS NOTED. ADMINISTERED ORDERED ANALGESIC BEFORE START OF DRESSING CHANGE PER PT REQUEST. PT DENIES FURTHER NEEDS. WILL CTM.
[2018-12-01 05:36] LABS: BASOPHILS 0.3 % (0-2); EOSINOPHILS 0.9 % (0-7); HEMATOCRIT 25.1 % (42.0-54.0); HEMOGLOBIN 7.9 g/dL (13.5-17.5); IMMATURE GRANULOCYTES 0.4 % (0-5); LYMPHOCYTES 16.3 % (15-50); MCH 28.9 pg (26.0-34.0); MCHC 31.5 g/dL (31.0-37.0); MCV 91.9 fL (80.0-100.0); MEAN PLATELET VOLUME 9.7 fL (7.4-10.4); MONOCYTES 10.2 % (2-11); NEUTROPHILS 71.9 % (40-80); PLATELET COUNT 160 10x3/uL (130-400); RBC 2.73 10x6/uL (4.20-6.10); RDW 18.8 % (11.5-14.5); WBC 7.9 10x3/uL (4.8-10.8)
[2018-12-01 05:54] LABS: ALBUMIN 2.2 g/dL (3.4-5.0); ANION GAP 16.3 mmol/L (8-16); BILIRUBIN - TOTAL 0.45 mg/dL (0.2-1.3); CALCIUM 7.7 mg/dL (8.5-10.1); CARBON DIOXIDE 26.6 mmol/L (21.0-32.0); PHOSPHOROUS 4.4 mg/dL (2.5-4.9); POTASSIUM - SERUM 3.9 mmol/L (3.5-5.1); PROTEIN - SERUM 6.3 g/dL (6.4-8.2)
[2018-12-01 05:56] LABS: CREATININE - SERUM 4.9 mg/dL (0.6-1.3)
[2018-12-01 08:05] VITALS: BP 131/64
--- NOTE | 2018-12-01 10:37 | NUR ---
DRESSING TO LEFT LEG STUMP CAME OFF AND NEW DRESSING APPLIED ORDERED. PT TOLERATED WELL.
[2018-12-01 12:26] VITALS: BP 124/68
[2018-12-01 15:49] VITALS: BP 92/60
--- NOTE | 2018-12-01 17:25 | NUR ---
AGREE WITH LPM ASSESSMENT
--- NOTE | 2018-12-01 19:32 | NUR ---
EVENING ROUNDS COMPLETED. REPORT RECEIVED. PT SITTING UP IN BED WITH EYES OPEN, RR EVEN AND UNLABORED. BED IN LOW POSITION. NO S/S OF DISTRESS NOTED. INTRODUCED SELF TO PT. PT REQUESTS TO HAVE URINAL PLACED WITHIN REACH. PT DENIES FURTHER NEEDS. SIDE RAILS UP X2. CALL LIGHT IN REACH. WILL CTM.
[2018-12-01 19:55] VITALS: BP 91/51
--- NOTE | 2018-12-02 02:35 | NUR ---
I have reviewed this patient and I concur with the Shift Assessment completed by the Licensed Practical Nurse today this shift.
[2018-12-02 03:50] VITALS: BP 103/63
[2018-12-02 03:51] LABS: BASOPHILS 0.4 % (0-2); EOSINOPHILS 1.1 % (0-7); HEMATOCRIT 24.3 % (42.0-54.0); HEMOGLOBIN 7.8 g/dL (13.5-17.5); IMMATURE GRANULOCYTES 0.3 % (0-5); LYMPHOCYTES 18.9 % (15-50); MCH 29.7 pg (26.0-34.0); MCHC 32.1 g/dL (31.0-37.0); MCV 92.4 fL (80.0-100.0); MEAN PLATELET VOLUME 9.8 fL (7.4-10.4); MONOCYTES 6.3 % (2-11); PLATELET COUNT 149 10x3/uL (130-400); RBC 2.63 10x6/uL (4.20-6.10); RDW 18.8 % (11.5-14.5); WBC 7.3 10x3/uL (4.8-10.8)
[2018-12-02 04:07] LABS: ALBUMIN 2.2 g/dL (3.4-5.0); ANION GAP 17.2 mmol/L (8-16); BILIRUBIN - TOTAL 0.45 mg/dL (0.2-1.3); CALCIUM 7.9 mg/dL (8.5-10.1); CARBON DIOXIDE 23.7 mmol/L (21.0-32.0); CREATININE - SERUM 5.2 mg/dL (0.6-1.3); PHOSPHOROUS 4.5 mg/dL (2.5-4.9); POTASSIUM - SERUM 3.9 mmol/L (3.5-5.1); PROTEIN - SERUM 6.2 g/dL (6.4-8.2)
--- NOTE | 2018-12-02 05:10 | NUR ---
PT SITTING UP IN BED WITH EYES OPEN, RR EVEN AND UNLABORED. RIGHT INTERJUGULAR PICC LINE DRESSING CHANGED. PT DENIES FURTHER NEEDS AT THIS TIME. BED IN LOW POSITION. CALL LIGHT IN REACH. WILL CTM.
--- NOTE | 2018-12-02 07:42 | NUR ---
REPORT RECEIVED. WILL CONTINUE WITH POC. PT CURRENTLY LYING SEMI FOWLERS. CALL LIGHT W/I REACH. PT IS AAO AND BEDFAST. RR EVEN AND UNLABORED ON RA. R.IJ CVL IS SALINE LOCKED. PT DENIES ANY NEEDS AT THIS TIME. NO S/S OF DISTRESS NOTED. WILL CTM.
[2018-12-02 08:28] VITALS: BP 113/71
--- NOTE | 2018-12-02 11:12 | NUR ---
PT TRANSFERED TO DIALYSIS @1000. WILL CTM.
[2018-12-02 14:55] VITALS: BP 128/80
--- NOTE | 2018-12-02 16:46 | NUR ---
I have reviewed this patient and I concur with the Shift Assessment completed by the Licensed Practical Nurse today this shift.
--- NOTE | 2018-12-02 19:44 | NUR ---
RESUMING PATIENT CARE. PATIENT IS ALERT AND ORIENTED, RESTIN COMFORTABLY IN BED. RESPIRATIONS ARE EVEN AND UNLABORED. NO S/S OF DISTRESS. NO C/O PAIN. DENIES NEEDS AT THIS TIME. CALL LIGHT WITHIN [facility]. WILL CPOC.
[2018-12-02 20:05] VITALS: BP 90/54
--- NOTE | 2018-12-02 21:31 | NUR ---
CALLED DR. PARRISH CELL LEFT MESSAGE TO HAVE HIM RETURN MY CALL.
[2018-12-03 03:47] VITALS: BP 104/67
--- NOTE | 2018-12-03 05:09 | NUR ---
PATIENT RESTING COMFORTABLY IN BED. RESPIRATIONS ARE EVEN AND UNLABORED. AM LABS DRAWN. NO S/S OF DISTRESS. NO C/O PAIN. DENIES NEEDS AT THIS TIME. PERCOCET RESTARTED PER DR. PARRISH TELEPHONE ORDER. CALL LIGHT WITHIN REACH. WILL CPOC.
[2018-12-03 05:28] LABS: BASOPHILS 0.2 % (0-2); EOSINOPHILS 0.5 % (0-7); HEMOGLOBIN 8.2 g/dL (13.5-17.5); IMMATURE GRANULOCYTES 0.3 % (0-5); LYMPHOCYTES 20.3 % (15-50); MCH 29.2 pg (26.0-34.0); MCHC 31.5 g/dL (31.0-37.0); MCV 92.5 fL (80.0-100.0); MEAN PLATELET VOLUME 9.9 fL (7.4-10.4); MONOCYTES 7.3 % (2-11); NEUTROPHILS 71.4 % (40-80); PLATELET COUNT 167 10x3/uL (130-400); RBC 2.81 10x6/uL (4.20-6.10); RDW 18.9 % (11.5-14.5); WBC 6.6 10x3/uL (4.8-10.8)
--- NOTE | 2018-12-03 05:43 | NUR ---
DAILY DRESSING CHANGE ON LEFT BKA COMPLETE
[2018-12-03 05:52] LABS: % SATURATION 30 % (15-55); IRON 59 ug/dl (35-150); TOTAL IRON BIND CAPACITY 194 ug/dl (260-445); UNSAT IRON BIND CAPACITY 135 ug/dl (150-375)
[2018-12-03 06:06] LABS: ANION GAP 12.8 mmol/L (8-16); CALCIUM 8.4 mg/dL (8.5-10.1); POTASSIUM - SERUM 3.5 mmol/L (3.5-5.1); URIC ACID 4.4 mg/dL (2.6-7.2)
[2018-12-03 06:15] LABS: CARBON DIOXIDE 29.7 mmol/L (21.0-32.0)
--- NOTE | 2018-12-03 07:00 | NUR ---
RECEIVED BEDSIDE SHIFT REPORT. ASSUMED CARE OF PATIENT. CALL LIGHT WITHIN REACH. ASSISTED TO PULL PATIENT UP IN BED. 1ST STEP OVERLAY PATENT. DENIES NEEDS. NO DISTRESS.
[2018-12-03 08:26] VITALS: BP 90/58
--- NOTE | 2018-12-03 09:56 | NUR ---
DRESSING CHANGE PROVIDED TO LEFT AKA ORDERED, AIRSTRIP DRESSING APPLIED AFTER CLEANSING INCISION LINE. NO DISTRESS. TOLERATED DRESSING CHANGE WELL.
--- NOTE | 2018-12-03 10:58 | NUR ---
Rehab Note- Acute Inpatient Rehab prescreen order received. The patient has further acute procedures scheduled at this time- Rt LE Arteriogram scheduled per IR on 12/05, will continue to follow at this time. Thank you for this referral! Cleo Gonsalves RN Clinical Liaison, [facility] Rehab
--- NOTE | 2018-12-03 11:37 | NUR ---
FSBS 147. NO INSULIN PER SLIDING SCALE.
[2018-12-03 11:44] VITALS: BP 101/62
--- NOTE | 2018-12-03 14:07 | NUR ---
Nutrition Follow Up: Pt stated that he does not like current diet and that is why he is not eating much. He said that he is drinking Nepro TID. RD encouraged pt to increase po intake to maintain strength, promote healing, etc. Diet: Renal ADA PO Intake: 49% meal avg BM: 12/02/18 Labs reviewed Meds noted including MV, Megace Rec consider liberalizing diet to encourage po intake. Will order Nepro TID. Rec continue Megaadalgisa. RD following.
[2018-12-03 15:34] VITALS: BP 100/64
--- NOTE | 2018-12-03 16:28 | NUR ---
FSBS 152. PATIENT REFUSED INSULIN.
--- NOTE | 2018-12-03 19:42 | NUR ---
BED IS LOW CALL LIGHT ON FLOOR PUT BACK IN REACH OF PT...LCTA AND SKIN WARM AND DRY... AKA TO LEFT LEG AND BANDAGE IS INTACT WITH NO DRAINAGE TO OUTSIDE OF DRSG...PULSE INTACT IN RT EXTREMITY.RA AT THIS TIME RT IJ CL IN PLACE WITH DRSG INTACT OVER SITE IT IS SALINE LOCKED, FISTULA TO LEFT ARM
[2018-12-03 20:00] VITALS: BP 98/60
[2018-12-03 23:55] VITALS: BP 107/72
[2018-12-04 03:55] VITALS: BP 103/68
--- NOTE | 2018-12-04 04:19 | NUR ---
PATIENT RESTING COMFORTABLY IN BED. RESPIRATIONS ARE EVEN AND UNLABORED NO S/S OF DISTRESS. NO C/O PAIN. DENIES NEEDS. CALL LIGHT WITHIN REACH. WILL CPOC.
[2018-12-04 06:12] LABS: BASOPHILS 0.3 % (0-2); EOSINOPHILS 0.4 % (0-7); HEMATOCRIT 25.9 % (42.0-54.0); HEMOGLOBIN 8.3 g/dL (13.5-17.5); IMMATURE GRANULOCYTES 0.3 % (0-5); LYMPHOCYTES 13.6 % (15-50); MCH 29.7 pg (26.0-34.0); MCV 92.8 fL (80.0-100.0); MEAN PLATELET VOLUME 9.9 fL (7.4-10.4); MONOCYTES 8.6 % (2-11); NEUTROPHILS 76.8 % (40-80); PLATELET COUNT 175 10x3/uL (130-400); RBC 2.79 10x6/uL (4.20-6.10); RDW 19.4 % (11.5-14.5); WBC 7.4 10x3/uL (4.8-10.8)
[2018-12-04 06:16] LABS: ANION GAP 12.7 mmol/L (8-16); CALCIUM 8.4 mg/dL (8.5-10.1); CARBON DIOXIDE 27.9 mmol/L (21.0-32.0); CREATININE - SERUM 4.6 mg/dL (0.6-1.3); PHOSPHOROUS 3.2 mg/dL (2.5-4.9); POTASSIUM - SERUM 3.6 mmol/L (3.5-5.1)
--- NOTE | 2018-12-04 07:45 | NUR ---
REPORT RECEIVED. WILL CONTINUE WITH POC. PT CURRENTLY SITTING ON EDGE OF BED. CALL LIGHT W/I REACH. FIRST STEP OVERLAY IN PLACE AND FUNCTIONING PROPERLY. PT IS AAO AND BEDFAST. PT READJUSTED IN BED PER REQUEST. PT CURRENTLY LYING SEMI FOWLERS. CALL LIGHT W/I REACH. RR EVEN AND UNLABORED ON RA. R.IJ CVL SALINE LOCKED. PT DENIES ANY NEEDS AT THIS TIME. NO S/S OF DISTRESS NOTED. WILL CTM.
--- NOTE | 2018-12-04 10:20 | NUR ---
AM MEDICATIONS ADMINISTERED. PT DENIES ANY NEEDS. PT TRANSFERED TO DIALYSIS. WILL CTM.
[2018-12-04 10:23] VITALS: BP 106/70
--- NOTE | 2018-12-04 14:07 | NUR ---
PT RETURNED FROM DIALYSIS. PT CURRENTLY EATING DINNER. FLUSHED EACH LUMEN ON CVL WITH 10CC NS. WILL CTM.
[2018-12-04 14:36] VITALS: BP 116/70
--- NOTE | 2018-12-04 15:38 | NUR ---
I have reviewed this patient and I concur with the Shift Assessment completed by the Licensed Practical Nurse today this shift.
[2018-12-04 16:59] VITALS: BP 104/59
--- NOTE | 2018-12-04 19:53 | NUR ---
PT UP ON BSC HAVING A BM. PT IS PALE, COMPLAINS OF PAIN. WILL CHECK FOR ORDERS. PT PLAYING ON PHONE. DENIES ANY OTHER NEEDS. NO S/S OF DISTRESS. BEDLOW AND CALL LIGHT INREACH. BED SHEETS CHANGED. NAME AND DATE PLACED ONBOARD. WILL CPOC
[2018-12-04 20:32] VITALS: BP 97/61
--- NOTE | 2018-12-04 21:06 | NUR ---
PT RIGHT IJ CHANGED, CLEANED AND CLIPPED AREA. DRSG ON NOW CDI. 7 UNITS OF LANTUS AND 4 UNITS OF HUMALOG GIVEN FOR A FSBS OF 237 PT UP TO BSC EARLIER AND HAD A SMALL BM FIRM AND A SCANT AMOUNT OF URINE. PT NOW RESTING IN BED. VERBALIZED UNDERSTANDING OF BEING NPO AFTER MIDNIGHT. PT BEDLOW AND CALL LIGHT IN REACH. WILL CPOC
--- NOTE | 2018-12-05 00:06 | NUR ---
PT AROUSES TO VERBAL STIMULI. ASKED ABOUT TURNING UP AIR CONDITIONER. PT VERBALIZED UNDERSTANDING TO NPO SINCE IT IS MIDNIGHT. PT HAS NOTHING AT BEDSIDE. PT BEDLOW AND CALL LIGHT IN REACH. EMPTIED 200CC FROM URINAL. PT WILL CALL FOR ASSIST WHEN NEEDED. WILL CPOC
--- NOTE | 2018-12-05 02:06 | NUR ---
PT ASLEEP. RESP EVEN AND UNLABORED. NO S/S OF DISTRESS. BEDLOW AND CALL LIGHT IN REACH. 1ST STEP OVERLAY. PT WILL CALL FOR ASSIST WHEN NEEDED. WILL CPOC
--- NOTE | 2018-12-05 05:42 | NUR ---
PT GIVEN A HIPACLEANS BATH AND CLEANED SHEETS. LABS DRAWN THROUGH RIGHT IJ CVL. CHANGED DRSG AGAIN. DRSG CDI. PT GIVEN MORINING MEDS WITH A SIP OF WATER. PT DENIES ANY NEEDS. NO S/S OF DISTRESS. WILL CPOC
[2018-12-05 06:04] VITALS: BP 102/72
[2018-12-05 06:18] LABS: BASOPHILS 0.3 % (0-2); EOSINOPHILS 0.9 % (0-7); HEMATOCRIT 26.9 % (42.0-54.0); HEMOGLOBIN 8.5 g/dL (13.5-17.5); IMMATURE GRANULOCYTES 0.3 % (0-5); MCH 29.6 pg (26.0-34.0); MCHC 31.6 g/dL (31.0-37.0); MCV 93.7 fL (80.0-100.0); MEAN PLATELET VOLUME 9.6 fL (7.4-10.4); MONOCYTES 6.9 % (2-11); NEUTROPHILS 70.6 % (40-80); PLATELET COUNT 165 10x3/uL (130-400); RBC 2.87 10x6/uL (4.20-6.10); RDW 19.4 % (11.5-14.5); WBC 6.7 10x3/uL (4.8-10.8)
--- NOTE | 2018-12-05 06:31 | NUR ---
PT FSBS IS 100, NO INSULIN NEEDED PER SLIDING SCALE. PT DENIES ANY NEEDS. NO S/S OF DISTRESS. DENIES ANY QUESTIONS OR CONCERNS. NO CONSENTS SIGNED AT THIS TIME REGARDING NO ORDERS WRITTEN FOR CONSENT, PT WILL CALL FOR ASSIST WHEN NEEDED. WILL CPOC
[2018-12-05 06:35] LABS: ANION GAP 11.5 mmol/L (8-16); CALCIUM 8.5 mg/dL (8.5-10.1); CREATININE - SERUM 3.8 mg/dL (0.6-1.3); POTASSIUM - SERUM 3.5 mmol/L (3.5-5.1)
--- NOTE | 2018-12-05 07:10 | NUR ---
REPORT RECIEVED FROM PRECAST MOLDER. PATIENT LAYING IN BED WITH EYES CLOSED AND BREATHING EVENLY. VSS. WILL CONTINUE WITH PLAN OF CARE. SR UP X 2 BED IN LOW POSTION AND CALL LIGHT IN REACH.
[2018-12-05 07:53] VITALS: BP 97/62
--- NOTE | 2018-12-05 09:30 | NUR ---
PATIENT ASSESSMENT COMPLETED. VSS. PATIENT DENIES ANY NEEDS OR PAIN. FAMILY AT BEDSIDE. PATIENT NPO AWAITNG AFRO. WILL CONTINUE TO MONITOR.
--- NOTE | 2018-12-05 09:40 | NUR ---
Rehab Note- Has scheduled procedure today. He now has [facility] managed medicare insurance and will require a PreAuth prior to an inpatient acute rehab stay. Will continue to follow at this time. Thank you for this referral! Cleo Gonsalves RN CLinical Liaison, [facility] Rehab
[2018-12-05 11:18] VITALS: BP 103/63
--- NOTE | 2018-12-05 13:00 | NUR ---
PATIENT IS STABLE AND UNCHANGED. VSS. PATIENT TO IR VIA BED AND IR PERSONNEL.
[2018-12-05 14:14] LABS: INR 1.19 (0.85-1.17); PROTIME 14.6 SECONDS (11.6-15.0)
--- NOTE | 2018-12-05 14:30 | NUR ---
PATIENT REMIAINS STABLE WITH VSS. DRSG C/D/I. PATIENT DENIES ANY NEEDS OR PAIN. WILL CONTINUE TO MONITOR. FAMILY AT BEDISDE. SR UP X 2 BED IN LOW POSITION .
--- NOTE | 2018-12-05 15:30 | NUR ---
PATIENT REURNED FROM IR VIA BED AND IR PERSONNEL. PATIENT IS STABLE AND VSS STABLE. PATIENT IS AWAKE AND ALERT. DRSG TO RT FOOT ANTERIOR SURFACE C/D/I. PATIENT DENIES ANY NEEDS OR PAIN. WILL CONTINUE TO MONITOR. FAMILY AT BEDSIDE. SR UP X 2 BED IN LOW POSTION AND CALL LIGHT IN REACH.
[2018-12-05 20:00] VITALS: BP 90/57
[2018-12-06] VITALS: BP 92/60
[2018-12-06 04:00] VITALS: BP 96/64
[2018-12-06 06:21] LABS: BASOPHILS 0.3 % (0-2); EOSINOPHILS 0.8 % (0-7); HEMATOCRIT 26.9 % (42.0-54.0); HEMOGLOBIN 8.4 g/dL (13.5-17.5); IMMATURE GRANULOCYTES 0.2 % (0-5); LYMPHOCYTES 21.7 % (15-50); MCH 29.6 pg (26.0-34.0); MCHC 31.2 g/dL (31.0-37.0); MCV 94.7 fL (80.0-100.0); MEAN PLATELET VOLUME 9.8 fL (7.4-10.4); MONOCYTES 5.4 % (2-11); NEUTROPHILS 71.6 % (40-80); PLATELET COUNT 180 10x3/uL (130-400); RBC 2.84 10x6/uL (4.20-6.10); RDW 19.7 % (11.5-14.5); WBC 6.5 10x3/uL (4.8-10.8)
[2018-12-06 06:49] LABS: ANION GAP 13.6 mmol/L (8-16); CALCIUM 8.5 mg/dL (8.5-10.1); CARBON DIOXIDE 27.2 mmol/L (21.0-32.0); PHOSPHOROUS 3.3 mg/dL (2.5-4.9); POTASSIUM - SERUM 3.8 mmol/L (3.5-5.1)
[2018-12-06 06:50] LABS: CREATININE - SERUM 5.4 mg/dL (0.6-1.3)
[2018-12-06 08:00] VITALS: BP 95/67
--- NOTE | 2018-12-06 08:58 | NUR ---
RIGHT IJ TRIPLE LUMEN, EACH LUMEN FLUSHED WITH 10CC NS. ONLY RED LUMEN HAS BLOOD DRAW BACK.
--- NOTE | 2018-12-06 09:01 | NUR ---
PT TAKEN DOWN TO DIALYSIS VIA BED. WILL DO DRESSING CHANGE WHEN PT RETURNS.
--- NOTE | 2018-12-06 12:48 | NUR ---
PT RETURNED FROM DIALYSIS VIA BED. DIALYSIS STATED THEY REMOVED 2L. PT STATES TO REMOVE LUNCH TRAY AND LEAVE NEPRO AND ICED TEA. PT'S BS 129.
--- NOTE | 2018-12-06 13:50 | NUR ---
Nutrition follow-up: Visited with pt during rounds. Pt very unhappy with renal ADA meals; states he does not eat this way at home. Reports his son brought him [employer] last night for dinner. Pt is drinking Nepro TID and eating ~50% average of meals here. Pt is very noncompliant with renal ADA diet outside of hospital. Labs reviewed Wt: 190# RDN following.
--- NOTE | 2018-12-06 15:15 | NUR ---
I CALLED AND SPOKE WITH MELINDA FROM DIALYSIS AND STATED TO HER PT IS AHVING A RLE ARTERIOGRAM SUNDAY AFTER NOON SO PT WILL NOT GO FOR DIALYSIS UNTIL LATER THAT DAY. SHE VERBALIZED UNDERSTANDING.
--- NOTE | 2018-12-06 15:15 | NUR ---
SPOKE WITH TRAMAINE FROM RADIOLGY HE STATES PT IS GOING TO GO FOR A RLE ARTERIOGRAM AGAIN ON SUNDAY AND THIS IS THE LAST TRY, BUT IT WILL BE AT 1100 AND PT NEEDS TO BE NPO AFTER MIDNIGHT SUNDAY AND PT WILL HAVE DIALYSIS LATE SUNDAY AFTER PROCEDURE AND TO LET DIALYSIS KNOW. HE ASLO STATES ROMAINE WILL PUT IN THE ORDERS FOR THE PROCEDURE LATER ON. I VERBALIZED UNDERSTANDING.
[2018-12-06 16:36] VITALS: BP 93/56
--- NOTE | 2018-12-06 16:47 | NUR ---
LEFT AKA DRESSING CHANGED PER WOUND CARE ORDER BY DR. JARA. INSCISION WITH SUTURES HEALING WELL AND SHOWS NO S/S OF INFECTION.
--- NOTE | 2018-12-06 17:29 | NUR ---
AGREE WITH CATHODE RAY TUBE ASSEMBLER ASSESSMENT
--- NOTE | 2018-12-06 19:15 | NUR ---
AT RESTR WITH EYES CLOSED BED IN LOW POSITION. CALL LIGHT IN PLACE RESP EVEN AND UNLABORED
[2018-12-06 20:38] VITALS: BP 93/55
--- NOTE | 2018-12-06 21:45 | NUR ---
REQUESTED AND RECIEVED GOUT MED AND PERCOCET WITH 2100 MEDS. HELD HUMALOG INSULINE ATR THIS TIME BUT LANTUS GIVEN
[2018-12-07] VITALS: BP 92/67
--- NOTE | 2018-12-07 | NUR ---
I have reviewed this patient and I concur with the Shift Assessment completed by the Licensed Practical Nurse today this shift.
[2018-12-07 04:00] VITALS: BP 97/70
[2018-12-07 05:27] LABS: BASOPHILS 0.5 % (0-2); EOSINOPHILS 1.5 % (0-7); HEMATOCRIT 27.1 % (42.0-54.0); HEMOGLOBIN 8.4 g/dL (13.5-17.5); IMMATURE GRANULOCYTES 0.2 % (0-5); MCH 29.5 pg (26.0-34.0); MCV 95.1 fL (80.0-100.0); MEAN PLATELET VOLUME 9.6 fL (7.4-10.4); MONOCYTES 7.5 % (2-11); NEUTROPHILS 71.3 % (40-80); PLATELET COUNT 177 10x3/uL (130-400); RBC 2.85 10x6/uL (4.20-6.10); RDW 19.5 % (11.5-14.5)
[2018-12-07 05:35] LABS: ANION GAP 10.9 mmol/L (8-16); CALCIUM 8.8 mg/dL (8.5-10.1); CARBON DIOXIDE 31.6 mmol/L (21.0-32.0); PHOSPHOROUS 3.4 mg/dL (2.5-4.9); POTASSIUM - SERUM 3.5 mmol/L (3.5-5.1)
--- NOTE | 2018-12-07 08:00 | NUR ---
RECIEVED BEDSIDE REPORT. AM ROUNDS COMPLETED. VSS, AAOX4, RR EVEN AND UNLABORED, NO S/S OF RESPIRATORY DISTRESS. ASSESSED PT DRESSING ON R/AKA, DRESSING C/D/I. PT ALSO HAVE REDDENED AREA TO LEFT FEET. PT C/O OF PAIN ON HIS LEFT FEET. PO PERCOCET GIVEN ALONGSIDE AM MEDS. PT DENIES ANY FURTHER NEEDS AT THIS TIME. WILL CPOC. CL IN REACH, BED IN LOW, SR UP X2.
[2018-12-07 08:18] VITALS: BP 102/67
--- NOTE | 2018-12-07 09:30 | NUR ---
REASSESED PT LEFT FOOT PAIN. PT STATES ITS BETTER. STATE IT'S A 3/10 NOW. WILL CPOC. CL IN REACH, BED IN LOW, SR UP X2.
[2018-12-07 12:32] VITALS: BP 94/61
--- NOTE | 2018-12-07 15:20 | NUR ---
PT STATES HE IS IN PAIN. HE STATES HIS RIGHT FOOT HURT. PO PERCOCET GIVEN AT THIS TIME. WILL CTM
[2018-12-07 15:59] VITALS: BP 94/57
--- NOTE | 2018-12-07 17:52 | NUR ---
REASSESED PT PAIN. PT STATES HE IS FEELING A LOT BETTER THAN WHAT IT WAS. STATES ITS A 3/10 NOW.
--- NOTE | 2018-12-07 19:41 | NUR ---
RECEIVED REPORT, WILL ASSUME CARE OF PT, PT IS ASKING FOR BEDBATH TONIGHT, I TOLD PORTRAIT STUDIO PHOTOGRAPHER, SHE SAID WILL DO, DENIES ANY OTHER NEEDS AT THIS TIME, BED IS LOW, SRX2, CALL LIGHT IN REACH, WILL CONTINUE PLAN OF CARE
[2018-12-07 20:00] VITALS: BP 98/61
--- NOTE | 2018-12-07 22:52 | NUR ---
COMPLAINS OF R.FOOT PAIN, PT REQUESTING ONLY 1-PERCOCET, WANTS ME TO WAIT TO CHANGE DRESSING ON L. STUMP
[2018-12-08] VITALS: BP 100/60
--- NOTE | 2018-12-08 02:55 | NUR ---
I have reviewed this patient and I concur with the Shift Assessment completed by the Licensed Practical Nurse today this shift.
[2018-12-08 04:00] VITALS: BP 99/60
--- NOTE | 2018-12-08 04:26 | NUR ---
PT ASKING FOR PERCOCET, GIVEN ORDER, DRESSING CHANGED TO L.AKA, CVL DRESSING CHANGE
[2018-12-08 09:00] VITALS: BP 103/65
--- NOTE | 2018-12-08 09:00 | NUR ---
RECIEVED BEDSIDE REPORT. AM ROUNDS COMPLETED. VSS, AAOX4, NO S/S OF RR DISTRESS, RR EVEN AND UNLABORED. PT IN BED WITH BOTH EYES OPEN. AM MEDS GIVEN. PT DENIES NEEDS FOR PAIN AT THIS TIME. PT DRESSING TO RIGHT LEG AND LEFT AKA C/D/I. PT REFUSED NICOTINE PATCH. WILL CPOC. CL IN REACH, BED IN LOW, SR UPX2.
--- NOTE | 2018-12-08 11:00 | NUR ---
PT C/O PAIN IN RIGHT LEG. PO PRN PERCOCET GIVEN AT THIS TIME. WILL CTM.
[2018-12-08 12:41] VITALS: BP 101/57
--- NOTE | 2018-12-08 13:44 | NUR ---
OT NOTE: PT SITTING UP ON EDGE OF BED, STRUGGLING TO GET PILLOW THAT HAD FALLEN ON FLOOR. CAME TO ASSIST PT AND INTRODUCED MYSELF THERAPY.. PT IMMEDIATELY STATED THAT HE DID NOT WANT THERAPY AND WAS NOT GOING TO DO ANYTHING. EXPLAINED TO PT THAT I HAD JUST SEEN HIM ATTEMPTING TO GET PILLOW ON FLOOR AND WAS ONLY TRYING TO HELP. THIS IS THE 3RD DAY PT HAS ADDEMENTLY REFUSED THERAPY. WILL DC AT THIS TIME. AZUL RAWLS, OTR/L
[2018-12-08 16:25] VITALS: BP 109/70
--- NOTE | 2018-12-08 17:14 | NUR ---
PT PLACED ON NPO AFTER MIDNIGHT. PT SIGNED CONSENT FOR ARTERIOGRAM AND ALL INDICATED PROCEDURE. PT REFUSED IV. STATES HE WANTS THE DOCTOR TO USE HIS RIGHT IJ TRIALYSIS FOR THE PROCEDURE. NOTIFIED DR TATE ABOUT PT CONCERN. DR TATE STATES "ITS FINE, WE CAN USE THE RIGHT IJ." PT ALSO REQUESTED FOR PAIN MEDS. STATES HIS PAIN IS 9/10. PO PRN PERCOCET GIVEN AT THIS TIME. WILL CTM. CL IN REACH, BED IN LOW, SR UP X2.
--- NOTE | 2018-12-08 19:30 | NUR ---
RECEIVED REPORT, WILL ASSUME CARE OF PT, SITTING ON SIDE OF BED, DENIES ANY NEEDS AT THIS TIME, EXPLAIN HE WILL BE NPO AFTER MIDNIGHT, BED IS LOW, SRX2, CALL LIGHT IN REACH, WILL CONTINUE PLAN OF CARE
--- NOTE | 2018-12-08 20:21 | NUR ---
[id number]- WILL NOT COVER, PT WILL BE NPO AFTER MIDNIGHT
[2018-12-08 20:26] VITALS: BP 101/61
--- NOTE | 2018-12-08 23:05 | NUR ---
COMPLAINS OF R.FOOT PAIN, GAVE PERCOCET ORDER
[2018-12-09] VITALS (10 sets, daily range): BP systolic 96–115; BP diastolic 63–72
--- NOTE | 2018-12-09 01:50 | NUR ---
I have reviewed this patient and I concur with the Shift Assessment completed by the Licensed Practical Nurse today this shift.
[2018-12-09 04:17] LABS: BASOPHILS 0.3 % (0-2); EOSINOPHILS 1.9 % (0-7); HEMATOCRIT 26.5 % (42.0-54.0); HEMOGLOBIN 8.4 g/dL (13.5-17.5); LYMPHOCYTES 17.8 % (15-50); MCH 29.8 pg (26.0-34.0); MCHC 31.7 g/dL (31.0-37.0); MEAN PLATELET VOLUME 9.3 fL (7.4-10.4); MONOCYTES 5.6 % (2-11); NEUTROPHILS 74.4 % (40-80); PLATELET COUNT 145 10x3/uL (130-400); RBC 2.82 10x6/uL (4.20-6.10); RDW 19.9 % (11.5-14.5); WBC 6.8 10x3/uL (4.8-10.8)
[2018-12-09 04:23] LABS: APTT 33.1 SECONDS (22.8-39.4); INR 1.08 (0.85-1.17); PROTIME 13.5 SECONDS (11.6-15.0)
[2018-12-09 04:27] LABS: CALCIUM 8.7 mg/dL (8.5-10.1); CARBON DIOXIDE 26.1 mmol/L (21.0-32.0)
[2018-12-09 04:35] LABS: CREATININE - SERUM 5.4 mg/dL (0.6-1.3); POTASSIUM - SERUM 4.1 mmol/L (3.5-5.1)
--- NOTE | 2018-12-09 08:00 | NUR ---
RECIEVED BEDSIDE REPORT. AM ROUNDS COMPLETED. VSS, AAOX4, PT LAYING IN BED WITH EYES OPEN. PT HAS BEEN NPO SINCE MIDNIGHT. NO S/S OF RR DISTRESS. PO MEDS GIVEN WITH SIPS OF WATER. PT DRESSING TO LEFT AKA C/D/I. ALSO DRESSING TO RIGHT LEG C/D/I. HELD PT LOVENOX THIS AM FOR PROCEDURE. WILL CPOC. CL IN REACH, BED IN LOW, SR UP X2.
--- NOTE | 2018-12-09 10:55 | NUR ---
IV STARTED ON PT RIGHT HAND, 20G SL. PT TOLERATE WELL. WILL CPOC.
--- NOTE | 2018-12-09 11:05 | NUR ---
PT REFUSED ME TO TAKE HIS BLOOD SUGAR. HE STATES "I HAVENT HAD ANYTHING TO EAT AND I KNOW IT WONT BE HIGH, I'M TIRED OF YALL ALWAYS STICKING ME" DISCUSSED WITH PRIMARY NURSE AND WILL LET PT BE. EMPTIED PTS URINAL OF 300CC CLEAR YELLOW URINE. NO CURRENT NEEDS.
--- NOTE | 2018-12-09 14:03 | NUR ---
Nutrition follow-up: Pt NPO today for Afro; possible leg amputation PO intake of renal diet ~75% of some meals. Pt not a fan of restricted renal diet. Labs reviewed Wt: 188# RDN following.
[2018-12-09 15:53] LABS: HEMATOCRIT 25.7 % (42.0-54.0); HEMOGLOBIN 8.1 g/dL (13.5-17.5)
--- NOTE | 2018-12-09 17:45 | NUR ---
RECIEVED PT FROM PACU, RECOVERY AT THIS TIME VSS, T 98.2, RR I8, BP 113/68, 02 99, P 95. PT APPEARS SEDATED. PT HAVE A DRESSING TO RIGHT GROIN, FOOT, AND CALF. DRESSING C/D/I. OFFERED TO PLACE ICE PACK ON AFFECTED AREA, BUT PT REFUSED. PT FAMILY AT BEDSIDE. PT RESTING FLAT IN BED AND AROUSE TO SPEECH. WILL CTM. VL IN REACH, BED IN LOW, SR UP X2.
--- NOTE | 2018-12-09 21:45 | NUR ---
PT COMPLETED BED REST FOR 6HRS. STATES HE WANT TO SIT ON THE EDGE OF THE BED TO EAT DINNER. ASSIST PT TO THE EDGE OF THE BED. PERIPHERAL PULSES CHECKED. WILL CTM. CL IN REACH, BED IN LOW, SR UP X2.
--- NOTE | 2018-12-09 23:30 | NUR ---
REPORT RECIEVED AND ROUNDING COMPLETE. PT LYING IN BED, EYES CLOSED AND BREATHING EVEN AND UNLABORED. PT EASILY AROUSED WHEN I ENTERED ROOM. PT STATES NO NEEDS AT THIS TIME. CALL LIGHT WITHIN REACH.
[2018-12-10] VITALS: BP 94/61
--- NOTE | 2018-12-10 00:51 | NUR ---
CHANGED PT'S R AKA BANDGAE. NO DRAINAGE NOTED. WOUNDS CLEAN WITH NO SIGNS OF INFECTION. PT TOLERATED WELL. NO OTHER NEEDS AT THIS TIME. CALL LIGHT IN REACH.
--- NOTE | 2018-12-10 03:41 | NUR ---
PATIENT RESTING COMFORTABLY IN BED. RESPIRATIONS ARE EVEN AND UNLABORED. NO S/S OF DISTRESS. CALL LIGHT WITHIN REACH. WILL CPOC.
[2018-12-10 04:20] VITALS: BP 97/57
[2018-12-10 05:43] LABS: BASOPHILS 0.3 % (0-2); EOSINOPHILS 0.2 % (0-7); HEMATOCRIT 25.9 % (42.0-54.0); HEMOGLOBIN 8.2 g/dL (13.5-17.5); IMMATURE GRANULOCYTES 0.3 % (0-5); LYMPHOCYTES 15.4 % (15-50); MCH 30.1 pg (26.0-34.0); MCHC 31.7 g/dL (31.0-37.0); MCV 95.2 fL (80.0-100.0); MONOCYTES 8.8 % (2-11); PLATELET COUNT 167 10x3/uL (130-400); RBC 2.72 10x6/uL (4.20-6.10); RDW 20.3 % (11.5-14.5); WBC 6.2 10x3/uL (4.8-10.8)
--- NOTE | 2018-12-10 05:50 | NUR ---
PT LAYING ON HIS RIGHT SIDE. TOOK MEDICATIONS WHOLE WITH NO PROBLEMS. NO NEEDS AT THIS TIME CALL LIGTH WITHIN REACH
[2018-12-10 05:53] LABS: ANION GAP 17.5 mmol/L (8-16); CALCIUM 8.3 mg/dL (8.5-10.1); CARBON DIOXIDE 24.6 mmol/L (21.0-32.0); CREATININE - SERUM 6.4 mg/dL (0.6-1.3)
[2018-12-10 06:16] LABS: POTASSIUM - SERUM 5.1 mmol/L (3.5-5.1)
--- NOTE | 2018-12-10 07:25 | NUR ---
RECEIVED REPORT FROM MARKETING ANALYTICS SPECIALIST. NO DISTRESS AT PRESENT. WILL CONTINUE TO MONITOR.
--- NOTE | 2018-12-10 08:24 | NUR ---
SLEEPING AT PRESENT. WILL CONTINUE TO MONITOR.
[2018-12-10 08:35] VITALS: BP 100/64
[2018-12-10 12:15] VITALS: BP 101/59
--- NOTE | 2018-12-10 12:40 | NUR ---
CALLED PHARMACY AT 1140 TO RECEIVE INSULIN. AT THIS TIME, PT WENT TO DIALYSIS AND UNABLE TO GIVE INSULIN AND OTHER MEDS.
--- NOTE | 2018-12-10 16:32 | NUR ---
BACK FROM DIALYSIS.
--- NOTE | 2018-12-10 17:24 | NUR ---
CONSENTS SIGNED FOR OR TOMORROW.
--- NOTE | 2018-12-10 19:40 | NUR ---
BEDSIDE REPORT TAKEN FROM DELANO MEEHAN. PT LAYING IN BED ALERT AND ORIENTED. PT IS NPO AT MIDNIGHT FOR AMPUTATION. PT DENIES ANY PAIN OR NEEDS AT THIS TIME. NO S/S OF DISTRESS. BED LOW CALL LIGHT WITHIN REACH.
[2018-12-10 20:38] VITALS: BP 99/65
[2018-12-10 23:40] VITALS: BP 109/69
--- NOTE | 2018-12-11 02:06 | NUR ---
PT LAYING AWAKE IN BED. RR EVEN AND UNLABORED. NO S/S OF DISTRESS. BED LOW CALL LIGHT WITHIN REACH. WILL CONTINUE TO MONITOR.
--- NOTE | 2018-12-11 03:17 | NUR ---
I have reviewed this patient and I concur with the Shift Assessment completed by the Licensed Practical Nurse today this shift.
[2018-12-11 05:00] LABS: BASOPHILS 0.2 % (0-2); HEMATOCRIT 25.2 % (42.0-54.0); HEMOGLOBIN 7.8 g/dL (13.5-17.5); IMMATURE GRANULOCYTES 0.2 % (0-5); LYMPHOCYTES 14.5 % (15-50); MCH 29.9 pg (26.0-34.0); MCV 96.6 fL (80.0-100.0); MEAN PLATELET VOLUME 9.8 fL (7.4-10.4); MONOCYTES 8.5 % (2-11); NEUTROPHILS 75.6 % (40-80); PLATELET COUNT 146 10x3/uL (130-400); RBC 2.61 10x6/uL (4.20-6.10); RDW 20.4 % (11.5-14.5)
[2018-12-11 05:21] VITALS: BP 100/67
[2018-12-11 05:26] LABS: ANION GAP 14.7 mmol/L (8-16); CARBON DIOXIDE 27.6 mmol/L (21.0-32.0); CREATININE - SERUM 4.8 mg/dL (0.6-1.3); PHOSPHOROUS 4.8 mg/dL (2.5-4.9); POTASSIUM - SERUM 4.3 mmol/L (3.5-5.1)
--- NOTE | 2018-12-11 07:30 | NUR ---
REPORT RECEIVED FROM CRYSTAL GROWER. PATIENT AWAKE, ALERT AND ORIENTED X 4. PATIENT IS STABLE AND VS STABLE. PATIENT IS NPO . SURROUNDED BY FAMILY. HOSPITAL PERSONNEL IN ROOM TO TRANSPORT TO SURGERY. PATIENT TO SURGERY VIA BED.
--- NOTE | 2018-12-11 11:10 | NUR ---
PATIENT RETURNED FROM SURGERY. PATIENT IS AWAKE, ALERT AND ORIENTED X 4. DRESSINGT TO RT AKA C/D/I PROPPED ON ONE PILLOW PER DR ORDER. PATIENT IS STABLE AND VSS. PATIENT DENIES ANY NEEDS OR PAIN. FAMILY AT BEDSIDE. VS X 15 MINUTES. WILL CONTINUE TO MONITOR. SR UP X 2 BED IN LOW PSOTION AND CALL LIGHT IN REACH.
[2018-12-11 11:11] VITALS: BP 94/88
--- NOTE | 2018-12-11 11:45 | NUR ---
PATIENT RESTING COMFORTABLY IN BED . VSS. DRSG C/D/I.FAMILY AT BEDSIDE . WILL CONTINUE TO MONITOR CLOSELY.
[2018-12-11 13:09] VITALS: BP 92/64
--- NOTE | 2018-12-11 13:45 | NUR ---
TO LEFT BKA PER ORDER FROM DR. JARA REMOVED SUTURES, CLEANED INCISION AND APPLIED AIRSTRIP. PATIENT TOLERATED WELL. RECIEVED CALL REPORT FROM LAB [facility] 7.3. INFORMED DR JARA. PER RAH JARA, INFORM NEPHRO. SPOKE WITH BEREKET LACEY. RECIEVED ORDERS TO TRANSFUSE I UNIT PRBCS. AWAITNG CALL FROM BLOOD BANK WHEN BLOOD READY. PATIENT DENIES ANY NEEDS OR PAIN. WILL CONTINUE TO MONITOR. SR UP X 2 BED IN LOW POSITION AND CALL LIGHT IN REACH.
--- NOTE | 2018-12-11 13:50 | NUR ---
ENTERED PATIENT ROOM TO DRAW BLOOD FROM TRIALYSIS. PATIENT REFUSED. ASKED THIS NURSE TO RETURN WHEN FAMILY OUT OF ROOM.
--- NOTE | 2018-12-11 14:56 | NUR ---
Rehab continues to follow this patient. He went to the OR for a BKA today. He will need a PT eval reordered post op and be medically stable prior to being accepted to the ARU. Tatiana Barron RN Clinical Liaison, Rehab
[2018-12-11 15:08] LABS: BASOPHILS 0.2 % (0-2); EOSINOPHILS 0.2 % (0-7); HEMATOCRIT 23.8 % (42.0-54.0); IMMATURE GRANULOCYTES 0.2 % (0-5); LYMPHOCYTES 14.9 % (15-50); MCH 29.7 pg (26.0-34.0); MCHC 30.7 g/dL (31.0-37.0); MCV 96.7 fL (80.0-100.0); MEAN PLATELET VOLUME 9.1 fL (7.4-10.4); MONOCYTES 6.2 % (2-11); NEUTROPHILS 78.3 % (40-80); PLATELET COUNT 134 10x3/uL (130-400); RBC 2.46 10x6/uL (4.20-6.10); RDW 20.6 % (11.5-14.5); WBC 5.5 10x3/uL (4.8-10.8)
[2018-12-11 15:18] LABS: HEMOGLOBIN 7.3 g/dL (13.5-17.5)
[2018-12-11 17:03] VITALS: BP 99/64
--- NOTE | 2018-12-11 17:05 | MORECARE ---
CASE MANAGEMENT DISCHARGE SUMMARY PATIENT: BOB REYES UNIT: [id number] ADM DATE: 11/21/18 AGE: 63 : 53 SEX: M ROOM/BED: D.8303 AUTHOR: ELSADOC PHYSICIAN: REFERRING PHYSICIAN: OLAYINKA NUNO MD DATE OF SERVICE: 12/11/18 Discharge Plan Patient Name: [facility]OB REYES [facility] [facility] 1955 Planned Disposition: Inpatient Rehab Facility Anticipated Discharge Date: Discharge Date: Expected LOS: Initial Reviewer: [id number] Initial Review Date: 11/21/2018 Generated: 12/11/18 6:04 pm Comments DCP- Discharge Planning Updated by [id number]: Suhas Lantigua on 12/11/18 4:[address] Patient Name: BOB REYES Encounter No: [id number] : 1955 Primary Insurance: MEDICARE A & B Anticipated DC Date: Planned Disposition: Inpatient Rehab Facility External Planned Provider: [facility] INPATIENT REH[facility] DCP follow-up note: CM RECEIVED ORDER FOR INPATIENT REHAB PRESCREENING, MET WITH PT IN ROOM TO DISCUSS DISCHARGE PLANNING AND NEEDS. CM DISCUSSED AVAILABILITY OF REHAB, LOCATIONS AND PROVIDERS. PT WOULD LIKE TO RETURN TO [facility] INPATIENT REHAB AT HOSPTIAL DISCHARGE. IMPORTANT MESSAGE FROM MEDICARE PROVIDED AND EXPLAINED. CM REVIEWED CHART, [facility] OF [facility] INPATIENT REHAB NOTED: Rehab continues to follow this patient. He went to the OR for a BKA today. He will need a PT eval reordered post op and be medically stable prior to being accepted to the ARU. CM TO CONTINUE TO FOLLOW AND ASSIST NEEDED. SUHAS LANTIGUA, CASE MANAGEMENT DCP- Discharge Planning Updated by [id number]: Suzi Sen on 11/25/18 6:[address] LATE ENTRY 1824 PATIENT SITTING ON THE SIDE OF THE BED. HE IS SCHEDULED FOR LEFT BKA IN THE AM. GAVE CONSENT FOR ASSESSMENT. UNDERSTANDS ROLE OF SEAMING MACHINE OPERATOR. HE STATES HE HAD A GOOD SEAMING MACHINE OPERATOR , CHRISTY, PREVIOUSLY. PLAN IS FOR ACUTE REHAB WHEN CLEARED FOR NEXT LEVEL OF CARE. HE IS VERY QUIET. IMPENDING SURGERY IS IN HIS THOUGHTS. PRELIMINARY INFORMATION NOTED. EXPLAINED CM WILL FOLLOW TO ASSIST. DME- STATES HE HAS A NEW "POWER CANE"- SHOWER BENCH. FAMILY WILL ASSIST. HAS SON AND DAUGHTER. CM TO FOLLOW. DCPIA - Discharge Planning Initial Assessment Updated by [email or web address]: Suzi Sen on 11/25/18 8:22 pm * Is the patient Alert and Oriented? Yes * How many steps to enter\\exit or inside your home? SIX/ RAIL * PCP DR CHANTAL NAVARRO [facility] * Pharmacy [facility] * Preadmission Environment Home with Family * ADLs Partial Dependent * Partial ADLs (Assistance needed) Transfers * Equipment Shower Chair * List name and contact numbers for known caregivers / representatives who currently or will assist patient after discharge: BOB REYES- [phone] * Verbal permission to speak to the caregivers and representatives has been obtained from the patient. No * Community resources currently utilized None * Additional services required to return to the preadmission environment? Yes * Can the patient safely return to the preadmission environment? Yes * Has this patient been hospitalized within the prior 30 days at any hospital? Yes Coverage Notice Reviewer: [id number] Sally Lantigua Notice Issued Date-Time: 12/11/2018 16:40 Notice Type: IM Discharge Notice Notice Delivered To: Patient Relationship to Patient: Gas Operations Superintendent Name: Delivery Method: HAND - Hand Delivered Kellie Days: Prior Verbal Notification: Recipient Understood Notice: Yes Recipient Signature: Yes Med Rec Note Co-signed by Attending: Coverage Notice Comment: Last DP export: 11/26/18 6:02 am Patient Name: BOB REYES Page [phone] at 1705 All edits/amendments must be made on the electronic document DICTATION DATE: 12/11/181703 NURSE INFORMATICIST: JEANNETTE 12/11/181703 RPT#: [id number] DC DATE: STATUS: ADM IN [facility] [address] [place] [address] END OF REPORT
--- NOTE | 2018-12-11 17:15 | NUR ---
I UNIT OF PRBC TRANSFUSING. VSS. PATIENT DENIES ANY NEEDS OR PAIN. WILL CONTINUE TO MONITOR CLOSELY. SR UP X 2 BED IN LOW POSITION AND CALL LIGHT IN REACH.
--- NOTE | 2018-12-11 17:45 | NUR ---
PATIENT COMPLAINS OF PAIN AT A '10" TO RT LEG. DRESSING C/D/I. MEDICATED PER NOV. WILL CONTINUE TO MONITOR PATIENT. SR UP BED IN LOW POSITION AND CALL LIGHT IN REACH.
[2018-12-11 20:57] VITALS: BP 99/65
--- NOTE | 2018-12-11 21:30 | NUR ---
PT COMPLAINS OF 9/10 PAIN IN RIGHT LEG. DEEPTHI YOO NOTIFIED. ORDERS GIVEN. SEE MAR. WILL CONTINUE TO MONITOR.
[2018-12-11 23:59] VITALS: BP 112/73
--- NOTE | 2018-12-12 00:24 | NUR ---
PT STILL COMPLAINS OF 9/10 PAIN IN RIGHT AKA LEG. DEEPTHI YOO PAGED. ORDER FOR HYDROMORPHONE 1MG GIVEN. MONITORED PT AFTER ADMIN RR EVEN AND UNLABORED. PT ALSLEEP BUT EASILY AROUSED. PT DENIES ANY PAIN AT THIS TIME. BED LOW CALL LIGHT WITHIN REACH. WILL CONTINUE TO MONITOR.
[2018-12-12 05:27] VITALS: BP 107/69
[2018-12-12 05:36] LABS: BASOPHILS 0.1 % (0-2); EOSINOPHILS 0 % (0-7); HEMATOCRIT 28.1 % (42.0-54.0); HEMOGLOBIN 8.6 g/dL (13.5-17.5); IMMATURE GRANULOCYTES 0.3 % (0-5); LYMPHOCYTES 11.4 % (15-50); MCH 29.5 pg (26.0-34.0); MCHC 30.6 g/dL (31.0-37.0); MCV 96.2 fL (80.0-100.0); MEAN PLATELET VOLUME 9.8 fL (7.4-10.4); NEUTROPHILS 80.2 % (40-80); PLATELET COUNT 152 10x3/uL (130-400); RBC 2.92 10x6/uL (4.20-6.10); RDW 20.1 % (11.5-14.5)
[2018-12-12 05:43] LABS: WBC 7.6 10x3/uL (4.8-10.8)
--- NOTE | 2018-12-12 05:49 | NUR ---
I have reviewed this patient and I concur with the Shift Assessment completed by the Licensed Practical Nurse today this shift.
[2018-12-12 05:56] LABS: ALBUMIN 2.7 g/dL (3.4-5.0); ANION GAP 17.1 mmol/L (8-16); BILIRUBIN - TOTAL 0.5 mg/dL (0.2-1.3); CARBON DIOXIDE 25.5 mmol/L (21.0-32.0); CREATININE - SERUM 5.5 mg/dL (0.6-1.3); POTASSIUM - SERUM 4.6 mmol/L (3.5-5.1)
[2018-12-12 05:59] LABS: PHOSPHOROUS 6.2 mg/dL (2.5-4.9)
--- NOTE | 2018-12-12 07:10 | NUR ---
REPORT RECIEVED FROM TOY ELECTRIC TRAIN REPAIRER. PATIENT LAYING IN BED ON BACK WITH EYES CLOSED AND BREATHING EVENLY. RT LEG STUMP ON ONE PILLOW. VSS. WILL CONTINUE WITH PLAN OF CARE. SR UP X 2 BED IN LOW POSITION AND CALL LIGHT IN REACH.
[2018-12-12 09:11] VITALS: BP 109/74
--- NOTE | 2018-12-12 10:30 | NUR ---
PATIENT COMPLAINS OF PAIN TO RT AKA. MEDICATED PER NOV. PATIENT WAS BATHED AND LINEN CHANGED. PATIENT TOLERATED WELL. DRSG TO JENNIFER LEG STUMPS C/D/I. WILL CONTINUE TO MONITOR.
--- NOTE | 2018-12-12 11:30 | NUR ---
PATIENT IS STABLE AND VSS. PATIENT TO DIALYSIS VIA BED AND HOSPITAL PERSONNEL.
[2018-12-12 12:44] VITALS: BP 110/71
--- NOTE | 2018-12-12 14:03 | MORECARE ---
CASE MANAGEMENT DISCHARGE SUMMARY PATIENT: BOB REYES UNIT: [id number] ADM DATE: 11/21/18 AGE: 63 : 54 SEX: M ROOM/BED: D.2135 AUTHOR: MONTEZ HUNTER PHYSICIAN: REFERRING PHYSICIAN: OLAYINKA NUNO MD DATE OF SERVICE: 12/12/18 Discharge Plan Patient Name: [facility]OB REYES [facility] [facility] 1955 Planned Disposition: Inpatient Rehab Facility Anticipated Discharge Date: 12/13/18 Discharge Date: Expected LOS: 22 Initial Reviewer: [id number] Initial Review Date: 11/21/2018 Generated: 12/12/18 3:02 pm Comments DCP- Discharge Planning Updated by [id number]: Suhas Lantigua on 12/12/18 12:[address] Patient Name: BOB REYES Encounter No: [id number] : 1955 Primary Insurance: MEDICARE A & B Anticipated DC Date: 12-13-2018 Planned Disposition: Inpatient Rehab Facility External Planned Provider: [facility] DCP follow-up note: CM SPOKE TO NAILA BALTAZAR WHO PLANS TO DISCHARGE PT TO REHAB WHEN THEY WILL ACCEPT AT [facility]. CM SPOKE TO ADILIA OF INPATIENT REHAB, THEY WILL SUBMIT TO PT'S INSURANCE FOR AUTHORIZATION PT'S INSURANCE REQUIRES PRIOR AUTHORIZATION. PT NOTIFIED, IN AGREEMENT WITH DISCHARGE TO INPATIENT REHAB. [facility] TO CONTACT MED 2 NURSE WHEN INSURANCE AUTHORIZATION IS OBTAINED. CM WAITING INSURANCE AUTHORIZATION OR DENIAL OF INPATIENT REHAB SERVICES. CHING Savage DCP- Discharge Planning Updated by [id number]: Suhas Lantigua on 12/11/18 4:[address] Patient Name: BOB REYES Encounter No: [id number] : 1955 Primary Insurance: MEDICARE A & B Anticipated DC Date: Planned Disposition: Inpatient Rehab Facility External Planned Provider: [facility] DCP follow-up note: CM RECEIVED ORDER FOR INPATIENT REHAB PRESCREENING, MET WITH PT IN ROOM TO DISCUSS DISCHARGE PLANNING AND NEEDS. CM DISCUSSED AVAILABILITY OF REHAB, LOCATIONS AND PROVIDERS. PT WOULD LIKE TO RETURN TO [facility] IN[facility] AT HOSPTIAL DISCHARGE. IMPORTANT MESSAGE FROM MEDICARE PROVIDED AND EXPLAINED. CM REVIEWED CHART, [facility] NOTED: Rehab continues to follow this patient. He went to the OR for a BKA today. He will need a PT eval reordered post op and be medically stable prior to being accepted to the ARU. CM TO CONTINUE TO FOLLOW AND ASSIST NEEDED. SUHAS LANTIGUA, CASE MANAGEMENT DCP- Discharge Planning Updated by [id number]: Suzi Sen on 11/25/18 6:[address] LATE ENTRY 1824 PATIENT SITTING ON THE SIDE OF THE BED. HE IS SCHEDULED FOR LEFT BKA IN THE AM. GAVE CONSENT FOR ASSESSMENT. UNDERSTANDS ROLE OF NET C DEVELOPER. HE STATES HE HAD A GOOD NET C DEVELOPER , CHRISTY, PREVIOUSLY. PLAN IS FOR ACUTE REHAB WHEN CLEARED FOR NEXT LEVEL OF CARE. HE IS VERY QUIET. IMPENDING SURGERY IS IN HIS THOUGHTS. PRELIMINARY INFORMATION NOTED. EXPLAINED CM WILL FOLLOW TO ASSIST. DME- STATES HE HAS A NEW "POWER CANE"- SHOWER BENCH. FAMILY WILL ASSIST. HAS SON AND DAUGHTER. CM TO FOLLOW. DCPIA - Discharge Planning Initial Assessment Updated by [id number]: Suzi Sen on 11/25/18 8:22 pm * Is the patient Alert and Oriented? Yes * How many steps to enter\\exit or inside your home? SIX/ RAIL * PCP DR CHANTAL NAVARRO [facility] * Pharmacy [facility] * Preadmission Environment Home with Family * ADLs Partial Dependent * Partial ADLs (Assistance needed) Transfers * Equipment Shower Chair * List name and contact numbers for known caregivers / representatives who currently or will assist patient after discharge: BOB REYES- [phone] * Verbal permission to speak to the caregivers and representatives has been obtained from the patient. No * Community resources currently utilized None * Additional services required to return to the preadmission environment? Yes * Can the patient safely return to the preadmission environment? Yes * Has this patient been hospitalized within the prior 30 days at any hospital? Yes Coverage Notice Reviewer: [id number] - Suhas Lantigua Notice Issued Date-Time: 12/11/2018 16:40 Notice Type: IM Discharge Notice Notice Delivered To: Patient Relationship to Patient: Tank Builder Supervisor Name: Delivery Method: HAND - Hand Delivered Kellie Days: Prior Verbal Notification: Recipient Understood Notice: Yes Recipient Signature: Yes Med Rec Note Co-signed by Attending: Coverage Notice Comment: Last DP export: 12/11/18 4:04 p Patient Name: BOB REYES Page [phone] at 1403 All edits/amendments must be made on the electronic document DICTATION DATE: 12/12/181401 AIRPLANE TUBE BUILDER: JEANNETTE 12/12/181401 RPT#: [id number] DC DATE: STATUS: ADM IN [facility] [address] [place] [address] END OF REPORT
--- NOTE | 2018-12-12 14:12 | NUR ---
PATIENTS FAMILY IN ROOM.ANSWERED SEVERAL QUESTIONS TO PATIENT AND FAMILY SATISFACTION. W
--- NOTE | 2018-12-12 14:32 | NUR ---
PT REFUSES TO RUN FULL 3 HOUR DIALYSIS TX. ONLY WILLING TO RUN 2 HOURS. STATES HE WANTS TO GET BACK ON MWF SCHEDULE. 1200 MLS REMOVED WITH NO COMPLICATIONS. FINAL BP 108/70 HR 87.
--- NOTE | 2018-12-12 14:58 | NUR ---
Renal ADA diet with poor - fair intake most meal Pt is eating Popeyes chicken now brought in by family Discussed the importance of nutrition while in the hospital and on dialysis. Encouraged pt to increase po intake Pt is drinking 3 Nepro per day Encouraged pt to continue with Nepro Pt reports no nutritional request at this time RD following
--- NOTE | 2018-12-12 15:03 | NUR ---
PATIENT RETURNED FROM DIALYSIS. VSS . PATIENT COMPLAINS OF PAIN TO RT AKA. MEDICATED PER NOV. DAUGHTER AT BEDSIDE. SR UP BEDE IN LOW POSITION AND CALL LIGHT INR [facility]
[2018-12-12 17:09] VITALS: BP 108/70
--- NOTE | 2018-12-12 19:45 | NUR ---
PT LAYING IN BED ALERT AND ORIENTED. RR EVEN AND UNLABORED. PT PAIN 5/10. DENIES ANY NEEDS AT THIS TIME. BED LOW CALL LIGHT WITHIN REACH. WILL CONTINUE TO MONITOR.
[2018-12-12 20:00] VITALS: BP 106/72
[2018-12-13] VITALS: BP 100/70; BP 98/66
[2018-12-13 04:00] VITALS: BP 110/78
--- NOTE | 2018-12-13 04:15 | NUR ---
I have reviewed this patient and I concur with the Shift Assessment completed by the Licensed Practical Nurse today this shift.
--- NOTE | 2018-12-13 04:40 | NUR ---
PT RESTING IN BED WITH EYES CLOSED. RR EVEN AND UNLABORED. PT 83 ON TELEMETRY PER DRAGLINE OILER GERI. BED LOW CALL LIGHT WITHIN REACH. WILL CONTINUE TO MONITOR.
[2018-12-13 06:38] LABS: BASOPHILS 0.3 % (0-2); EOSINOPHILS 0.1 % (0-7); HEMATOCRIT 27.4 % (42.0-54.0); HEMOGLOBIN 8.6 g/dL (13.5-17.5); IMMATURE GRANULOCYTES 0.1 % (0-5); LYMPHOCYTES 15.9 % (15-50); MCHC 31.4 g/dL (31.0-37.0); MCV 95.5 fL (80.0-100.0); MONOCYTES 10.6 % (2-11); PLATELET COUNT 159 10x3/uL (130-400); RBC 2.87 10x6/uL (4.20-6.10); RDW 19.6 % (11.5-14.5); WBC 7.6 10x3/uL (4.8-10.8)
[2018-12-13 06:57] LABS: ANION GAP 16.3 mmol/L (8-16); CALCIUM 10.1 mg/dL (8.5-10.1); CARBON DIOXIDE 27.9 mmol/L (21.0-32.0); CREATININE - SERUM 4.5 mg/dL (0.6-1.3); PHOSPHOROUS 5.6 mg/dL (2.5-4.9); POTASSIUM - SERUM 4.2 mmol/L (3.5-5.1)
--- NOTE | 2018-12-13 07:15 | NUR ---
REPORT RECIEVED FROM ELECTRICIAN MASTER. PATIENT LAYING IN BED ON BACK WITH RT LEG UNDER ONE PILLOW. PATIENT HAS EYES CLOSED AND BREATHING EVENLY. VSS. WILL CONTINUE WITH PLAN OF CARE. SR UP X 2 BED IN LOW POSITION AND CALL LIGHT IN REACH.
[2018-12-13 08:17] VITALS: BP 112/77
--- NOTE | 2018-12-13 09:30 | NUR ---
PATIENT IS STABLE AND VSS. PATIENT DENIES ANY NEEDS OR PAIN. PATIENT TO DIALYSIS VIA HOSPITAL BED AND HOSPITAL PERSONNEL.
--- NOTE | 2018-12-13 10:32 | NUR ---
Rehab note- Received fax for clinicals to be faxed for review for inpatient acute rehab stay. Faxed clinicals at this time to Ofelia Pascal to [phone], her contact number is [phone]. Will continue to await determination. THank you for this referral! Mark Gonsalves RN CLinical Liaison, [facility] Rehab
--- NOTE | 2018-12-13 11:31 | OP ---
PATIENT NAME: BOB BURT MEDICAL RECORD: [id number] :53 LOCATION:D.M2 D.2135 ADMISSION DATE:11/21/18 SURGEON: BOB JARA MD DATE OF OPERATION: 12/11/2018 REFERRED BY: Arnulfo Burton MD PREOPERATIVE DIAGNOSES: End-stage renal disease and dependence on hemodialysis, diabetes, tobacco dependence, peripheral arterial disease with chronic ischemia, and developing gangrene, right lower extremity. OPERATION PERFORMED: Right below-knee amputation. SURGEON: Bob Jara MD ANESTHESIA: Regional nerve block plus general with LMA per CAFE HELPER. PREOPERATIVE NOTE: Mr. Burt is a 63-year-old white male patient with end-stage renal disease, on dialysis. He is a smoker and has a history of hypertension and diabetes. He has extremely severe calcific peripheral arterial disease and has been unhelped by all attempts and fairly extensive attempts at endovascular treatment. He is about 2 weeks status post left below-knee amputation, which was done with gangrene of the left foot and now with a severely ischemic right leg with developing gangrene in the right foot and no other means of vascular reconstruction. He is brought to the operating room for an amputation. I anticipated likely another AK, but we will consider a BK. DESCRIPTION OF PROCEDURE: The patient was given a nerve block and anesthesia, then placed in supine position, prepped and draped in sterile manner. The skin in the upper leg was warm and appear to be adequately vascularized, so I made a standard BKA incision with a short anterior and long posterior flaps. The tissues bled adequately. The muscle was adequately vascularized and viable and I opted to go ahead with the BK level. The soft tissues were divided predominantly with electrocautery. Vessels and larger nerves were divided between clamps and ligated or suture ligated with 2-0 and 3-0 Vicryl. The tibia and fibula were divided with a power saw. The tibia was bevelled anteriorly and the fibula was divided at a slightly higher level. The gastrocnemius was cut long to fit the skin flap. The soleus and deeper muscles pretty much transected perpendicularly. The stump was removed from the field. Hemostasis was quite excellent. Additional electrocautery was used to have it fairly minimally. The stump was irrigated with Ancef and gentamicin solution. No drain was needed. The stump was closed without the use of a drain approximating the superficial fascia with interrupted 2-0 Vicryl sutures. Skin was closed with interrupted alternating simple and vertical mattress sutures of 3-0 Vicryl. A sterile dressing a cylindrical fiberglass cast was applied to keep the knee in extension and the patient was then awakened from his anesthetic and taken to the recovery room. Blood loss during the operation about 75-100 cc, was unreplaced. Sponges, instruments, and needles were accounted for and the surgical specimen of course consisted of the amputated limb. I plan for the patient to go back to [facility] for treatment for the next few days before being transferred back to rehab. The cast is to remain in place for 5 days and plan now for it to be removed on Sunday and the wound inspected and redressed at that time. I have consulted the tap out operator to help to manage the wound care. The patient will resume all of his same medications, although I OPERATIVE REPORT [id number] BOB BURT plan to hold Lovenox another 24 hours. TRANSINT:[id number] Voice Confirmation ID: [id number] DOCUMENT ID: [id number] BOB JARA MD at 1131 CC: ARNULFO BURTON MD [id number] DICTATION DATE: 12/11/18 1039 RN ED: 12/11/18 1130 ADM IN [place] [id number] [place] [address]
--- NOTE | 2018-12-13 12:00 | NUR ---
NUTRITION F/U CHART REVIEWED. PT ON CLEAR LIQUID DIET. MAY BENEFIT FROM PROCALAMINE IF UNABLE TO ADVANCE TO FULL LIQUID DIET. RD FOLLOWING
--- NOTE | 2018-12-13 12:45 | NUR ---
PATIENT RETURNED FROM DIALYSIS. VSS. PATIENT IS STABLE. PATIENT DENIES ANY NEEDS OR PAIN. SR UP X 2 BED IN LOW POSITION AND CALL LIGHT IN REACH.
--- NOTE | 2018-12-13 13:50 | NUR ---
PATIENT MEDICATED WITH PERCOCET. SR UP X 2 BED IN LOW POSITION AND CALL LIGHT IN REACH.
--- NOTE | 2018-12-13 14:02 | NUR ---
PATIENT UP TO BEDSIDE CHAIR BY PT. PATIENT TOLERATED WELL AND STATES THAT HE IS HAPPY TO BE UP. WILL CONTINUE TO MONITOR. CALL LIGHT IN REACH.
--- NOTE | 2018-12-13 15:24 | NUR ---
PATIENT REURNED TO BED BY PT. PATIENT TOLERATED WELL. DENIES ANY NEEDS OR PAIN. WILL CONTINUE TO MONITOR. SR UP X 2 BED IN LOW POSITION AND CALL LIGHT IN REACH.
[2018-12-13 16:08] VITALS: BP 103/71
--- NOTE | 2018-12-13 18:09 | NUR ---
PATIENT RESTING COMFORTABLY IN BED. PATIENT DENIES ANY NEEDS OR PAIN. WILL CONTINUE TO MONITOR.SR UP X 2 BED IN LOW POSITION AND CALL LIGHT IN REACH.
--- NOTE | 2018-12-13 19:23 | NUR ---
PT IN BED. REQUESTS PAIN MEDS. DENIES FURHTER NEEDS AT THIS TIME.
[2018-12-13 20:00] VITALS: BP 103/72
--- NOTE | 2018-12-14 02:06 | NUR ---
I have reviewed this patient and I concur with the Shift Assessment completed by the Licensed Practical Nurse today this shift.
[2018-12-14 04:23] VITALS: BP 110/73
--- NOTE | 2018-12-14 05:29 | NUR ---
FSBS 81 AT THIS TIME. PROVIDED COOKIES FOR PT TO SNACK ON WHILE AWAITING BREAKFAST.
[2018-12-14 05:49] LABS: BASOPHILS 0.2 % (0-2); EOSINOPHILS 0.3 % (0-7); HEMATOCRIT 26.8 % (42.0-54.0); HEMOGLOBIN 8.4 g/dL (13.5-17.5); IMMATURE GRANULOCYTES 0.2 % (0-5); LYMPHOCYTES 14.1 % (15-50); MCHC 31.3 g/dL (31.0-37.0); MCV 95.7 fL (80.0-100.0); MEAN PLATELET VOLUME 9.5 fL (7.4-10.4); MONOCYTES 11.6 % (2-11); NEUTROPHILS 73.6 % (40-80); PLATELET COUNT 148 10x3/uL (130-400); RDW 19.6 % (11.5-14.5); WBC 6.7 10x3/uL (4.8-10.8)
[2018-12-14 06:17] LABS: ANION GAP 14.2 mmol/L (8-16); CALCIUM 9.7 mg/dL (8.5-10.1); CARBON DIOXIDE 28.5 mmol/L (21.0-32.0); CREATININE - SERUM 3.7 mg/dL (0.6-1.3); PHOSPHOROUS 4.6 mg/dL (2.5-4.9); POTASSIUM - SERUM 3.7 mmol/L (3.5-5.1)
--- NOTE | 2018-12-14 07:54 | NUR ---
SLEEPING AT PRESENT.
[2018-12-14 09:23] VITALS: BP 108/62
[2018-12-14 11:38] VITALS: BP 111/66
[2018-12-14 16:15] VITALS: BP 103/61
--- NOTE | 2018-12-14 19:15 | NUR ---
WALKING ROUNDS AND REPORT RECEIVED. PT RESTING IN BED. NO DISTRESS. DRESSINGS INTACT TO BILATERAL LEFT AND RIGHT AKA. RIGHT IJ TRIALYSIS WITH DRESSING C/D/I. RESERVE LEFT ARM FOR AVF. MONITOR AND CPOC.
[2018-12-14 20:00] VITALS: BP 113/72
[2018-12-15] VITALS: BP 115/65
[2018-12-15 03:00] VITALS: BP 120/71
[2018-12-15 06:06] LABS: BASOPHILS 0.1 % (0-2); EOSINOPHILS 0.6 % (0-7); HEMATOCRIT 27.8 % (42.0-54.0); HEMOGLOBIN 8.7 g/dL (13.5-17.5); IMMATURE GRANULOCYTES 0.1 % (0-5); LYMPHOCYTES 15.4 % (15-50); MCH 29.8 pg (26.0-34.0); MCHC 31.3 g/dL (31.0-37.0); MCV 95.2 fL (80.0-100.0); MEAN PLATELET VOLUME 9.8 fL (7.4-10.4); MONOCYTES 7.5 % (2-11); NEUTROPHILS 76.3 % (40-80); PLATELET COUNT 174 10x3/uL (130-400); RBC 2.92 10x6/uL (4.20-6.10); WBC 7.2 10x3/uL (4.8-10.8)
[2018-12-15 06:32] LABS: ALBUMIN 2.4 g/dL (3.4-5.0); ANION GAP 13.9 mmol/L (8-16); BILIRUBIN - TOTAL 0.54 mg/dL (0.2-1.3); CALCIUM 10.3 mg/dL (8.5-10.1); POTASSIUM - SERUM 3.9 mmol/L (3.5-5.1); PROTEIN - SERUM 6.7 g/dL (6.4-8.2)
[2018-12-15 06:34] LABS: CREATININE - SERUM 4.7 mg/dL (0.6-1.3)
--- NOTE | 2018-12-15 07:10 | NUR ---
REPORT RECIEVED FROM TEST DRIVER. PATIENT LAYING IN BED WITH EYES CLOSED AND BREATHING EVENLY. WILL CONTINUE WITH PLAN OF CARE.
--- NOTE | 2018-12-15 07:10 | NUR ---
REPORT RECIEVED FROM HYDROCRANE OPERATOR. PATIENT LAYING IN BED ON BACK WITH RT UNDER ONE PILLOW. PATIENT EYES ARE CLOSED AND BREATHING EVENLY. WILL CONTINUE WITH PLAN OF CARE. SR UP X 2 BED IN LOW POSITION AND CALL LIGHT IN REACH.
[2018-12-15 09:27] VITALS: BP 110/71
[2018-12-15 11:56] VITALS: BP 114/75
--- NOTE | 2018-12-15 15:15 | NUR ---
PATIENT IS STABLE AND UCHANGED. WILL CONTINUE TO MONITOR.
--- NOTE | 2018-12-15 15:35 | NUR ---
PATIENT LAYING IN BED ON BACK RESTING COMFORTABLY. PATIENT DENIES PAIN OR NEEDS. VSS. WILL CONTINUE TO MONITOR. SR UP X 2 BED IN LOW POSITION AND CALL LIGHT IN REACH.
[2018-12-15 15:55] VITALS: BP 119/76
--- NOTE | 2018-12-15 19:28 | NUR ---
INITIAL ROUNDS AND ASSESSMENT COMPLETED. PT RESTING IN BED. DRESSING TO RIGHT BKA AND LEFT AKA C/D/I. RIGHT IJ CVL SALINE LOCKED WITH DRESSING C/D/I. SR PER TELEMETRY. MONITOR AND CPOC.
[2018-12-15 20:00] VITALS: BP 107/72
--- NOTE | 2018-12-15 21:17 | NUR ---
BEDTIME MEDS GIVEN FSBS 160. PT DECLINED SLIDING SCALE INSULIN , BUT DID TAKE HIS LANTUS 12 UNITS. DENIES NEED FOR PAIN PILL AT THIS TIME.
[2018-12-16 00:25] VITALS: BP 107/69
--- NOTE | 2018-12-16 04:18 | NUR ---
PT RESTING IN BED WITH EYES CLOSED. RESPS EVEN/NONLABORED. NO DISTRESS. CALL LIGHT IN REACH. MONITOR AND CPOC.
[2018-12-16 04:25] VITALS: BP 102/66
[2018-12-16 07:20] LABS: ALBUMIN 2.4 g/dL (3.4-5.0); ANION GAP 14.2 mmol/L (8-16); BILIRUBIN - TOTAL 0.56 mg/dL (0.2-1.3); CALCIUM 10.3 mg/dL (8.5-10.1); CARBON DIOXIDE 26.6 mmol/L (21.0-32.0); CREATININE - SERUM 5.2 mg/dL (0.6-1.3); POTASSIUM - SERUM 3.8 mmol/L (3.5-5.1); PROTEIN - SERUM 6.7 g/dL (6.4-8.2)
[2018-12-16 07:39] LABS: BASOPHILS 0 % (0-2); EOSINOPHILS 0.7 % (0-7); HEMATOCRIT 26.8 % (42.0-54.0); HEMOGLOBIN 8.4 g/dL (13.5-17.5); IMMATURE GRANULOCYTES 0.1 % (0-5); LYMPHOCYTES 14.2 % (15-50); MCH 29.6 pg (26.0-34.0); MCHC 31.3 g/dL (31.0-37.0); MCV 94.4 fL (80.0-100.0); MEAN PLATELET VOLUME 9.7 fL (7.4-10.4); MONOCYTES 7.2 % (2-11); NEUTROPHILS 77.8 % (40-80); PLATELET COUNT 167 10x3/uL (130-400); RBC 2.84 10x6/uL (4.20-6.10); RDW 18.6 % (11.5-14.5); WBC 7.2 10x3/uL (4.8-10.8)
[2018-12-16 08:30] VITALS: BP 108/72
--- NOTE | 2018-12-16 09:33 | NUR ---
Rehab Note- Received authorization for an inpatient acute rehab stay. Will plan on admitting the patient to [facility] Acute Inpatient Rehab. Thank you for this referral! Cleo Gonsalves RN Clinical Liaison, [facility] Rehab
--- NOTE | 2018-12-16 13:36 | MORECARE ---
CASE MANAGEMENT DISCHARGE SUMMARY PATIENT: BOB REYES UNIT: [id number] ADM DATE: 11/21/18 AGE: 63 : 53 SEX: M ROOM/BED: D.2135 AUTHOR: MONTEZ HUNTER PHYSICIAN: REFERRING PHYSICIAN: OLAYINKA NUNO MD DATE OF SERVICE: 12/16/18 Discharge Plan Patient Name: BOB REYES Facility: [facility]:[place] : 1955 Planned Disposition: Inpatient Rehab Facility Anticipated Discharge Date: 12/16/18 Discharge Date: Expected LOS: 25 Initial Reviewer: [id number] Initial Review Date: 11/21/2018 Generated: 12/16/18 2:36 pm Comments DCP- Discharge Planning Updated by [email or web address]: Suhas Lantigua on 12/16/18 12:[address] Patient Name: BOB REYES Encounter No: [id number] : 1955 Primary Insurance: MEDICARE A & B Anticipated DC Date: 12-16-2018 Planned Disposition: Inpatient Rehab Facility External Planned Provider: [facility] DCP follow-up note: CM SPOKE TO ADILIA OF INPATIENT REHAB, THEY PLAN TO ACCEPT PT TODAY FOR REHAB AND HAVE RECEIVED INSURANCE AUTHORIZATION FOR SERVICES FROM PT'S INSURANCE. CM NOTIFIED NAILA DIXON. CM ATTEMPTED TO NOTIFY PT IN ROOM AND PROVIDE IMPORTANT MESSAGE FROM MEDICARE, PT WAS NOT THERE AND IN DIALYSIS. [facility] TO CONTACT MED 2 NURSE WITH ROOM NUMBER WHEN READY TO ACCEPT PT AND NURSE REPORT. Suhas Lantigua, CASE MANAGEMENT DCP- Discharge Planning Updated by [id number]: Suhas Lantigua on 12/12/18 12:[address] Patient Name: BOB REYES Encounter No: [id number] : 1955 Primary Insurance: MEDICARE A & B Anticipated DC Date: 12-13-2018 Planned Disposition: Inpatient Rehab Facility External Planned Provider: [facility] DCP follow-up note: CM SPOKE TO NAILA BALTAZAR WHO PLANS TO DISCHARGE PT TO REHAB WHEN THEY WILL ACCEPT AT [facility]. CM SPOKE TO ADILIA OF INPATIENT REHAB, THEY WILL SUBMIT TO PT'S INSURANCE FOR AUTHORIZATION PT'S INSURANCE REQUIRES PRIOR AUTHORIZATION. PT NOTIFIED, IN AGREEMENT WITH DISCHARGE TO INPATIENT REHAB. [facility] TO CONTACT MED 2 NURSE WHEN INSURANCE AUTHORIZATION IS OBTAINED. CM WAITING INSURANCE AUTHORIZATION OR DENIAL OF INPATIENT REHAB SERVICES. Suhas Lantigua, CASE MANAGEMENT DCP- Discharge Planning Updated by [id number]: Suhas Lantigua on 12/11/18 4:[address] Patient Name: BOB REYES Encounter No: [id number] : 1955 Primary Insurance: MEDICARE A & B Anticipated DC Date: Planned Disposition: Inpatient Rehab Facility External Planned Provider: [facility] DCP follow-up note: CM RECEIVED ORDER FOR INPATIENT REHAB PRESCREENING, MET WITH PT IN ROOM TO DISCUSS DISCHARGE PLANNING AND NEEDS. CM DISCUSSED AVAILABILITY OF REHAB, LOCATIONS AND PROVIDERS. PT WOULD LIKE TO RETURN TO [facility] AT HOSPTIAL DISCHARGE. IMPORTANT MESSAGE FROM MEDICARE PROVIDED AND EXPLAINED. CM REVIEWED CHART, [facility] OF [facility] NOTED: Rehab continues to follow this patient. He went to the OR for a BKA today. He will need a PT eval reordered post op and be medically stable prior to being accepted to the ARU. CM TO CONTINUE TO FOLLOW AND ASSIST NEEDED. SUHAS LANTIGUA, CASE MANAGEMENT DCP- Discharge Planning Updated by [id number]: Suzi Sen on 11/25/18 6:[address] LATE ENTRY 182 PATIENT SITTING ON THE SIDE OF THE BED. HE IS SCHEDULED FOR LEFT BKA IN THE AM. GAVE CONSENT FOR ASSESSMENT. UNDERSTANDS ROLE OF REFRIGERATION SUPERVISOR. HE STATES HE HAD A GOOD REFRIGERATION SUPERVISOR , CHRISTY, PREVIOUSLY. PLAN IS FOR ACUTE REHAB WHEN CLEARED FOR NEXT LEVEL OF CARE. HE IS VERY QUIET. IMPENDING SURGERY IS IN HIS THOUGHTS. PRELIMINARY INFORMATION NOTED. EXPLAINED CM WILL FOLLOW TO ASSIST. DME- STATES HE HAS A NEW "POWER CANE"- SHOWER BENCH. FAMILY WILL ASSIST. HAS SON AND DAUGHTER. CM TO FOLLOW. DCPIA - Discharge Planning Initial Assessment Updated by [id number]: Suzi Sen on 11/25/18 8:22 pm * Is the patient Alert and Oriented? Yes * How many steps to enter\\exit or inside your home? SIX/ RAIL * PCP DR CHANTAL NAVARRO [facility] * Pharmacy [facility] Preadmission Environment Home with Family * ADLs Partial Dependent * Partial ADLs (Assistance needed) Transfers * Equipment Shower Chair * List name and contact numbers for known caregivers / representatives who currently or will assist patient after discharge: BOB REYES- [phone] * Verbal permission to speak to the caregivers and representatives has been obtained from the patient. No * Community resources currently utilized None * Additional services required to return to the preadmission environment? Yes * Can the patient safely return to the preadmission environment? Yes * Has this patient been hospitalized within the prior 30 days at any hospital? Yes Coverage Notice Reviewer: [id number] Sally Lantigua Notice Issued Date-Time: 12/11/2018 16:40 Notice Type: IM Discharge Notice Notice Delivered To: Patient Relationship to Patient: Military Professional Name: Delivery Method: HAND - Hand Delivered Kellie Days: Prior Verbal Notification: Recipient Understood Notice: Yes Recipient Signature: Yes Med Rec Note Co-signed by Attending: Coverage Notice Comment: Last DP export: 12/12/18 1:02 p Patient Name: BOB REYES Page [phone] at 1336 All edits/amendments must be made on the electronic document DICTATION DATE: 12/16/181335 CAKE MIXER: JEANNETTE 12/16/18 1336 RPT#: [id number] DC DATE: STATUS: ADM IN [facility] [address] [place] [address] END OF REPORT
[2018-12-16] MEDS ORDERED: ELAVIL25 MG PO (13:44)
[2018-12-16] MEDS ORDERED: APAP325 MG PO (15:13)
--- NOTE | 2018-12-16 16:58 | MORECARE ---
CASE MANAGEMENT DISCHARGE SUMMARY PATIENT: BOB REYES UNIT: [id number] ADM DATE: 11/21/18 AGE: 63 : 54 SEX: M ROOM/BED: D.2135 AUTHOR: MONTEZ HUNTER PHYSICIAN: REFERRING PHYSICIAN: OLAYINKA NUNO MD DATE OF SERVICE: 12/16/18 Discharge Plan Patient Name: BOB REYES [facility] [facility] 1955 Planned Disposition: Inpatient Rehab Facility Anticipated Discharge Date: 12/16/18 Discharge Date: Expected LOS: 25 Initial Reviewer: [id number] Initial Review Date: 11/21/2018 Generated: 12/16/18 5:58 pm Comments DCP- Discharge Planning Updated by [id number]: Suhas Lantigua on 12/16/18 3:[address] Patient Name: BOB REYES Encounter No: [id number] : 1955 Primary Insurance: MEDICARE A & B Anticipated DC Date: 12-16-2018 Planned Disposition: Inpatient Rehab Facility External Planned Provider: [facility] DCP follow-up note: CM SPOKE TO ADILIA OF INPATIENT REHAB, THEY PLAN TO ACCEPT PT TODAY FOR REHAB AND HAVE RECEIVED INSURANCE AUTHORIZATION FOR SERVICES FROM PT'S INSURANCE. CM NOTIFIED NAILA DIXON. CM ATTEMPTED TO NOTIFY PT IN ROOM AND PROVIDE IMPORTANT MESSAGE FROM MEDICARE, PT WAS NOT THERE AND IN DIALYSIS. [facility] TO CONTACT MED 2 NURSE WITH ROOM NUMBER WHEN READY TO ACCEPT PT AND NURSE REPORT. Suhas Lantigua, CASE MANAGEMENT Appended by Suhas Lantigua on 12/16/2018 16:54 CDT: CM MET WITH PT IN ROOM, NOTIFIED OF REHAB ACCEPTANCE AND DISCHARGE TO REHAB TODAY, PT IN AGREEMENT WITH PLAN. CM PROVIDED AND EXPLAINED IMPORTANT MESSAGE FROM MEDICARE. [facility] TO CONTACT MED 2 NURSE WITH ROOM NUMBER WHEN READY TO ACCEPT PT AND NURSE REPORT. CHING Savage DCP- Discharge Planning Updated by [id number]: Suhas Lantigua on 12/12/18 12:[address] Patient Name: BOB REYES Encounter No: [id number] : 1955 Primary Insurance: MEDICARE A & B Anticipated DC Date: 12-13-2018 Planned Disposition: Inpatient Rehab Facility External Planned Provider: [facility] DCP follow-up note: CM SPOKE TO NAILA BALTAZAR WHO PLANS TO DISCHARGE PT TO REHAB WHEN THEY WILL ACCEPT AT [facility]. CM SPOKE TO ADILIA OF INPATIENT REHAB, THEY WILL SUBMIT TO PT'S INSURANCE FOR AUTHORIZATION PT'S INSURANCE REQUIRES PRIOR AUTHORIZATION. PT NOTIFIED, IN AGREEMENT WITH DISCHARGE TO INPATIENT REHAB. [facility] TO CONTACT MED 2 NURSE WHEN INSURANCE AUTHORIZATION IS OBTAINED. CM WAITING INSURANCE AUTHORIZATION OR DENIAL OF INPATIENT REHAB SERVICES. Suhas Lantigua, CASE MANAGEMENT DCP- Discharge Planning Updated by [email or web address]: Suhas Lantigua on 12/11/18 4:[address] Patient Name: BOB REYES Encounter No: [id number] : 1955 Primary Insurance: MEDICARE A & B Anticipated DC Date: Planned Disposition: Inpatient Rehab Facility External Planned Provider: [facility] DCP follow-up note: CM RECEIVED ORDER FOR INPATIENT REHAB PRESCREENING, MET WITH PT IN ROOM TO DISCUSS DISCHARGE PLANNING AND NEEDS. CM DISCUSSED AVAILABILITY OF REHAB, LOCATIONS AND PROVIDERS. PT WOULD LIKE TO RETURN TO [facility] INPAT[facility] RE[facility] AT HOSPTIAL DISCHARGE. IMPORTANT MESSAGE FROM MEDICARE PROVIDED AND EXPLAINED. CM REVIEWED CHART, [facility] OF [facility] NOTED: Rehab continues to follow this patient. He went to the OR for a BKA today. He will need a PT eval reordered post op and be medically stable prior to being accepted to the ARU. CM TO CONTINUE TO FOLLOW AND ASSIST NEEDED. SUHAS LANTIGUA, CASE MANAGEMENT DCP- Discharge Planning Updated by [email or web address]: Suzi Sen on 11/25/18 6:[address] LATE ENTRY 1824 PATIENT SITTING ON THE SIDE OF THE BED. HE IS SCHEDULED FOR LEFT BKA IN THE AM. GAVE CONSENT FOR ASSESSMENT. UNDERSTANDS ROLE OF SAWDUST DRIER. HE STATES HE HAD A GOOD SAWDUST DRIER , CHRISTY, PREVIOUSLY. PLAN IS FOR ACUTE REHAB WHEN CLEARED FOR NEXT LEVEL OF CARE. HE IS VERY QUIET. IMPENDING SURGERY IS IN HIS THOUGHTS. PRELIMINARY INFORMATION NOTED. EXPLAINED CM WILL FOLLOW TO ASSIST. DME- STATES HE HAS A NEW "POWER CANE"- SHOWER BENCH. FAMILY WILL ASSIST. HAS SON AND DAUGHTER. CM TO FOLLOW. DCPIA - Discharge Planning Initial Assessment Updated by [email or web address]: Suzi Sen on 11/25/18 8:22 pm * Is the patient Alert and Oriented? Yes * How many steps to enter\\exit or inside your home? SIX/ RAIL * PCP DR CHANTAL NAVARRO [facility] * Pharmacy [facility] * Preadmission Environment Home with Family * ADLs Partial Dependent * Partial ADLs (Assistance needed) Transfers * Equipment Shower Chair * List name and contact numbers for known caregivers / representatives who currently or will assist patient after discharge: BOB REYES- [phone] * Verbal permission to speak to the caregivers and representatives has been obtained from the patient. No * Community resources currently utilized None * Additional services required to return to the preadmission environment? Yes * Can the patient safely return to the preadmission environment? Yes * Has this patient been hospitalized within the prior 30 days at any hospital? Yes Coverage Notice Reviewer: RONEY Lantigua Notice Issued Date-Time: 12/11/2018 16:40 Notice Type: IM Discharge Notice Notice Delivered To: Patient Relationship to Patient: Sales Office Assistant Name: Delivery Method: HAND - Hand Delivered Kellie Days: Prior Verbal Notification: Recipient Understood Notice: Yes Recipient Signature: Yes Med Rec Note Co-signed by Attending: Coverage Notice Comment: Reviewer: RONEY Lantigua Notice Issued Date-Time: 12/16/2018 10:55 Notice Type: IM Discharge Notice Notice Delivered To: Patient Relationship to Patient: Sales Office Assistant Name: Delivery Method: HAND - Hand Delivered Kellie Days: Prior Verbal Notification: Recipient Understood Notice: Yes Recipient Signature: Yes Med Rec Note Co-signed by Attending: Coverage Notice Comment: Last DP export: 12/16/18 12:36 p Patient Name: BOB REYES Page [phone] at 1658 All edits/amendments must be made on the electronic document DICTATION DATE: 12/16/181656 SECTION CHIEF: JEANNETTE 12/16/181656 RPT#: [id number] DC DATE: STATUS: ADM IN [facility] [address] [place] [address] END OF REPORT
== END 2018-12-16 19:00 | DRG 239 ==
LOC: D.M2 15:08 → D.ICU 15:08 → D.M2 11-30 16:30
PROVIDERS: Emergency Medicine; General Practice; Internal Medicine Nephrology; Surgery; ADMIT Emergency Medicine; ATTEND Emergency Medicine
PROC: B41F1ZZ Fluoroscopy of Right Lower Extremity Arteries using Low Osmolar Contrast (ICD-10-PCS; 2018-11-22)
PROC: 5A1D70Z Performance of Urinary Filtration, Intermittent, Less than 6 Hours Per Day (ICD-10-PCS; 2018-11-22)
PROC: 0Y6D0Z3 Detachment at Left Upper Leg, Low, Open Approach (ICD-10-PCS; principal; 2018-11-26 12:00)
PROC: 02H633Z Insertion of Infusion Device into Right Atrium, Percutaneous Approach (ICD-10-PCS; 2018-11-27)
PROC: B244ZZZ Ultrasonography of Right Heart (ICD-10-PCS; 2018-11-27)
PROC: B41F1ZZ Fluoroscopy of Right Lower Extremity Arteries using Low Osmolar Contrast (ICD-10-PCS; 2018-12-05)
PROC: 047K3ZZ Dilation of Right Femoral Artery, Percutaneous Approach (ICD-10-PCS; 2018-12-09)
PROC: 047M3ZZ Dilation of Right Popliteal Artery, Percutaneous Approach (ICD-10-PCS; 2018-12-09)
PROC: 0Y6H0Z2 Detachment at Right Lower Leg, Mid, Open Approach (ICD-10-PCS; 2018-12-11)
DX: E11.52 Type 2 diabetes mellitus with diabetic peripheral angiopathy with gangrene (principal); N18.6 End stage renal disease; E87.1 Hypo-osmolality and hyponatremia; I70.261 Atherosclerosis of native arteries of extremities with gangrene, right leg; I13.2 Hypertensive heart and chronic kidney disease with heart failure and with stage 5 chronic kidney disease, or end stage renal disease; N25.81 Secondary hyperparathyroidism of renal origin; T25.022D Burn of unspecified degree of left foot, subsequent encounter; T25.021D Burn of unspecified degree of right foot, subsequent encounter; X11.0XXD Contact with hot water in bath or tub, subsequent encounter; E11.22 Type 2 diabetes mellitus with diabetic chronic kidney disease; Z99.2 Dependence on renal dialysis; D50.9 Iron deficiency anemia, unspecified; E78.5 Hyperlipidemia, unspecified; J44.9 Chronic obstructive pulmonary disease, unspecified; I50.9 Heart failure, unspecified

== ENCOUNTER 2018-12-16 16:01 | Inpatient (IN) | payer MEDICARE ==
[~2018-12-16] VITALS: Ht 182.9 cm; Wt 83.7 kg
[~2018-12-16 16:01] MED LIST changes: +APAP325 MG PO; +ELAVIL25 MG PO
[2018-12-16 19:00] VITALS: BP 105/68
[2018-12-16 21:23] VITALS: BP 105/68; BMI 13.7
[2018-12-17 06:35] LABS: BASOPHILS 0.1 % (0-2); EOSINOPHILS 0 % (0-7); HEMATOCRIT 27.6 % (42.0-54.0); HEMOGLOBIN 8.7 g/dL (13.5-17.5); IMMATURE GRANULOCYTES 0.2 % (0-5); LYMPHOCYTES 7.2 % (15-50); MCH 29.7 pg (26.0-34.0); MCHC 31.5 g/dL (31.0-37.0); MCV 94.2 fL (80.0-100.0); MEAN PLATELET VOLUME 9.8 fL (7.4-10.4); MONOCYTES 6.8 % (2-11); NEUTROPHILS 85.7 % (40-80); PLATELET COUNT 157 10x3/uL (130-400); RBC 2.93 10x6/uL (4.20-6.10); RDW 18.5 % (11.5-14.5); WBC 9.2 10x3/uL (4.8-10.8)
[2018-12-17 06:58] LABS: ANION GAP 14.5 mmol/L (8-16); CALCIUM 10.2 mg/dL (8.5-10.1); CARBON DIOXIDE 27.9 mmol/L (21.0-32.0); POTASSIUM - SERUM 3.4 mmol/L (3.5-5.1)
[2018-12-17 07:01] LABS: CREATININE - SERUM 3.7 mg/dL (0.6-1.3)
[2018-12-17 12:01] VITALS: BP 88/54
[2018-12-17 13:57] VITALS: Ht 182.9 cm; Wt 83.7 kg
[2018-12-17 18:00] VITALS: BP 84/54
[2018-12-18 00:03] VITALS: BP 97/59
[2018-12-18 05:54] VITALS: BP 103/69
[2018-12-18 07:15] LABS: BASOPHILS 0.2 % (0-2); EOSINOPHILS 0.8 % (0-7); HEMATOCRIT 28.8 % (42.0-54.0); HEMOGLOBIN 9.1 g/dL (13.5-17.5); IMMATURE GRANULOCYTES 0.2 % (0-5); LYMPHOCYTES 16.3 % (15-50); MCH 29.7 pg (26.0-34.0); MCHC 31.6 g/dL (31.0-37.0); MCV 94.1 fL (80.0-100.0); MEAN PLATELET VOLUME 9.8 fL (7.4-10.4); MONOCYTES 6.7 % (2-11); NEUTROPHILS 75.8 % (40-80); PLATELET COUNT 152 10x3/uL (130-400); RBC 3.06 10x6/uL (4.20-6.10); RDW 18.1 % (11.5-14.5)
[2018-12-18 07:34] LABS: ALBUMIN 2.2 g/dL (3.4-5.0); ANION GAP 16.7 mmol/L (8-16); BILIRUBIN - TOTAL 0.59 mg/dL (0.2-1.3); CALCIUM 10.2 mg/dL (8.5-10.1); CARBON DIOXIDE 24.8 mmol/L (21.0-32.0); CREATININE - SERUM 4.4 mg/dL (0.6-1.3); PHOSPHOROUS 5.6 mg/dL (2.5-4.9); POTASSIUM - SERUM 3.5 mmol/L (3.5-5.1); PROTEIN - SERUM 6.4 g/dL (6.4-8.2); WBC 6.4 10x3/uL (4.8-10.8)
[2018-12-18 11:56] VITALS: BP 97/61
[2018-12-18 18:00] VITALS: BP 90/59
[2018-12-19 00:01] VITALS: BP 88/54
[2018-12-19 06:35] VITALS: BP 97/55
[2018-12-19 12:06] VITALS: BP 114/76
[2018-12-19] MEDS ORDERED: COLCRYS0.6 MG PO (12:35)
[2018-12-19 18:00] VITALS: BP 111/74
[2018-12-19 19:52] VITALS: BP 111/74
[2018-12-20 00:02] VITALS: BP 91/56
[2018-12-20 05:52] VITALS: BP 95/63
[2018-12-20 06:34] LABS: BASOPHILS 0 % (0-2); EOSINOPHILS 0.3 % (0-7); HEMATOCRIT 28.8 % (42.0-54.0); HEMOGLOBIN 9.2 g/dL (13.5-17.5); IMMATURE GRANULOCYTES 0.3 % (0-5); LYMPHOCYTES 20.9 % (15-50); MCH 29.3 pg (26.0-34.0); MCHC 31.9 g/dL (31.0-37.0); MEAN PLATELET VOLUME 9.2 fL (7.4-10.4); MONOCYTES 7.5 % (2-11); PLATELET COUNT 171 10x3/uL (130-400); RBC 3.14 10x6/uL (4.20-6.10); RDW 17.7 % (11.5-14.5); WBC 6.5 10x3/uL (4.8-10.8)
[2018-12-20 06:40] LABS: MCV 91.7 fL (80.0-100.0)
[2018-12-20 06:52] LABS: CARBON DIOXIDE 25.7 mmol/L (21.0-32.0); POTASSIUM - SERUM 3.7 mmol/L (3.5-5.1)
[2018-12-20 07:07] LABS: CREATININE - SERUM 4.4 mg/dL (0.6-1.3)
[2018-12-20 14:21] VITALS: BP 101/67
--- NOTE | 2018-12-20 16:40 | OP ---
PATIENT NAME: BOB BURT MEDICAL RECORD: [id number] :53 LOCATION:[facility] ADMISSION DATE:12/16/18 SURGEON: BOB JARA MD DATE OF OPERATION: 12/20/2018 REFERRING PHYSICIAN: MD Micheal DIAGNOSES: Mechanical complication with stenosis and calcification of the left arm brachiobasilic arteriovenous fistula and central venous stenosis additionally OPERATION PERFORMED: Ultrasound-guided access times 2 with the fistulogram and angioplasty of stenotic segments in the JA portion and in the swing portion of the fistula and additionally balloon angioplasty of the subclavian vein on the left as it were crossed the first rib and was stenotic and also selective left brachial artery arteriogram. SURGEON: Bob Jara MD ANESTHESIA: Local MAC. PREOPERATIVE NOTE: Mr. Burt is a 63-year-old white male patient with end-stage renal disease and severe generalized calcific atherosclerosis. He is recently status post left AK and right BK amputations and has only within the last couple of months actually had to start dialysis using a fistula, which I had instructed about 2 years previously. 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 He is brought to the operating room for fistulogram and indicated procedures. DESCRIPTION OF PROCEDURE: With the patient under IV sedation and monitored per SUGAR HOUSE SUPERVISOR, he was placed in supine position. The left arm was prepped and draped in a sterile manner. The fistula was examined with Duplex ultrasound and at sites of access, skin was anesthetized with 1% lidocaine and the fistula was accessed eventually times 2 with micropuncture technique and two 6-Spanish introducers were placed in apposition. A guidewire and glide catheter were passed across the brachial artery anastomosis and a selective brachial artery arteriogram performed, which revealed no lesions of the brachial artery, but demonstrated filling of the fistula with a severe segmental JA segment stenosis of about 80-85% and a shorter 90% stenosis about 2 cm long in the swing segment. The fistulogram was carried through to the right atrium and there was a hemodynamically significant left subclavian vein stenosis. The areas of stricture were dilated. The distal JA segment was the most difficult to treat, it was dilated initially with a 5-mm angioplasty balloon and then that was increased to a 7-mm balloon and actually a 10-mm balloon was used prior to completion. The swing segment stenosis was dilated with a 7 and then subsequently with a 10 mm Conquest balloon with complete resolution of that stenosis and the subclavian vein stenosis was also dilated with the 10-mm balloon. Completion angiography demonstrated good flow in the fistula and no emboli or other abnormalities in the brachial artery. The introducer ports were removed and hemostasis obtained at those sites with kgehti-mv-uzdls 4-0 Prolene sutures and direct pressure, and then dressings of Ultrafoam, Tegaderm, and Cavilon skin prep were applied. He was awakened and taken to the recovery room. Blood loss during the operation was about 10 cc, none was replaced. Sponges, instruments, and needles were accounted for. No drain was used. OPERATIVE REPORT [id number] BOB BURT I will recommend that at least he continue his Plavix 75 mg daily and that we plan a followup angiogram either here or at [facility] in 4-6 weeks with preparation for additional angioplasty and possibly stenting of recurrent stenoses. Longer term, I suspect the patient will be needing an open revision with an implantation of an AV graft at some point. TRANSINT:[id number] Voice Confirmation ID: [id number] DOCUMENT ID: [id number] BOB JARA MD at 1640 CC: CHARU CRAIG MD [id number] DICTATION DATE: 12/20/18 1338 RIGGING FOREMAN: 12/20/18 1425 [facility] [place] [id number] [place] [address]
[2018-12-20 23:38] VITALS: BP 98/43
[2018-12-21 06:17] VITALS: BP 97/42
[2018-12-21 06:41] LABS: BASOPHILS 0.3 % (0-2); EOSINOPHILS 1.5 % (0-7); HEMATOCRIT 28.6 % (42.0-54.0); IMMATURE GRANULOCYTES 0.2 % (0-5); LYMPHOCYTES 27.4 % (15-50); MCH 29.5 pg (26.0-34.0); MCHC 31.5 g/dL (31.0-37.0); MEAN PLATELET VOLUME 9.9 fL (7.4-10.4); MONOCYTES 5.9 % (2-11); NEUTROPHILS 64.7 % (40-80); PLATELET COUNT 187 10x3/uL (130-400); RBC 3.05 10x6/uL (4.20-6.10)
[2018-12-21 06:55] LABS: MCV 93.8 fL (80.0-100.0)
[2018-12-21 07:01] LABS: ANION GAP 17.1 mmol/L (8-16); CALCIUM 9.7 mg/dL (8.5-10.1); CARBON DIOXIDE 24.8 mmol/L (21.0-32.0); CREATININE - SERUM 3.2 mg/dL (0.6-1.3); PHOSPHOROUS 3.7 mg/dL (2.5-4.9); POTASSIUM - SERUM 3.9 mmol/L (3.5-5.1)
[2018-12-21 08:32] VITALS: BP 98/67
[2018-12-21 13:16] VITALS: BP 91/58
[2018-12-21 18:11] VITALS: BP 99/62
[2018-12-21 20:00] VITALS: BP 97/61
[2018-12-22] VITALS: BP 94/54; BP 94/57
[2018-12-22 00:23] VITALS: BP 98/69
[2018-12-22 06:34] VITALS: BP 100/63
[2018-12-22 12:41] VITALS: BP 92/47
[2018-12-22 18:10] VITALS: BP 93/50
[2018-12-23] VITALS: BP 94/54
[2018-12-23 06:07] VITALS: BP 105/68
[2018-12-23 07:47] LABS: BASOPHILS 0.1 % (0-2); EOSINOPHILS 2.8 % (0-7); HEMATOCRIT 27.8 % (42.0-54.0); HEMOGLOBIN 8.7 g/dL (13.5-17.5); IMMATURE GRANULOCYTES 0.3 % (0-5); LYMPHOCYTES 24.6 % (15-50); MCH 28.9 pg (26.0-34.0); MCHC 31.3 g/dL (31.0-37.0); MCV 92.4 fL (80.0-100.0); MEAN PLATELET VOLUME 8.9 fL (7.4-10.4); MONOCYTES 4.8 % (2-11); NEUTROPHILS 67.4 % (40-80); PLATELET COUNT 164 10x3/uL (130-400); RBC 3.01 10x6/uL (4.20-6.10); RDW 17.9 % (11.5-14.5); WBC 6.9 10x3/uL (4.8-10.8)
[2018-12-23 08:04] LABS: ANION GAP 16.3 mmol/L (8-16); CARBON DIOXIDE 24.8 mmol/L (21.0-32.0); CREATININE - SERUM 4.5 mg/dL (0.6-1.3); POTASSIUM - SERUM 4.1 mmol/L (3.5-5.1)
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
[2018-12-23 11:47] VITALS: BP 97/61
[2018-12-23 18:00] VITALS: BP 100/64
[2018-12-23 19:12] VITALS: BP 100/64
[2018-12-24 01:00] VITALS: BP 107/49
[2018-12-24 05:46] VITALS: BP 106/72
[2018-12-24 06:29] LABS: BASOPHILS 0.2 % (0-2); EOSINOPHILS 1.6 % (0-7); HEMATOCRIT 28.6 % (42.0-54.0); HEMOGLOBIN 8.9 g/dL (13.5-17.5); IMMATURE GRANULOCYTES 0.2 % (0-5); LYMPHOCYTES 22.9 % (15-50); MCH 29.1 pg (26.0-34.0); MCHC 31.1 g/dL (31.0-37.0); MCV 93.5 fL (80.0-100.0); MEAN PLATELET VOLUME 9.2 fL (7.4-10.4); MONOCYTES 5.4 % (2-11); NEUTROPHILS 69.7 % (40-80); PLATELET COUNT 172 10x3/uL (130-400); RBC 3.06 10x6/uL (4.20-6.10); RDW 18.2 % (11.5-14.5); WBC 6.1 10x3/uL (4.8-10.8)
[2018-12-24 06:50] LABS: ANION GAP 12.5 mmol/L (8-16); CALCIUM 9.7 mg/dL (8.5-10.1); CARBON DIOXIDE 28.3 mmol/L (21.0-32.0); PHOSPHOROUS 3.5 mg/dL (2.5-4.9); POTASSIUM - SERUM 3.8 mmol/L (3.5-5.1)
[2018-12-24 06:55] LABS: CREATININE - SERUM 3.2 mg/dL (0.6-1.3)
[2018-12-24 11:46] VITALS: BP 135/42
[2018-12-24 18:00] VITALS: BP 93/62
[2018-12-24 21:29] VITALS: BP 93/62
[2018-12-25 05:55] VITALS: BP 77/40
[2018-12-25 08:36] LABS: ANION GAP 14.6 mmol/L (8-16); CALCIUM 9.9 mg/dL (8.5-10.1); CARBON DIOXIDE 26.3 mmol/L (21.0-32.0); CREATININE - SERUM 3.9 mg/dL (0.6-1.3); POTASSIUM - SERUM 3.9 mmol/L (3.5-5.1)
[2018-12-25 08:58] LABS: BASOPHILS 0.2 % (0-2); HEMATOCRIT 28.4 % (42.0-54.0); HEMOGLOBIN 8.8 g/dL (13.5-17.5); LYMPHOCYTES 23.5 % (15-50); MCH 28.9 pg (26.0-34.0); MCV 93.1 fL (80.0-100.0); MONOCYTES 6.4 % (2-11); NEUTROPHILS 67.9 % (40-80); PLATELET COUNT 189 10x3/uL (130-400); RBC 3.05 10x6/uL (4.20-6.10); RDW 18.3 % (11.5-14.5); WBC 6.1 10x3/uL (4.8-10.8)
[2018-12-25 11:50] VITALS: BP 91/52
[2018-12-25 17:40] VITALS: BP 102/67
[2018-12-26 00:05] VITALS: BP 100/66
[2018-12-26 06:06] VITALS: BP 84/48
[2018-12-26 06:58] LABS: ANION GAP 12.1 mmol/L (8-16); CALCIUM 10.4 mg/dL (8.5-10.1); CARBON DIOXIDE 28.5 mmol/L (21.0-32.0); CREATININE - SERUM 3.4 mg/dL (0.6-1.3); PHOSPHOROUS 3.9 mg/dL (2.5-4.9); POTASSIUM - SERUM 3.6 mmol/L (3.5-5.1)
[2018-12-26 12:06] VITALS: BP 83/47
[2018-12-26 18:00] VITALS: BP 112/70
[2018-12-27 00:05] VITALS: BP 106/65
[2018-12-27 06:00] VITALS: BP 96/66
[2018-12-27 07:22] LABS: BASOPHILS 0.2 % (0-2); EOSINOPHILS 1.1 % (0-7); HEMATOCRIT 27.4 % (42.0-54.0); HEMOGLOBIN 8.7 g/dL (13.5-17.5); IMMATURE GRANULOCYTES 0.4 % (0-5); LYMPHOCYTES 24.4 % (15-50); MCH 29.5 pg (26.0-34.0); MCHC 31.8 g/dL (31.0-37.0); MCV 92.9 fL (80.0-100.0); MEAN PLATELET VOLUME 9.5 fL (7.4-10.4); MONOCYTES 4.6 % (2-11); NEUTROPHILS 69.3 % (40-80); PLATELET COUNT 176 10x3/uL (130-400); RBC 2.95 10x6/uL (4.20-6.10); RDW 18.5 % (11.5-14.5); WBC 5.5 10x3/uL (4.8-10.8)
[2018-12-27 07:27] LABS: ANION GAP 13.5 mmol/L (8-16); CALCIUM 10.4 mg/dL (8.5-10.1); CARBON DIOXIDE 27.5 mmol/L (21.0-32.0)
[2018-12-27 11:38] VITALS: BP 98/68
[2018-12-27 18:38] VITALS: BP 98/60
[2018-12-27 23:53] VITALS: BP 104/66
[2018-12-28 06:03] LABS: BASOPHILS 0.2 % (0-2); EOSINOPHILS 0.4 % (0-7); HEMATOCRIT 27.3 % (42.0-54.0); HEMOGLOBIN 8.6 g/dL (13.5-17.5); IMMATURE GRANULOCYTES 0.2 % (0-5); LYMPHOCYTES 18.7 % (15-50); MCH 29.5 pg (26.0-34.0); MCHC 31.5 g/dL (31.0-37.0); MCV 93.5 fL (80.0-100.0); MEAN PLATELET VOLUME 9.5 fL (7.4-10.4); MONOCYTES 6.6 % (2-11); NEUTROPHILS 73.9 % (40-80); PLATELET COUNT 177 10x3/uL (130-400); RBC 2.92 10x6/uL (4.20-6.10); RDW 18.5 % (11.5-14.5); WBC 5.3 10x3/uL (4.8-10.8)
[2018-12-28 06:14] VITALS: BP 107/61
[2018-12-28 06:41] LABS: ANION GAP 13.5 mmol/L (8-16); CALCIUM 10.2 mg/dL (8.5-10.1); CARBON DIOXIDE 29.2 mmol/L (21.0-32.0); PHOSPHOROUS 4.2 mg/dL (2.5-4.9); POTASSIUM - SERUM 3.7 mmol/L (3.5-5.1); VANCOMYCIN - RANDOM 5.9 ug/mL (10.0-20.0)
[2018-12-28 06:45] LABS: CREATININE - SERUM 2.8 mg/dL (0.6-1.3)
[2018-12-28 11:55] VITALS: BP 100/60
[2018-12-28 17:42] VITALS: BP 92/59
[2018-12-29 00:42] VITALS: BP 94/59
[2018-12-29 05:50] VITALS: BP 101/48
[2018-12-29 12:37] VITALS: BP 94/57
[2018-12-29 18:01] VITALS: BP 100/58
[2018-12-29 21:30] VITALS: BP 103/65
[2018-12-30 05:50] VITALS: BP 97/54
[2018-12-30 11:39] VITALS: BP 101/66
[2018-12-30 19:00] VITALS: BP 97/64
[2018-12-31 00:23] VITALS: BP 106/68
[2018-12-31 06:11] VITALS: BP 98/63
[2018-12-31 07:57] LABS: BASOPHILS 0 % (0-2); EOSINOPHILS 0.6 % (0-7); HEMATOCRIT 26.9 % (42.0-54.0); HEMOGLOBIN 8.3 g/dL (13.5-17.5); IMMATURE GRANULOCYTES 0.2 % (0-5); LYMPHOCYTES 18.4 % (15-50); MCH 29.2 pg (26.0-34.0); MCHC 30.9 g/dL (31.0-37.0); MCV 94.7 fL (80.0-100.0); MEAN PLATELET VOLUME 9.5 fL (7.4-10.4); MONOCYTES 5.6 % (2-11); NEUTROPHILS 75.2 % (40-80); PLATELET COUNT 177 10x3/uL (130-400); RBC 2.84 10x6/uL (4.20-6.10); RDW 18.8 % (11.5-14.5); WBC 5.4 10x3/uL (4.8-10.8)
[2018-12-31 09:18] LABS: ANION GAP 17.8 mmol/L (8-16); CARBON DIOXIDE 24.5 mmol/L (21.0-32.0); CREATININE - SERUM 5.4 mg/dL (0.6-1.3); POTASSIUM - SERUM 4.3 mmol/L (3.5-5.1)
[2018-12-31 11:47] VITALS: BP 89/58
[2018-12-31 18:00] VITALS: BP 98/61
[2019-01-01 00:21] VITALS: BP 85/58
[2019-01-01 05:58] VITALS: BP 97/65
[2019-01-01 08:08] LABS: ANION GAP 16.8 mmol/L (8-16); CALCIUM 9.9 mg/dL (8.5-10.1); CARBON DIOXIDE 26.2 mmol/L (21.0-32.0); CREATININE - SERUM 4.1 mg/dL (0.6-1.3)
[2019-01-01 08:10] LABS: BASOPHILS 0.2 % (0-2); EOSINOPHILS 0.4 % (0-7); HEMATOCRIT 25.5 % (42.0-54.0); HEMOGLOBIN 7.9 g/dL (13.5-17.5); IMMATURE GRANULOCYTES 0.2 % (0-5); LYMPHOCYTES 17.1 % (15-50); MCH 29.3 pg (26.0-34.0); MCV 94.4 fL (80.0-100.0); MEAN PLATELET VOLUME 9.6 fL (7.4-10.4); MONOCYTES 8.1 % (2-11); PLATELET COUNT 162 10x3/uL (130-400); RDW 18.8 % (11.5-14.5); WBC 5.4 10x3/uL (4.8-10.8)
[2019-01-01 13:58] VITALS: BP 95/58
[2019-01-01 18:00] VITALS: BP 103/68
[2019-01-02 00:13] VITALS: BP 98/61
[2019-01-02 06:23] VITALS: BP 88/58
[2019-01-02 13:00] VITALS: BP 90/56
[2019-01-02 18:00] VITALS: BP 92/58
[2019-01-03] VITALS: BP 87/59
[2019-01-03 06:26] VITALS: BP 105/69
[2019-01-03 06:29] LABS: ANION GAP 16.9 mmol/L (8-16); CALCIUM 10.9 mg/dL (8.5-10.1); CREATININE - SERUM 4.4 mg/dL (0.6-1.3); POTASSIUM - SERUM 3.9 mmol/L (3.5-5.1); VANCOMYCIN - RANDOM 15.6 ug/mL (10.0-20.0)
[2019-01-03 07:01] LABS: BASOPHILS 0 % (0-2); EOSINOPHILS 0.5 % (0-7); HEMATOCRIT 25.6 % (42.0-54.0); HEMOGLOBIN 8.1 g/dL (13.5-17.5); IMMATURE GRANULOCYTES 0.2 % (0-5); MCHC 31.6 g/dL (31.0-37.0); MEAN PLATELET VOLUME 9.7 fL (7.4-10.4); MONOCYTES 7.4 % (2-11); NEUTROPHILS 70.9 % (40-80); PLATELET COUNT 174 10x3/uL (130-400); RBC 2.79 10x6/uL (4.20-6.10); RDW 18.9 % (11.5-14.5); WBC 4.1 10x3/uL (4.8-10.8)
[2019-01-03 07:05] LABS: MCV 91.8 fL (80.0-100.0)
[2019-01-03 12:29] VITALS: BP 91/60
[2019-01-03 18:19] VITALS: BP 108/58
[2019-01-04 00:21] VITALS: BP 102/65
[2019-01-04 06:12] VITALS: BP 95/60
[2019-01-04 07:29] VITALS: BP 107/66
[2019-01-04 11:56] VITALS: BP 84/51
[2019-01-04 17:04] VITALS: BP 96/62
[2019-01-04 20:00] VITALS: BP 90/62
[2019-01-05 00:07] VITALS: BP 109/70
[2019-01-05 05:50] VITALS: BP 107/73
[2019-01-05 08:39] VITALS: BP 109/69
[2019-01-05 11:38] VITALS: BP 101/69
[2019-01-05 17:00] VITALS: BP 98/66
[2019-01-06 00:45] VITALS: BP 109/69
[2019-01-06 06:08] VITALS: BP 103/67
[2019-01-06 06:17] LABS: ANION GAP 17.8 mmol/L (8-16); CALCIUM 11.7 mg/dL (8.5-10.1); CARBON DIOXIDE 27.2 mmol/L (21.0-32.0); CREATININE - SERUM 5.3 mg/dL (0.6-1.3)
[2019-01-06 06:53] LABS: BASOPHILS 0 % (0-2); EOSINOPHILS 0.4 % (0-7); HEMATOCRIT 26.6 % (42.0-54.0); HEMOGLOBIN 8.6 g/dL (13.5-17.5); IMMATURE GRANULOCYTES 0.8 % (0-5); LYMPHOCYTES 13.6 % (15-50); MCH 29.5 pg (26.0-34.0); MCHC 32.3 g/dL (31.0-37.0); MCV 91.1 fL (80.0-100.0); MONOCYTES 6.4 % (2-11); NEUTROPHILS 78.8 % (40-80); PLATELET COUNT 187 10x3/uL (130-400); RBC 2.92 10x6/uL (4.20-6.10); RDW 19.1 % (11.5-14.5); WBC 4.7 10x3/uL (4.8-10.8)
[2019-01-06] MEDS ORDERED: ASPIRIN81 MG PO (08:31)
[2019-01-06 12:51] VITALS: BP 101/52
== END 2019-01-06 14:38 | DRG 981 ==
LOC: D.REHAB 16:01
PROVIDERS: Internal Medicine Nephrology; Surgery; ADMIT Emergency Medicine; ATTEND Emergency Medicine
PROC: 05763ZZ Dilation of Left Subclavian Vein, Percutaneous Approach (ICD-10-PCS; principal; 2018-12-20 12:15)
DX: G72.89 Other specified myopathies (principal); N18.6 End stage renal disease; I12.0 Hypertensive chronic kidney disease with stage 5 chronic kidney disease or end stage renal disease; J81.1 Chronic pulmonary edema; E87.1 Hypo-osmolality and hyponatremia; N25.81 Secondary hyperparathyroidism of renal origin; I70.269 Atherosclerosis of native arteries of extremities with gangrene, unspecified extremity; Z47.81 Encounter for orthopedic aftercare following surgical amputation; Z89.512 Acquired absence of left leg below knee; Z89.511 Acquired absence of right leg below knee; T25.322D Burn of third degree of left foot, subsequent encounter; E11.22 Type 2 diabetes mellitus with diabetic chronic kidney disease; Z99.2 Dependence on renal dialysis; J44.9 Chronic obstructive pulmonary disease, unspecified; F17.200 Nicotine dependence, unspecified, uncomplicated; I73.9 Peripheral vascular disease, unspecified; M10.9 Gout, unspecified; I10 Essential (primary) hypertension; E78.5 Hyperlipidemia, unspecified; E11.9 Type 2 diabetes mellitus without complications